=== PATIENT | male | born 1970 | race Caucasian/White ===

== ENCOUNTER 2017-12-03 16:56 | Emergency (ER) | payer BC, OTHER ==
[2017-12-03] MEDS ORDERED: SODIUM CHLORIDE 0.9% 2,000 ML IV ONE (17:07)
[2017-12-03] MEDS ORDERED: ONDANSETRON 4 MG/2 ML VIAL IVP STA (17:08)
--- NOTE | 2017-12-03 17:11 | ED ---
Nausea/Vomiting/Diarrhea HPI - General Chief complaint: Nausea/Vomiting/Diarrhea Stated complaint: Vomiting Time Seen by Provider: 12/03/17 17:03 Source: patient, RN notes reviewed Mode of arrival: ambulatory Limitations: no limitations - History of Present Illness Initial comments: 47-year-old male presents emergency Department with chief complaint of nausea vomiting, generalized weakness. Patient states his diabetic is concerned because of his symptoms. Patient's that he started with diarrhea few days ago which has subsided and now he just has vomiting has not been able to keep anything down for several days. His blood sugar earlier today was 110. He states as blood sugar has not been severely elevated. He does have an insulin pump on. Patient denies any fever, chills. He states he felt dizzy earlier but he has had no chest pain no shortness of breath. Denies any dysuria or hematuria. - Related Data Previous Rx's Medication Instructions Recorded Ondansetron Odt [Zofran Odt] 4 mg PO Q8HR PRN #10 tab 12/03/17 Allergies Allergy/AdvReac Type Severity Reaction Status Date / Time No Known Allergies Allergy Verified 12/03/17 17:02 Review of Systems ROS Statement: Those systems with pertinent positive or pertinent negative responses have been documented in the HPI. ROS Other: All systems not noted in ROS Statement are negative. Past Medical History Past Medical History: Diabetes Mellitus History of Any Multi-Drug Resistant Organisms: None Reported Past Surgical History: Cholecystectomy, Tonsillectomy Additional Past Surgical History / Comment(s): cataracts Past Psychological History: No Psychological Hx Reported Smoking Status: Never smoker Past Alcohol Use History: None Reported Past Drug Use History: None Reported General Exam Limitations: no limitations General appearance: alert, in no apparent distress Head exam: Present: atraumatic, normocephalic, normal inspection Eye exam: Present: normal appearance, PERRL, EOMI. Absent: scleral icterus, conjunctival injection, periorbital swelling Respiratory exam: Present: normal lung sounds bilaterally. Absent: respiratory distress, wheezes, rales, rhonchi, stridor Cardiovascular Exam: Present: normal rhythm, tachycardia, normal heart sounds. Absent: systolic murmur, diastolic murmur, rubs, gallop, clicks GI/Abdominal exam: Present: soft, normal bowel sounds. Absent: distended, tenderness, guarding, rebound, rigid Back exam: Absent: CVA tenderness (R), CVA tenderness (L) Neurological exam: Present: alert, oriented X3, CN II-XII intact Course Vital Signs 12/03/17 12/03/17 16:58 18:02 Temperature 98.8 F Pulse Rate 109 H 94 Respiratory 20 18 Rate Blood Pressure 183/102 143/76 O2 Sat by Pulse 98 96 Oximetry Medical Decision Making - Medical Decision Making 47-year-old male presented for nausea vomiting. Patient's was hydrated well 2 L of fluid given antiemetics. Patient is not found to be in DKA at this time. Patient was improved after antiemetics and fluids. Patient will be discharged with Zofran and follow-up tomorrow. - Lab Data Result diagrams: 12/03/17 17:10 12/03/17 17:10 Lab Results 12/03/17 12/03/17 12/03/17 Range/Units 17:10 17:10 17:10 WBC 11.7 H (3.8-10.6) k/uL RBC 5.07 (4.30-5.90) m/uL Hgb 14.9 (13.0-17.5) gm/dL Hct 42.6 (39.0-53.0) % MCV 83.9 (80.0-100.0) fL MCH 29.3 (25.0-35.0) pg MCHC 35.0 (31.0-37.0) g/dL RDW 12.6 (11.5-15.5) % Plt Count 213 (150-450) k/uL Neutrophils % 75 % Lymphocytes % 14 % Monocytes % 7 % Eosinophils % 1 % Basophils % 0 % Neutrophils # 8.8 H (1.3-7.7) k/uL Lymphocytes # 1.7 (1.0-4.8) k/uL Monocytes # 0.8 (0-1.0) k/uL Eosinophils # 0.1 (0-0.7) k/uL Basophils # 0.0 (0-0.2) k/uL VBG pH 7.43 H (7.31-7.41) VBG pCO2 37 (37-51) mmHg VBG HCO3 24 (24-28) mmol/L Sodium 139 (137-145) mmol/L Potassium 3.8 (3.5-5.1) mmol/L Chloride 99 (98-107) mmol/L Carbon Dioxide 25 (22-30) mmol/L Anion Gap 15 mmol/L BUN 25 H (9-20) mg/dL Creatinine 1.02 (0.66-1.25) mg/dL Est GFR (CKD-EPI)AfAm >90 (>60 ml/min/1.73 sqM) Est GFR (CKD-EPI)NonAf 86 (>60 ml/min/1.73 sqM) Glucose 216 H (74-99) mg/dL Calcium 8.5 (8.4-10.2) mg/dL Total Bilirubin 1.2 (0.2-1.3) mg/dL AST 38 (17-59) U/L ALT 37 (21-72) U/L Alkaline Phosphatase 73 (38-126) U/L Total Protein 6.0 L (6.3-8.2) g/dL Albumin 3.5 (3.5-5.0) g/dL Acetone, Qual Positive (Negative) Disposition Clinical Impression: Nausea & vomiting Disposition: HOME SELF-CARE Instructions: Acute Nausea and Vomiting (ED), Managing Diabetes During Sick Days (ED) Additional Instructions: Please return to the Emergency Department if symptoms worsen or any other concerns. Prescriptions: Ondansetron Odt [Zofran Odt] 4 mg PO Q8HR PRN #10 tab PRN Reason: Nausea Is patient prescribed a controlled substance at d/c from ED?: No Referrals: Calixto Hou DO [Primary Care Provider] - 1-2 days
[2017-12-03 17:34] LABS: VBG PH 7.43 (7.31-7.41)
[2017-12-03 17:39] LABS: ALT 37 U/L (21-72); AST 38 U/L (17-59); Albumin 3.5 g/dL (3.5-5.0); Alkaline Phosphatase 73 U/L (38-126); Anion Gap 15 mmol/L; Blood Urea Nitrogen 25 mg/dL (9-20); Calcium 8.5 mg/dL (8.4-10.2); Carbon Dioxide 25 mmol/L (22-30); Chloride 99 mmol/L (98-107); Glucose 216 mg/dL (74-99); Potassium 3.8 mmol/L (3.5-5.1); Sodium 139 mmol/L (137-145); Total Bilirubin 1.2 mg/dL (0.2-1.3)
[2017-12-03 17:44] LABS: Basophils % (A) 0 %; Eosinophils # (A) 0.1 k/uL (0-0.7); Eosinophils % (A) 1 %; HCT 42.6 % (39.0-53.0); HGB 14.9 gm/dL (13.0-17.5); Lymphocytes # (A) 1.7 k/uL (1.0-4.8); Lymphocytes % (A) 14 %; MCH 29.3 pg (25.0-35.0); MCV 83.9 fL (80.0-100.0); Mean Platelet Volume 8.3; Monocytes # (A) 0.8 k/uL (0-1.0); Monocytes % (A) 7 %; Neutrophils # (A) 8.8 k/uL (1.3-7.7); Neutrophils % (A) 75 %; Platelet Count 213 k/uL (150-450); RBC 5.07 m/uL (4.30-5.90); RDW 12.6 % (11.5-15.5); WBC 11.7 k/uL (3.8-10.6)
[2017-12-03] MEDS ORDERED: METOCLOPRAMIDE 5 MG/ML 2 ML VIAL IVP STA (17:56)
--- NOTE | 2017-12-03 17:59 | XR ---
EXAMINATION TYPE: XR KUB DATE OF EXAM: 12/03/2017 5:54 PM CLINICAL HISTORY: Abdominal pain, nausea and vomiting TECHNIQUE: Single supine KUB image of the abdomen is obtained. COMPARISON: None. FINDINGS: Scattered gas is seen in non-distended small bowel loops. Gas and fecal material is seen in non-distended colon. There is no visceromegaly, pneumoperitoneum, or abnormal calcification apprecia mague. The lung bases are clear and the osseous structures are intact. Cholecystectomy clips are noted within the right upper quadrant. IMPRESSION: Nonobstructive bowel gas pattern.
[2017-12-03 18:02] VITALS: RESP 18
[2017-12-03] MEDS ORDERED: ONDANSETRON 4 MG ODT STARTER PACK 2 TAB BTL PO STA (18:19)
[2017-12-03 19:41] VITALS: BP 147/70; PULSE 90; TEMP 98
== END 2017-12-03 19:41 | disposition home or self-care (01) ==
LOC: EC 16:56
DX: R11.2 Nausea with vomiting, unspecified (principal); R53.1 Weakness; E11.9 Type 2 diabetes mellitus without complications; Z96.41 Presence of insulin pump (external) (internal); Z79.4 Long term (current) use of insulin
CPT/HCPCS: 99284; 96374; 96375; 96361 ×2; 36415; 80053; 82803; 82009; 85025; 74018; J2765; J2405; S0119

== ENCOUNTER → 2018-07-31 | Outpatient (CLI) | payer BC ==
[2018-07-31 07:48] LABS: Blood Urea Nitrogen 23 mg/dL (9-20)
--- NOTE | 2018-07-31 10:15 | CT ---
EXAMINATION TYPE: CT soft tissue neck w con DATE OF EXAM: 07/31/2018 COMPARISON: None HISTORY: Enlarged lymph nodes found by physician. CT DLP: 551.4 mGycm CONTRAST: Patient injected with 100 mL of Isovue 300. TECHNIQUE: Axial images at 3 mm thick sections. Reconstructed images in the coronal plane and sagitt al plane are reviewed. FINDINGS: Limited CT sections are obtained the lung apices. The lung apices appear clear. CT neck: The torus tubarius and fossa of Rosenmuller are normal. Pediatric Physical Therapist spaces are normal. Mild mucosal thickening is within ethmoid air cells. Parotid glands appear normal and symmetrical. Submandibular glands, are normal. There is an enlarged lymph node anterior submandibular space measuring 0 cm. Additional shotty adenopathy bilaterally. Pa rapharyngeal spaces are normal. The hypopharynx appears within normal limits. Vocal cord is symmetrical. Subglottic airway is unremar kable. Vocal cord level appear symmetrical. Thyroid as visualized is normal. Osseous structures are normal. IMPRESSIONS: 1. Shotty lymph nodes present bilaterally within the anterior and posterior triangles. There is a lar ge lymph node in the left submandibular region measuring 1.0 cm.
== END ==
LOC: RADCTMAIN 07:16
PROVIDERS: ATTEND Family Medicine
DX: R59.1 Generalized enlarged lymph nodes (principal); Z13.9 Encounter for screening, unspecified
CPT/HCPCS: 82565; 84520; 70491; 36415; Q9967

== ENCOUNTER → 2018-11-23 | Outpatient (CLI) | payer BC ==
--- NOTE | 2018-11-23 08:12 | MR ---
EXAMINATION TYPE: MR neck wo/w con DATE OF EXAM: 11/23/2018 COMPARISON: CT neck July 31, 2018 HISTORY: Swollen lymph nodes per order. Left-sided neck mass per patient. CONTRAST: Standard multiplanar, multisequence MRI departmental protocol utilizing 10 mL intravenous Gadavist ga dolinium contrast. FINDINGS: A vitamin E marker is placed at area of clinical concern left submandibular level above the hyoid bone axial image 16. Correlating with CT deep to the sternocleidomastoid mastoid muscle there is redemonstration of enlarged suspicious posterior cervical triangle lymph node measuring 2.4 x 1.4 cm axial image 15. There are additional bilateral prominent but subcentimeter lymph nodes throughout the neck bilaterally. For reference at level of focal cords left of the carotid and jugular vessels t here is 1.4 x 0.8 cm lymph node noted axial image 6. Stable prominent bilateral submandibular and pos terior cervical lymph nodes are redemonstrated. There is slight asymmetry of soft tissue at the tongue base with increased right-sided fullness seen best axial images 14 and 15. Consider direct visualization if it has not been performed. No definitiv e mass is present. Airway remains patent. Parotid and submandibular glands are symmetric and felt within normal limits. There is mild mucosal thickening involving ethmoid and inferior maxillary sinuses bilaterally. Nasal septum remains slightly deviated to right of midline. Visualized portion of brain parenchyma is unrem arkable. Visualized thyroid gland is within normal limits. IMPRESSION: Stable suspicious enlarged left posterior cervical triangle lymph node with stable promin ent but subcentimeter bilateral neck lymph nodes. No new masses. Neoplasm is not excluded. Consider P ET CT follow-up. Consider imaging guided FNA. Clinical correlation advised.
== END ==
LOC: RADMRIMAIN 06:57
PROVIDERS: ATTEND Otolaryngology
DX: R22.1 Localized swelling, mass and lump, neck (principal)
CPT/HCPCS: 70543; A9585

== ENCOUNTER → 2019-01-08 | Outpatient (CLI) | payer BC ==
[2019-01-08 08:54] LABS: MCH 29.7 pg (25.0-35.0); MCHC 33.3 g/dL (31.0-37.0); MCV 89.2 fL (80.0-100.0); Platelet Count 196 k/uL (150-450); RBC 4.71 m/uL (4.30-5.90); RDW 13.8 % (11.5-15.5); WBC 5.4 k/uL (3.8-10.6)
== END | disposition home or self-care (01) ==
LOC: LABWHC1 07:54
PROVIDERS: ATTEND Otolaryngology
DX: Z01.812 Encounter for preprocedural laboratory examination (principal)
CPT/HCPCS: 36415; 85027

== ENCOUNTER → 2019-01-11 | Day surgery (SDC) | payer BC ==
[2019-01-08 15:02] VITALS: BMI 29.1
--- NOTE | 2019-01-10 23:50 | HP ---
HISTORY AND PHYSICAL CHIEF COMPLAINT: Left neck mass. HISTORY OF PRESENT ILLNESS: This patient is a very pleasant 48-year-old male who was originally seen in my office in August of 2018 as a referral for evaluation of neck mass. The patient states that the mass on the left side of the neck had been there for approximately 2 months. The patient is a nonsmoker and never has used any tobacco products. His family physician performed a CT scan which showed evidence of a 1 cm lymph node located in the area of the left submandibular gland and some shotty adenopathy bilaterally. The patient denied any referred otalgia or difficulty swallowing or night sweats. At the time that he was seen in the office, clinical examination revealed that the patient had a solitary, mobile, nontender, nonfluctuant mass/possible lymph node located in the region of the left submandibular/posterior triangle. The mass had the consistency of a lymph node. No other associated lymph nodes were noted. It was recommended that the patient be rechecked in approximately 3 months. The patient returned 3 months later and at that time an MRI was performed, and this showed evidence again of the left neck mass which appeared to be deep to the sternomastoid muscle and measured approximately 2.4 x 1.4 cm. In addition, there were noted bilateral prominent but sub-centimeter lymph nodes throughout the neck bilaterally. There did not appear to be any change in the size of any of the masses, and no new masses were associated when compared with the previous CT scan. The radiologist recommended that a PET CT scan be performed. However, after over a 20-minute discussion with the patient's insurance company, they denied authorization for this test based on what I felt were unreasonable reasons. It was explained to the insurance company physician that, as a head and neck surgeon, we generally prefer not to do needle biopsies of suspicious masses because of concern about missing a possible malignancy and also concern about contaminating the neck. Therefore I advised them that it would be necessary to do an open excisional biopsy of this mass or one of the lymph nodes in the neck because of their refusal to allow a PET scan, which would definitely delineate the possibility of this being any type of malignancy versus a simple benign lymphadenopathy. This was discussed with the patient and it was recommended and the patient agreed to undergo excision of left neck mass under general anesthesia. I advised the patient that most likely he will go home the same day unless it was required that I place a drain in the left neck. If a drain is put in place, then he would need to remain in the hospital overnight. PAST MEDICAL HISTORY: Past medical history reveals that the patient has NO KNOWN ALLERGIES TO MEDICATIONS. CURRENT MEDICATIONS: His current medications include: 1. Candesartan/HCTZ. 2. Valsartan/HCTZ. 3. Carrol. 4. Nasonex. 5. NovoLog insulin. 6. Humalog insulin. 7. Amlodipine. 8. Zocor. 9. Metoprolol. 10.Atorvastatin. 11.One baby aspirin daily. The patient has history of hypertension and type 1 diabetes mellitus but no history of asthma. PAST SURGICAL HISTORY: Previous surgeries include: 1. Cholecystectomy. 2. Tonsillectomy. 3. Adenoidectomy. 4. Colonoscopy. 5. Bilateral cataract surgery. REVIEW OF SYSTEMS: CARDIOVASCULAR SYSTEM: Positive for hypertension. RESPIRATORY SYSTEM: Negative. METABOLIC, ENDOCRINE SYSTEM: Positive for type diabetes mellitus and hypercholesterolemia. The remainder of the review of systems is essentially unremarkable. PHYSICAL EXAMINATION: This patient is a pleasant 48-year-old male who is alert and cooperative. HEENT EXAMINATION: Patient is normocephalic. Tympanic membranes are normal. Middle ear spaces are free of any fluid or infection. Pupils are equal, round and reactive to light and accommodation. Extraocular movements are within normal limits. Intranasal examination reveals moderate septal deviation with compensatory hypertrophy of the inferior turbinates and a moderate amount of mucus on the mucous membranes draining down to posterior pharynx. Examination of oropharynx is unremarkable. Palpation of the neck reveals the patient has an approximately 2 x 1 cm well- circumscribed mobile, nontender, nonfluctuant mass located inferior and deep to the left sternomastoid muscle near the left posterior triangle of the neck. No other suspicious neck masses are noted. Cranial nerves II through XII and the remainder of the head and neck exam are essentially unremarkable. CHEST/CARDIOVASCULAR: Both lung vaughan are clear to percussion and auscultation. The patient is in regular sinus rhythm. S1 and S2 are present without evidence of any murmurs, S3s or S4s. Peripheral pulses are bilaterally symmetrical and within normal limits. ABDOMEN: There is no evidence of any masses, megaly or tenderness. The abdomen is soft. SKIN: Unremarkable. MUSCULOSKELETAL AND NEUROLOGICAL: Within normal limits. Rectal examination is deferred at this time because the patient has this done on a regular basis at his family physician's office. The remainder of the physical exam is unremarkable. ASSESSMENT: Left neck mass, malignancy? PLAN: The patient is scheduled to undergo excision of left neck mass under general anesthesia in the morning. ATTENTION RNs IN THE PRE-SURGICAL AREA: The only pre-surgical prophylactic antibiotic that I have ordered for this patient is 3 grams of Ancef IV to be given once an intravenous line has been established. Also I have ordered for this patient to receive 1000 mg of Ofirmev IV, again to be given once an intravenous line has been established. If the pharmacy department sends any other pre-surgical prophylactic antibiotic other than Ancef to the pre-surgical area for this patient, that order should be cancelled and the medication should be returned to the pharmacy department. Please make sure that the patient's account is credited appropriately. Again, the two medications I have ordered for this patient are 3 grams of Ancef IV and 1000 mg of Ofirmev IV. I have discussed the risks, benefits and alternative therapies for the above-mentioned procedure and for both sedation/analgesia as well as necessary blood product administration, if indicated, as they pertain to this patient. The patient has indicated his or her understanding and acceptance of the risks and procedures discussed. MMODL / IJN: [id number] /
[~2019-01-11] MED LIST: ACETAMINOPHEN IV (For NPO) 1,000 MG in EMPTY BAG 1 BAG IVPB ONE; BACITRACIN OINT 1 EACH PACKET TOPICAL ONE; DEXAMETHASONE SOD PHOS (MDV) 100 MG/10 ML VIAL ONE; DEXAMETHASONE SOD PHOSPHATE 10 MG/ML 1 ML VIAL IV ONE; HYDROmorphone 0.5 MG/0.5 ML SYRINGE IVP PRN; LACTATED RINGERS 1,000 ML IV SCH; LIDOCAINE 1% 20 ML VIAL (10MG/ML) FOR IV START INTRADERMA ONE; LIDOCAINE 1% INJ 10MG/ML (20 ML MDV) ONE; LIDOCAINE 1%-EPI 1:100,000 20 ML VIAL SQ ONE; METOCLOPRAMIDE 5 MG/ML 2 ML VIAL IVP ONE; MIDAZOLAM 2 MG/2 ML VIAL IV PRN; MIDAZOLAM 2 MG/2 ML VIAL ONE; ONDANSETRON 4 MG/2 ML VIAL IVP ONE; PROPOFOL 10 MG/ML 20 ML VIAL IV ONE; Pre Op ABX Message 1 EACH MISC MISCELLANE ONE; SCOPOLAMINE 1.5MG/72HR PATCH TRANSDERM ONE; SODIUM CHLORIDE 0.9% 1,000 ML IV ONE; SUCCINYLCHOLINE CHLORIDE VIAL 200 MG/10 ML VIAL IV ONE; ceFAZolin 3 GM in SODIUM CHLORIDE 0.9% 100 ML IVPB ONE; diphenhydrAMINE 50 MG/ML 1 ML VIAL IVP ONE; ePHEDrine SULFATE/0.9% NACL/PF 50 MG/5 ML SYRINGE IV ONE; fentaNYL (PF) 50 MCG/ML 2 ML AMP ONE
[2019-01-11 10:39] LABS: Glucose,Whole Blood 269 mg/dL (75-99)
[2019-01-11 14:42] LABS: Glucose,Whole Blood 270 mg/dL (75-99)
[2019-01-11 15:20] VITALS: TEMP 97.8
[2019-01-11 16:17] VITALS: RESP 17
[2019-01-11 16:25] VITALS: BP 166/88; PULSE 79
[2019-01-11 17:22] LABS: Glucose,Whole Blood 250 mg/dL (75-99)
--- NOTE | 2019-01-12 16:15 | OP ---
OPERATIVE REPORT PREOPERATIVE DIAGNOSIS: Left neck mass. POSTOPERATIVE DIAGNOSIS: Left neck mass, 2.3 x 2 cm, final pathology pending. ANESTHESIA: General anesthesia. OPERATIVE PROCEDURE: Complete excision of left neck mass. SURGEON: Dr. Wooten. COMPLICATIONS: None. ESTIMATED BLOOD LOSS: Less than 25 mL. OPERATIVE PROCEDURE: The patient is placed on operating table in supine position and after uneventful induction and endotracheal intubation, satisfactory general anesthesia was obtained. Next, the patient's left neck and sarah face was prepped and draped in the usual and customary fashion. Following this, it was noted that the mass was located in the posterior triangle that is to day posterior to the left sternomastoid muscle. The proposed incision was located approximately 2-3 fingerbreadths below the lower edge of the mandible in an effort to avoid injuring the left marginal branch of the left facial nerve. Using a Goko marking pen, the proposed incision was made in one of the natural skin creases at this point in such a manner as to cross the left sternomastoid muscle anteriorly and posteriorly. The area was infiltrated with approximately 4 mL of 1% Xylocaine with epinephrine 1:100,000. Following this, using a #15 scalpel blade. An incision was made through skin and subcutaneous tissue down to the level of the platysma. The platysma muscle was then sharply incised in the usual and customary fashion down to the level of the overlying and the dissection was carried down to the level of the overlying superficial fascia of the neck. Next, the superior and inferior flaps were created in the usual fashion using a combination of blunt and sharp dissection. Attention was taken to identify and delineate the anterior and posterior borders of the left sternomastoid muscles. Care was taken to avoid injuring the left greater auricular nerve and it was dissected free from the underlying sternomastoid muscle and retracted anteriorly. Next, the external jugular vein was identified, dissected free of the muscle, clamped and double ligated using 4-0 silk sutures in the usual fashion. Next, attention was directed towards freeing up the anterior border of the left sternomastoid muscle using a combination of blunt and sharp dissection with a mosquito hemostat, working both inferiorly and superiorly. Next, the posterior border of the left sternomastoid muscle was identified and it too was freed up using a combination of sharp and blunt dissection with the scissors, the #15 scalpel, a mosquito hemostat, and peanut pushers. The dissection was carried deep into the floor of the left posterior triangle of the neck. That is to say, the scalene muscles as well as other contents of the posterior triangle were identified, namely the cervical branches of the nerve going to the muscles and also the spinal accessory nerve which was seen to be running diagonally from a superior to inferior fashion in the superior aspect of the field. The mass in question was noted to be deep to the sternal mastoid muscle and was located posterior lateral to the left carotid sheath. This sheath had been identified and protected. Next, after much deep palpation, the mass itself was correctly identified and was found to be approximately 2 x 2-1/2 cm in dimensions, well circumscribed, although it was somewhat irregular in its shape, it was found to be smooth. Continuing to use blunt dissection mainly with peanuts and with the curved mosquito hemostats, the mass which extended somewhat superiorly into the neck toward the left angle of the mandible was dissected from the floor of the left posterior triangle in a very careful fashion again taking care to protect the left spinal accessory nerve as well as the other cervical branches of the nerve. No neural structures were cut and hemostasis was obtained mainly using pressure, occasional Bovie and infrequent ligation using 4-0 silk ties. Bleeding was kept to a minimum. Process was quite tedious because of the location of the mass and because of its size and the fact that it actually extended deep into the scalene muscles towards the spinal muscles. The mass was eventually delivered into the wound and with further blunt dissection was free from the surrounding investing fascia muscles extractor. The mass was subsequently delivered out of the wound completely, although it was done so in several pieces. Further inspection did not reveal any remnants of the mass being left nor was any evidence of any active bleeding. Again, cautery was used on a limited basis because of the important neural structures in the area. Although, the hemostasis appeared to be the adequate, I placed a small piece of Surgicel in the deepest portion of the wound defect and elected not to place any type of drain since there was no active bleeding. The wound defect was closed in multiple layers beginning with the deep and the investing fascia layers which were reapproximated using 4-0 Vicryl in an interrupted fashion. Next, the fascia investing the sternomastoid muscle was reapproximated again using posteriorly using 4-0 Vicryl sutures in interrupted fashion. The anterior portion of the sternomastoid muscle investing fascia was also reapproximated thus once again securing coverage of the carotid sheath on the left. This was done using 4-0 Vicryl in an interrupted fashion. The greater auricular nerve was preserved. The superficial investing fascia of the neck was closed in a layer using full rapid absorbing Vicryl suture in an interrupted fashion. The platysmal muscle was next reapproximated at its edges using 4-0 rapid absorbing Vicryl in interrupted buried fashion. The subcutaneous tissue was reapproximated using full rapid absorbing Vicryl in an interrupted fashion. Next, the skin itself was carefully approximated using 4-0 rapid absorbing Vicryl in an interrupted fashion. Having closed this defect in multiple layers, created excellent cosmetic closure of the wound defect. Further buttressing of the wound was obtained by final skin closure using surgical elizabet in the usual fashion. No tissue glue was used. At this point, the procedure was terminated. There was no drain placed. There was no bleeding noted and no dressing was applied. A coating of bacitracin ointment was applied along with the role of surgical elizabet and at this point, the procedure was terminated. Estimated blood loss less than 25 mL. This procedure was started at approximately 11:35 and ended at approximately 2:35 for a total operating time of 3 hours. This is well beyond the normal operating time for a neck mass and the reason for the extended operating time was because the mass was extremely deep and because of its location in the posterior triangle and the surrounding important neurological structures, namely the greater auricular nerve, the cervical branches of the neck and also the left spinal accessory nerve, all of which were preserved and not injured during this slow dissection. Therefore, the 3 hour operating time was double the amount of time that would normally take to remove such a neck mass. The patient tolerated the procedure well and was returned to the recovery room in satisfactory condition. Final pathology is pending. MMODL / IJN: [id number] /
== END | disposition home or self-care (01) ==
LOC: OR 10:12
PROVIDERS: ATTEND Otolaryngology
DX: C91.10 Chronic lymphocytic leukemia of B-cell type not having achieved remission (principal); I10 Essential (primary) hypertension; E10.9 Type 1 diabetes mellitus without complications; E78.5 Hyperlipidemia, unspecified; E78.00 Pure hypercholesterolemia, unspecified; Z79.82 Long term (current) use of aspirin; Z79.4 Long term (current) use of insulin; Z79.891 Long term (current) use of opiate analgesic; Z79.899 Other long term (current) drug therapy; Z90.49 Acquired absence of other specified parts of digestive tract; Z98.42 Cataract extraction status, left eye; Z98.41 Cataract extraction status, right eye
CPT/HCPCS: 21556; J2250; J0330; J1200; J2765; J0690; J2405; J2001; J3010; J1100; J0131; J2704; 88307; 88341; 88342

== ENCOUNTER → 2019-02-06 | Outpatient (CLI) | payer BC ==
[2019-02-06 07:40] LABS: African American GFR (CKD) >90 (>60 ml/min/1.73 sqM); Blood Urea Nitrogen 24 mg/dL (9-20)
--- NOTE | 2019-02-06 10:17 | CT ---
EXAMINATION TYPE: CT ChestAbdPelvis w con DATE OF EXAM: 02/06/2019 COMPARISON: HISTORY: Leukemia CT DLP: 2029 mGycm CONTRAST: CT scan of the chest, abdomen and pelvis is performed with Oral Contrast and with IV Contrast, patien t injected with 100 mL of Isovue 300. CT Chest: LUNGS: The lungs are clear and free of infiltrate or atelectasis. No pulmonary nodule or mass is det ected. No pleural effusion or CT evidence of interstitial lung disease. MEDIASTINUM: Thoracic aorta is of normal caliber. The heart is not enlarged. No evidence for media stinal mass or adenopathy. Small hiatal hernia noted. HILAR STRUCTURES: No evidence for mass. No hilar adenopathy is appreciated. OTHER: Multiple Bilateral axillary lymph nodes are noted measuring up to 8 mm on the right and 8 mm o n the left. No lymph nodes greater than 1 cm present at this time. CONTRAST CT ABDOMEN AND PELVIS FINDINGS: LIVER/GB: Cholecystectomy clips are identified. No space occupying hepatic lesion. Biliary tree is of normal caliber. PANCREAS: No inflammation. No distinct mass. SPLEEN: No splenic enlargement. No lesion seen. ADRENALS: No nodule. No thickening. KIDNEYS/BLADDER: No hydronephrosis. No nephrolithiasis. Right renal cortical cyst measuring 1.3 cm. No solid renal lesion. BOWEL: Normal appendix. Normal bowel caliber. No inflammation. GENITAL ORGANS: No gross abnormality. LYMPH NODES: No greater than 1cm abdominal or pelvic lymph nodes are appreciated. Subcentimeter ingu inal lymph nodes identified. AORTA: No significant abnormality. OSSEOUS STRUCTURES: No significant abnormality is seen. OTHER: No significant additional abnormality is seen. IMPRESSION: 1. Subcentimeter axillary and inguinal lymph nodes identified. No pathologic adenopathy appreciated a t this time.
== END | disposition home or self-care (01) ==
LOC: RADCTMAIN 06:51
PROVIDERS: ATTEND Internal Medicine Hematology & Oncology
DX: C95.90 Leukemia, unspecified not having achieved remission (principal); Z03.89 Encounter for observation for other suspected diseases and conditions ruled out; R59.0 Localized enlarged lymph nodes
CPT/HCPCS: 82565; 84520; 71260; 74177; 36415; Q9967

== ENCOUNTER 2020-03-25 05:18 | Inpatient (IN) | payer BC, OTHER ==
[2020-03-25 05:49] LABS: Glucose,Whole Blood 349 mg/dL (75-99)
[2020-03-25] MEDS ORDERED: SODIUM CHLORIDE 0.9% 2,000 ML IV ONE (06:14)
[2020-03-25 06:15] LABS: HCT 48.6 % (39.0-53.0); HGB 16.2 gm/dL (13.0-17.5); MCH 30.1 pg (25.0-35.0); MCHC 33.4 g/dL (31.0-37.0); MCV 90.1 fL (80.0-100.0); Mean Platelet Volume 8.3; Platelet Count 297 k/uL (150-450); RBC 5.39 m/uL (4.30-5.90); RDW 12.5 % (11.5-15.5)
[2020-03-25 06:20] LABS: VBG PH 7.16 (7.31-7.41)
[2020-03-25 06:27] LABS: ALT 15 U/L (4-49); AST 18 U/L (17-59); African American GFR (CKD) 58 (>60 ml/min/1.73 sqM); Albumin 4.6 g/dL (3.5-5.0); Alkaline Phosphatase 85 U/L (38-126); Blood Urea Nitrogen 25 mg/dL (9-20); Calcium 9.3 mg/dL (8.4-10.2); Chloride 104 mmol/L (98-107); Glucose 314 mg/dL (74-99); Non-African American GFR(CKD) 50 (>60 ml/min/1.73 sqM); Sodium 138 mmol/L (137-145); Total Bilirubin 0.7 mg/dL (0.2-1.3); Total Protein 7.1 g/dL (6.3-8.2)
[2020-03-25 06:32] LABS: Anion Gap 26 mmol/L
[2020-03-25 06:35] LABS: Carbon Dioxide 8 mmol/L (22-30)
[2020-03-25 06:39] LABS: INR 0.9 (<1.2); Prothrombin Time 9.8 sec (9.0-12.0)
[2020-03-25 06:42] LABS: Partial Thromboplastin Time 21.2 sec (22.0-30.0)
[2020-03-25] MEDS ORDERED: Magnesium Replacement Protocol 1 EACH MISC MISCELLANE PRN (06:52)
[2020-03-25] MEDS ORDERED: Potassium Replacement Protocol 1 EACH MISC MISCELLANE PRN (06:52)
[2020-03-25] MEDS ORDERED: INSULIN REGULAR BOLUS (FROM DRIP BAG) IV ONE (06:52)
[2020-03-25] MEDS ORDERED: SODIUM CHLORIDE 0.9% 1,000 ML IV SCH (07:00)
[2020-03-25] MEDS ORDERED: INSULIN REGULAR 100 UNIT in SODIUM CHLORIDE 0.9% 100 ML IV SCH (07:00)
[2020-03-25 07:02] LABS: Appearance,Urine Clear (Clear); Bilirubin,Urine Negative (Negative); Blood,Urine Small (Negative); Color,Urine Light Yellow; Glucose,Urine (UA) 4+ (Negative); Hyaline Casts,Urine 1 /lpf (0-2); Leukocyte Esterase,Urine Negative (Negative); Mucus,Urine Rare /hpf; Nitrite,Urine Negative (Negative); PH, Urine 5.5 (5.0-8.0); Protein,Urine 2+ (Negative); Specific Gravity,Urine 1.023 (1.001-1.035); Squamous Epithelial Cell,Urine 1 /hpf (0-4); Urobilinogen,Urine <2.0 mg/dL (<2.0); WBC,Urine 2 /hpf (0-5)
--- NOTE | 2020-03-25 07:09 | ED ---
General Adult HPI - General Chief complaint: Nausea/Vomiting/Diarrhea Stated complaint: Vomiting Time Seen by Provider: 03/25/20 05:33 Source: patient Mode of arrival: ambulatory Limitations: no limitations - History of Present Illness Initial comments: Walter is a 50-year-old male with insulin-dependent type 1 diabetes diagnosed at the age of 28. Patient has very well controlled diabetes with a insulin pump. He has only had 4 hospital admissions for DKA in 22 years. Patient reports that throughout the day yesterday as feeling somewhat nauseated he was up all night with nausea vomiting began to feel very fatigued and was feeling very thirsty which indicated to him that his sugars were probably out of control. He realized he likely had a slight malfunction on his insulin pump and changed sites prior to coming to the ER. Patient denies any receiving illness, any fevers, chills, chest pain or shortness of breath. - Related Data Home Medications Medication Instructions Recorded Confirmed Aspirin [Adult Low Dose Aspirin EC] 81 mg PO DAILY 03/13/18 01/08/19 Atorvastatin [Lipitor] 10 mg PO HS 03/13/18 01/11/19 Candesartan/Hydrochlorothiazid 1 each PO DAILY 03/13/18 01/08/19 [Candesartan-Hctz 32-25 mg Tab] Insulin Aspart (For Pump) [NovoLOG 0.01 unit SQ-PUMP CONTINUOUS 03/13/18 01/08/19 (For Pump)] Metoprolol Succinate (ER) [Toprol 50 mg PO DAILY 03/13/18 01/08/19 Xl] amLODIPine BESYLATE [Norvasc] 10 mg PO DAILY 03/13/18 01/08/19 Cholecalciferol (Vitamin D3) 2,000 unit PO DAILY 01/08/19 01/11/19 [Vitamin D3] Carvedilol [Coreg] 12.5 mg PO BID 03/25/20 03/25/20 Allergies Allergy/AdvReac Type Severity Reaction Status Date / Time No Known Allergies Allergy Verified 03/25/20 07:11 Review of Systems ROS Statement: Those systems with pertinent positive or pertinent negative responses have been documented in the HPI. ROS Other: All systems not noted in ROS Statement are negative. Past Medical History Past Medical History: Diabetes Mellitus, Hyperlipidemia, Hypertension Additional Past Medical History / Comment(s): CLL History of Any Multi-Drug Resistant Organisms: None Reported Past Surgical History: Cholecystectomy, Tonsillectomy Additional Past Surgical History / Comment(s): THU Cataracts Past Anesthesia/Blood Transfusion Reactions: Motion Sickness, Postoperative Nausea & Vomiting (PONV) Past Psychological History: No Psychological Hx Reported Smoking Status: Never smoker Past Alcohol Use History: None Reported Past Drug Use History: None Reported - Past Family History Father Family Medical History: Cancer Additional Family Medical History / Comment(s): LEUKEMIA General Exam - General Exam Comments Initial Comments: Physical Exam GENERAL: Patient is well-developed and well-nourished. Patient is nontoxic and well- hydrated and is in no distress. HENT: Normocephalic, Atraumatic. EYES: PERRL, EOMI PULMONARY: Unlabored respirations. No audible rales rhonchi or wheezing was noted. CARDIOVASCULAR: There is a regular rate and rhythm without any murmurs gallops or rubs. ABDOMEN: Soft and nontender with normal bowel sounds. SKIN: Skin is clear with no lesions or rashes and otherwise unremarkable. : Deferred NEUROLOGIC: Patient is alert and oriented x3. Moving all extremities spontaneously MUSCULOSKELETAL: Normal extremities with adequate strength and full range of motion. No lower extremity swelling or edema. No calf tenderness. PSYCHIATRIC: Normal psychiatric evaluation. Limitations: no limitations Course Vital Signs 03/25/20 05:24 Temperature 98.2 F Pulse Rate 129 H Respiratory 22 Rate Blood Pressure 145/84 O2 Sat by Pulse 99 Oximetry EKG Findings - EKG Comments: EKG Findings:: EKG was obtained due to complaint of tachycardia, EKG was obtained at 5:37 AM, rate is 111, rhythm is sinus tachycardia with rightward axis, ND 134, QRS 94, QTC 459 there are no acute ST elevations or depressions there is no evidence of acute ischemia or infarction. Medical Decision Making - Medical Decision Making The patient was seen and evaluated history is obtained from the patient [id number] glucose greater than 350 History and physical exam are concerning for DKA Labs were obtained Labs are consistent with DKA, pH 7.1, bicarbonate, anion gap 26 Patient will be admitted to the ICU on an insulin drip for DKA management. Patient care was discussed Dr. Mandel who accepts admission to the ICU - Lab Data Result diagrams: 03/25/20 05:55 03/25/20 05:55 Lab Results 03/25/20 03/25/2003/25/20 Range/Units 05:48 05:55 05:55 WBC 19.0 H (3.8-10.6) k/uL RBC 5.39 (4.30-5.90) m/uL Hgb 16.2 (13.0-17.5) gm/dL Hct 48.6 (39.0-53.0) % MCV 90.1 (80.0-100.0) fL MCH 30.1 (25.0-35.0) pg MCHC 33.4 (31.0-37.0) g/dL RDW 12.5 (11.5-15.5) % Plt Count 297 (150-450) k/uL PT 9.8 (9.0-12.0) sec INR 0.9 (<1.2) APTT 21.2 L (22.0-30.0) sec VBG pH (7.31-7.41) VBG pCO2 (37-51) mmHg VBG HCO3 (24-28) mmol/L Sodium (137-145) mmol/L Potassium (3.5-5.1) mmol/L Chloride (98-107) mmol/L Carbon Dioxide (22-30) mmol/L Anion Gap mmol/L BUN (9-20) mg/dL Creatinine (0.66-1.25) mg/dL Est GFR (CKD-EPI)AfAm (>60 ml/min/1.73 sqM) Est GFR (CKD-EPI)NonAf (>60 ml/min/1.73 sqM) Glucose (74-99) mg/dL POC Glucose (mg/dL) 349 H (75-99) mg/dL POC Glu Tapper Balance Wheel Screw Hole ID Ana Rhodes Plasma Lactic Acid Scotty (0.7-2.0) mmol/L Calcium (8.4-10.2) mg/dL Total Bilirubin (0.2-1.3) mg/dL AST (17-59) U/L ALT (4-49) U/L Alkaline Phosphatase (38-126) U/L Total Protein (6.3-8.2) g/dL Albumin (3.5-5.0) g/dL Acetone, Qual (Negative) 03/25/20 03/25/20 03/25/20 Range/Units 05:55 05:55 05:55 WBC (3.8-10.6) k/uL RBC (4.30-5.90) m/uL Hgb (13.0-17.5) gm/dL Hct (39.0-53.0) % MCV (80.0-100.0) fL MCH (25.0-35.0) pg MCHC (31.0-37.0) g/dL RDW (11.5-15.5) % Plt Count (150-450) k/uL PT (9.0-12.0) sec INR (<1.2) APTT (22.0-30.0) sec VBG pH 7.16 L* (7.31-7.41) VBG pCO2 24 L (37-51) mmHg VBG HCO3 8 L* (24-28) mmol/L Sodium 138 (137-145) mmol/L Potassium 5.0 (3.5-5.1) mmol/L Chloride 104 (98-107) mmol/L Carbon Dioxide 8 L* (22-30) mmol/L Anion Gap 26 mmol/L BUN 25 H (9-20) mg/dL Creatinine 1.57 H (0.66-1.25) mg/dL Est GFR (CKD-EPI)AfAm 58 (>60 ml/min/1.73 sqM) Est GFR (CKD-EPI)NonAf 50 (>60 ml/min/1.73 sqM) Glucose 314 H (74-99) mg/dL POC Glucose (mg/dL) (75-99) mg/dL POC Glu Tapper Balance Wheel Screw Hole ID Plasma Lactic Acid Scotty 1.5 (0.7-2.0) mmol/L Calcium 9.3 (8.4-10.2) mg/dL Total Bilirubin 0.7 (0.2-1.3) mg/dL AST 18 (17-59) U/L ALT 15 (4-49) U/L Alkaline Phosphatase 85 (38-126) U/L Total Protein 7.1 (6.3-8.2) g/dL Albumin 4.6 (3.5-5.0) g/dL Acetone, Qual Positive (Negative) Critical Care Time Critical Care Time: Yes Total Critical Care Time: 30 Critical Care Time: Critical Care Time 30 min Critical care time was exclusive of separately billable procedures and treating other patients and teaching time. Critical care was necessary to treat or prevent imminent or life-threatening deterioration. Given the critical condition in which the patient arrived, the patient was immediately assessed by myself and the nurse, and cardiac monitoring initiated due to the potential for rapid decompensation of the patient's clinical condition. During the course of the patients stay, I spent a considerable amount of time at the bedside performing serial re-evaluations of the patient's hemodynamic and clinical status because of the recognized potential threat to life or limb in this condition. I then had a chance to review not only all of the available current laboratory and radiographic studies obtained today, but I also reviewed old records available to me at the time. Additionally, any ancillary information available including mercantile agent records were reviewed. Sequential vital signs were obtained. Disposition Clinical Impression: DKA (diabetic ketoacidoses) Disposition: ADMITTED IP TO THIS [facility] Condition: Serious Is patient prescribed a controlled substance at d/c from ED?: No Referrals: Calixto Hou DO [Primary Care Provider] - 1-2 days
[2020-03-25] MEDS ORDERED: METOPROLOL TARTRATE 5 MG/5 ML VIAL IVP STA (07:13)
[2020-03-25 07:15] LABS: Ketones,Urine 4+ (Negative)
[2020-03-25] MEDS ORDERED: NALOXONE 0.4 MG/ML 1 ML VIAL IV PRN (07:15)
[2020-03-25 07:37] LABS: Glucose,Whole Blood 284 mg/dL (75-99)
[2020-03-25 07:40] LABS: Lymphocytes # (M) 8.17 k/uL (1.0-4.8); Monocytes # (M) 0.57 k/uL (0-1.0); Neutrophils # (M) 10.45 k/uL (1.3-7.7); Neutrophils % (M) 55 %; Nucleated Red Blood Cells 0 /100 WBC (0-0); Total Cells Counted 200
[2020-03-25 08:09] LABS: Glucose,Whole Blood 219 mg/dL (75-99)
[2020-03-25] MEDS: D5-0.45% NACL WITH KCL 20MEQ/L 1,000 ML IV SCH ×2 (08:12→15:35)
[2020-03-25 09:05] LABS: Glucose,Whole Blood 204 mg/dL (75-99)
[2020-03-25 09:20] LABS: Potassium 4.3 mmol/L (3.5-5.1)
[2020-03-25 10:00] LABS: Glucose,Whole Blood 189 mg/dL (75-99)
[2020-03-25 10:14] VITALS: BMI 32.5
[2020-03-25 10:54] LABS: Glucose,Whole Blood 187 mg/dL (75-99)
[2020-03-25 11:57] LABS: Phosphorus 1.1 mg/dL (2.5-4.5); Potassium 4.1 mmol/L (3.5-5.1)
[2020-03-25 12:15] LABS: Glucose,Whole Blood 195 mg/dL (75-99)
[2020-03-25] MEDS ORDERED: Phosphorus Replacement Protoco 1 EACH MISC MISCELLANE PRN (13:53)
--- NOTE | 2020-03-25 14:23 | P.CNPUL ---
History of Present Illness Consult date: 03/25/20 Requesting physician: Oniel Eng Reason for consult: other (Acute diabetic ketoacidosis) Chief complaint: Nausea, fatigue, History of present illness: This is a 50-year-old white male with history of type 1 diabetes diagnosed at age 28, normally follows up with Dr. munroe/measurer machine for his diabetes. Patient has an insulin pump in place. In the last 22 years, patient had only 4 episodes of diabetic ketoacidosis. Patient came into the ER yesterday with a 1 day history of nausea, fatigue, and he notices that his sugars were out of control he feels something wrong with his pump or with the site of his pump. Patient had no symptoms to suggest any ongoing infection. No cough, no fever, no chills, no abdominal pain, no vomiting, no dysuria and no frequency no urgency and no hematuria. Upon arrival to the ER, patient was noted to have elevated blood sugar, as high as 314, and his ketones were for positive in the urine. Venous ABG showed a pH of 7.16, and bicarb of 8. Patient was admitted, placed on the DKA protocol, received fluid boluses in the form of 0.9 normal saline. Follow-up electrolytes this morning showed a bicarb of 14 and anion gap of 11 compared to anion gap of 26 upon his initial presentation. And his sugar now is 187. Patient is already feeling a bit better. Denies any shortness of breath Review of Systems Constitutional: Weakness fatigue, no fever, no weight loss. HEENT: Negative. Pulmonary: Negative. No cough no wheezing no shortness of breath. Hematologic: History of CLL, being followed by Dr. Mc. No treatment felt necessary. GI: As noted in HPI mostly nausea. No abdominal pain, no vomiting. Genitourinary: No dysuria frequency urgency or hematuria. Neurologic: Denies any headache blurred vision or dizziness. Cardiac: Denies any chest pain or orthopnea PND. Endocrine: As noted in HPI, mostly fatigue, excessive thirst, and elevated blood sugar at home. Denies heat or cold intolerance. Psychiatric: No symptoms of active depression. Skin: No rashes. Past Medical History Past Medical History: Cancer, Diabetes Mellitus, Hyperlipidemia, Hypertension Additional Past Medical History / Comment(s): IDDM type I, CLL, recent R upper arm pain, occasional sinus issues. History of Any Multi-Drug Resistant Organisms: None Reported Past Surgical History: Cholecystectomy, Tonsillectomy Additional Past Surgical History / Comment(s): 12/2018 L neck mass excision, colonoscopy, bilateral cataract removals/lens implants Past Anesthesia/Blood Transfusion Reactions: Motion Sickness, Postoperative Nausea & Vomiting (PONV) Smoking Status: Never smoker - Past Family History Father Family Medical History: Cancer Additional Family Medical History / Comment(s): Father from leukemia. Mother Additional Family Medical History / Comment(s): Mother is , she had night terrors. Brother(s) Additional Family Medical History / Comment(s): 2 of pts brothers have schizophrenia and one is also a diabetic. One at the age of 56yrs from "natural causes" Medications and Allergies Home Medications Medication Instructions Recorded Confirmed Type Aspirin [Adult Low Dose Aspirin EC] 81 mg PO DAILY 03/13/18 03/25/20 History Atorvastatin [Lipitor] 10 mg PO DAILY 03/13/18 03/25/20 History Candesartan/Hydrochlorothiazid 1 tab PO DAILY 03/13/18 03/25/20 History [Candesartan-Hctz 32-25 mg Tab] Insulin Aspart (For Pump) [NovoLOG 0.01 unit SQ-PUMP CONTINUOUS 03/13/18 03/25/20 History (For Pump)] Metoprolol Succinate (ER) [Toprol 50 mg PO DAILY 03/13/18 03/25/20 History Xl] amLODIPine BESYLATE [Norvasc] 10 mg PO DAILY 03/13/18 03/25/20 History Cholecalciferol (Vitamin D3) 2,000 unit PO DAILY 01/08/19 03/25/20 History [Vitamin D3] Carvedilol [Coreg] 12.5 mg PO BID 03/25/20 03/25/20 History Allergies Allergy/AdvReac Type Severity Reaction Status Date / Time No Known Allergies Allergy Verified 03/25/20 07:11 Physical Exam Vitals: Vital Signs Temp Pulse Resp BP Pulse Ox 03/25/20 13:00 98 12 158/86 98 03/25/20 12:00 98.1 F 97 16 168/81 97 03/25/20 11:00 96 22 171/94 97 03/25/20 10:00 99 11 L 177/94 99 03/25/20 09:00 101 H 14 183/97 98 03/25/20 08:30 98 20 183/97 98 03/25/20 08:00 98.2 F 93 15 193/97 99 03/25/20 07:30 98 18 199/101 100 03/25/20 07:29 100 18 199/100 100 03/25/20 05:24 98.2 F 129 H 22 145/84 99 Intake and Output 03/24/20 03/25/20 03/25/20 22:59 06:59 14:59 Intake Total 974.216 Output Total 400 Balance 574.216 Intake: IV 900 D5-0.45% NaCl with KCl 900 20Meq/l 1,000 ml @ 150 mls/hr IV .Q6H40M [facility] Rx# :[id number] Intake, IV Titration 74.216 Amount Insulin Regular 100 unit 74.216 In Sodium Chloride 0.9% 100 ml @ 0.1 UNITS/KG/HR 10.995 mls/hr IV .Q9H12M [facility] Rx#:[id number] Output: Urine 400 Other: Voiding Method Toilet Urinal # Voids 0 Weight 108.862 kg 108.862 kg Physical Exam: Revealed 50-year-old white male very pleasant, in no distress. Head: Atraumatic, normocephalic. HEENT:[Neck is supple.] [No neck masses.] [No thyromegaly.] [No JVD.] Chest: [Clear throughout, no crackles, no rhonchi, no wheezes.] Cardiac Exam: [Normal S1 and S2, no S3 gallop, no murmur.] Abdomen: [Soft, nontender, no megaly, no rebound, no guarding, normal bowel sounds.] Extremities: [No clubbing, no edema, no cyanosis.] Neurological Exam: [No focal neurologic deficit.] Alert oriented 3 focal deficits. Psychiatric: Normal mood, affect and normal mental status examination. Skin: No rashes. Musculoskeletal: No deformities and no limitation in range of motion Results - Laboratory Findings CBC and BMP: 03/25/20 05:55 03/25/20 11:34 PT/INR, D-dimer PT 9.8 sec (9.0-12.0) 03/25/20 05:55 INR 0.9 (<1.2) 03/25/20 05:55 Abnormal lab findings: Abnormal Labs 03/25/20 03/25/20 03/25/20 05:48 05:55 05:55 WBC 19.0 H Neutrophils # (Manual) 10.45 H Lymphocytes # (Manual) 8.17 H APTT 21.2 L VBG pH VBG pCO2 VBG HCO3 Chloride Carbon Dioxide BUN Creatinine Glucose POC Glucose (mg/dL) 349 H Phosphorus Urine Protein Urine Glucose (UA) Urine Ketones Urine Blood Urine Mucus 03/25/20 03/25/20 03/25/20 05:55 05:55 05:55 WBC Neutrophils # (Manual) Lymphocytes # (Manual) APTT VBG pH 7.16 L* VBG pCO2 24 L VBG HCO3 8 L* Chloride Carbon Dioxide 8 L* BUN 25 H Creatinine 1.57 H Glucose 314 H POC Glucose (mg/dL) Phosphorus Urine Protein 2+ H Urine Glucose (UA) 4+ H Urine Ketones 4+ H Urine Blood Small H Urine Mucus Rare H 03/25/20 03/25/20 03/25/20 07:16 08:07 08:36 WBC Neutrophils # (Manual) Lymphocytes # (Manual) APTT VBG pH VBG pCO2 VBG HCO3 Chloride Carbon Dioxide BUN Creatinine Glucose POC Glucose (mg/dL) 284 H 219 H Phosphorus 1.7 L Urine Protein Urine Glucose (UA) Urine Ketones Urine Blood Urine Mucus 03/25/20 03/25/20 03/25/20 08:36 09:03 09:58 WBC Neutrophils # (Manual) Lymphocytes # (Manual) APTT VBG pH VBG pCO2 VBG HCO3 Chloride 110 H Carbon Dioxide 13 L BUN 24 H Creatinine 1.31 H Glucose POC Glucose (mg/dL) 204 H 189 H Phosphorus Urine Protein Urine Glucose (UA) Urine Ketones Urine Blood Urine Mucus 03/25/20 03/25/20 03/25/20 10:52 11:34 12:14 WBC Neutrophils # (Manual) Lymphocytes # (Manual) APTT VBG pH VBG pCO2 VBG HCO3 Chloride 112 H Carbon Dioxide 14 L BUN 23 H Creatinine Glucose POC Glucose (mg/dL) 187 H 195 H Phosphorus 1.1 L Urine Protein Urine Glucose (UA) Urine Ketones Urine Blood Urine Mucus Assessment and Plan Assessment: Impression: Acute diabetic ketoacidosis secondary to malfunctioning pump. History of CLL. Not requiring any treatment. Benign essential hypertension. Dyslipidemia. Recommendation: Continue present treatment plan Continue DKA protocol. Continue to monitor in the ICU for the next 24 hours. Continue IV fluid in the form of 0.9 normal saline. Resume home meds. We'll continue to follow. Continue GI and DVT prophylaxis. Time with Patient: Greater than 30
[2020-03-25] MEDS ORDERED: PANTOPRAZOLE 40 MG TABLET PO STA (14:24)
[2020-03-25] MEDS ORDERED: ENOXAPARIN 40 MG/0.4 ML SYRINGE SQ SCH (14:30)
[2020-03-25] MEDS ORDERED: INSULIN PUMP BASAL RATES 1 EACH MISC MISCELLANE PRN (15:25)
[2020-03-25] MEDS ORDERED: INSULIN PUMP ACTIVE INSULIN 1 EACH MISC MISCELLANE PRN (15:25)
[2020-03-25] MEDS ORDERED: INSULIN ASPART (NovoLOG) 100 UNIT/ML VIAL SQ PRN (15:25)
[2020-03-25] MEDS ORDERED: INSPUCOR MISCELLANE PRN (15:25)
[2020-03-25] MEDS ORDERED: INSULIN PUMP TARGET GLUCOSE 1 EACH MISC MISCELLANE PRN (15:25)
[2020-03-25] MEDS: SODIUM PHOSPHATE 10 MMOL in SODIUM CHLORIDE 0.9% 250 ML IVPB SCH ×3 (15:36→20:03)
[2020-03-25 16:19] LABS: African American GFR (CKD) >90 (>60 ml/min/1.73 sqM); Anion Gap 6 mmol/L; Blood Urea Nitrogen 22 mg/dL (9-20); Calcium 8.2 mg/dL (8.4-10.2); Carbon Dioxide 18 mmol/L (22-30); Chloride 111 mmol/L (98-107); Glucose 195 mg/dL (74-99); Non-African American GFR(CKD) 89 (>60 ml/min/1.73 sqM); Potassium 4.2 mmol/L (3.5-5.1); Sodium 135 mmol/L (137-145)
--- NOTE | 2020-03-25 16:35 | P.HPIM ---
History of Present Illness H&P Date: 03/25/20 Chief Complaint: Nausea vomiting History of presenting complaint: This is a very pleasant 50-year-old patient of Dr. Pham Hou. Chronic stable medical conditions include hypertension, hyperlipidemia, CLL diagnosed a year ago being followed by Dr. Hollis. This was diagnosed with the left neck max incision. Patient.-Diabetic for 22 years. Has insulin pump. Patient yesterday started having nausea weakness progressed and started vomiting. No fever no chills. No chest pain. They may been a problem the rate was attached the skin. The battery was okay. Finally presented to the ER. Found to be in diabetic ketoacidosis. Admitted to the ICU with insulin protocol. This morning patient is feeling a bit better. Anion gap is started to close. No further flora sea vomiting. Review of systems: GEN.: Tired EYES: None HEENT: None NECK: None RESPIRATORY: None CARDIOVASCULAR: None GASTROINTESTINAL: As above GENITOURINARY: None MUSCULOSKELETAL: None LYMPHATICS: None HEMATOLOGICAL: None PSYCHIATRY: None NEUROLOGICAL: None Past medical history to include: Diabetes mellitus type 1 hypertension, hyperlipidemia, CLL, Social history: . No smoking. No alcohol. 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 Physical examination: VITAL SIGNS: 98.2, 129, 22, 145/84, 99% room air upon presentation GENERAL: BMI 32.5, laying in bed, bit tired. EYES: Pupils equal. Conjunctiva normal. HEENT: External appearance of nose and ears normal, oral cavity dry mucous membranes. NECK: JVD not raised; masses not palpable. HEART: First and second heart sounds are normal; no edema. LUNGS: Respiratory rate normal; clear to auscultation. ABDOMEN: Soft, nontender, liver spleen not palpable, no masses palpable. PSYCH: Alert and oriented x3; mood and affect normal. NEUROLOGICAL: Cranial nerves grossly intact; no facial asymmetry, power and sensation grossly intact. LYMPHATICS: No lymph nodes palpable in the axilla and neck INVESTIGATIONS, reviewed in the clinical context: White count 19 hemoglobin 15.2 platelets 297 PH 7.16 potassium 5 bicarbonate 8 bun 25 creatinine 1.57 blood glucose 314 Anion gap 26 EKG tracing personally reviewed by me-sinus tachycardia Assessment: -Diabetic ketoacidosis -Diabetes mellitus type 1 -Hyperlipidemia -Essential hypertension -CLL being followed by Dr. Hollis -Obesity BMI 32.5 Plan: Patient admitted to the hospital. Put on a diabetic ketoacidosis protocol. Started on insulin drip. IV fluids. Electrolytes been closely followed. Lovenox for DVT prophylaxis. Patient is feeling better since admission. No clinical evidence of infection. Care was discussed with the patient. Questions answered. Past Medical History Past Medical History: Cancer, Diabetes Mellitus, Hyperlipidemia, Hypertension Additional Past Medical History / Comment(s): IDDM type I, CLL, recent R upper arm pain, occasional sinus issues. History of Any Multi-Drug Resistant Organisms: None Reported Past Surgical History: Cholecystectomy, Tonsillectomy Additional Past Surgical History / Comment(s): 12/2018 L neck mass excision, colonoscopy, bilateral cataract removals/lens implants Past Anesthesia/Blood Transfusion Reactions: Motion Sickness, Postoperative Nausea & Vomiting (PONV) Smoking Status: Never smoker - Past Family History Father Family Medical History: Cancer Additional Family Medical History / Comment(s): Father from leukemia. Mother Additional Family Medical History / Comment(s): Mother is , she had night terrors. Brother(s) Additional Family Medical History / Comment(s): 2 of pts brothers have schizophrenia and one is also a diabetic. One at the age of 56yrs from "natural causes" Medications and Allergies Home Medications Medication Instructions Recorded Confirmed Type Aspirin [Adult Low Dose Aspirin EC] 81 mg PO DAILY 03/13/18 03/25/20 History Atorvastatin [Lipitor] 10 mg PO DAILY 03/13/18 03/25/20 History Candesartan/Hydrochlorothiazid 1 tab PO DAILY 03/13/18 03/25/20 History [Candesartan-Hctz 32-25 mg Tab] Insulin Aspart (For Pump) [NovoLOG 0.01 unit SQ-PUMP CONTINUOUS 03/13/18 03/25/20 History (For Pump)] Metoprolol Succinate (ER) [Toprol 50 mg PO DAILY 03/13/18 03/25/20 History Xl] amLODIPine BESYLATE [Norvasc] 10 mg PO DAILY 03/13/18 03/25/20 History Cholecalciferol (Vitamin D3) 2,000 unit PO DAILY 01/08/19 03/25/20 History [Vitamin D3] Carvedilol [Coreg] 12.5 mg PO BID 03/25/20 03/25/20 History Allergies Allergy/AdvReac Type Severity Reaction Status Date / Time No Known Allergies Allergy Verified 03/25/20 07:11 Physical Exam Vitals: Vital Signs Temp Pulse Resp BP Pulse Ox 03/25/20 10:00 99 11 L 177/94 99 03/25/20 09:00 101 H 14 183/97 98 03/25/20 08:30 98 20 183/97 98 03/25/20 08:00 98.2 F 93 15 193/97 99 03/25/20 07:30 98 18 199/101 100 03/25/20 07:29 100 18 199/100 100 03/25/20 05:24 98.2 F 129 H 22 145/84 99 Intake and Output 03/24/20 03/25/20 03/25/20 22:59 06:59 14:59 Intake Total 600 Output Total 400 Balance 200 Intake: IV 600 D5-0.45% NaCl with KCl 600 20Meq/l 1,000 ml @ 150 mls/hr IV .Q6H40M [facility] Rx# :[id number] Output: Urine 400 Other: Voiding Method Toilet Urinal # Voids 1 Weight 108.862 kg 108.862 kg Results CBC & Chem 7: 03/25/20 05:55 03/25/20 15:38 Labs: Abnormal Lab Results - Last 24 Hours (Table) 03/25/20 03/25/20 03/25/20 Range/Units 05:48 05:55 05:55 WBC 19.0 H (3.8-10.6) k/uL Neutrophils # (Manual) 10.45 H (1.3-7.7) k/uL Lymphocytes # (Manual) 8.17 H (1.0-4.8) k/uL APTT 21.2 L (22.0-30.0) sec VBG pH (7.31-7.41) VBG pCO2 (37-51) mmHg VBG HCO3 (24-28) mmol/L Chloride (98-107) mmol/L Carbon Dioxide (22-30) mmol/L BUN (9-20) mg/dL Creatinine (0.66-1.25) mg/dL Glucose (74-99) mg/dL POC Glucose (mg/dL) 349 H (75-99) mg/dL Phosphorus (2.5-4.5) mg/dL Urine Protein (Negative) Urine Glucose (UA) (Negative) Urine Ketones (Negative) Urine Blood (Negative) Urine Mucus (None) /hpf 03/25/20 03/25/20 03/25/20 Range/Units 05:55 05:55 05:55 WBC (3.8-10.6) k/uL Neutrophils # (Manual) (1.3-7.7) k/uL Lymphocytes # (Manual) (1.0-4.8) k/uL APTT (22.0-30.0) sec VBG pH 7.16 L* (7.31-7.41) VBG pCO2 24 L (37-51) mmHg VBG HCO3 8 L* (24-28) mmol/L Chloride (98-107) mmol/L Carbon Dioxide 8 L* (22-30) mmol/L BUN 25 H (9-20) mg/dL Creatinine 1.57 H (0.66-1.25) mg/dL Glucose 314 H (74-99) mg/dL POC Glucose (mg/dL) (75-99) mg/dL Phosphorus (2.5-4.5) mg/dL Urine Protein 2+ H (Negative) Urine Glucose (UA) 4+ H (Negative) Urine Ketones 4+ H (Negative) Urine Blood Small H (Negative) Urine Mucus Rare H (None) /hpf 03/25/20 03/25/20 03/25/20 Range/Units 07:16 08:07 08:36 WBC (3.8-10.6) k/uL Neutrophils # (Manual) (1.3-7.7) k/uL Lymphocytes # (Manual) (1.0-4.8) k/uL APTT (22.0-30.0) sec VBG pH (7.31-7.41) VBG pCO2 (37-51) mmHg VBG HCO3 (24-28) mmol/L Chloride (98-107) mmol/L Carbon Dioxide (22-30) mmol/L BUN (9-20) mg/dL Creatinine (0.66-1.25) mg/dL Glucose (74-99) mg/dL POC Glucose (mg/dL) 284 H 219 H (75-99) mg/dL Phosphorus 1.7 L (2.5-4.5) mg/dL Urine Protein (Negative) Urine Glucose (UA) (Negative) Urine Ketones (Negative) Urine Blood (Negative) Urine Mucus (None) /hpf 03/25/20 03/25/20 03/25/20 Range/Units 08:36 09:03 09:58 WBC (3.8-10.6) k/uL Neutrophils # (Manual) (1.3-7.7) k/uL Lymphocytes # (Manual) (1.0-4.8) k/uL APTT (22.0-30.0) sec VBG pH (7.31-7.41) VBG pCO2 (37-51) mmHg VBG HCO3 (24-28) mmol/L Chloride 110 H (98-107) mmol/L Carbon Dioxide 13 L (22-30) mmol/L BUN 24 H (9-20) mg/dL Creatinine 1.31 H (0.66-1.25) mg/dL Glucose (74-99) mg/dL POC Glucose (mg/dL) 204 H 189 H (75-99) mg/dL Phosphorus (2.5-4.5) mg/dL Urine Protein (Negative) Urine Glucose (UA) (Negative) Urine Ketones (Negative) Urine Blood (Negative) Urine Mucus (None) /hpf 03/25/20 Range/Units 10:52 WBC (3.8-10.6) k/uL Neutrophils # (Manual) (1.3-7.7) k/uL Lymphocytes # (Manual) (1.0-4.8) k/uL APTT (22.0-30.0) sec VBG pH (7.31-7.41) VBG pCO2 (37-51) mmHg VBG HCO3 (24-28) mmol/L Chloride (98-107) mmol/L Carbon Dioxide (22-30) mmol/L BUN (9-20) mg/dL Creatinine (0.66-1.25) mg/dL Glucose (74-99) mg/dL POC Glucose (mg/dL) 187 H (75-99) mg/dL Phosphorus (2.5-4.5) mg/dL Urine Protein (Negative) Urine Glucose (UA) (Negative) Urine Ketones (Negative) Urine Blood (Negative) Urine Mucus (None) /hpf Thrombosis Risk Factor Assmnt - Choose All That Apply Each Factor Represents 1 point: Abnormal pulmonary function (COPD), Age 41-60 years, Obesity (BMI >25) Other Risk Factors: Yes Each Risk Factor Represents 2 Points: Malignancy Other congenital or acquired thrombophilia - If yes, enter type in comment: No Thrombosis Risk Factor Assessment Total Risk Factor Score: 5 Thrombosis Risk Factor Assessment Level: High Risk
[2020-03-25] MEDS ORDERED: INSULIN PUMP MEAL BOLUS 1 UNIT MISC MISCELLANE SCH (17:30)
[2020-03-25 18:05] LABS: Glucose,Whole Blood 156 mg/dL (75-99)
[2020-03-25 21:32] VITALS: TEMP 98.5
[2020-03-25] MEDS ORDERED: carvediloL 12.5 MG TAB PO SCH (22:00)
[2020-03-25] MEDS ORDERED: METOPROLOL SUCCINATE (ER) 50 MG TAB.ER.24H PO SCH (22:00)
[2020-03-25] MEDS ORDERED: hydroCHLOROthiazide 25 MG TAB PO SCH (22:00)
[2020-03-25] MEDS ORDERED: ATORVASTATIN 10 MG TAB PO SCH (22:00)
[2020-03-25] MEDS ORDERED: amLODIPine 10 MG TAB PO SCH (22:00)
[2020-03-25] MEDS ORDERED: LOSARTAN 50 MG TAB PO SCH (22:00)
[2020-03-25 22:14] LABS: Glucose,Whole Blood 123 mg/dL (75-99)
[2020-03-25 22:44] VITALS: RESP 14
[2020-03-25 23:38] VITALS: BP 138/83; PULSE 89
[2020-03-26] MEDS ORDERED: ASPIRIN 81 MG PO SCH (09:00)
--- NOTE | 2020-03-26 11:58 | CDI ---
Documentation Clarification Form Date: 03/26/2020 11:42:06 AM From: Marybel Stewart Phone: If you have a question about this query, please contact Guerline Hyman, Freight Adjuster at [phone] between 8am and 5pm. Admit Date: 03/25/2020 07:16:00 AM Patient Name: Walter Rodney Visit Number: [id number] Discharge Date: 03/25/2020 11:15:00 PM ATTENTION: The Clinical Documentation Specialists (CDI) and [facility] Coding Staff appreciate your assistance in clarifying documentation. Please respond to the clarification below the line at the bottom and electronically sign. The CDI & [facility] Coding staff will review the response and follow-up if needed. Please note: Queries are made part of the Legal Health Record. If you have any questions, please contact the author of this message via ITS. Dr. Oniel Eng The patient presented with DKA Type I DM. Pulmonary consult documents "Acute DKA secondary to malfuntioning pump. Please clarify if DKA was due to malfunctioning pump. History/Risk Factors: Type I DM Clinical Indicators: Lab findings: Glucose 314 Vital Signs: 98.2 F, 129 bpm, 22, 145/84 99%RA Treatment: Insulin Consults: Pulmonary In your professional opinion, can you please clarify ? DKA secondary to malfunctioning pump DKA not due to malfunctioning pump Other, please specify Unable to determine _DKA not due to malfunctioning pump-unable to determine _ MTDD
--- NOTE | 2020-03-27 23:13 | P.DS ---
Providers Date of admission: 03/25/20 07:16 Expected date of discharge: 03/25/20 Attending physician: Oniel Eng Consults: 03/25/20 07:50 Consult Physician Stat Consulting Provider: Ernie Mandel Reason/Comments: ICU Do you want consulting provider notified?: Already Contacted Primary care physician: Calixto Hou [facility] Course: Chief Complaint: Nausea vomiting History of presenting complaint: This is a very pleasant 50-year-old patient of Dr. Pham Hou. Chronic stable medical conditions include hypertension, hyperlipidemia, CLL diagnosed a year ago being followed by Dr. Hollis. This was diagnosed with the left neck max incision. Patient.-Diabetic for 22 years. Has insulin pump. Patient yesterday started having nausea weakness progressed and started vomiting. No fever no chills. No chest pain. They may been a problem the rate was attached the skin. The battery was okay. Finally presented to the ER. Found to be in diabetic ketoacidosis. Admitted to the ICU with insulin protocol. This morning patient is feeling bit better. Anion gap is started to close. No further nausea vomiting. Patient did well. Insulin pump was put back. Tolerating diet. Numbers improved. Discussed with the patient. 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 Conjunctiva normal. HEENT: External appearance of nose and ears normal, oral cavity dry mucous membranes. NECK: JVD not raised; masses not palpable. HEART: First and second heart sounds are normal; no edema. LUNGS: Respiratory rate normal; clear to auscultation. ABDOMEN: Soft, nontender, liver spleen not palpable, no masses palpable. PSYCH: Alert and oriented x3; mood and affect normal. INVESTIGATIONS, reviewed in the clinical context: Anion gap 6, Accu-Cheks 156, 123 Previous testing White count 19 hemoglobin 15.2 platelets 297 PH 7.16 potassium 5 bicarbonate 8 bun 25 creatinine 1.57 blood glucose 314 Anion gap 26 EKG tracing personally reviewed by me-sinus tachycardia Assessment: -Diabetic ketoacidosis -Diabetes mellitus type 1 -Hyperlipidemia -Essential hypertension -CLL being followed by Dr. Hollis -Obesity BMI 32.5 Disposition: Home Patient Condition at Discharge: Stable Plan - Discharge Summary Discharge Rx Participant: No New Discharge Prescriptions: Continue amLODIPine BESYLATE [Norvasc] 10 mg PO DAILY Aspirin [Adult Low Dose Aspirin EC] 81 mg PO DAILY Atorvastatin [Lipitor] 10 mg PO DAILY Candesartan/Hydrochlorothiazid [Candesartan-Hctz 32-25 mg Tab] 1 tab PO DAILY Insulin Aspart (For Pump) [NovoLOG (For Pump)] 0.01 unit SQ-PUMP CONTINUOUS Metoprolol Succinate (ER) [Toprol XL] 50 mg PO DAILY Cholecalciferol (Vitamin D3) [Vitamin D3] 2,000 unit PO DAILY Carvedilol [Coreg] 12.5 mg PO BID Discharge Medication List Aspirin [Adult Low Dose Aspirin EC] 81 mg PO DAILY 03/13/18 [History] Atorvastatin [Lipitor] 10 mg PO DAILY 03/13/18 [History] Candesartan/Hydrochlorothiazid [Candesartan-Hctz 32-25 mg Tab] 1 tab PO DAILY 03/13/18 [History] Insulin Aspart (For Pump) [NovoLOG (For Pump)] 0.01 unit SQ-PUMP CONTINUOUS 03/13/18 [History] Metoprolol Succinate (ER) [Toprol XL] 50 mg PO DAILY 03/13/18 [History] amLODIPine BESYLATE [Norvasc] 10 mg PO DAILY 03/13/18 [History] Cholecalciferol (Vitamin D3) [Vitamin D3] 2,000 unit PO DAILY 01/08/19 [History] Carvedilol [Coreg] 12.5 mg PO BID 03/25/20 [History] Follow up Appointment(s)/Referral(s): Calixto Hou DO [Primary Care Provider] - 1-2 days (please call office to schedule follow up appointment. ) Patient Instructions/Handouts: Diabetic Ketoacidosis (DC) Discharge Disposition: HOME SELF-CARE
== END 2020-03-25 23:15 | disposition home or self-care (01) | DRG 638 ==
LOC: EC 05:18 → 2SICU 07:16
PROVIDERS: ADMIT Hospitalist; ATTEND Hospitalist
DX: E10.10 Type 1 diabetes mellitus with ketoacidosis without coma (principal); C91.10 Chronic lymphocytic leukemia of B-cell type not having achieved remission; E66.9 Obesity, unspecified; E78.5 Hyperlipidemia, unspecified; I10 Essential (primary) hypertension; Z68.32 Body mass index [BMI] 32.0-32.9, adult; Z79.4 Long term (current) use of insulin; Z79.82 Long term (current) use of aspirin; Z79.899 Other long term (current) drug therapy; Z80.6 Family history of leukemia; Z81.8 Family history of other mental and behavioral disorders; Z83.3 Family history of diabetes mellitus; Z96.41 Presence of insulin pump (external) (internal); Z98.42 Cataract extraction status, left eye; Z98.41 Cataract extraction status, right eye; Z96.1 Presence of intraocular lens; Z90.49 Acquired absence of other specified parts of digestive tract; Z90.89 Acquired absence of other organs
CPT/HCPCS: 36415; 80048; 80051; 80053; 81001; 82009; 82565; 82803; 83605; 84100; 84484; 84520; 85025; 85610; 85730; 93005; 96361; 96374; 99291

== ENCOUNTER 2020-05-26 10:14 | Inpatient (IN) | payer MEDICAID ==
[2020-05-26] MEDS ORDERED: SODIUM CHLORIDE 0.9% 1,000 ML IV STA ×2 (10:29)
--- NOTE | 2020-05-26 10:34 | ED ---
General Adult HPI <Kirit Isaacs - Last Filed: 05/26/20 12:52> - General Source: patient, RN notes reviewed Mode of arrival: ambulatory Limitations: no limitations <René Haque - Last Filed: 05/26/20 12:59> - General Chief complaint: Recheck/Abnormal Lab/Rx Stated complaint: High Sugar Time Seen by Provider: 05/26/20 10:19 - History of Present Illness Initial comments: 50-year-old male with past medical history of hyperlipidemia, hypertension, CLL, IDDM Type 1 presents to the emergency department for a chief complaint of high blood sugar. Patient reports that his insurance company no longer wants him to use NovoLog and wants him to use Humalog. When his perception was refilled on Monday it was denied by insurance. Patient was able to contact his doctor yesterday for a new prescription however the pharmacy is out of Humalog. Patient reports that he is working on getting his insulin however yesterday when he checked his sugar was 400. Patient reports he is now completely out of in sulin. He states he feels okay except had one episode of vomiting.Patient has no other complaints at this time including shortness of breath, chest pain, abdominal pain, headache, or visual changes. (René Haque) - Related Data Home Medications Medication Instructions Recorded Confirmed Aspirin [Adult Low Dose Aspirin EC] 81 mg PO DAILY 03/13/18 05/26/20 Atorvastatin [Lipitor] 10 mg PO DAILY 03/13/18 05/26/20 Candesartan/Hydrochlorothiazid 1 tab PO DAILY 03/13/18 05/26/20 [Candesartan-Hctz 32-25 mg Tab] amLODIPine BESYLATE [Norvasc] 10 mg PO DAILY 03/13/18 05/26/20 Cholecalciferol (Vitamin D3) 2,000 unit PO DAILY 01/08/19 05/26/20 [Vitamin D3] Carvedilol [Coreg] 12.5 mg PO BID 03/25/20 05/26/20 INSULIN LISPRO (For Pump) [humaLOG 0.01 units SQ-PUMP CONTINUOUS 05/26/20 05/26/20 (For Pump)] Allergies Allergy/AdvReac Type Severity Reaction Status Date / Time No Known Allergies Allergy Verified 05/26/20 11:22 Review of Systems ROS Other: All systems not noted in ROS Statement are negative. <Kirit Isaacs - Last Filed: 05/26/20 12:52> ROS Other: All systems not noted in ROS Statement are negative. <ShabnamRené Carmen - Last Filed: 05/26/20 12:59> ROS Statement: Those systems with pertinent positive or pertinent negative responses have been documented in the HPI. Past Medical History Past Medical History: Cancer, Diabetes Mellitus, Hyperlipidemia, Hypertension Additional Past Medical History / Comment(s): IDDM type I, CLL, recent R upper arm pain, occasional sinus issues. History of Any Multi-Drug Resistant Organisms: None Reported Past Surgical History: Cholecystectomy, Tonsillectomy Additional Past Surgical History / Comment(s): 12/2018 L neck mass excision, colonoscopy, bilateral cataract removals/lens implants Past Anesthesia/Blood Transfusion Reactions: Motion Sickness, Postoperative Nausea & Vomiting (PONV) Past Psychological History: No Psychological Hx Reported Smoking Status: Never smoker Past Alcohol Use History: None Reported Past Drug Use History: None Reported - Past Family History Father Family Medical History: Cancer Additional Family Medical History / Comment(s): Father from leukemia. Mother Additional Family Medical History / Comment(s): Mother is , she had night terrors. Brother(s) Additional Family Medical History / Comment(s): 2 of pts brothers have schizophrenia and one is also a diabetic. One at the age of 56yrs from "natural causes" <René Haque P - Last Filed: 05/26/20 12:59> General Exam Limitations: no limitations General appearance: alert, in no apparent distress Head exam: Present: atraumatic, normocephalic, normal inspection Eye exam: Present: normal appearance, PERRL, EOMI. Absent: scleral icterus, conjunctival injection, periorbital swelling ENT exam: Present: normal exam, mucous membranes moist Neck exam: Present: normal inspection, full ROM. Absent: tenderness, meningismus, lymphadenopathy Respiratory exam: Present: normal lung sounds bilaterally. Absent: respiratory distress, wheezes, rales, rhonchi, stridor Cardiovascular Exam: Present: regular rate, normal rhythm, normal heart sounds. Absent: systolic murmur, diastolic murmur, rubs, gallop, clicks GI/Abdominal exam: Present: soft, normal bowel sounds. Absent: distended, tenderness, guarding, rebound, rigid Neurological exam: Present: alert <René Haque - Last Filed: 05/26/20 12:59> Course <Kirit Isaacs - Last Filed: 05/26/20 12:52> Vital Signs 05/26/20 05/26/20 10:14 11:18 Temperature 97.8 F Pulse Rate 108 H Respiratory 18 18 Rate Blood Pressure 184/96 O2 Sat by Pulse 97 Oximetry - Reevaluation(s) Reevaluation #1: 05/26/20 12:[address] Eng the patient will be admitted for treatment of DKA (Kirit Isaacs) Medical Decision Making - Lab Data Result diagrams: 05/26/20 10:53 05/26/20 10:53 <Kirit Isaacs - Last Filed: 05/26/20 12:52> - Lab Data Result diagrams: 05/26/20 10:53 05/26/20 10:53 <René Haque - Last Filed: 05/26/20 12:59> - Medical Decision Making HPI physical exam as documented. CBC is unremarkable. CMP does show anion gap of 16. Patient is acetone positive with a glucose of 473 and 3+ ketones in the urine. Patient was given 2 L of fluid and continued to have a glucose of 393. He was started on an insulin drip. Dr. Eng was notified and he does except this admission. (René Haque) - Lab Data Lab Results 05/26/20 05/26/20 05/26/20 Range/Units 10:53 10:53 10:53 WBC 8.8 (3.8-10.6) k/uL RBC 4.61 (4.30-5.90) m/uL Hgb 14.4 (13.0-17.5) gm/dL Hct 43.4 (39.0-53.0) % MCV 94.3 (80.0-100.0) fL MCH 31.3 (25.0-35.0) pg MCHC 33.2 (31.0-37.0) g/dL RDW 12.6 (11.5-15.5) % Plt Count 217 (150-450) k/uL Neutrophils % 68 % Lymphocytes % 24 % Monocytes % 3 % Eosinophils % 2 % Basophils % 1 % Neutrophils # 6.0 (1.3-7.7) k/uL Lymphocytes # 2.1 (1.0-4.8) k/uL Monocytes # 0.3 (0-1.0) k/uL Eosinophils # 0.2 (0-0.7) k/uL Basophils # 0.1 (0-0.2) k/uL Sodium 135 L (137-145) mmol/L Potassium 5.4 H (3.5-5.1) mmol/L Chloride 103 (98-107) mmol/L Carbon Dioxide 16 L (22-30) mmol/L Anion Gap 16 mmol/L BUN 36 H (9-20) mg/dL Creatinine 1.26 H (0.66-1.25) mg/dL Est GFR (CKD-EPI)AfAm 75 (>60 ml/min/1.73 sqM) Est GFR (CKD-EPI)NonAf 65 (>60 ml/min/1.73 sqM) Glucose 473 H (74-99) mg/dL POC Glucose (mg/dL) (75-99) mg/dL POC Glu Trans Router ID Calcium 9.4 (8.4-10.2) mg/dL Magnesium 1.8 (1.6-2.3) mg/dL Total Bilirubin 1.0 (0.2-1.3) mg/dL AST 16 L (17-59) U/L ALT 15 (4-49) U/L Alkaline Phosphatase 79 (38-126) U/L Total Protein 6.5 (6.3-8.2) g/dL Albumin 4.1 (3.5-5.0) g/dL Urine Color Light Yellow Urine Appearance Clear (Clear) Urine pH 5.5 (5.0-8.0) Ur Specific [place] 1.030 (1.001-1.035) Urine Protein 2+ H (Negative) Urine Glucose (UA) 4+ H (Negative) Urine Ketones 3+ H (Negative) Urine Blood Trace H (Negative) Urine Nitrite Negative (Negative) Urine Bilirubin Negative (Negative) Urine Urobilinogen <2.0 (<2.0) mg/dL Ur Leukocyte Esterase Negative (Negative) Urine RBC <1 (0-5) /hpf Urine WBC 1 (0-5) /hpf Ur Squamous Epith Cells 1 (0-4) /hpf Acetone, Qual Positive (Negative) 05/26/20 Range/Units 12:36 WBC (3.8-10.6) k/uL RBC (4.30-5.90) m/uL Hgb (13.0-17.5) gm/dL Hct (39.0-53.0) % MCV (80.0-100.0) fL MCH (25.0-35.0) pg MCHC (31.0-37.0) g/dL RDW (11.5-15.5) % Plt Count (150-450) k/uL Neutrophils % % Lymphocytes % % Monocytes % % Eosinophils % % Basophils % % Neutrophils # (1.3-7.7) k/uL Lymphocytes # (1.0-4.8) k/uL Monocytes # (0-1.0) k/uL Eosinophils # (0-0.7) k/uL Basophils # (0-0.2) k/uL Sodium (137-145) mmol/L Potassium (3.5-5.1) mmol/L Chloride (98-107) mmol/L Carbon Dioxide (22-30) mmol/L Anion Gap mmol/L BUN (9-20) mg/dL Creatinine (0.66-1.25) mg/dL Est GFR (CKD-EPI)AfAm (>60 ml/min/1.73 sqM) Est GFR (CKD-EPI)NonAf (>60 ml/min/1.73 sqM) Glucose (74-99) mg/dL POC Glucose (mg/dL) 393 H (75-99) mg/dL POC Glu Trans Router ID Tammi Mosquera Calcium (8.4-10.2) mg/dL Magnesium (1.6-2.3) mg/dL Total Bilirubin (0.2-1.3) mg/dL AST (17-59) U/L ALT (4-49) U/L Alkaline Phosphatase (38-126) U/L Total Protein (6.3-8.2) g/dL Albumin (3.5-5.0) g/dL Urine Color Urine Appearance (Clear) Urine pH (5.0-8.0) Ur Specific [place] (1.001-1.035) Urine Protein (Negative) Urine Glucose (UA) (Negative) Urine Ketones (Negative) Urine Blood (Negative) Urine Nitrite (Negative) Urine Bilirubin (Negative) Urine Urobilinogen (<2.0) mg/dL Ur Leukocyte Esterase (Negative) Urine RBC (0-5) /hpf Urine WBC (0-5) /hpf Ur Squamous Epith Cells (0-4) /hpf Acetone, Qual (Negative) Disposition <Kirit Isaacs - Last Filed: 05/26/20 12:52> Is patient prescribed a controlled substance at d/c from ED?: No Time of Disposition: 12:59 <René aHque - Last Filed: 05/26/20 12:59> Clinical Impression: DKA (diabetic ketoacidoses) Disposition: ADMITTED IP TO THIS HOSP Condition: Fair Referrals: Calixto Hou DO [Primary Care Provider] - 1-2 days
[2020-05-26 11:28] LABS: Appearance,Urine Clear (Clear); Bilirubin,Urine Negative (Negative); Blood,Urine Trace (Negative); Color,Urine Light Yellow; Glucose,Urine (UA) 4+ (Negative); Leukocyte Esterase,Urine Negative (Negative); Nitrite,Urine Negative (Negative); PH, Urine 5.5 (5.0-8.0); Protein,Urine 2+ (Negative); RBC,Urine <1 /hpf (0-5); Squamous Epithelial Cell,Urine 1 /hpf (0-4); Urobilinogen,Urine <2.0 mg/dL (<2.0); WBC,Urine 1 /hpf (0-5)
[2020-05-26 11:31] LABS: ALT 15 U/L (4-49); AST 16 U/L (17-59); African American GFR (CKD) 75 (>60 ml/min/1.73 sqM); Albumin 4.1 g/dL (3.5-5.0); Alkaline Phosphatase 79 U/L (38-126); Anion Gap 16 mmol/L; Blood Urea Nitrogen 36 mg/dL (9-20); Calcium 9.4 mg/dL (8.4-10.2); Carbon Dioxide 16 mmol/L (22-30); Chloride 103 mmol/L (98-107); Glucose 473 mg/dL (74-99); Magnesium 1.8 mg/dL (1.6-2.3); Non-African American GFR(CKD) 65 (>60 ml/min/1.73 sqM); Potassium 5.4 mmol/L (3.5-5.1); Sodium 135 mmol/L (137-145); Total Protein 6.5 g/dL (6.3-8.2)
[2020-05-26 11:37] LABS: Ketones,Urine 3+ (Negative)
[2020-05-26 11:45] LABS: Basophils # (A) 0.1 k/uL (0-0.2); Basophils % (A) 1 %; Eosinophils # (A) 0.2 k/uL (0-0.7); Eosinophils % (A) 2 %; HCT 43.4 % (39.0-53.0); HGB 14.4 gm/dL (13.0-17.5); Lymphocytes # (A) 2.1 k/uL (1.0-4.8); Lymphocytes % (A) 24 %; MCH 31.3 pg (25.0-35.0); MCHC 33.2 g/dL (31.0-37.0); MCV 94.3 fL (80.0-100.0); Mean Platelet Volume 8.4; Monocytes # (A) 0.3 k/uL (0-1.0); Monocytes % (A) 3 %; Neutrophils % (A) 68 %; Platelet Count 217 k/uL (150-450); RBC 4.61 m/uL (4.30-5.90); RDW 12.6 % (11.5-15.5); WBC 8.8 k/uL (3.8-10.6)
[2020-05-26 12:38] LABS: Glucose,Whole Blood 393 mg/dL (75-99)
[2020-05-26] MEDS: INSULIN REGULAR 100 UNIT in SODIUM CHLORIDE 0.9% 100 ML IV SCH ×2 (13:31→20:33)
[2020-05-26 14:40] LABS: Glucose,Whole Blood 411 mg/dL (75-99)
[2020-05-26 16:22] LABS: Glucose,Whole Blood 319 mg/dL (75-99)
[2020-05-26 17:50] LABS: Glucose,Whole Blood 252 mg/dL (75-99)
[2020-05-26 17:59] LABS: Phosphorus 3.4 mg/dL (2.5-4.5); Potassium 4.5 mmol/L (3.5-5.1)
[2020-05-26] MEDS: D5-0.45% NACL WITH KCL 20MEQ/L 1,000 ML IV SCH (18:02)
[2020-05-26] MEDS: SODIUM CHLORIDE 0.9% 1,000 ML IV SCH ×2 (18:09→18:10)
[2020-05-26 18:54] LABS: Glucose,Whole Blood 213 mg/dL (75-99)
[2020-05-26 20:09] LABS: Glucose,Whole Blood 203 mg/dL (75-99)
[2020-05-26 20:28] LABS: Phosphorus 1.9 mg/dL (2.5-4.5); Potassium 4.1 mmol/L (3.5-5.1)
[2020-05-26] MEDS ORDERED: ENOXAPARIN 40 MG/0.4 ML SYRINGE SQ SCH (21:00)
[2020-05-26 21:14] LABS: Glucose,Whole Blood 160 mg/dL (75-99)
[2020-05-26] MEDS ORDERED: INSULIN DETEMIR (LEVEMIR) 100 UNIT/ML SYR SQ SCH (21:45)
--- NOTE | 2020-05-26 22:18 | P.HPIM ---
History of Present Illness H&P Date: 05/26/20 Chief Complaint: Vomiting History of presenting complaint: This is a very pleasant 50-year-old patient of Dr. Pham Hou. Chronic stable medical conditions include hypertension, hyperlipidemia, CLL diagnosed a year ago being followed by Dr. Hollis. This was diagnosed with the left neck max incision. Patient.-Diabetic for 22 years. Has insulin pump. Patient is du e to get a new supply of insulin. Apparently his insurance company was changing over the type of short acting insulin, dated authorization from a family doctor. In the process patient never received his insulin. Patient ran out of his insulin last night. This morning he started having nausea vomiting. Presented to ER. Found to be in DKA. No fever no chills. No other symptoms. Put on insulin drip. Tired rundown. Anion gap better by this evening. Review of systems: GEN.: Tired EYES: None HEENT: None NECK: None RESPIRATORY: None CARDIOVASCULAR: None GASTROINTESTINAL: As above GENITOURINARY: None MUSCULOSKELETAL: None LYMPHATICS: None HEMATOLOGICAL: None PSYCHIATRY: None NEUROLOGICAL: None Past medical history to include: Diabetes mellitus type 1 hypertension, hyperlipidemia, CLL, Social history: . No smoking. No alcohol. He is to be radial. 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 Conjunctiva normal. HEENT: External appearance of nose and ears normal, oral cavity dry mucous membranes. NECK: JVD not raised; masses not palpable. HEART: First and second heart sounds are normal; no edema. LUNGS: Respiratory rate normal; clear to auscultation. ABDOMEN: Soft, nontender, liver spleen not palpable, no masses palpable. PSYCH: Alert and oriented x3; mood and affect normal. NEUROLOGICAL: Cranial nerves grossly intact; no facial asymmetry, power and sensation grossly intact. LYMPHATICS: No lymph nodes palpable in the axilla and neck INVESTIGATIONS, reviewed in the clinical context: White count 8.8 hemoglobin 14.4 platelets 217 potassium 5.4 bun 36 creatinine 1.26 Blood glucose 473 UA positive for protein 2+ ketones 3+ serum acetone positive Previous testing: Creatinine 0.98 on February 22 Assessment: -Diabetic ketoacidosis, from patient running out of his insulin -Diabetes mellitus type 1 -Hyperlipidemia -Essential hypertension -CLL being followed by Dr. Hollis -Obesity BMI 32.5 -Acute kidney injury likely prerenal from vomiting. Plan: Patient started on DKA protocol including IV is tender. Later this evening patient in 9 Dose. We'll give him 30 units of Levemir. Abdomen diabetic quad rant's been consulted. We will try to get his insulin for as pump tomorrow. Lovenox for DVT prophylaxis. Home medications to be continued. Repeat labs. Past Medical History Past Medical History: Cancer, Diabetes Mellitus, Hyperlipidemia, Hypertension Additional Past Medical History / Comment(s): IDDM type I, CLL, recent R upper arm pain, occasional sinus issues. History of Any Multi-Drug Resistant Organisms: None Reported Past Surgical History: Cholecystectomy, Tonsillectomy Additional Past Surgical History / Comment(s): 12/2018 L neck mass excision, colonoscopy, bilateral cataract removals/lens implants Past Anesthesia/Blood Transfusion Reactions: Motion Sickness, Postoperative Nausea & Vomiting (PONV) Past Psychological History: No Psychological Hx Reported Additional Psychological History / Comment(s): Pt resides with his spouse. He is independent. Smoking Status: Never smoker Past Alcohol Use History: None Reported Past Drug Use History: None Reported - Past Family History Father Family Medical History: Cancer Additional Family Medical History / Comment(s): Father from leukemia. Mother Additional Family Medical History / Comment(s): Mother is , she had night terrors. Brother(s) Additional Family Medical History / Comment(s): 2 of pts brothers have schizophrenia and one is also a diabetic. One at the age of 56yrs from " natural causes" Medications and Allergies Home Medications Medication Instructions Recorded Confirmed Type Aspirin [Adult Low Dose Aspirin EC] 81 mg PO DAILY 03/13/18 05/26/20 History Atorvastatin [Lipitor] 10 mg PO DAILY 03/13/18 05/26/20 History Candesartan/Hydrochlorothiazid 1 tab PO DAILY 03/13/18 05/26/20 History [Candesartan-Hctz 32-25 mg Tab] amLODIPine BESYLATE [Norvasc] 10 mg PO DAILY 03/13/18 05/26/20 History Cholecalciferol (Vitamin D3) 2,000 unit PO DAILY 01/08/19 05/26/20 History [Vitamin D3] Carvedilol [Coreg] 12.5 mg PO BID 03/25/20 05/26/20 History INSULIN LISPRO (For Pump) [humaLOG 0.01 units SQ-PUMP CONTINUOUS 05/26/20 05/26/20 History (For Pump)] Allergies Allergy/AdvReac Type Severity Reaction Status Date / Time No Known Allergies Allergy Verified 05/26/20 11:22 Physical Exam Vitals: Vital Signs Temp Pulse Pulse Resp BP BP Pulse Ox 05/26/20 20:16 99 18 05/26/20 20:00 87 18 05/26/20 19:54 98.0 F 99 18 185/93 99 05/26/20 17:30 98.3 F 101 H 18 169/93 99 05/26/20 17:20 154/82 05/26/20 17:14 97.8 F 101 H 18 173/95 96 05/26/20 16:00 101 H 18 173/95 96 05/26/20 15:00 105 H 18 146/76 96 05/26/20 14:00 105 H 18 142/65 96 05/26/20 13:00 105 H 18 166/85 96 05/26/20 12:00 102 H 18 164/79 96 05/26/20 11:18 18 05/26/20 10:14 97.8 F 108 H 18 184/96 97 Intake and Output 05/26/20 05/26/20 05/26/20 06:59 14:59 22:59 Intake Total 281.478 Balance 281.478 Intake: Intake, IV Titration 281.478 Amount Insulin Regular 100 unit 81.478 In Sodium Chloride 0.9% 100 ml @ 0.1 UNITS/KG/HR 9.85 mls/hr IV .[id number] [facility] Rx#:[id number] Sodium Chloride 0.9% 1, 200 000 ml @ 200 mls/hr IV . Q5H [facility] Rx#:[id number] Other: Weight 97.522 kg 97.522 kg Results CBC & Chem 7: 05/26/20 10:53 05/26/20 19:54 Labs: Abnormal Lab Results - Last 24 Hours (Table) 05/26/20 05/26/20 05/26/20 Range/Units 10:53 10:53 12:36 Sodium 135 L (137-145) mmol/L Potassium 5.4 H (3.5-5.1) mmol/L Chloride (98-107) mmol/L Carbon Dioxide 16 L (22-30) mmol/L BUN 36 H (9-20) mg/dL Creatinine 1.26 H (0.66-1.25) mg/dL Glucose 473 H (74-99) mg/dL POC Glucose (mg/dL) 393 H (75-99) mg/dL Phosphorus (2.5-4.5) mg/dL AST 16 L (17-59) U/L Urine Protein 2+ H (Negative) Urine Glucose (UA) 4+ H (Negative) Urine Ketones 3+ H (Negative) Urine Blood Trace H (Negative) 05/26/20 05/26/20 05/26/20 Range/Units 14:28 16:17 16:20 Sodium (137-145) mmol/L Potassium (3.5-5.1) mmol/L Chloride (98-107) mmol/L Carbon Dioxide 14 L (22-30) mmol/L BUN 34 H (9-20) mg/dL Creatinine 1.32 H (0.66-1.25) mg/dL Glucose 333 H (74-99) mg/dL POC Glucose (mg/dL) 411 H 319 H (75-99) mg/dL Phosphorus (2.5-4.5) mg/dL AST (17-59) U/L Urine Protein (Negative) Urine Glucose (UA) (Negative) Urine Ketones (Negative) Urine Blood (Negative) 05/26/20 05/26/20 05/26/20 Range/Units 17:47 18:53 19:54 Sodium 136 L (137-145) mmol/L Potassium (3.5-5.1) mmol/L Chloride 108 H (98-107) mmol/L Carbon Dioxide 21 L (22-30) mmol/L BUN 34 H (9-20) mg/dL Creatinine (0.66-1.25) mg/dL Glucose 203 H (74-99) mg/dL POC Glucose (mg/dL) 252 H 213 H (75-99) mg/dL Phosphorus 1.9 L (2.5-4.5) mg/dL AST (17-59) U/L Urine Protein (Negative) Urine Glucose (UA) (Negative) Urine Ketones (Negative) Urine Blood (Negative) 05/26/20 05/26/20 Range/Units 20:08 21:12 Sodium (137-145) mmol/L Potassium (3.5-5.1) mmol/L Chloride (98-107) mmol/L Carbon Dioxide (22-30) mmol/L BUN (9-20) mg/dL Creatinine (0.66-1.25) mg/dL Glucose (74-99) mg/dL POC Glucose (mg/dL) 203 H 160 H (75-99) mg/dL Phosphorus (2.5-4.5) mg/dL AST (17-59) U/L Urine Protein (Negative) Urine Glucose (UA) (Negative) Urine Ketones (Negative) Urine Blood (Negative) Thrombosis Risk Factor Assmnt - Choose All That Apply Any of the Below Risk Factors Present?: Yes Each Factor Represents 1 point: Age 41-60 years Other Risk Factors: No Thrombosis Risk Factor Assessment Total Risk Factor Score: 1 Thrombosis Risk Factor Assessment Level: Low Risk
[2020-05-26] MEDS: carvediloL 12.5 MG TAB PO SCH (22:31)
[2020-05-27] MEDS: SODIUM CHLORIDE 0.9% 1,000 ML IV SCH (05:20)
[2020-05-27 06:07] LABS: Glucose,Whole Blood 140 mg/dL (75-99)
[2020-05-27] MEDS: carvediloL 12.5 MG TAB PO SCH (06:36)
[2020-05-27] MEDS: INSULIN ASPART (NovoLOG) 100 UNIT/ML VIAL SQ SCH ×2 (06:36→12:47)
[2020-05-27] MEDS: D5-0.45% NACL WITH KCL 20MEQ/L 1,000 ML IV SCH ×2 (06:37→06:38)
[2020-05-27 07:45] LABS: African American GFR (CKD) >90 (>60 ml/min/1.73 sqM); Anion Gap 3 mmol/L; Blood Urea Nitrogen 28 mg/dL (9-20); Calcium 8.4 mg/dL (8.4-10.2); Carbon Dioxide 25 mmol/L (22-30); Chloride 110 mmol/L (98-107); Glucose 133 mg/dL (74-99); Non-African American GFR(CKD) 82 (>60 ml/min/1.73 sqM); Sodium 138 mmol/L (137-145)
[2020-05-27] MEDS ORDERED: amLODIPine 10 MG TAB PO SCH (09:00)
[2020-05-27] MEDS ORDERED: LOSARTAN 50 MG TAB PO SCH (09:00)
[2020-05-27] MEDS ORDERED: hydroCHLOROthiazide 25 MG TAB PO SCH (09:00)
[2020-05-27] MEDS ORDERED: ATORVASTATIN 10 MG TAB PO SCH (09:00)
[2020-05-27] MEDS ORDERED: ASPIRIN 81 MG PO SCH (09:00)
[2020-05-27 10:59] VITALS: BMI 28.4
[2020-05-27 11:38] LABS: Glucose,Whole Blood 295 mg/dL (75-99)
[2020-05-27 11:45] VITALS: BP 133/68
[2020-05-27 11:50] VITALS: PULSE 78; RESP 15; TEMP 97.9
[2020-05-27] MEDS ORDERED: INSULIN ASPART (NovoLOG) 100 UNIT/ML VIAL SQ ONE (12:44)
[2020-05-27 13:57] LABS: Glucose,Whole Blood 244 mg/dL (75-99)
--- NOTE | 2020-05-29 00:33 | P.DS ---
Providers Date of admission: 05/26/20 12:50 Expected date of discharge: 05/27/20 Attending physician: Oniel Eng Primary care physician: Calixto Hou [facility] Course: Chief Complaint: Vomiting History of presenting complaint: This is a very pleasant 50-year-old patient of Dr. Pham Hou. Chronic stable medical conditions include hypertension, hyperlipidemia, CLL diagnosed a year ago being followed by Dr. Hollis. This was diagnosed with the left neck max incision. Patient.-Diabetic for 22 years. Has insulin pump. Patient is due to get a new supply of insulin. Apparently his insurance company was changing over the type of short acting insulin, dated authorization from a family doctor. In the process patient never received his insulin. Patient ran out of his insulin last night. This morning he started having nausea vomiting. Presented to ER. Found to be in DKA. No fever no chills. No other symptoms. Put on insulin drip. Tired rundown. Anion gap better by this evening. Today-patient feeling better. Starting a diet. Patient insulin was available at this pharmacy. We will take of the same. Physical examination: VITAL SIGNS: 97.7, 79, 18, 133 with 68, 95% room air GENERAL: Sitting at the edge bed, eating EYES: Pupils equal. Conjunctiva normal. NECK: JVD not raised; masses not palpable. HEART: First and second heart sounds are normal; no edema. LUNGS: Respiratory rate normal; clear to auscultation. ABDOMEN: Soft, nontender, liver spleen not palpable, no masses palpable. PSYCH: Alert and oriented x3; mood and affect normal. INVESTIGATIONS, reviewed in the clinical context: Creatinine 1.05 Admission testing White count 8.8 hemoglobin 14.4 platelets 217 potassium 5.4 bun 36 creatinine 1.26 Blood glucose 473 UA positive for protein 2+ ketones 3+ serum acetone positive Previous testing: Creatinine 0.98 on February 22 Assessment: -Diabetic ketoacidosis, from patient running out of his insulin -Diabetes mellitus type 1 -Hyperlipidemia -Essential hypertension -CLL being followed by Dr. Hollis -Obesity BMI 32.5 -Acute kidney injury likely prerenal from vomiting. Disposition: Home Patient Condition at Discharge: Stable Plan - Discharge Summary Discharge Rx Participant: Yes New Discharge Prescriptions: Continue amLODIPine BESYLATE [Norvasc] 10 mg PO DAILY Aspirin [Adult Low Dose Aspirin EC] 81 mg PO DAILY Atorvastatin [Lipitor] 10 mg PO DAILY Candesartan/Hydrochlorothiazid [Candesartan-Hctz 32-25 mg Tab] 1 tab PO DAILY Cholecalciferol (Vitamin D3) [Vitamin D3] 2,000 unit PO DAILY Carvedilol [Coreg] 12.5 mg PO BID INSULIN LISPRO (For Pump) [humaLOG (For Pump)] 0.01 units SQ-PUMP CONTINUOUS Discharge Medication List Aspirin [Adult Low Dose Aspirin EC] 81 mg PO DAILY 03/13/18 [History] Atorvastatin [Lipitor] 10 mg PO DAILY 03/13/18 [History] Candesartan/Hydrochlorothiazid [Candesartan-Hctz 32-25 mg Tab] 1 tab PO DAILY 03/13/18 [History] amLODIPine BESYLATE [Norvasc] 10 mg PO DAILY 03/13/18 [History] Cholecalciferol (Vitamin D3) [Vitamin D3] 2,000 unit PO DAILY 01/08/19 [History] Carvedilol [Coreg] 12.5 mg PO BID 03/25/20 [History] INSULIN LISPRO (For Pump) [humaLOG (For Pump)] 0.01 units SQ-PUMP CONTINUOUS 05/26/20 [History] Follow up Appointment(s)/Referral(s): Calixto Hou DO [Primary Care Provider] - 06/01/20 1:00 pm (MONDAY with [employer]) Patient Instructions/Handouts: Diabetic Ketoacidosis (DC) Discharge Disposition: HOME SELF-CARE
== END 2020-05-27 14:04 | disposition home or self-care (01) | DRG 638 ==
LOC: EC 10:14 → 3SCARD 12:50
PROVIDERS: ADMIT Hospitalist; ATTEND Hospitalist
DX: E10.10 Type 1 diabetes mellitus with ketoacidosis without coma (principal); C91.10 Chronic lymphocytic leukemia of B-cell type not having achieved remission; N17.9 Acute kidney failure, unspecified; Z79.4 Long term (current) use of insulin; E78.5 Hyperlipidemia, unspecified; I10 Essential (primary) hypertension; E66.9 Obesity, unspecified; T38.3X6A Underdosing of insulin and oral hypoglycemic [antidiabetic] drugs, initial encounter; Z68.32 Body mass index [BMI] 32.0-32.9, adult; Z79.82 Long term (current) use of aspirin; Z79.899 Other long term (current) drug therapy; Z96.41 Presence of insulin pump (external) (internal); Z90.49 Acquired absence of other specified parts of digestive tract; Z98.890 Other specified postprocedural states; Z98.42 Cataract extraction status, left eye; Z98.41 Cataract extraction status, right eye; Z96.1 Presence of intraocular lens; Z80.6 Family history of leukemia; Z81.8 Family history of other mental and behavioral disorders; Z83.3 Family history of diabetes mellitus
CPT/HCPCS: 36415; 80048; 80051; 80053; 81001; 82009; 82565; 82947; 83735; 84100; 84520; 85025; 93005; 96360; 99285

== ENCOUNTER 2021-07-06 11:32 | Inpatient (IN) | payer BC, MEDICAID ==
[2021-07-06 12:11] LABS: Glucose,Whole Blood 548 mg/dL (75-99)
[2021-07-06] MEDS ORDERED: SODIUM CHLORIDE 0.9% 1,000 ML IV ONE ×2 (12:34)
--- NOTE | 2021-07-06 12:48 | ED ---
General Adult HPI - General Chief complaint: Nausea/Vomiting/Diarrhea Stated complaint: kidney problems Source: patient Mode of arrival: ambulatory - History of Present Illness Initial comments: 51-year-old male past history of type 1 diabetes presents emergency Department with reported high sugars at home. He has an insulin pump. States that on Monday he began feeling dated with vomiting. States he's been able to hold down any food or drink. Denies sick contacts as other symptoms. Has not been tested for Covid. Denies any double pain. Checked his sugars at home and they read high. He has been in DKA before. Does not take any oral medications for his diabetes. CBG in triage 548. He denies any chest pain or shortness of breath. No other alleviating, precipitating often factors - Related Data Home Medications Medication Instructions Recorded Confirmed Aspirin [Adult Low Dose Aspirin EC] 81 mg PO DAILY 03/13/18 07/06/21 Atorvastatin [Lipitor] 10 mg PO DAILY 03/13/18 07/06/21 Candesartan/Hydrochlorothiazid 1 tab PO DAILY 03/13/18 07/06/21 [Candesartan-Hctz 32-25 mg Tab] amLODIPine BESYLATE [Norvasc] 10 mg PO DAILY 03/13/18 07/06/21 Cholecalciferol (Vitamin D3) 50 mcg PO DAILY 01/08/19 07/06/21 [Vitamin D3] INSULIN LISPRO (For Pump) [humaLOG 0.01 units SQ-PUMP CONTINUOUS 05/26/20 07/06/21 (For Pump)] Metoprolol Tartrate [Lopressor] 50 mg PO DAILY 07/06/21 07/06/21 Allergies Allergy/AdvReac Type Severity Reaction Status Date / Time No Known Allergies Allergy Verified 07/06/21 13:39 Review of Systems ROS Statement: Those systems with pertinent positive or pertinent negative responses have been documented in the HPI. ROS Other: All systems not noted in ROS Statement are negative. Past Medical History Past Medical History: Cancer, Diabetes Mellitus, Hyperlipidemia, Hypertension Additional Past Medical History / Comment(s): IDDM type I, CLL, recent R upper arm pain, occasional sinus issues. History of Any Multi-Drug Resistant Organisms: None Reported Past Surgical History: Cholecystectomy, Tonsillectomy Additional Past Surgical History / Comment(s): 12/2018 L neck mass excision, colonoscopy, bilateral cataract removals/lens implants Past Anesthesia/Blood Transfusion Reactions: Motion Sickness, Postoperative Nausea & Vomiting (PONV) Past Psychological History: No Psychological Hx Reported Smoking Status: Never smoker Past Alcohol Use History: None Reported Past Drug Use History: None Reported - Past Family History Father Family Medical History: Cancer Additional Family Medical History / Comment(s): Father from leukemia. Mother Additional Family Medical History / Comment(s): Mother is , she had night terrors. Brother(s) Additional Family Medical History / Comment(s): 2 of pts brothers have schizophrenia and one is also a diabetic. One at the age of 56yrs from "na tural causes" Course Vital Signs 07/06/21 12:06 Temperature 98.4 F Pulse Rate 111 H Respiratory 18 Rate Blood Pressure 126/63 O2 Sat by Pulse 97 Oximetry EKG Findings - EKG Comments: EKG Findings:: EKG demonstrates a sinus tachycardia with a ventricular rate of 105. HI interval 136. QRS 96. QTC of 49. No acute ST segment elevations or depressions concerning for ischemic changes Medical Decision Making - Medical Decision Making Upon arrival patient is placed into room 15. Thorough history and physical exam is performed. IV is established. Patient was given 2 L bolus of normal saline. Laboratory studies are conducted. Leukocytosis of 19.6. ABG performed which demonstrates a bicarb of 6. CMP demonstrates a creatinine of 2, glucose of 561, lactic acid 3.3, anion gap is unable to be calculated. Urinalysis demonstrates 4+ ketones. Acetone positive. Covid negative. Patient's glucose was checked before insulin drip initiated. Sugar is 548. Patient will be admitted. Spoke with Dr. Guillermo who agreed to admit the patient. He is currently on an insulin drip and will be admitted to the stepdown unit. - Lab Data Result diagrams: 07/06/21 12:44 07/06/21 12:44 Lab Results 07/06/21 07/06/21 07/06/21 Range/Units 12:09 12:44 12:44 WBC 19.6 H (3.8-10.6) k/uL RBC 4.60 (4.30-5.90) m/uL Hgb 14.9 (13.0-17.5) gm/dL Hct 44.5 (39.0-53.0) % MCV 96.7 (80.0-100.0) fL MCH 32.5 (25.0-35.0) pg MCHC 33.6 (31.0-37.0) g/dL RDW 13.2 (11.5-15.5) % Plt Count 299 (150-450) k/uL MPV 9.8 Neutrophils % 86 % Lymphocytes % 10 % Monocytes % 3 % Eosinophils % 0 % Basophils % 0 % Neutrophils # 16.8 H (1.3-7.7) k/uL Lymphocytes # 2.0 (1.0-4.8) k/uL Monocytes # 0.6 (0-1.0) k/uL Eosinophils # 0.0 (0-0.7) k/uL Basophils # 0.1 (0-0.2) k/uL VBG pH (7.31-7.41) VBG pCO2 (37-51) mmHg VBG HCO3 (24-28) mmol/L Sodium (137-145) mmol/L Potassium (3.5-5.1) mmol/L Chloride (98-107) mmol/L Carbon Dioxide (22-30) mmol/L Anion Gap mmol/L BUN (9-20) mg/dL Creatinine (0.66-1.25) mg/dL Est GFR (CKD-EPI)AfAm (>60 ml/min/1.73 sqM) Est GFR (CKD-EPI)NonAf (>60 ml/min/1.73 sqM) Glucose (74-99) mg/dL POC Glucose (mg/dL) 548 H (75-99) mg/dL POC Glu Software Engineer Kernel ID Sera Rinaldi Lactic Ac Sepsis Rflx Plasma Lactic Acid Scotty (0.7-2.0) mmol/L Calcium (8.4-10.2) mg/dL Total Bilirubin (0.2-1.3) mg/dL AST (17-59) U/L ALT (4-49) U/L Alkaline Phosphatase (38-126) U/L Total Protein (6.3-8.2) g/dL Albumin (3.5-5.0) g/dL Lipase (23-300) U/L TSH (0.465-4.680) mIU/L Urine Color Light Yellow Urine Appearance Clear (Clear) Urine pH 5.5 (5.0-8.0) Ur Specific [place] 1.022 (1.001-1.035) Urine Protein 2+ H (Negative) Urine Glucose (UA) 4+ H (Negative) Urine Ketones 4+ H (Negative) Urine Blood Trace H (Negative) Urine Nitrite Negative (Negative) Urine Bilirubin Negative (Negative) Urine Urobilinogen <2.0 (<2.0) mg/dL Ur Leukocyte Esterase Negative (Negative) Urine RBC <1 (0-5) /hpf Urine WBC 1 (0-5) /hpf Ur Squamous Epith Cells <1 (0-4) /hpf Hyaline Casts 1 (0-2) /lpf Urine Mucus Rare H (None) /hpf Acetone, Qual (Negative) Coronavirus (PCR) (Not Detectd) 07/06/21 07/06/21 07/06/21 Range/Units 12:44 12:44 12:44 WBC (3.8-10.6) k/uL RBC (4.30-5.90) m/uL Hgb (13.0-17.5) gm/dL Hct (39.0-53.0) % MCV (80.0-100.0) fL MCH (25.0-35.0) pg MCHC (31.0-37.0) g/dL RDW (11.5-15.5) % Plt Count (150-450) k/uL MPV Neutrophils % % Lymphocytes % % Monocytes % % Eosinophils % % Basophils % % Neutrophils # (1.3-7.7) k/uL Lymphocytes # (1.0-4.8) k/uL Monocytes # (0-1.0) k/uL Eosinophils # (0-0.7) k/uL Basophils # (0-0.2) k/uL VBG pH 7.14 L* (7.31-7.41) VBG pCO2 27 L (37-51) mmHg VBG HCO3 9 L* (24-28) mmol/L Sodium 133 L (137-145) mmol/L Potassium 5.5 H (3.5-5.1) mmol/L Chloride 97 L (98-107) mmol/L Carbon Dioxide <5 L* (22-30) mmol/L Anion Gap mmol/L BUN 30 H (9-20) mg/dL Creatinine 2.01 H (0.66-1.25) mg/dL Est GFR (CKD-EPI)AfAm 43 (>60 ml/min/1.73 sqM) Est GFR (CKD-EPI)NonAf 37 (>60 ml/min/1.73 sqM) Glucose 561 H* (74-99) mg/dL POC Glucose (mg/dL) (75-99) mg/dL POC Glu Software Engineer Kernel ID Lactic Ac Sepsis Rflx Plasma Lactic Acid Scotty 3.3 H* (0.7-2.0) mmol/L Calcium 9.0 (8.4-10.2) mg/dL Total Bilirubin 0.7 (0.2-1.3) mg/dL AST 20 (17-59) U/L ALT 16 (4-49) U/L Alkaline Phosphatase 106 (38-126) U/L Total Protein 6.0 L (6.3-8.2) g/dL Albumin 3.8 (3.5-5.0) g/dL Lipase 24 (23-300) U/L TSH 1.130 (0.465-4.680) mIU/L Urine Color Urine Appearance (Clear) Urine pH (5.0-8.0) Ur Specific [place] (1.001-1.035) Urine Protein (Negative) Urine Glucose (UA) (Negative) Urine Ketones (Negative) Urine Blood (Negative) Urine Nitrite (Negative) Urine Bilirubin (Negative) Urine Urobilinogen (<2.0) mg/dL Ur Leukocyte Esterase (Negative) Urine RBC (0-5) /hpf Urine WBC (0-5) /hpf Ur Squamous Epith Cells (0-4) /hpf Hyaline Casts (0-2) /lpf Urine Mucus (None) /hpf Acetone, Qual Positive (Negative) Coronavirus (PCR) (Not Detectd) 07/06/21 07/06/21 Range/Units 12:44 13:19 WBC (3.8-10.6) k/uL RBC (4.30-5.90) m/uL Hgb (13.0-17.5) gm/dL Hct (39.0-53.0) % MCV (80.0-100.0) fL MCH (25.0-35.0) pg MCHC (31.0-37.0) g/dL RDW (11.5-15.5) % Plt Count (150-450) k/uL MPV Neutrophils % % Lymphocytes % % Monocytes % % Eosinophils % % Basophils % % Neutrophils # (1.3-7.7) k/uL Lymphocytes # (1.0-4.8) k/uL Monocytes # (0-1.0) k/uL Eosinophils # (0-0.7) k/uL Basophils # (0-0.2) k/uL VBG pH (7.31-7.41) VBG pCO2 (37-51) mmHg VBG HCO3 (24-28) mmol/L Sodium (137-145) mmol/L Potassium (3.5-5.1) mmol/L Chloride (98-107) mmol/L Carbon Dioxide (22-30) mmol/L Anion Gap mmol/L BUN (9-20) mg/dL Creatinine (0.66-1.25) mg/dL Est GFR (CKD-EPI)AfAm (>60 ml/min/1.73 sqM) Est GFR (CKD-EPI)NonAf (>60 ml/min/1.73 sqM) Glucose (74-99) mg/dL POC Glucose (mg/dL) (75-99) mg/dL POC Glu Software Engineer Kernel ID Lactic Ac Sepsis Rflx Y Plasma Lactic Acid Scotty (0.7-2.0) mmol/L Calcium (8.4-10.2) mg/dL Total Bilirubin (0.2-1.3) mg/dL AST (17-59) U/L ALT (4-49) U/L Alkaline Phosphatase (38-126) U/L Total Protein (6.3-8.2) g/dL Albumin (3.5-5.0) g/dL Lipase (23-300) U/L TSH (0.465-4.680) mIU/L Urine Color Urine Appearance (Clear) Urine pH (5.0-8.0) Ur Specific [place] (1.001-1.035) Urine Protein (Negative) Urine Glucose (UA) (Negative) Urine Ketones (Negative) Urine Blood (Negative) Urine Nitrite (Negative) Urine Bilirubin (Negative) Urine Urobilinogen (<2.0) mg/dL Ur Leukocyte Esterase (Negative) Urine RBC (0-5) /hpf Urine WBC (0-5) /hpf Ur Squamous Epith Cells (0-4) /hpf Hyaline Casts (0-2) /lpf Urine Mucus (None) /hpf Acetone, Qual (Negative) Coronavirus (PCR) Not Detected (Not Detectd) Disposition Clinical Impression: DKA (diabetic ketoacidoses), Nausea and vomiting, SHAUN (acute kidney injury) Disposition: ADMITTED IP TO THIS [facility] Condition: Serious Is patient prescribed a controlled substance at d/c from ED?: No Decision to Admit Reason: Admit from EC Decision Date: 07/06/21 Decision Time: 13:35
[2021-07-06 13:15] LABS: ALT 16 U/L (4-49); AST 20 U/L (17-59); African American GFR (CKD) 43 (>60 ml/min/1.73 sqM); Albumin 3.8 g/dL (3.5-5.0); Alkaline Phosphatase 106 U/L (38-126); Basophils # (A) 0.1 k/uL (0-0.2); Basophils % (A) 0 %; Blood Urea Nitrogen 30 mg/dL (9-20); Chloride 97 mmol/L (98-107); Eosinophils % (A) 0 %; HCT 44.5 % (39.0-53.0); HGB 14.9 gm/dL (13.0-17.5); Lipase 24 U/L (23-300); Lymphocytes % (A) 10 %; MCH 32.5 pg (25.0-35.0); MCHC 33.6 g/dL (31.0-37.0); MCV 96.7 fL (80.0-100.0); Mean Platelet Volume 9.8; Monocytes # (A) 0.6 k/uL (0-1.0); Monocytes % (A) 3 %; Neutrophils # (A) 16.8 k/uL (1.3-7.7); Neutrophils % (A) 86 %; Non-African American GFR(CKD) 37 (>60 ml/min/1.73 sqM); Platelet Count 299 k/uL (150-450); Potassium 5.5 mmol/L (3.5-5.1); RDW 13.2 % (11.5-15.5); Sodium 133 mmol/L (137-145); Total Bilirubin 0.7 mg/dL (0.2-1.3); WBC 19.6 k/uL (3.8-10.6)
[2021-07-06 13:16] LABS: Appearance,Urine Clear (Clear); Bilirubin,Urine Negative (Negative); Blood,Urine Trace (Negative); Color,Urine Light Yellow; Glucose,Urine (UA) 4+ (Negative); Hyaline Casts,Urine 1 /lpf (0-2); Leukocyte Esterase,Urine Negative (Negative); Mucus,Urine Rare /hpf; Nitrite,Urine Negative (Negative); PH, Urine 5.5 (5.0-8.0); Protein,Urine 2+ (Negative); RBC,Urine <1 /hpf (0-5); Specific Gravity,Urine 1.022 (1.001-1.035); Squamous Epithelial Cell,Urine <1 /hpf (0-4); Urobilinogen,Urine <2.0 mg/dL (<2.0); WBC,Urine 1 /hpf (0-5)
[2021-07-06 13:17] LABS: Glucose 561 mg/dL (74-99)
[2021-07-06 13:18] LABS: Carbon Dioxide <5 mmol/L (22-30)
[2021-07-06 13:19] LABS: Ketones,Urine 4+ (Negative); VBG PH 7.14 (7.31-7.41)
[2021-07-06 14:05] LABS: Glucose,Whole Blood 548 mg/dL (75-99)
[2021-07-06] MEDS: INSULIN REGULAR 100 UNIT in SODIUM CHLORIDE 0.9% 100 ML IV SCH ×2 (14:10→21:59)
[2021-07-06] MEDS: SODIUM CHLORIDE 0.9% 1,000 ML IV SCH ×2 (14:11→22:13)
[2021-07-06 14:14] LABS: ABG Oxygen Saturation 98.3 % (94-97); ABG PO2 122 mmHg (83-108); ABG TCO2 6 mmol/L (19-24); Allen Test Performed? Yes
[2021-07-06 14:15] LABS: ABG PCO2 17 mmHg (35-45); ABG PH 7.15 (7.35-7.45)
[2021-07-06 14:16] LABS: ABG HCO3 6 mmol/L (21-25)
[2021-07-06 15:08] LABS: Glucose,Whole Blood 574 mg/dL (75-99)
[2021-07-06] MEDS ORDERED: ONDANSETRON 4 MG/2 ML VIAL IVP STA (15:20)
[2021-07-06] MEDS ORDERED: IBUPROFEN 400 MG TAB PO PRN (15:26)
[2021-07-06] MEDS ORDERED: NALOXONE 0.4 MG/ML 1 ML VIAL IV PRN (15:26)
[2021-07-06] MEDS ORDERED: ONDANSETRON 4 MG/2 ML VIAL IVP PRN (15:26)
[2021-07-06] MEDS ORDERED: ACETAMINOPHEN TAB 325 MG TAB PO PRN (15:26)
--- NOTE | 2021-07-06 16:04 | XR ---
EXAMINATION TYPE: XR chest 1V portable DATE OF EXAM: 07/06/2021 COMPARISON: NONE HISTORY: Weakness TECHNIQUE: Single frontal view of the chest is obtained. FINDINGS: There is no focal air space opacity, pleural effusion, or pneumothorax seen. The cardiac silhouette size is within normal limits. The osseous structures are intact. Biapical pleural thicke oliver IMPRESSION: No acute process.
[2021-07-06 16:14] LABS: Glucose,Whole Blood 559 mg/dL (75-99)
--- NOTE | 2021-07-06 16:16 | HP ---
HISTORY AND PHYSICAL DATE OF SERVICE: 07/06/2021. CHIEF COMPLAINT: Nausea, vomiting, weakness and high blood sugars. HISTORY OF PRESENT ILLNESS: This 51-year-old gentleman with a past medical history of multiple medical illnesses including diabetes, hypertension, hyperlipidemia, being followed by Dr. Calixto Hou in the outpatient setting, was noted to have high blood sugars at home. The patient recently took a flu shot and subsequently patient had some sore throat and nasal congestion. The patient is unable to keep anything down. Patient has nausea, vomiting. Patient is feeling sick. The patient came to [facility] and was admitted to the hospital for further evaluation and treatment. There is no history of fever, rigors, chills at this time. The patient was found to have acute diabetic ketoacidosis. Blood sugars more than 500 and the patient had severe acidosis, CO2 less than 5. The creatinine was 2.01, indicating acute renal failure. Patient being admitted for further evaluation and treatment. COVID-19 was negative at this time. PAST MEDICAL HISTORY: History of diabetes type 2, hypertension and hyperlipidemia. MEDICATIONS: Prior to admission include home medications are: Norvasc, metoprolol, lispro, vitamin D3, Lipitor, aspirin, doses reviewed. ALLERGIES: None. FAMILY HISTORY: History of leukemia in the family. SOCIAL HISTORY: No history of smoking. No history of alcohol intake. REVIEW OF SYSTEMS: ENT: No diminished vision. CARDIOVASCULAR: No angina or palpitations. RESPIRATIONS: No cough, hemoptysis. GI as mentioned earlier. : No dysuria. NERVOUS SYSTEM: No numbness or weakness. ALLERGY/IMMUNOLOGY: No asthma. No hayfever. MUSCULOSKELETAL as mentioned earlier. HEMATOLOGY/ONCOLOGY: No history of anemia. ENDOCRINE: As mentioned earlier. CONSTITUTIONAL: As mentioned earlier. DERMATOLOGY negative. RHEUMATOLOGY negative. PSYCHIATRIC: As mentioned earlier. PHYSICAL EXAMINATION: Alert and oriented times three. Pulse 111, blood pressure 120/63, respiration 18, temperature 98.4, pulse ox 97% on room air. HEENT: Conjunctivae normal. NECK: No JVD. CARDIOVASCULAR: S1, S2 muffled. RESPIRATION: Breath sounds diminished in the bases. No rhonchi. ABDOMEN: Soft, nontender. No mass palpable. No guarding. No rigidity. LEGS: No edema. No swelling. NERVOUS SYSTEM: Higher functions as mentioned earlier. Moves all four limbs. No focal motor or sensory deficits. LYMPHATICS: No lymph nodes palpable in the neck, axillae or groin. SKIN: No ulcers. No rashes and no bleeding. JOINTS: No active deforming arthropathy. LAB STUDIES: WBC 19.6. Other labs are noted. ABG's noted. PH of 7.1. ASSESSMENT: 1. Acute diabetic ketoacidosis with diabetes type 1, uncontrolled with hyperglycemia. 2. Acute metabolic acidosis secondary to diabetic ketoacidosis. 3. Hyponatremia. 4. Hyperkalemia. 5. Acute renal failure from dehydration. 6. Elevated lactic acid. 7. Increased WBC. 8. History of hypertension. 9. History of hyperlipidemia. 10.History of right upper arm pain. 11.History of cholecystectomy. 12.History of the left neck mass excision. 13.History of bilateral cataracts. 14.Obesity with body mass of 31.2. RECOMMENDATIONS AND DISCUSSION: This 51-year-old gentleman who presented with multiple complex medical issues, we will monitor the patient closely, continue the current medications, management and symptomatic treatment. DKA protocol. Admitted to ICU. Closely monitor and monitor electrolytes closely. Currently patient is hypokalemic with possibility of hypokalemia once ketosis is being corrected. We will continue with IV fluids for the renal failure. DVT prophylaxis. I would also recommend influenza and RSV checking. Covid 19 has been negative. Prognosis guarded. Further recommendations to follow. Copy of this dictation is being forwarded to Dr. Calixto Hou, who is the primary physician. MMODL / IJN: [id number] /
[2021-07-06] MEDS: PANTOPRAZOLE 40 MG/10 ML VIAL IVP SCH ×2 (16:44→19:32)
[2021-07-06 16:49] LABS: African American GFR (CKD) 44 (>60 ml/min/1.73 sqM); Blood Urea Nitrogen 33 mg/dL (9-20); Chloride 100 mmol/L (98-107); Non-African American GFR(CKD) 38 (>60 ml/min/1.73 sqM); Potassium 4.8 mmol/L (3.5-5.1); Sodium 133 mmol/L (137-145)
[2021-07-06 16:51] LABS: Carbon Dioxide <5 mmol/L (22-30); Glucose 530 mg/dL (74-99)
[2021-07-06 17:05] LABS: Glucose,Whole Blood 509 mg/dL (75-99)
[2021-07-06 18:06] LABS: Glucose,Whole Blood 452 mg/dL (75-99)
[2021-07-06 19:06] LABS: Glucose,Whole Blood 389 mg/dL (75-99)
[2021-07-06] MEDS: HEPARIN SODIUM,PORCINE/PF 5,000 UNIT/0.5 ML SYRINGE SQ SCH (19:32)
[2021-07-06 20:07] LABS: Glucose,Whole Blood 309 mg/dL (75-99)
[2021-07-06 21:19] LABS: Glucose,Whole Blood 283 mg/dL (75-99)
[2021-07-06 21:22] LABS: Potassium 4.2 mmol/L (3.5-5.1)
[2021-07-06] MEDS: D5-0.45% NACL WITH KCL 20MEQ/L 1,000 ML IV SCH (22:10)
[2021-07-06 22:20] LABS: Glucose,Whole Blood 226 mg/dL (75-99)
[2021-07-06 23:20] LABS: Glucose,Whole Blood 225 mg/dL (75-99)
[2021-07-07 00:22] LABS: Glucose,Whole Blood 182 mg/dL (75-99)
[2021-07-07 01:19] LABS: Glucose,Whole Blood 156 mg/dL (75-99)
[2021-07-07 01:21] LABS: Phosphorus 1.3 mg/dL (2.5-4.5); Potassium 3.9 mmol/L (3.5-5.1)
[2021-07-07 02:25] LABS: Glucose,Whole Blood 123 mg/dL (75-99)
[2021-07-07] MEDS: SODIUM CHLORIDE 0.9% 1,000 ML IV SCH ×2 (02:29→05:39)
[2021-07-07 03:20] LABS: Glucose,Whole Blood 98 mg/dL (75-99)
[2021-07-07 03:51] LABS: Glucose,Whole Blood 85 mg/dL (75-99)
[2021-07-07 04:24] LABS: Glucose,Whole Blood 84 mg/dL (75-99)
[2021-07-07] MEDS: D5-0.45% NACL WITH KCL 20MEQ/L 1,000 ML IV SCH (04:36)
[2021-07-07 05:29] LABS: Glucose,Whole Blood 130 mg/dL (75-99)
[2021-07-07 06:33] LABS: Basophils % (A) 0 %; Eosinophils % (A) 0 %; HCT 37.8 % (39.0-53.0); HGB 12.9 gm/dL (13.0-17.5); Lymphocytes # (A) 2.6 k/uL (1.0-4.8); Lymphocytes % (A) 19 %; MCH 30.8 pg (25.0-35.0); MCHC 34.2 g/dL (31.0-37.0); Mean Platelet Volume 9.2; Monocytes # (A) 0.8 k/uL (0-1.0); Monocytes % (A) 6 %; Neutrophils # (A) 10.4 k/uL (1.3-7.7); Neutrophils % (A) 73 %; Platelet Count 202 k/uL (150-450); RBC 4.19 m/uL (4.30-5.90); RDW 12.5 % (11.5-15.5); WBC 14.3 k/uL (3.8-10.6)
[2021-07-07 06:34] LABS: Glucose,Whole Blood 154 mg/dL (75-99)
[2021-07-07 06:44] LABS: Albumin 2.7 g/dL (3.5-5.0); Calcium 7.9 mg/dL (8.4-10.2); Potassium 4.1 mmol/L (3.5-5.1); Total Bilirubin 0.4 mg/dL (0.2-1.3); Total Protein 4.9 g/dL (6.3-8.2)
[2021-07-07 06:46] LABS: MCV 90.1 fL (80.0-100.0)
[2021-07-07 07:28] LABS: Glucose,Whole Blood 158 mg/dL (75-99)
[2021-07-07 08:33] LABS: Glucose,Whole Blood 154 mg/dL (75-99)
[2021-07-07] MEDS: PANTOPRAZOLE 40 MG/10 ML VIAL IVP SCH ×2 (09:12→21:19)
[2021-07-07] MEDS: amLODIPine 10 MG TAB PO SCH (09:12)
[2021-07-07] MEDS: HEPARIN SODIUM,PORCINE/PF 5,000 UNIT/0.5 ML SYRINGE SQ SCH ×2 (09:12→21:19)
[2021-07-07] MEDS: METOPROLOL TARTRATE 50 MG TAB PO SCH (09:12)
[2021-07-07] MEDS: ATORVASTATIN 10 MG TAB PO SCH (09:12)
[2021-07-07] MEDS ORDERED: INSULIN ASPART (NovoLOG) 100 UNIT/ML VIAL SQ PRN (09:26)
[2021-07-07] MEDS ORDERED: INSULIN PUMP BASAL RATES 1 EACH MISC MISCELLANE PRN (09:26)
[2021-07-07 11:14] VITALS: BMI 30.9
[2021-07-07 11:42] LABS: Glucose,Whole Blood 244 mg/dL (75-99)
[2021-07-07 16:25] LABS: Glucose,Whole Blood 338 mg/dL (75-99)
[2021-07-07] MEDS ORDERED: SODIUM CHLORIDE 0.9% 1,000 ML IV SCH (17:30)
--- NOTE | 2021-07-07 17:47 | PN ---
PROGRESS NOTE DATE OF SERVICE: 07/07/2021 This 51-year-old gentleman admitted with acute diabetic ketoacidosis also had nausea and vomiting. Oral intake is improving at this time. No chest pain. No palpitations. No fever. PHYSICAL EXAMINATION: Alert and oriented x3. Pulse 82, blood pressure 132/70, respiration 18, temperature 96.8, pulse ox % on room air. HEENT: Conjunctivae normal. NECK: No jugular venous distention. CARDIOVASCULAR: S1, S2 muffled. RESPIRATION: Breath sounds diminished at the bases. A few scattered rhonchi and crackles. ABDOMEN: Soft. LEGS: No edema. No swelling. NERVOUS SYSTEM: No focal deficit. LABS: Accu-Cheks are 330. WBC 14.3, hemoglobin 12.9 and CO2 is 9. Anion gap is 9. Creatinine is 1.31. Phosphorus is 1.3. COVID-19 and influenza are negative. Acetone is positive. ASSESSMENT: 1. Acute diabetic ketoacidosis with diabetes mellitus, type 1, uncontrolled with hyperglycemia. 2. Acute gastritis. 3. Acute metabolic acidosis secondary to diabetic ketoacidosis. 4. Hyponatremia. 5. Hyperkalemia. 6. Acute renal failure secondary from dehydration, acute tubular necrosis. 7. Elevated lactic acid. 8. Increased white count. 9. Hypertension. 10.Hyperlipidemia. 11.History of right upper arm pain. 12.History of cholecystectomy. 13.History of left neck mass excision. 14.History of bilateral cataracts. 15.Obesity with body mass index of 31.2. RECOMMENDATIONS AND DISCUSSION: I recommend to continue current medications, continue with the monitoring, symptomatic treatment. Otherwise at this time continue with the transfusion orders. Continue with insulin pump. Continue the IV fluids. Repeat labs tomorrow. White count is still elevated. The UA is unremarkable. Chest x-ray is unremarkable. We will continue to monitor. Prognosis guarded. Further recommendations to follow. MMODL / IJN: [id number] / [facility] CENTERJosh
[2021-07-07 18:01] LABS: Glucose,Whole Blood 340 mg/dL (75-99)
[2021-07-07] MEDS: POTAS-SOD-PHOS 278-164-250 MG 1 EACH PACKET PO SCH ×2 (18:42→21:22)
[2021-07-07 20:19] LABS: Glucose,Whole Blood 320 mg/dL (75-99)
[2021-07-07] MEDS: INSPUCOR MISCELLANE PRN (20:30)
[2021-07-07] MEDS ORDERED: INSULIN ASPART (NovoLOG) 100 UNIT/ML VIAL SQ ONE (20:39)
[2021-07-08 01:53] LABS: Glucose,Whole Blood 260 mg/dL (75-99)
[2021-07-08] MEDS ORDERED: hydrALAZINE HCL 20 MG/ML 1 ML VIAL IVP STA (03:22)
[2021-07-08] MEDS ORDERED: LORATADINE 10 MG TAB PO PRN (03:23)
[2021-07-08] MEDS ORDERED: MELATONIN 3 MG TABLET PO PRN (03:24)
[2021-07-08 06:04] LABS: Glucose,Whole Blood 309 mg/dL (75-99)
[2021-07-08] MEDS: INSPUCOR MISCELLANE PRN ×3 (06:30→11:22)
[2021-07-08] MEDS: METOPROLOL TARTRATE 50 MG TAB PO SCH (06:33)
[2021-07-08] MEDS: amLODIPine 10 MG TAB PO SCH (06:33)
[2021-07-08 08:30] LABS: Basophils % (A) 0 %; Eosinophils % (A) 0 %; HCT 38.1 % (39.0-53.0); HGB 12.7 gm/dL (13.0-17.5); Lymphocytes # (A) 2.3 k/uL (1.0-4.8); Lymphocytes % (A) 26 %; MCH 30.9 pg (25.0-35.0); MCHC 33.3 g/dL (31.0-37.0); MCV 92.6 fL (80.0-100.0); Mean Platelet Volume 8.9; Monocytes # (A) 0.4 k/uL (0-1.0); Monocytes % (A) 5 %; Neutrophils # (A) 5.8 k/uL (1.3-7.7); Neutrophils % (A) 66 %; Platelet Count 191 k/uL (150-450); RBC 4.11 m/uL (4.30-5.90); RDW 12.6 % (11.5-15.5); WBC 8.7 k/uL (3.8-10.6)
[2021-07-08 08:41] LABS: Albumin 2.8 g/dL (3.5-5.0); Calcium 8.1 mg/dL (8.4-10.2); Potassium 4.4 mmol/L (3.5-5.1); Total Bilirubin 0.7 mg/dL (0.2-1.3); Total Protein 5.2 g/dL (6.3-8.2)
[2021-07-08] MEDS: ATORVASTATIN 10 MG TAB PO SCH (09:14)
[2021-07-08] MEDS: HEPARIN SODIUM,PORCINE/PF 5,000 UNIT/0.5 ML SYRINGE SQ SCH (09:14)
[2021-07-08] MEDS: PANTOPRAZOLE 40 MG/10 ML VIAL IVP SCH (09:14)
[2021-07-08] MEDS: POTAS-SOD-PHOS 278-164-250 MG 1 EACH PACKET PO SCH (09:15)
[2021-07-08 09:44] LABS: Glucose,Whole Blood 291 mg/dL (75-99)
[2021-07-08 10:12] VITALS: PULSE 90
[2021-07-08 10:13] VITALS: BP 174/84; RESP 16; TEMP 97.7
[2021-07-08 11:26] LABS: Glucose,Whole Blood 265 mg/dL (75-99)
--- NOTE | 2021-07-09 09:20 | P.DS ---
Providers Date of admission: 07/06/21 13:35 Expected date of discharge: 07/08/21 Attending physician: Josie Guillermo Primary care physician: Calixto Hou [facility] Course: Final diagnosis Acute diabetic ketoacidosis with diabetes mellitus type 1 uncontrolled with hypoglycemia Acute gastritis Acute metabolic acidosis secondary to diabetic ketoacidosis Hyponatremia Hyperkalemia Acute renal failure secondary from dehydration and acute tubular necrosis Elevated lactic acid Increased white count Hypertension Hyperlipidemia history of right upper arm pain history of cholecystectomy History of left mass of the neck with excision History of bilateral cataracts Obesity with a body mass index of 31.2 Discharge disposition Patient is being discharged in a stable condition with guarded prognosis to home. Patient will follow-up with Dr. Hou in the outpatient setting upon discharge. Patient is to also follow up with endocrine in the outpatient setting. Total time taken is greater than 35 minutes. Hospital course This is a 51-year-old male who was recently admitted with acute diabetic ketoacidosis also with some nausea and vomiting and was being closely monitored. Patient does use insulin pump and blood sugars have improved along with labs and nausea and vomiting has resolved and patient is tolerating oral intake. Patient instructed and encouraged to follow-up with primary care provider and appointment was made for Monday and also instructed the patient to follow-up with endocrine. Patient encouraged to continue monitoring blood sugars before meals and at bedtime and keep a diary for primary care follow-up. Currently no reports of chest pain, shortness of breath, or palpitations. Patient is afebrile. No reports of nausea or vomiting and patient is tolerating diet. Patient will be discharged home today. Guarded prognosis On exam vital signs are stable. Cardio S1, S2 are muffled. Respiratory system shows diminished breath sounds at the bases with no wheezing or rhonchi noted. Abdomen is soft and nontender. Nervous system shows no focal deficits. Please refer to medication reconciliation sheet for a list of medications. Patient Condition at Discharge: Stable Plan - Discharge Summary Discharge Rx Participant: No New Discharge Prescriptions: New Huxib-Vsy-Iwji [id number] mg [Neutra-Phos Packet] 1 each PO TID #60 packet Continue amLODIPine BESYLATE [Norvasc] 10 mg PO DAILY Aspirin [Adult Low Dose Aspirin EC] 81 mg PO DAILY Atorvastatin [Lipitor] 10 mg PO DAILY Cholecalciferol (Vitamin D3) [Vitamin D3] 50 mcg PO DAILY INSULIN LISPRO (For Pump) [humaLOG (For Pump)] 0.01 units SQ-PUMP CONTINUOUS Metoprolol Tartrate [Lopressor] 50 mg PO DAILY Discontinued Candesartan/Hydrochlorothiazid [Candesartan-Hctz 32-25 mg Tab] 1 tab PO DAILY Discharge Medication List Aspirin [Adult Low Dose Aspirin EC] 81 mg PO DAILY 03/13/18 [History] Atorvastatin [Lipitor] 10 mg PO DAILY 03/13/18 [History] amLODIPine BESYLATE [Norvasc] 10 mg PO DAILY 03/13/18 [History] Cholecalciferol (Vitamin D3) [Vitamin D3] 50 mcg PO DAILY 01/08/19 [History] INSULIN LISPRO (For Pump) [humaLOG (For Pump)] 0.01 units SQ-PUMP CONTINUOUS 05/26/20 [History] Metoprolol Tartrate [Lopressor] 50 mg PO DAILY 07/06/21 [History] Earhb-Cgu-Ycfn [id number] mg [Neutra-Phos Packet] 1 each PO TID #60 packet 07/08/21 [Rx] Follow up Appointment(s)/Referral(s): Calixto Hou DO [Primary Care Provider] - 07/09/21 4:30 pm Julio Mason MD [REFERRING] - 1-2 Days Ambulatory/Diagnostic Orders: Basic Metabolic Panel [LAB.AMB] Time Frame: 3 Days, Location: None Selected Patient Instructions/Handouts: Diabetic Ketoacidosis (DC) Activity/Diet/Wound Care/Special Instructions: Activity Limited until follow-up Follow-up with primary care provider as scheduled Follow-up with Dr. Mason endocrine this week Continue keeping a diary of blood sugar readings for primary care follow-up along with endocrine follow-up Continue to monitor blood sugars closely Continue consistent carb diet Hold diuretic medication until repeat labs and follow-up with primary care provider for elevated kidney functions Recommend repeat labs in 1-2 days and prescription sent to [facility] [address] [facility] Discharge Disposition: HOME SELF-CARE
== END 2021-07-08 14:43 | disposition home or self-care (01) | DRG 637 ==
LOC: EC 11:32 → 3SCARD 13:35
PROVIDERS: ADMIT Hospitalist; ATTEND Hospitalist
DX: E10.10 Type 1 diabetes mellitus with ketoacidosis without coma (principal); N17.0 Acute kidney failure with tubular necrosis; E87.1 Hypo-osmolality and hyponatremia; Z79.4 Long term (current) use of insulin; Z20.822 Contact with and (suspected) exposure to COVID-19; E78.5 Hyperlipidemia, unspecified; E87.5 Hyperkalemia; E86.0 Dehydration; K29.00 Acute gastritis without bleeding; I10 Essential (primary) hypertension; D72.829 Elevated white blood cell count, unspecified; E66.9 Obesity, unspecified; Z68.31 Body mass index [BMI] 31.0-31.9, adult; Z79.82 Long term (current) use of aspirin; Z79.899 Other long term (current) drug therapy; Z90.89 Acquired absence of other organs; Z85.6 Personal history of leukemia; Z96.41 Presence of insulin pump (external) (internal); Z90.49 Acquired absence of other specified parts of digestive tract; Z87.19 Personal history of other diseases of the digestive system; Z87.2 Personal history of diseases of the skin and subcutaneous tissue; Z98.42 Cataract extraction status, left eye; Z98.41 Cataract extraction status, right eye; Z96.1 Presence of intraocular lens; Z98.890 Other specified postprocedural states; Z71.3 Dietary counseling and surveillance; Z80.6 Family history of leukemia; Z81.8 Family history of other mental and behavioral disorders; Z83.3 Family history of diabetes mellitus
CPT/HCPCS: 36415; 36600; 71045; 80048; 80051; 80053; 81001; 82009; 82565; 82803; 82805; 82947; 83036; 83605; 83690; 84100; 84443; 84520; 85025; 87502; 87635; 93005; 96361; 96365; 96366; 96372; 96375; 99285

== ENCOUNTER 2022-01-10 09:05 | Emergency (ER) | payer BC ==
[2022-01-10 09:10] VITALS: TEMP 97.6
[2022-01-10] MEDS ORDERED: diphenhydrAMINE 50 MG/ML 1 ML VIAL IVP STA (09:32)
[2022-01-10] MEDS ORDERED: SODIUM CHLORIDE 0.9% 1,000 ML IV STA (09:32)
[2022-01-10] MEDS ORDERED: METOCLOPRAMIDE 5 MG/ML 2 ML VIAL IVP STA (09:32)
[2022-01-10] MEDS ORDERED: HYDROmorphone 0.5 MG/0.5 ML SYRINGE IVP STA (09:32)
[2022-01-10 09:49] LABS: Basophils # (A) 0.1 k/uL (0-0.2); Basophils % (A) 1 %; Eosinophils # (A) 0.2 k/uL (0-0.7); Eosinophils % (A) 2 %; HGB 15.2 gm/dL (13.0-17.5); Lymphocytes # (A) 2.3 k/uL (1.0-4.8); Lymphocytes % (A) 26 %; MCHC 34.5 g/dL (31.0-37.0); Monocytes # (A) 0.2 k/uL (0-1.0); Monocytes % (A) 3 %; Neutrophils # (A) 6.2 k/uL (1.3-7.7); Neutrophils % (A) 68 %; Platelet Count 169 k/uL (150-450); RBC 4.89 m/uL (4.30-5.90); WBC 9.1 k/uL (3.8-10.6)
[2022-01-10 09:59] LABS: ALT 16 U/L (4-49); African American GFR (CKD) >90 (>60 ml/min/1.73 sqM); Albumin 3.8 g/dL (3.5-5.0); Anion Gap 6 mmol/L; Blood Urea Nitrogen 16 mg/dL (9-20); Calcium 8.6 mg/dL (8.4-10.2); Carbon Dioxide 25 mmol/L (22-30); Chloride 106 mmol/L (98-107); Glucose 169 mg/dL (74-99); Non-African American GFR(CKD) 81 (>60 ml/min/1.73 sqM); Sodium 137 mmol/L (137-145); Total Protein 6.5 g/dL (6.3-8.2)
--- NOTE | 2022-01-10 10:02 | ED ---
General Adult HPI - General Chief complaint: Headache Stated complaint: headache, vomiting Time Seen by Provider: 01/10/22 09:24 Source: patient, RN notes reviewed, old records reviewed Mode of arrival: ambulatory Limitations: no limitations - History of Present Illness Initial comments: 51-year-old male presents for evaluation of headache. Headache began suddenly approximately 24 hours prior. The patient has history of diabetes, hypertension. He's been unable to take his medications secondary to multiple episodes of vomiting. No fever. No focal numbness or weakness. No prior history of intracranial abnormality. - Related Data Home Medications Medication Instructions Recorded Confirmed Aspirin [Adult Low Dose Aspirin EC] 81 mg PO DAILY 03/13/18 01/10/22 Atorvastatin [Lipitor] 10 mg PO DAILY 03/13/18 01/10/22 amLODIPine BESYLATE [Norvasc] 10 mg PO DAILY 03/13/18 01/10/22 Cholecalciferol (Vitamin D3) 50 mcg PO DAILY 01/08/19 01/10/22 [Vitamin D3] INSULIN LISPRO (For Pump) [humaLOG 0.01 units SQ-PUMP CONTINUOUS 05/26/20 01/10/22 (For Pump)] Metoprolol Tartrate [Lopressor] 50 mg PO DAILY 07/06/21 01/10/22 Candesartan/Hydrochlorothiazid 1 tab PO DAILY 01/10/22 01/10/22 [Candesartan-Hctz 32-25 mg Tab] Allergies Allergy/AdvReac Type Severity Reaction Status Date / Time No Known Allergies Allergy Verified 01/10/22 11:19 Review of Systems ROS Statement: Those systems with pertinent positive or pertinent negative responses have been documented in the HPI. ROS Other: All systems not noted in ROS Statement are negative. Past Medical History Past Medical History: Cancer, Diabetes Mellitus, Hyperlipidemia, Hypertension Additional Past Medical History / Comment(s): IDDM type I, CLL, recent R upper arm pain, occasional sinus issues. History of Any Multi-Drug Resistant Organisms: None Reported Past Surgical History: Cholecystectomy, Tonsillectomy Additional Past Surgical History / Comment(s): 12/2018 L neck mass excision, colonoscopy, bilateral cataract removals/lens implants Past Anesthesia/Blood Transfusion Reactions: Motion Sickness, Postoperative Nausea & Vomiting (PONV) Past Psychological History: No Psychological Hx Reported Smoking Status: Never smoker Past Alcohol Use History: None Reported Past Drug Use History: None Reported - Past Family History Father Family Medical History: Cancer Additional Family Medical History / Comment(s): Father from leukemia. Mother Additional Family Medical History / Comment(s): Mother is , she had night terrors. Brother(s) Additional Family Medical History / Comment(s): 2 of pts brothers have zeeshan izophrenia and one is also a diabetic. One at the age of 56yrs from "natural causes" General Exam Limitations: no limitations General appearance: alert, in no apparent distress Head exam: Present: atraumatic, normocephalic Eye exam: Present: normal appearance, PERRL ENT exam: Present: mucous membranes dry Neck exam: Present: normal inspection. Absent: tenderness, meningismus Respiratory exam: Present: normal lung sounds bilaterally. Absent: respiratory distress, wheezes Cardiovascular Exam: Present: regular rate, normal rhythm GI/Abdominal exam: Present: soft. Absent: distended, tenderness, guarding, rebound Extremities exam: Present: normal inspection, normal capillary refill. Absent: pedal edema Neurological exam: Present: alert, oriented X3, CN II-XII intact. Absent: motor sensory deficit Psychiatric exam: Present: normal affect, normal mood Skin exam: Present: warm, dry, intact. Absent: cyanosis, diaphoretic Course Vital Signs 01/10/22 09:08 Temperature 97.6 F Pulse Rate 98 Respiratory 18 Rate Blood Pressure 191/100 O2 Sat by Pulse 97 Oximetry - Reevaluation(s) Reevaluation #1: 01/10/22 12:36 Patient feeling better, headache down to a 1/10. Medical Decision Making - Medical Decision Making 51-year-old male presenting for evaluation of headache, this is left retro- orbital this was relatively sudden in onset yesterday afternoon. She's he's had several episodes of vomiting. No fevers. He was unable to take his antihypertensive medication and upon arrival was quite hypertensive. Workup was initiated. Including laboratory testing, head CT, and CT [place] [facility] [place]. Incidental findings noted on CT without cranial hemorrhage, no aneurysmal change. Patient feeling better in the emergency department. He will follow-up with his primary care regarding the CT findings. He will monitor symptoms and return as needed. - Lab Data Result diagrams: 01/10/22 09:37 01/10/22 09:37 Lab Results 01/10/22 01/10/22 01/10/22 Range/Units 09:37 09:37 11:36 WBC 9.1 (3.8-10.6) k/uL RBC 4.89 (4.30-5.90) m/uL Hgb 15.2 (13.0-17.5) gm/dL Hct 44.0 (39.0-53.0) % MCV 90.0 (80.0-100.0) fL MCH 31.0 (25.0-35.0) pg MCHC 34.5 (31.0-37.0) g/dL RDW 13.0 (11.5-15.5) % Plt Count 169 (150-450) k/uL MPV 9.0 Neutrophils % 68 % Lymphocytes % 26 % Monocytes % 3 % Eosinophils % 2 % Basophils % 1 % Neutrophils # 6.2 (1.3-7.7) k/uL Lymphocytes # 2.3 (1.0-4.8) k/uL Monocytes # 0.2 (0-1.0) k/uL Eosinophils # 0.2 (0-0.7) k/uL Basophils # 0.1 (0-0.2) k/uL PT 11.1 (9.0-12.0) sec INR 1.0 (<1.2) APTT 22.8 (22.0-30.0) sec Sodium 137 (137-145) mmol/L Potassium 4.4 (3.5-5.1) mmol/L Chloride 106 (98-107) mmol/L Carbon Dioxide 25 (22-30) mmol/L Anion Gap 6 mmol/L BUN 16 (9-20) mg/dL Creatinine 1.05 (0.66-1.25) mg/dL Est GFR (CKD-EPI)AfAm >90 (>60 ml/min/1.73 sqM) Est GFR (CKD-EPI)NonAf 81 (>60 ml/min/1.73 sqM) Glucose 169 H (74-99) mg/dL Calcium 8.6 (8.4-10.2) mg/dL Total Bilirubin 1.0 (0.2-1.3) mg/dL AST 29 (17-59) U/L ALT 16 (4-49) U/L Alkaline Phosphatase 81 (38-126) U/L Total Protein 6.5 (6.3-8.2) g/dL Albumin 3.8 (3.5-5.0) g/dL Disposition Clinical Impression: Headache Disposition: HOME SELF-CARE Condition: Good Instructions (If sedation given, give patient instructions): Acute Headache (ED) Is patient prescribed a controlled substance at d/c from ED?: No Referrals: Calixto Hou DO [Primary Care Provider] - 1-2 days Time of Disposition: 12:37
[2022-01-10 10:09] LABS: AST 29 U/L (17-59); Alkaline Phosphatase 81 U/L (38-126); Potassium 4.4 mmol/L (3.5-5.1)
--- NOTE | 2022-01-10 11:58 | CT ---
EXAMINATION TYPE: CT brain wo con DATE OF EXAM: 01/10/2022 COMPARISON: None HISTORY: Headache, vomiting. CT DLP: 1163.6 mGycm Automated exposure control for dose reduction was used. Helical imaging through the brain. FINDINGS: There is no hemorrhage or hydrocephalus. Valle-white matter differentiation is maintained, along the r ight external capsule there is some mild asymmetric low-attenuation. There are cerebral vascular calc ifications. Calvarium is intact. Inflammatory changes present within the sphenoid sinus, maxillary si nus on the right, ethmoid air cells, frontal sinus on the left, mastoids are well aerated the orbits show symmetric appearance. IMPRESSION: NO EVIDENT HEMORRHAGE. QUESTION SOME ABNORMAL LOW ATTENUATION DESCRIBED IN THE EXTERNAL CAPSULE ON THE RIGHT, CONSIDER BRAIN MRI FOR PERSISTENT SYMPTOMS. SINUS DISEASE DESCRIBED.
[2022-01-10 12:00] LABS: Partial Thromboplastin Time 22.8 sec (22.0-30.0); Prothrombin Time 11.1 sec (9.0-12.0)
--- NOTE | 2022-01-10 12:17 | CT ---
EXAMINATION TYPE: CT angio C[facility] [place] DATE OF EXAM: 01/10/2022 INDICATION: Headache, vomiting CT DLP: 1050.2 mGy.cm Automated Exposure Control for Dose Reduction was Utilized. TECHNIQUE AND CONTRAST: CT scan of the head is performed with IV Contrast, as per CTA of the [place] [facility] [place] protocol. The p atient injected with 100 mL of Isovue 370. 3-D reconstruction images were generated on an independent workstation and reviewed. COMPARISON: No previous CTA is available for comparison. FINDINGS: Asymmetrical reduced caliber of the cavernous portion of the right internal carotid artery, possibly due to atherosclerotic calcification. Scattered arterial atherosclerotic calcification of the [place] portions of the internal carotid arteries. Absent A1 segment of the right BELA. Otherwise normal ca liber and enhancement of the intracranial arteries without other area of stenosis, occlusion, dissect ion or aneurysm. Patent major intracranial venous sinuses. No intracranial abnormal enhancement. IMPRESSION: Reduced caliber of the cavernous portion of the right internal carotid artery, possibly secondary to atherosclerotic changes. The artery is patent distally. No intracranial other arterial stenosis, occlusion, dissection or aneurysm Other incidental findings as described above.
[2022-01-10 13:28] VITALS: BP 188/91; RESP 16
[2022-01-10 13:53] VITALS: PULSE 90
== END 2022-01-10 13:53 | disposition home or self-care (01) ==
LOC: EC 09:05
DX: R51.9 Headache, unspecified (principal); E10.9 Type 1 diabetes mellitus without complications; I10 Essential (primary) hypertension; Z79.82 Long term (current) use of aspirin; Z79.899 Other long term (current) drug therapy
CPT/HCPCS: 36415; 80053; 85025; 85610; 85730; 70496; 70450; 99284; 96374; 96375 ×2; 96361; J1200; J2765; J1170; Q9967

== ENCOUNTER 2022-12-05 20:44 | Inpatient (IN) | payer BC ==
[2022-12-05 21:51] LABS: Basophils # (A) 0.1 k/uL (0-0.2); Basophils % (A) 1 %; Eosinophils # (A) 0.7 k/uL (0-0.7); Eosinophils % (A) 7 %; HGB 14.8 gm/dL (13.0-17.5); Lymphocytes # (A) 3.1 k/uL (1.0-4.8); Lymphocytes % (A) 32 %; MCH 30.6 pg (25.0-35.0); MCHC 33.7 g/dL (31.0-37.0); MCV 90.9 fL (80.0-100.0); Mean Platelet Volume 8.8; Monocytes # (A) 0.5 k/uL (0-1.0); Monocytes % (A) 5 %; Neutrophils # (A) 5.1 k/uL (1.3-7.7); Neutrophils % (A) 53 %; Platelet Count 237 k/uL (150-450); RBC 4.84 m/uL (4.30-5.90); RDW 13.6 % (11.5-15.5); WBC 9.7 k/uL (3.8-10.6)
[2022-12-05 21:57] LABS: Albumin 3.7 g/dL (3.5-5.0); Calcium 8.6 mg/dL (8.4-10.2); Potassium 3.4 mmol/L (3.5-5.1); Total Bilirubin 0.9 mg/dL (0.2-1.3); Total Protein 6.4 g/dL (6.3-8.2)
[2022-12-05] MEDS ORDERED: LABETALOL 5 MG/ML VIAL MDV IVP STA ×2 (22:00→22:32)
[2022-12-05 22:01] LABS: Partial Thromboplastin Time 23.2 sec (22.0-30.0); Prothrombin Time 10.5 sec (9.0-12.0)
[2022-12-05 22:21] LABS: Appearance,Urine Clear (Clear); Bilirubin,Urine Negative (Negative); Blood,Urine Moderate (Negative); Color,Urine Yellow; Glucose,Urine (UA) 3+ (Negative); Hyaline Casts,Urine 36 /lpf (0-2); Ketones,Urine Negative (Negative); Leukocyte Esterase,Urine Negative (Negative); Mucus,Urine Rare /hpf; Nitrite,Urine Negative (Negative); Protein,Urine 3+ (Negative); RBC,Urine 3 /hpf (0-5); Squamous Epithelial Cell,Urine <1 /hpf (0-4); Urobilinogen,Urine <2.0 mg/dL (<2.0); WBC,Urine 2 /hpf (0-5)
--- NOTE | 2022-12-05 22:27 | ED ---
General Adult HPI - General Chief complaint: Neuro Symptoms/Deficit Stated complaint: POSSIBLE STROKE Time Seen by Provider: 12/05/22 21:03 Source: patient Mode of arrival: ambulatory Limitations: no limitations - History of Present Illness Initial comments: This is a 52-year-old male with a past medical history including type 1 diabetes, CLL and hypertension presents emergency department today because of a 5 minute episode of "feeling as if he stroking out." The patient reported that he started to feel numbness on the top part of his right hand as well as feeling as if he could not speak clearly. The patient stated that he knew reports he wanted to speak but was having difficulty in finding these words. The patient stated this episode lasted approximate 5 minutes but did resolve spontaneously. The patient did not check his blood sugar but instead wanted to come to the emergency department for further evaluation due to the symptoms. On arrival, the patient's blood glucose was 62 and did state that the os was low for him but stated that he has had lower levels before but has never had symptoms like this. The patient on my evaluation was resting in bed comfortably. The patient denied any lightheadedness, dizziness as well as any headaches. - Related Data Home Medications Medication Instructions Recorded Confirmed Aspirin [Adult Low Dose Aspirin EC] 81 mg PO DAILY 03/13/18 01/10/22 Atorvastatin [Lipitor] 10 mg PO DAILY 03/13/18 01/10/22 amLODIPine BESYLATE [Norvasc] 10 mg PO DAILY 03/13/18 01/10/22 Cholecalciferol (Vitamin D3) 50 mcg PO DAILY 01/08/19 01/10/22 [Vitamin D3] INSULIN LISPRO (For Pump) [humaLOG 0.01 units SQ-PUMP CONTINUOUS 05/26/20 01/10/22 (For Pump)] Metoprolol Tartrate [Lopressor] 50 mg PO DAILY 07/06/21 01/10/22 Candesartan/Hydrochlorothiazid 1 tab PO DAILY 01/10/22 01/10/22 [Candesartan-Hctz 32-25 mg Tab] Allergies Allergy/AdvReac Type Severity Reaction Status Date / Time No Known Allergies Allergy Verified 12/05/22 20:50 Review of Systems ROS Statement: Those systems with pertinent positive or pertinent negative responses have been documented in the HPI. ROS Other: All systems not noted in ROS Statement are negative. Past Medical History Past Medical History: Cancer, Diabetes Mellitus, Hyperlipidemia, Hypertension Additional Past Medical History / Comment(s): IDDM type I, CLL, recent R upper arm pain, occasional sinus issues. History of Any Multi-Drug Resistant Organisms: None Reported Past Surgical History: Cholecystectomy, Tonsillectomy Additional Past Surgical History / Comment(s): 12/2018 L neck mass excision, colonoscopy, bilateral cataract removals/lens implants Past Anesthesia/Blood Transfusion Reactions: Motion Sickness, Postoperative Nausea & Vomiting (PONV) Past Psychological History: No Psychological Hx Reported Smoking Status: Never smoker Past Alcohol Use History: None Reported Past Drug Use History: None Reported - Past Family History Father Family Medical History: Cancer Additional Family Medical History / Comment(s): Father from leukemia. Mother Additional Family Medical History / Comment(s): Mother is , she had night terrors. Brother(s) Additional Family Medical History / Comment(s): 2 of pts brothers have schizophrenia and one is also a diabetic. One at the age of 56yrs from "natural causes" General Exam Limitations: no limitations General appearance: alert, in no apparent distress Head exam: Present: atraumatic, normocephalic, normal inspection Eye exam: Present: normal appearance, PERRL Pupils: Present: normal accommodation ENT exam: Present: normal exam, normal oropharynx, mucous membranes moist Neck exam: Present: normal inspection, full ROM Respiratory exam: Present: normal lung sounds bilaterally Cardiovascular Exam: Present: regular rate, normal rhythm, normal heart sounds GI/Abdominal exam: Present: soft, normal bowel sounds Extremities exam: Present: normal inspection, full ROM, normal capillary refill Back exam: Present: normal inspection, full ROM Neurological exam: Present: alert, oriented X3, CN II-XII intact Psychiatric exam: Present: normal affect, normal mood Skin exam: Present: warm, dry Course Vital Signs 12/05/22 12/05/22 12/05/22 20:46 21:56 22:00 Temperature 98.0 F 98.7 F Pulse Rate 101 H 94 78 Respiratory 20 16 16 Rate Blood Pressure 246/125 236/115 206/109 O2 Sat by Pulse 97 98 98 Oximetry 12/05/22 12/05/22 12/05/22 22:42 22:50 23:00 Temperature Pulse Rate 80 80 84 Respiratory 19 16 22 Rate Blood Pressure 176/113 176/113 179/102 O2 Sat by Pulse 93 L 92 L 92 L Oximetry 12/05/22 23:39 Temperature Pulse Rate 77 Respiratory 16 Rate Blood Pressure 180/95 O2 Sat by Pulse 91 L Oximetry EKG Findings - EKG Comments: EKG Findings:: An EKG was obtained and was interpreted by myself showing a rate of 95, ID interval 159, QRS duration 94 and QTC of 433. This EKG showed a normal sinus rhythm with occasional PVCs. There was however no ST segment elevation or depression noted. Medical Decision Making - Medical Decision Making Was pt. sent in by a medical professional or institution (, PA, TEAM FOREMAN, urgent care, hospital, or intermediate...) When possible be specific @ -No Did you speak to anyone other than the patient for history (EMS, parent, family, police, friend...)? What history was obtained from this source @ -No Did you review nursing and triage notes (agree or disagree)? Why? @ -I reviewed and agree with nursing and triage notes Were old charts reviewed (outside hosp., previous admission, EMS record, old EKG, old radiological studies, urgent care reports/EKG's, intermediate records)? Report findings @ -No old charts were reviewed Differential Diagnosis (chest pain, altered mental status, abdominal pain women, abdominal pain men, vaginal bleeding, weakness, fever, dyspnea, syncope, headache, dizziness, GI bleed, back pain, seizure, CVA, palpatations, mental health)? @ -Hypoglycemia, electrolyte abnormality, ACS, pneumothorax EKG interpreted by me (3pts min.). @ -As above X-rays interpreted by me (1pt min.). @ -None done CT interpreted by me (1pt min.). @ -CTA of the chest as well as CTA of the head and neck were obtained and were interpreted by myself. CT of the chest showed no PE, moderate sized bilateral pleural effusions were noted. There is prominent bilateral axillary lymph nodes and mediastinal lymph nodes. Differential included neoplasm such as lymphoma. CTA of the head and neck were obtained and were interpreted by myself showing no large vessel occlusion. There was also no dissection, pseudoaneurysm or hemodynamic significant stenosis. There was cervical and medial lymphadenopathy. This has progressed from the prior exam. There was concern for caitlin metastasis or lymphoproliferative disease. U/S interpreted by me (1pt. min.). @ -None done What testing was considered but not performed or refused? (CT, X-rays, U/S, labs)? Why? @ -None What meds were considered but not given or refused? Why? @ -None Did you discuss the management of the patient with other professionals (professionals i.e. , PA, TEAM FOREMAN, lab, RT, psych nurse, psychologist social, marriage and family therapist, teacher, dispatch officer, case management associate)? Give summary @ -Yes, admitting physician was contacted regarding patient's admission. Was smoking cessation discussed for >3mins.? @ -No Was critical care preformed (if so, how long)? @ -No Were there social determinants of health that impacted care today? How? (Homelessness, low income, unemployed, alcoholism, drug addiction, transportation, low edu. Level, literacy, decrease access to med. care, retirement, rehab)? @ -No Was there de-escalation of care discussed even if they declined (Discuss DNR or withdrawal of care, Hospice)? DNR status @ -No What co-morbidities impacted this encounter? (DM, HTN, Smoking, COPD, CAD, Cancer, CVA, ARF, Chemo, Hep., AIDS, mental health diagnosis, sleep apnea, morbid obesity)? @ -CLL, type 1 diabetes, hypertension Was patient admitted / discharged? Hospital course, mention meds given and route, prescriptions, significant lab abnormalities, going to OR and other pertinent info. @ -The patient was seen and evaluated emergency department. On physical exam, the patient was initially resting in bed comfortably without any acute complaints. Initial blood glucose was 62 and the patient was given food prior to my evaluation. Vital signs did show significant hypertension without tachycardia. Due to the findings, laboratory workup was initially started and was significant for an elevated d-dimer as well as an elevated troponin. Because the patient's elevated troponin and concern for NSTEMI, the patient was started on IV heparin. Findings of the CTA of the chest as well as CT of the head and neck were concerning for worsening malignancy and possible worsening metastases with lymph node involvement in the setting of the patient's previous history of CLL, the patient will need to be admitted for further evaluation and management with oncology on consult. The patient also received labetalol for blood pressure management and it did decrease to 179/90. No further medications were given as this was a 25% drop from his initial evaluation. The patient was told of this plan and was agreeable for admission. The patient was admitted in stable condition. Undiagnosed new problem with uncertain prognosis? @ -No Drug Therapy requiring intensive monitoring for toxicity (Heparin, Nitro, Insulin, Cardizem)? @ -No Were any procedures done? @ -No Diagnosis/symptom? @ -NSTEMI Acute, or Chronic, or Acute on Chronic? @ -Acute Uncomplicated (without systemic symptoms) or Complicated (systemic symptoms)? @ -Complicated Side effects of treatment? @ -No Exacerbation, Progression, or Severe Exacerbation? @ -No Poses a threat to life or bodily function? How? (Chest pain, [place], [place], pneumonia, PE, COPD, DKA, ARF, appy, cholecystitis, CVA, Diverticulitis, Homicidal, Suicidal, threat to staff... and all critical care pts) @ -Yes, worsening cardiac injury lead to permanent damage and possible . Diagnosis/symptom? @ -Possible conversion of CLL with mediastinal and generalized lymphadenopathy Acute, or Chronic, or Acute on Chronic? @ -Acute on chronic Uncomplicated (without systemic symptoms) or Complicated (systemic symptoms)? @ -Complicated Side effects of treatment? @ -none Exacerbation, Progression, or Severe Exacerbation] @ -no Poses a threat to life or bodily function? @ -Yes, conversion of CLL can lead to active disease and possible . - Lab Data Result diagrams: 12/05/22 21:11 12/05/22 21:11 Lab Results 12/05/22 12/05/22 12/05/22 Range/Units 21:11 21:11 21:11 WBC 9.7 (3.8-10.6) k/uL RBC 4.84 (4.30-5.90) m/uL Hgb 14.8 (13.0-17.5) gm/dL Hct 44.0 (39.0-53.0) % MCV 90.9 (80.0-100.0) fL MCH 30.6 (25.0-35.0) pg MCHC 33.7 (31.0-37.0) g/dL RDW 13.6 (11.5-15.5) % Plt Count 237 (150-450) k/uL MPV 8.8 Neutrophils % 53 % Lymphocytes % 32 % Monocytes % 5 % Eosinophils % 7 % Basophils % 1 % Neutrophils # 5.1 (1.3-7.7) k/uL Lymphocytes # 3.1 (1.0-4.8) k/uL Monocytes # 0.5 (0-1.0) k/uL Eosinophils # 0.7 (0-0.7) k/uL Basophils # 0.1 (0-0.2) k/uL PT 10.5 (9.0-12.0) sec INR 1.0 (<1.2) APTT 23.2 (22.0-30.0) sec D-Dimer 0.69 H (<0.60) mg/L FEU Sodium 140 (137-145) mmol/L Potassium 3.4 L (3.5-5.1) mmol/L Chloride 105 (98-107) mmol/L Carbon Dioxide 26 (22-30) mmol/L Anion Gap 9 mmol/L BUN 23 H (9-20) mg/dL Creatinine 1.20 (0.66-1.25) mg/dL Est GFR (CKD-EPI)AfAm 79 (>60 ml/min/1.73 sqM) Est GFR (CKD-EPI)NonAf 68 (>60 ml/min/1.73 sqM) Glucose 65 L (74-99) mg/dL Calcium 8.6 (8.4-10.2) mg/dL Total Bilirubin 0.9 (0.2-1.3) mg/dL AST 21 (17-59) U/L ALT 17 (4-49) U/L Alkaline Phosphatase 89 (38-126) U/L Creatine Kinase 91 (55-170) U/L Troponin I (0.000-0.034) ng/mL NT-Pro-B Natriuret Pep pg/mL Total Protein 6.4 (6.3-8.2) g/dL Albumin 3.7 (3.5-5.0) g/dL Urine Color Urine Appearance (Clear) Urine pH (5.0-8.0) Ur Specific Artie (1.001-1.035) Urine Protein (Negative) Urine Glucose (UA) (Negative) Urine Ketones (Negative) Urine Blood (Negative) Urine Nitrite (Negative) Urine Bilirubin (Negative) Urine Urobilinogen (<2.0) mg/dL Ur Leukocyte Esterase (Negative) Urine RBC (0-5) /hpf Urine WBC (0-5) /hpf Ur Squamous Epith Cells (0-4) /hpf Hyaline Casts (0-2) /lpf Urine Mucus (None) /hpf 12/05/22 12/05/22 12/05/22 Range/Units 21:11 21:11 21:58 WBC (3.8-10.6) k/uL RBC (4.30-5.90) m/uL Hgb (13.0-17.5) gm/dL Hct (39.0-53.0) % MCV (80.0-100.0) fL MCH (25.0-35.0) pg MCHC (31.0-37.0) g/dL RDW (11.5-15.5) % Plt Count (150-450) k/uL MPV Neutrophils % % Lymphocytes % % Monocytes % % Eosinophils % % Basophils % % Neutrophils # (1.3-7.7) k/uL Lymphocytes # (1.0-4.8) k/uL Monocytes # (0-1.0) k/uL Eosinophils # (0-0.7) k/uL Basophils # (0-0.2) k/uL PT (9.0-12.0) sec INR (<1.2) APTT (22.0-30.0) sec D-Dimer (<0.60) mg/L FEU Sodium (137-145) mmol/L Potassium (3.5-5.1) mmol/L Chloride (98-107) mmol/L Carbon Dioxide (22-30) mmol/L Anion Gap mmol/L BUN (9-20) mg/dL Creatinine (0.66-1.25) mg/dL Est GFR (CKD-EPI)AfAm (>60 ml/min/1.73 sqM) Est GFR (CKD-EPI)NonAf (>60 ml/min/1.73 sqM) Glucose (74-99) mg/dL Calcium (8.4-10.2) mg/dL Total Bilirubin (0.2-1.3) mg/dL AST (17-59) U/L ALT (4-49) U/L Alkaline Phosphatase (38-126) U/L Creatine Kinase (55-170) U/L Troponin I 0.062 H* (0.000-0.034) ng/mL NT-Pro-B Natriuret Pep 2800 pg/mL Total Protein (6.3-8.2) g/dL Albumin (3.5-5.0) g/dL Urine Color Yellow Urine Appearance Clear (Clear) Urine pH 6.0 (5.0-8.0) Ur Specific Artie 1.020 (1.001-1.035) Urine Protein 3+ H (Negative) Urine Glucose (UA) 3+ H (Negative) Urine Ketones Negative (Negative) Urine Blood Moderate H (Negative) Urine Nitrite Negative (Negative) Urine Bilirubin Negative (Negative) Urine Urobilinogen <2.0 (<2.0) mg/dL Ur Leukocyte Esterase Negative (Negative) Urine RBC 3 (0-5) /hpf Urine WBC 2 (0-5) /hpf Ur Squamous Epith Cells <1 (0-4) /hpf Hyaline Casts 36 H (0-2) /lpf Urine Mucus Rare H (None) /hpf Disposition Clinical Impression: NSTEMI (non-ST elevated myocardial infarction), Hypoglycemia, CLL (chronic lymphocytic leukemia), Lymphadenopathy Disposition: ADMITTED IP TO THIS HOSP Condition: Stable Is patient prescribed a controlled substance at d/c from ED?: No Referrals: Calixto Hou DO [Primary Care Provider] - 1-2 days Time of Disposition: 00:05 Decision to Admit Reason: Admit from EC Decision Date: 12/06/22 Decision Time: 00:05
[2022-12-05] MEDS ORDERED: ONDANSETRON 4 MG/2 ML VIAL IVP STA (22:32)
--- NOTE | 2022-12-05 23:21 | CT ---
EXAM: CT Head With Intravenous Contrast CLINICAL HISTORY: Elevated D-Dimer, Possible TIA. TECHNIQUE: Axial computed tomographic images of the head with intravenous contrast. CTDI is 12.4 mGy and DLP is 419.1 mGy-cm. This CT exam was performed using one or more of the following dose reduction techniques: automated exposure control, adjustment of the mA and/or kV according to patient size, and/or use of iterative reconstruction technique. COMPARISON: CT head angiogram 01/10/2022. FINDINGS: Right internal carotid artery: Atherosclerosis of the cavernous internal carotid arteries resulting in mild stenosis. No aneurysm. Right anterior cerebral artery: Hypoplastic or absent A1 segment of the right anterior cerebral artery. Right middle cerebral artery: Unremarkable. No occlusion or significant stenosis. No aneurysm. Right posterior cerebral artery: Unremarkable. No occlusion or significant stenosis. No aneurysm. Right vertebral artery: Unremarkable as visualized. Left internal carotid artery: See above. Left anterior cerebral artery: Unremarkable. No occlusion or significant stenosis. No aneurysm. Left middle cerebral artery: Unremarkable. No occlusion or significant stenosis. No aneurysm. Left posterior cerebral artery: Unremarkable. No occlusion or significant stenosis. No aneurysm. Left vertebral artery: Unremarkable as visualized. Basilar artery: Unremarkable. No occlusion or significant stenosis. No aneurysm. IMPRESSION: 1. No large vessel occlusion. 2. Atherosclerosis of the cavernous internal carotid arteries resulting in mild stenosis. EXAM: CT Neck With Intravenous Contrast CLINICAL HISTORY: Elevated D-Dimer, Possible TIA. TECHNIQUE: Routine carotid CT protocol was performed with intravenous contrast. NASCET criteria using the distal ICAs for comparison were used for evaluation of stenoses. CTDI is 12.4 mGy and DLP is 419.1 mGy-cm. This CT exam was performed using one or more of the following dose reduction techniques: automated exposure control, adjustment of the mA and/or kV according to patient size, and/or use of iterative reconstruction technique. COMPARISON: CT neck 07/31/2018. FINDINGS: VASCULATURE: Right common carotid artery: Unremarkable. No occlusion or significant stenosis. No dissection. Right internal carotid artery: Unremarkable. Extracranial segment is patent with no occlusion or significant stenosis. No dissection. Right external carotid artery: Unremarkable. No occlusion. Right vertebral artery: Unremarkable. No occlusion or significant stenosis. No dissection. Left common carotid artery: Unremarkable. No occlusion or significant stenosis. No dissection. Left internal carotid artery: Unremarkable. Extracranial segment is patent with no occlusion or significant stenosis. No dissection. Left external carotid artery: Unremarkable. No occlusion. Left vertebral artery: Left dominant vertebral artery. No occlusion or significant stenosis. No dissection. NECK: Bones/joints: Degenerative changes in the spine. Soft tissues: Unremarkable. Lung apices: Asymmetric soft tissue along the right base of tongue. Mediastinum: Bilateral cervical lymphadenopathy encompassing levels I through V as well as the mediastinum. CAROTID STENOSIS REFERENCE USING NASCET CRITERIA: % ICA stenosis = (1 - narrowest ICA diameter/diameter of distal cervical ICA) x 100. Mild - <50% stenosis. Moderate - 50-69% stenosis. Severe - 70-94% stenosis. Near occlusion - 95-99% stenosis. Occluded - 100% stenosis. IMPRESSION: 1. No dissection, pseudoaneurysm, or hemodynamically significant stenosis of the carotid or vertebral arteries. 2. Asymmetric soft tissue along the right base of tongue. Direct visualization is recommended. 3. Cervical and mediastinal lymphadenopathy.. This is progressed from prior examination. This is concerning for caitlin metastasis or lymphoproliferative disease. Clinical correlation is recommended.
--- NOTE | 2022-12-05 23:26 | CT ---
EXAMINATION TYPE: CT angio chest DATE OF EXAM: 12/05/2022 COMPARISON: CT chest February 06, 2019 HISTORY: Shortness of breath and elevated d-dimer CT DLP: 816 mGycm. Automated Exposure Control for Dose Reduction was Utilized. CONTRAST: CTA scan of the thorax is performed with IV Contrast, patient injected with 80 mL of Isovue 370, pulm onary embolism protocol. MIP Images are created on CT scanner and reviewed. FINDINGS: LUNGS: Fairly moderate-sized bilateral pleural effusions on current study. There is overall mosaic at tenuation consistent with mild alveolar edema. There is no pneumothorax seen. The tracheobronchial tree is patent. MEDIASTINUM: There is satisfactory enhancement of the pulmonary artery and its branches, there is no CT evidence for pulmonary embolism. Satisfactory enhancement of the thoracic aorta without aneurysm o r dissection. Heart size upper limits of normal. No pericardial effusion is seen. Prominent lymph nod es throughout the mediastinum are now seen. OTHER: Cholecystectomy clips are redemonstrated. Prominent lymph nodes in the bilateral axillary moni on are redemonstrated. IMPRESSION: 1. No CT evidence for acute pulmonary embolism. 2. Moderate-sized bilateral pleural effusions. Correlate for fluid overload state. 3. Prominent bilateral axillary lymph nodes and mediastinal lymph nodes. Differential includes neopla sm such as lymphoma. Correlate clinically.
[2022-12-06] MEDS ORDERED: FUROSEMIDE 10 MG/ML 4 ML VIAL IV STA (00:36)
[2022-12-06] MEDS ORDERED: NALOXONE 0.4 MG/ML 1 ML VIAL IV PRN (00:45)
[2022-12-06] MEDS ORDERED: HEPARIN SODIUM 1,000 UN/ML (10ML VL) IV ONE (00:48)
[2022-12-06] MEDS ORDERED: HEPARIN SODIUM 1,000 UN/ML (10ML VL) IV PRN (00:48)
[2022-12-06 01:32] LABS: Glucose,Whole Blood 214 mg/dL (70-110)
[2022-12-06] MEDS ORDERED: ONDANSETRON 4 MG/2 ML VIAL IVP STA (01:33)
[2022-12-06] MEDS: HEPARIN SOD,PORK IN 0.45% NACL 25,000 UNIT in 0.45% NACL 1 250ML.BAG IV SCH (01:58)
[2022-12-06] MEDS ORDERED: SODIUM CHLORIDE 0.9% 1,000 ML IV ONE (02:20)
[2022-12-06] MEDS ORDERED: PROCHLORPERAZINE INJ 10 MG/2 ML VIAL IVP STA (04:38)
[2022-12-06] MEDS ORDERED: diphenhydrAMINE 50 MG/ML 1 ML VIAL IVP STA (04:38)
[2022-12-06 06:41] LABS: Glucose,Whole Blood 344 mg/dL (70-110)
[2022-12-06 10:19] LABS: Glucose,Whole Blood 384 mg/dL (70-110)
--- NOTE | 2022-12-06 10:21 | CONS ---
CONSULTATION CHIEF COMPLAINT: Numbness in the right upper extremity and transient inability to speak. HISTORY OF PRESENT ILLNESS: Walter is a 52-year-old gentleman with history of insulin-requiring diabetes who presented to hospital with symptoms of not feeling well, right arm numbness, and the transient inability to speak. We have been consulted because of mild elevation in his troponin. EKG reveals sinus rhythm with PVCs, had a mild D-dimer elevation, went on to have a CT scan of the chest that was negative for pulmonary embolism, but he had significant lymphadenopathy, both axillary and mediastinal and has moderately large pleural effusions bilaterally. BNP is elevated at 2800 and he has bilateral leg edema. His troponin is also elevated at 0.06 and 0.05. The exact etiology for troponin elevation is unclear. His clinical presentation is not consistent with acute coronary syndrome. I will obtain a 2D echo and if this does reveal any wall motion abnormalities, I am going to stop the heparin that he is on. His pleural effusion, leg edema, and elevated BNP are consistent with acute-onset congestive heart failure and we will know whether it is systolic or diastolic once we have more testing. PAST MEDICAL HISTORY: Significant for insulin-requiring diabetes. MEDICATIONS AT HOME: 1. Aspirin. 2. Insulin. ALLERGIES: There are no known drug allergies. FAMILY HISTORY: Negative for premature coronary artery disease. SOCIAL HISTORY: Negative for current smoking, EtOH abuse, or drug abuse. REVIEW OF SYSTEMS: HEENT: Unremarkable. CARDIAC: As described above. RESPIRATORY: As described above. GI: Negative. GENITOURINARY: Negative. ALLERGY/IMMUNOLOGY: Negative. SKIN: Negative. MUSCULOSKELETAL: Negative. ENDOCRINE: Negative. DERM: Negative. CONSTITUTIONAL: Negative ONCOLOGICAL: Negative. WATER AND SEWER SYSTEMS SUPERINTENDENT: As described above. Rest of the system review is not relevant. PHYSICAL EXAMINATION: GENERAL: Comfortable at rest. VITAL SIGNS: Heart rate is 100 beats per minute, blood pressure 140/62, respiratory rate is 18, O2 saturation is 97% on room air. NECK: There is no jugular venous distention. Carotid upstroke is normal. There is no bruit. CHEST: Reveals diminished air entry at both bases. HEART: Reveals first and second heart sounds. No gallop, no murmur. ABDOMEN: Soft, nontender. EXTREMITIES: Bilateral 1+ pitting edema. Peripheral pulses are felt. ASSESSMENT: 1. Acute onset congestive heart failure. 2. Symptoms of transient ischemic attack. 3. Lymphadenopathy. 4. Bilateral pleural effusion, probably related to heart failure. 5. Elevated troponin of unclear clinical significance. PLAN: I will treat the patient with IV Lasix and add beta blockers, ANNALISA inhibitors, and await the echo results and decide on further course of action. MMODL / GREGN: [id number] /
[2022-12-06] MEDS: ASPIRIN 81 MG PO SCH (10:41)
[2022-12-06] MEDS: LOSARTAN 25 MG TAB PO SCH (10:41)
[2022-12-06] MEDS: METOPROLOL TARTRATE 50 MG TAB PO SCH (10:41)
[2022-12-06] MEDS ORDERED: POTASSIUM CHLORIDE ER 20 MEQ TAB.ER PO STA (12:21)
[2022-12-06] MEDS: INSULIN LISPRO (For Pump) 100 UNIT/ML VIAL SQ-PUMP SCH (13:32)
--- NOTE | 2022-12-06 13:33 | P.HPIM ---
History of Present Illness Patient is a pleasant 52-year-old the male with history of diabetes on insulin the pump came in with compensative numbness in the right hand as well as transient inability to speak which lasted for few minutes. Patient does take aspirin and a statin at home. Patient is also found to have elevated blood sugars because of poorly functioning insulin pump which was adjusted now. Patient had a computed tomography scan of the chest which is negative for pulmonary embolism but did show significant lymphadenopathy in the axillary me diastinal area along with the pleural effusions bilaterally. Patient was a valid by cardiology because of mildly elevated troponins of 0.06 and 0.05 and was started on IV Lasix because of elevated BNP and bilateral pleural effusions. Although patient denied any symptoms of significant shortness of breath orthopnea or paroxysmal nocturnal dyspnea echocardiac and is being obtained at this time patient denied any history of heart failure not on any diuretics at home patient potassium was low at 3.4 which will be replaced. Patient's creatinine is 1.2. REVIEW OF SYSTEMS: CONSTITUTIONAL: No fever, no malaise, no fatigue. HEENT: No recent visual problems or hearing problems. Denied any sore throat. CARDIOVASCULAR: No chest pain, orthopnea, PND, no palpitations, no syncope. PULMONARY: No shortness of breath, no cough, no hemoptysis. GASTROINTESTINAL: No diarrhea, no nausea, no vomiting, no abdominal pain. NEUROLOGICAL: As mentioned in HPI HEMATOLOGICAL: Denies any bleeding or petechiae. GENITOURINARY: Denies any burning micturition, frequency, or urgency. MUSCULOSKELETAL/RHEUMATOLOGICAL: Denies any joint pain, swelling, or any muscle pain. ENDOCRINE: Denies any polyuria or polydipsia. The rest of the 14-point review of systems is negative. PHYSICAL EXAMINATION: GENERAL: The patient is alert and oriented x3, not in any acute distress. Well developed, well nourished. HEENT: Pupils are round and equally reacting to light. EOMI. No scleral icterus. No conjunctival pallor. Normocephalic, atraumatic. No pharyngeal erythema. No thyromegaly. CARDIOVASCULAR: S1 and S2 present. No murmurs, rubs, or gallops. PULMONARY: Chest is clear to auscultation, no wheezing or crackles. ABDOMEN: Soft, nontender, nondistended, normoactive bowel sounds. No palpable organomegaly. MUSCULOSKELETAL: No joint swelling or deformity. EXTREMITIES: No cyanosis, clubbing, or pedal edema. NEUROLOGICAL: Gross neurological examination did not reveal any focal deficits. SKIN: No rashes. Assessment and plan -Possible TIA, patient the will undergo CT of the head without contrast along with a carotid Doppler and echocardiogram neurology will be consulted continue with aspirin patient will need of the antiplatelet medication continue with statin. -Mild elevation of troponins probably type II non-ST elevation ME cardiology is following the patient patient is on IV heparin at this time until we rule out type I non-ST elevation ME echogram is being obtained next and-possible co ngestive heart failure EF is unknown at this time patient is on IV Lasix -History of lymphoma worsening lymphadenopathy because of which a oncology was consulted -Type 2 diabetes mellitus uncontrolled blood sugars due to nonfunctioning insulin pump which was adjusted and hopefully this will help improve uncontrolled elevated blood sugars -Hypertension DVT prophylaxis: Early ambulation Past Medical History Past Medical History: Cancer, Diabetes Mellitus, Hyperlipidemia, Hypertension Additional Past Medical History / Comment(s): IDDM type I, CLL, recent R upper arm pain, occasional sinus issues. History of Any Multi-Drug Resistant Organisms: None Reported Past Surgical History: Cholecystectomy, Tonsillectomy Additional Past Surgical History / Comment(s): 12/2018 L neck mass excision, colonoscopy, bilateral cataract removals/lens implants Past Anesthesia/Blood Transfusion Reactions: Motion Sickness, Postoperative Nausea & Vomiting (PONV) Past Psychological History: No Psychological Hx Reported Smoking Status: Never smoker Past Alcohol Use History: None Reported Past Drug Use History: None Reported - Past Family History Father Family Medical History: Cancer Additional Family Medical History / Comment(s): Father from leukemia. Mother Additional Family Medical History / Comment(s): Mother is , she had night terrors. Brother(s) Additional Family Medical History / Comment(s): 2 of pts brothers have schizophrenia and one is also a diabetic. One at the age of 56yrs from "natural causes" Medications and Allergies Home Medications Medication Instructions Recorded Confirmed Type Aspirin [Adult Low Dose Aspirin EC] 81 mg PO DAILY 03/13/18 12/06/22 History Cholecalciferol (Vitamin D3) 50 mcg PO DAILY 01/08/19 12/06/22 History [Vitamin D3] INSULIN LISPRO (For Pump) [humaLOG 0.01 units SQ-PUMP CONTINUOUS 11/03/20 05/16/23 History (For Pump)] Blood Pressure Med (Unknown) 1 tab PO DIRECTED 12/06/22 12/06/22 History Allergies Allergy/AdvReac Type Severity Reaction Status Date / Time No Known Allergies Allergy Verified 12/06/22 09:06 Physical Exam Vitals: Vital Signs Temp Pulse Resp BP Pulse Ox 12/06/22 13:07 89 20 113/57 93 L 12/06/22 12:32 98.7 F 90 19 131/59 95 12/06/22 12:24 86 19 121/59 95 12/06/22 11:00 101 H 18 125/57 96 12/06/22 10:43 107 H 14 130/75 97 12/06/22 10:00 106 H 20 147/71 96 12/06/22 09:00 110 H 18 162/99 98 12/06/22 08:00 110 H 18 141/63 97 12/06/22 07:58 110 H 18 141/63 97 12/06/22 06:11 107 H 18 162/78 98 12/06/22 04:00 98 24 167/88 96 12/06/22 03:00 105 H 21 155/80 97 12/06/22 02:00 103 H 13 141/94 97 12/06/22 01:00 96 24 169/87 98 12/06/22 00:00 87 18 169/93 93 L 12/05/22 23:39 77 16 180/95 91 L 12/05/22 23:03 84 0 L 171/106 94 L 12/05/22 23:00 84 22 179/102 92 L 12/05/22 22:50 80 16 176/113 92 L 12/05/22 22:42 80 19 176/113 93 L 12/05/22 22:00 78 16 206/109 98 12/05/22 21:56 98.7 F 94 16 236/115 98 12/05/22 20:46 98.0 F 101 H 20 246/125 97 Intake and Output 12/05/22 12/06/22 12/06/22 22:59 06:59 14:59 Other: Weight 104.326 kg Results CBC & Chem 7: 12/05/22 21:11 12/05/22 21:11 Labs: Abnormal Lab Results - Last 24 Hours (Table) 12/05/22 12/05/22 12/05/22 Range/Units 21:11 21:11 21:11 APTT (22.0-30.0) sec D-Dimer 0.69 H (<0.60) mg/L FEU Potassium 3.4 L (3.5-5.1) mmol/L BUN 23 H (9-20) mg/dL Glucose 65 L (74-99) mg/dL POC Glucose (mg/dL) (70-110) mg/dL Troponin I 0.062 H* (0.000-0.034) ng/mL Urine Protein (Negative) Urine Glucose (UA) (Negative) Urine Blood (Negative) Hyaline Casts (0-2) /lpf Urine Mucus (None) /hpf 12/05/22 12/06/22 12/06/22 Range/Units 21:58 01:30 01:37 APTT (22.0-30.0) sec D-Dimer (<0.60) mg/L FEU Potassium (3.5-5.1) mmol/L BUN (9-20) mg/dL Glucose (74-99) mg/dL POC Glucose (mg/dL) 214 H (70-110) mg/dL Troponin I 0.057 H* (0.000-0.034) ng/mL Urine Protein 3+ H (Negative) Urine Glucose (UA) 3+ H (Negative) Urine Blood Moderate H (Negative) Hyaline Casts 36 H (0-2) /lpf Urine Mucus Rare H (None) /hpf 12/06/22 12/06/22 12/06/22 Range/Units 06:39 08:16 10:16 APTT 30.7 H (22.0-30.0) sec D-Dimer (<0.60) mg/L FEU Potassium (3.5-5.1) mmol/L BUN (9-20) mg/dL Glucose (74-99) mg/dL POC Glucose (mg/dL) 344 H 384 H (70-110) mg/dL Troponin I (0.000-0.034) ng/mL Urine Protein (Negative) Urine Glucose (UA) (Negative) Urine Blood (Negative) Hyaline Casts (0-2) /lpf Urine Mucus (None) /hpf
[2022-12-06 13:37] LABS: Glucose,Whole Blood 421 mg/dL (70-110)
[2022-12-06 14:08] LABS: Glucose,Whole Blood 441 mg/dL (70-110)
--- NOTE | 2022-12-06 14:11 | CT ---
EXAMINATION TYPE: CT brain wo con DATE OF EXAM: 12/06/2022 COMPARISON: 01/10/2022 INDICATION: TIA DLP: 1111.4 mGycm, Automated exposure control for dose reduction was used. CONTRAST: None CT of the brain is performed utilizing 3 mm thick sections through the posterior fossa and 3 mm thick sections through the remaining calvarium. Study is performed within 24 hours of arrival to the hosp [facility]. No abnormal hyperdensity is present to suggest an acute intracranial hemorrhage. No mass lesion is evident. No acute infarcts are evident. Some very subtle hypodensity within the external capsule right basal g anglion is present, unchanged from comparison. Ventricles and sulci are appropriate for the patient age. Retention cyst within the anterolateral left frontal sinus. Small retention cyst is within the right maxillary sinus. Some mucosal thickening within the left maxillary sinus. IMPRESSIONS: 1. No acute intracranial process. Follow-up MRI can be performed as clinically indicated.
--- NOTE | 2022-12-06 14:27 | P.CONS ---
History of Present Illness - Reason for Consult Consult date: 12/06/22 hx SLL Requesting physician: Cristo Amos - Chief Complaint aphasia - History of Present Illness Patient is a 52-year-old male with a synechia history of insulin-dependent diabetes and SLL. Patient he is a patient of Dr. Mc. He was diagnosed with SLL in 2018. FISH for CLL was negative, and CT scan of chest/abdomen/pelvis did not reveal any significant adenopathy at that time. Patient has been in observation since with no progression of symptoms. F/u planned with Dr. Mc on 01/02. Patient presented to the emergency room with strokelike symptoms. Patient rep orts last night he began to develop right hand numbness and expressive aphasia which lasted approx 5 minutes in duration, and spontaneously resolved. patient reports that symptoms have not returned since last night. He denies unilateral weakness. He denies visual changes and headache. Denies history of TIA or CVA. Upon presentation to the ER, CT angiogram of head and neck revealed no large vessel occlusion. Atherosclerosis of the cavernous internal carotid arteries resulting mild stenosis. No dissection pseudoaneurysm or hemodynamically significant stenosis of the carotid and vertebral arteries. Asymmetric soft tissue along the right base of the tongue. Cervical and mediastinal lymph adenopathy, which is progressed from previous exam. CT chest revealed no evidence for pulmonary embolism. Moderate sized bilateral pleural effusions. Correlate for fluid overload. Prominent bilateral axillary lymph nodes and mediastinal lymph nodes present. Troponins were mildly elevated. Patient was started on IV heparin drip. Glucose 65. CBC unremarkable Review of Systems 10 point ROS is negative except as stated in the HPI Past Medical History Past Medical History: Cancer, Diabetes Mellitus, Hyperlipidemia, Hypertension Additional Past Medical History / Comment(s): IDDM type I, CLL, recent R upper arm pain, occasional sinus issues. History of Any Multi-Drug Resistant Organisms: None Reported Past Surgical History: Cholecystectomy, Tonsillectomy Additional Past Surgical History / Comment(s): 12/2018 L neck mass excision, colonoscopy, bilateral cataract removals/lens implants Past Anesthesia/Blood Transfusion Reactions: Motion Sickness, Postoperative Nausea & Vomiting (PONV) Past Psychological History: No Psychological Hx Reported Smoking Status: Never smoker Past Alcohol Use History: None Reported Past Drug Use History: None Reported - Past Family History Father Family Medical History: Cancer Additional Family Medical History / Comment(s): Father from leukemia. Mother Additional Family Medical History / Comment(s): Mother is , she had night terrors. Brother(s) Additional Family Medical History / Comment(s): 2 of pts brothers have schizophrenia and one is also a diabetic. One at the age of 56yrs from "natural causes" Medications and Allergies Home Medications Medication Instructions Recorded Confirmed Type Aspirin [Adult Low Dose Aspirin EC] 81 mg PO DAILY 03/13/18 12/06/22 History Cholecalciferol (Vitamin D3) 50 mcg PO DAILY 01/08/19 12/06/22 History [Vitamin D3] INSULIN LISPRO (For Pump) [humaLOG 0.01 units SQ-PUMP CONTINUOUS 05/26/20 12/06/22 History (For Pump)] Blood Pressure Med (Unknown) 1 tab PO DIRECTED 12/06/22 12/06/22 History Allergies Allergy/AdvReac Type Severity Reaction Status Date / Time No Known Allergies Allergy Verified 12/06/22 09:06 Physical Exam Vitals: Vital Signs Temp Pulse Resp BP Pulse Ox 12/06/22 13:07 89 20 113/57 93 L 12/06/22 12:32 98.7 F 90 19 131/59 95 12/06/22 12:24 86 19 121/59 95 12/06/22 11:00 101 H 18 125/57 96 12/06/22 10:43 107 H 14 130/75 97 12/06/22 10:00 106 H 20 147/71 96 12/06/22 09:00 110 H 18 162/99 98 12/06/22 08:00 110 H 18 141/63 97 12/06/22 07:58 110 H 18 141/63 97 12/06/22 06:11 107 H 18 162/78 98 12/06/22 04:00 98 24 167/88 96 12/06/22 03:00 105 H 21 155/80 97 12/06/22 02:00 103 H 13 141/94 97 12/06/22 01:00 96 24 169/87 98 12/06/22 00:00 87 18 169/93 93 L 12/05/22 23:39 77 16 180/95 91 L 12/05/22 23:03 84 0 L 171/106 94 L 12/05/22 23:00 84 22 179/102 92 L 12/05/22 22:50 80 16 176/113 92 L 12/05/22 22:42 80 19 176/113 93 L 12/05/22 22:00 78 16 206/109 98 12/05/22 21:56 98.7 F 94 16 236/115 98 12/05/22 20:46 98.0 F 101 H 20 246/125 97 Intake and Output 12/05/22 12/06/22 12/06/22 22:59 06:59 14:59 Other: Weight 104.326 kg - Constitutional General appearance: average body habitus, no acute distress - EENT Eyes: anicteric sclerae, EOMI ENT: hearing grossly normal - Neck Neck: no lymphadenopathy - Respiratory Respiratory: bilateral: CTA - Cardiovascular Rhythm: regular Heart sounds: normal: S1, S2 Abnormal Heart Sounds: no systolic murmur, no diastolic murmur, no rub, no S3 Gallop, no S4 Gallop, no click, no other leg Peripheral Edema: bilateral: None - Gastrointestinal General gastrointestinal: soft, no tenderness - Integumentary Integumentary: normal - Neurologic grossly intact - Musculoskeletal Musculoskeletal: strength equal bilaterally - Psychiatric Psychiatric: A&O x's 3, appropriate affect, intact judgment & insight Results CBC & Chem 7: 12/05/22 21:11 12/05/22 21:11 Labs: Abnormal Lab Results - Last 24 Hours (Table) 12/05/22 12/05/22 12/05/22 Range/Units 21:11 21:11 21:11 APTT (22.0-30.0) sec D-Dimer 0.69 H (<0.60) mg/L FEU Potassium 3.4 L (3.5-5.1) mmol/L BUN 23 H (9-20) mg/dL Glucose 65 L (74-99) mg/dL POC Glucose (mg/dL) (70-110) mg/dL Troponin I 0.062 H* (0.000-0.034) ng/mL Urine Protein (Negative) Urine Glucose (UA) (Negative) Urine Blood (Negative) Hyaline Casts (0-2) /lpf Urine Mucus (None) /hpf 12/05/22 12/06/22 12/06/22 Range/Units 21:58 01:30 01:37 APTT (22.0-30.0) sec D-Dimer (<0.60) mg/L FEU Potassium (3.5-5.1) mmol/L BUN (9-20) mg/dL Glucose (74-99) mg/dL POC Glucose (mg/dL) 214 H (70-110) mg/dL Troponin I 0.057 H* (0.000-0.034) ng/mL Urine Protein 3+ H (Negative) Urine Glucose (UA) 3+ H (Negative) Urine Blood Moderate H (Negative) Hyaline Casts 36 H (0-2) /lpf Urine Mucus Rare H (None) /hpf 12/06/22 12/06/22 12/06/22 Range/Units 06:39 08:16 10:16 APTT 30.7 H (22.0-30.0) sec D-Dimer (<0.60) mg/L FEU Potassium (3.5-5.1) mmol/L BUN (9-20) mg/dL Glucose (74-99) mg/dL POC Glucose (mg/dL) 344 H 384 H (70-110) mg/dL Troponin I (0.000-0.034) ng/mL Urine Protein (Negative) Urine Glucose (UA) (Negative) Urine Blood (Negative) Hyaline Casts (0-2) /lpf Urine Mucus (None) /hpf 12/06/22 Range/Units 13:30 APTT (22.0-30.0) sec D-Dimer (<0.60) mg/L FEU Potassium (3.5-5.1) mmol/L BUN (9-20) mg/dL Glucose (74-99) mg/dL POC Glucose (mg/dL) 421 H (70-110) mg/dL Troponin I (0.000-0.034) ng/mL Urine Protein (Negative) Urine Glucose (UA) (Negative) Urine Blood (Negative) Hyaline Casts (0-2) /lpf Urine Mucus (None) /hpf CT scan - chest: report reviewed CT Scan - head: report reviewed Assessment and Plan (1) Small cell B-cell lymphoma Current Visit: Yes Status: Acute Code(s): C83.00 - SMALL CELL B-CELL LYMPHOMA, UNSPECIFIED SITE SNOMED Code(s): 564721856 Plan: Small cell b-cell lymphoma: -He was diagnosed with SLL in 2019. FISH for CLL was negative, and CT scan of chest/abdomen/pelvis did not reveal any significant adenopathy at that time. Patient has been in observation since with no progression of symptoms. -CT angiogram of head and neck revealed asymmetric soft tissue along the right base of the tongue and cervical and mediastinal lymphadenopathy which has progressed. CT chest revealed prominent bilateral axillary lymph nodes and mediastinal lymph nodes. -Follow-up is planned with Dr. Mc 01/02, at which time imaging will be reviewed and will discuss further testing and workup with patient Elevated troponins: -Patient started on IV heparin. Echo ordered -Will defer to cardiology and IM team
[2022-12-06 15:03] LABS: Glucose,Whole Blood 408 mg/dL (70-110)
[2022-12-06] MEDS: FUROSEMIDE 10 MG/ML 4 ML VIAL IV SCH (15:06)
--- NOTE | 2022-12-06 15:08 | US ---
EXAMINATION TYPE: US carotid duplex BILAT DATE OF EXAM: 12/06/2022 COMPARISON: CTA head neck 12/05/2022 CLINICAL INDICATION: Male, 52 years old with history of tia; TECHNIQUE: Carotid duplex ultrasound examination. Indirect Doppler criteria was utilized. FINDINGS: EXAM MEASUREMENTS: RIGHT: Peak Systolic Velocity (PSV) cm/sec ----- Right CCA: 137.7 ----- Right ICA: 125.9 ----- Right ECA: 164.7 ICA/CCA ratio: 0.9 RIGHT: End Diastole cm/sec ----- Right CCA: 11.6 ----- Right ICA: 9.7 ----- Right ECA: 11.4 LEFT: Peak Systolic Velocity (PSV) cm/sec ----- Left CCA: 111.3 ----- Left ICA: 138.7 ----- Left ECA: 204.2 ICA/CCA ratio: 1.2 LEFT: End Diastole cm/sec ----- Left CCA: 11.1 ----- Left ICA: 20.8 ----- Left ECA: 0.0 VERTEBRALS (direction of flow): Right Vertebral: Antegrade Left Vertebral: Antegrade Rhythm: Arrhythmia [employer] NOTES: Mildly elevated velocities throughout. No significant stenosis identified. IMPRESSION: 1. Mild atherosclerotic change with no significant hemodynamic stenosis. 2. Cardiac dysrhythmia Criteria for Assigning % of Stenosis / Diameter reduction (Estimation based on the indirect measurements of the internal carotid artery velocities (ICA PSV). 1. Normal (no stenosis)=ICA PSV < 125 cm/s: ratio < 2.0: ICA EDV<40 cm/s. 2. Less than 50% stenosis=ICA PSV < 125 cm/s: ratio < 2.0: ICA EDV<40 cm/s. 3. 50 to 69% stenosis=ICA PSV of 125 to 230 cm/s: ration 2.0 ? 4.0: ICA EDV 40-100 cm/s. 4. Greater than 70% stenosis to near occlusion= ICA PSV > 230 cm/s: ratio > 4.0: ICA EDV > 100 cm/s. 5. Near occlusion= ICA PSV velocities may be low or undetectable: variable ratio and ICA EDV. 6. Total occlusion=unable to detect flow.
[2022-12-06 15:56] LABS: Glucose,Whole Blood 62 mg/dL (70-110)
[2022-12-06 15:56] LABS: Glucose,Whole Blood 66 mg/dL (70-110)
[2022-12-06 15:56] LABS: Glucose,Whole Blood 68 mg/dL (70-110)
[2022-12-06 17:12] LABS: Glucose,Whole Blood 389 mg/dL (70-110)
[2022-12-06] MEDS: INSULIN ASPART (NovoLOG) 100 UNIT/ML VIAL SQ SCH ×2 (17:15→21:14)
[2022-12-06 18:10] LABS: Chol/HDL Ratio 3.35 Ratio; LDL Cholesterol,Calculated 128.1 mg/dL (0.0-131.0); VLDL Calculation 13.58 mg/dL (5.00-40.00)
[2022-12-06 19:05] LABS: Glucose,Whole Blood 346 mg/dL (70-110)
--- NOTE | 2022-12-06 20:56 | P.CNNES ---
History of Present Illness Consult date: 12/06/22 Requesting physician: Alberto Lucia Reason for Consult: TIA History of Present Illness: Patient is a 52-year-old left-handed male, with history of hypertension, diabetes, hyperlipidemia, currently on aspirin 81 mg daily for 20 years, came to the hospital yesterday at 8:44 PM for possible TIA. Patient states that he yesterday at 8 PM, he was finishing up his job, talking to someone when suddenly he couldn't say what he wanted to say. He was saying the wrong words. Along with that he also noticed some tingling in the right hand up to the wrist region, like going to sleep. All the symptoms lasted for 5 minutes and symptoms went away. There was no facial droop, or paresthesias involving the facial region or the leg. He came to the ER for evaluation. Denies any history of strokes or TIA in the past. Vital signs on arrival blood pressure 246/125, pulse rate 101, temperature 98.0. Repeat blood pressure 236/115. Blood test shows normal CBC, PT/PTT, normal sodium, potassium 3.4, BUN 23 creatinine 1.20 hepatic panel normal. Troponin mildly elevated 0.062, UA shows moderate amount of blood and 3+ protein and 3+ glucose. Patient has history of diabetes since age 28, hypertension and hyperlipidemia. He has been on aspirin 81 mg daily since age 28, compliant. Patient says that he was diagnosed with CLL 3 years ago. He follows up with Dr. Hollis and is currently being observed, not on any treatment. Patient has never smoked, does not drink alcohol. Review of Systems Constitutional: Denies chills, Denies fever Eyes: denies blurred vision, denies diplopia, denies pain Ears: deny: ear discharge, earache Ears, nose, mouth and throat: Denies headache, Denies sore throat Cardiovascular: Denies chest pain, Denies shortness of breath Respiratory: Denies cough, Denies excessive sputum Gastrointestinal: Denies abdominal pain, Denies diarrhea, Denies nausea, Denies vomiting Musculoskeletal: Denies gait dysfunction, Denies myalgias Integumentary: Denies pruritus, Denies rash Neurological: Reports as per HPI Psychiatric: Denies anxiety, Denies depression Endocrine: Denies fatigue, Denies weight change Hematologic/Lymphatic: Denies easy bleeding, Denies easy bruising Past Medical History Past Medical History: Cancer, Diabetes Mellitus, Hyperlipidemia, Hypertension Additional Past Medical History / Comment(s): IDDM type I, CLL, recent R upper arm pain, occasional sinus issues. History of Any Multi-Drug Resistant Organisms: None Reported Past Surgical History: Cholecystectomy, Tonsillectomy Additional Past Surgical History / Comment(s): 12/2018 L neck mass excision, colonoscopy, bilateral cataract removals/lens implants Past Anesthesia/Blood Transfusion Reactions: Motion Sickness, Postoperative Nausea & Vomiting (PONV) Past Psychological History: No Psychological Hx Reported Smoking Status: Never smoker Past Alcohol Use History: None Reported Past Drug Use History: None Reported - Past Family History Father Family Medical History: Cancer Additional Family Medical History / Comment(s): Father from leukemia. Mother Additional Family Medical History / Comment(s): Mother is , she had night terrors. Brother(s) Additional Family Medical History / Comment(s): 2 of pts brothers have schizophrenia and one is also a diabetic. One at the age of 56yrs from "natural causes" Medications and Allergies Home Medications Medication Instructions Recorded Confirmed Type Aspirin [Adult Low Dose Aspirin EC] 81 mg PO DAILY 03/13/18 12/06/22 History Cholecalciferol (Vitamin D3) 50 mcg PO DAILY 01/08/19 12/06/22 History [Vitamin D3] INSULIN LISPRO (For Pump) [humaLOG 0.01 units SQ-PUMP CONTINUOUS 05/26/20 12/06/22 History (For Pump)] Blood Pressure Med (Unknown) 1 tab PO DIRECTED 12/06/22 12/06/22 History Allergies Allergy/AdvReac Type Severity Reaction Status Date / Time No Known Allergies Allergy Verified 12/06/22 09:06 Physical Examination - Vital Signs Vital Signs: Vital Signs Temp Pulse Resp BP Pulse Ox 12/06/22 19:27 80 18 101/52 94 L 12/06/22 17:15 89 18 117/59 96 12/06/22 16:01 98.6 F 86 18 106/59 98 12/06/22 15:09 95 12/06/22 15:07 85 18 101/65 89 L 12/06/22 14:03 90 17 105/55 93 L 12/06/22 13:07 89 20 113/57 93 L 12/06/22 12:32 98.7 F 90 19 131/59 95 12/06/22 12:24 86 19 121/59 95 12/06/22 11:00 101 H 18 125/57 96 12/06/22 10:43 107 H 14 130/75 97 12/06/22 10:00 106 H 20 147/71 96 12/06/22 09:00 110 H 18 162/99 98 12/06/22 08:00 110 H 18 141/63 97 12/06/22 07:58 110 H 18 141/63 97 12/06/22 06:11 107 H 18 162/78 98 12/06/22 04:00 98 24 167/88 96 12/06/22 03:00 105 H 21 155/80 97 12/06/22 02:00 103 H 13 141/94 97 12/06/22 01:00 96 24 169/87 98 12/06/22 00:00 87 18 169/93 93 L 12/05/22 23:39 77 16 180/95 91 L 12/05/22 23:03 84 0 L 171/106 94 L 12/05/22 23:00 84 22 179/102 92 L 12/05/22 22:50 80 16 176/113 92 L 12/05/22 22:42 80 19 176/113 93 L 12/05/22 22:00 78 16 206/109 98 12/05/22 21:56 98.7 F 94 16 236/115 98 12/05/22 20:46 98.0 F 101 H 20 246/125 97 Intake and Output 12/06/22 12/06/22 12/06/22 06:59 14:59 22:59 Intake Total 138.5 Balance 138.5 Intake: Intake, IV Titration 138.5 Amount Heparin Sod,Pork in 0.45% 138.5 NaCl 25,000 unit In 0.45 % NaCl 1 250ml.bag @ 9. 5853 UNITS/KG/HR 10 mls/ hr IV .Q24H [facility] Rx#: [id number] Patient is a middle aged male, very pleasant in no acute distress. Patient is alert awake oriented to time place and person. Speech and language functions are normal. Patient can name and repeat very well. No aphasia or dysarthria. Attention, concentration and fund of knowledge is adequate. On cranial nerve examination, pupils are equal, round and reacting to light, visual vaughan are full on confrontation, with no neglect on double simultaneous stimulation. Extraocular muscles are intact with no nystagmus. Face is symmetric, tongue protrudes to the midline. Palatal elevation and sensation normal, hearing and shoulder shrug normal, facial sensation normal. On muscle strength testing, there is no pronator drift and the strength is normal in arms and legs distally and proximally. Deep tendon reflexes are overall hypoactive but symmetric and plantars downgoing. Sensory to touch is equal with no neglect on double simultaneous stimulation. Cerebellar function showed no ataxia for [id number]-[id number] testing. No dysdiadochokinesia. No ataxia for bugn-az-[id number] testing on either side. Tone and bulk of muscles normal. Gait deferred.. On general examination, there is no carotid bruit or murmur, S1-S2 audible. Chest is clear on consultation. Abdomen is soft nontender. No organomegaly, bowel sounds present. Peripheral pulses are present. No edema. Results - Laboratory Findings CBC and BMP: 12/07/22 07:05 12/07/22 07:05 Abnormal Lab Findings: Abnormal Labs 12/05/22 12/05/22 12/05/22 20:48 21:00 21:11 APTT D-Dimer 0.69 H Potassium BUN Glucose POC Glucose (mg/dL) 62 L 66 L Troponin I Cholesterol HDL Cholesterol Urine Protein Urine Glucose (UA) Urine Blood Hyaline Casts Urine Mucus 12/05/22 12/05/22 12/05/22 21:11 21:11 21:58 APTT D-Dimer Potassium 3.4 L BUN 23 H Glucose 65 L POC Glucose (mg/dL) Troponin I 0.062 H* Cholesterol HDL Cholesterol Urine Protein 3+ H Urine Glucose (UA) 3+ H Urine Blood Moderate H Hyaline Casts 36 H Urine Mucus Rare H 12/05/22 12/06/22 12/06/22 22:01 01:30 01:37 APTT D-Dimer Potassium BUN Glucose POC Glucose (mg/dL) 68 L 214 H Troponin I 0.057 H* Cholesterol HDL Cholesterol Urine Protein Urine Glucose (UA) Urine Blood Hyaline Casts Urine Mucus 12/06/22 12/06/22 12/06/22 01:37 06:39 08:16 APTT 30.7 H D-Dimer Potassium BUN Glucose POC Glucose (mg/dL) 344 H Troponin I Cholesterol 202.00 H HDL Cholesterol 60.30 H Urine Protein Urine Glucose (UA) Urine Blood Hyaline Casts Urine Mucus 12/06/22 12/06/22 12/06/22 10:16 13:30 14:02 APTT D-Dimer Potassium BUN Glucose POC Glucose (mg/dL) 384 H 421 H 441 H Troponin I Cholesterol HDL Cholesterol Urine Protein Urine Glucose (UA) Urine Blood Hyaline Casts Urine Mucus 12/06/22 12/06/22 12/06/22 14:37 15:01 17:10 APTT 30.9 H D-Dimer Potassium BUN Glucose POC Glucose (mg/dL) 408 H 389 H Troponin I Cholesterol HDL Cholesterol Urine Protein Urine Glucose (UA) Urine Blood Hyaline Casts Urine Mucus 12/06/22 19:03 APTT D-Dimer Potassium BUN Glucose POC Glucose (mg/dL) 346 H Troponin I Cholesterol HDL Cholesterol Urine Protein Urine Glucose (UA) Urine Blood Hyaline Casts Urine Mucus Assessment and Plan Assessment: * TIA, manifesting with transient aphasia and right hand numbness, that resolved in 5 minutes. * Diabetes, uncontrolled * Elevated cardiac enzymes, * Hypertension, with hypertensive urgency. * Hyperlipidemia * Probable CHF * CLL Plan: * Patient had a probable TIA. Symptoms have completely resolved. Current NIH stroke scale is 0. * Patient has been on aspirin 81 mg daily, probably failed. Suggest DAP with aspirin 81 mg and Plavix 75 mg for 21 days, then stop aspirin and continue P lavix indefinitely. * Patient has elevated cardiac enzymes, currently on heparin IV. Cardiology on board. * Await 2-D echo with bubble study to rule out PFO * Patient came with completely uncontrolled blood pressure. Recommend optimize control of blood pressure to target <130/80 * CTA head showed: No large vessel occlusion. Atherosclerosis of the cavernous internal carotid arteries resulting in mild stenosis. * CTA of the neck showed no dissection, pseudoaneurysm, or hemodynamically significant stenosis of the carotid or vertebral arteries. * Carotid Doppler revealed mild atherosclerotic change with no significant hemodynamic stenosis. Cardiac dysrhythmia. * Fasting a.m. lipid panel with cholesterol is 22, LDL 128, HDL 60 and triglycerides 67.9. Start Lipitor 40 mg daily. * Hemoglobin A1c * Close neuro checks * Telemetry monitoring rule out any arrhythmia * DVT prophylaxis: On heparin IV. * For CLL, hematology oncology on board. * Neurology will continue ot follow. Thank you for the consult.
[2022-12-06 20:57] LABS: Glucose,Whole Blood 264 mg/dL (70-110)
[2022-12-06] MEDS: CLOPIDOGREL 75 MG TAB PO SCH (21:14)
[2022-12-07] MEDS: FUROSEMIDE 10 MG/ML 4 ML VIAL IV SCH ×2 (00:05→14:30)
[2022-12-07] MEDS: HEPARIN SOD,PORK IN 0.45% NACL 25,000 UNIT in 0.45% NACL 1 250ML.BAG IV SCH (00:05)
[2022-12-07 06:07] LABS: Glucose,Whole Blood 52 mg/dL (70-110)
[2022-12-07 06:24] LABS: Glucose,Whole Blood 65 mg/dL (70-110)
[2022-12-07 07:45] LABS: Basophils # (A) 0.1 k/uL (0-0.2); Basophils % (A) 0 %; Eosinophils # (A) 0.1 k/uL (0-0.7); Eosinophils % (A) 0 %; HCT 37.6 % (39.0-53.0); HGB 12.6 gm/dL (13.0-17.5); Lymphocytes # (A) 2.5 k/uL (1.0-4.8); Lymphocytes % (A) 16 %; MCH 30.3 pg (25.0-35.0); MCHC 33.5 g/dL (31.0-37.0); MCV 90.4 fL (80.0-100.0); Mean Platelet Volume 8.9; Monocytes # (A) 0.7 k/uL (0-1.0); Monocytes % (A) 4 %; Neutrophils # (A) 11.8 k/uL (1.3-7.7); Neutrophils % (A) 77 %; Platelet Count 224 k/uL (150-450); RBC 4.16 m/uL (4.30-5.90); RDW 14.2 % (11.5-15.5); WBC 15.3 k/uL (3.8-10.6)
[2022-12-07 08:02] LABS: INR 1.2 (<1.2); Prothrombin Time 12.7 sec (9.0-12.0)
[2022-12-07 08:27] LABS: Calcium 7.8 mg/dL (8.4-10.2); Magnesium 1.9 mg/dL (1.6-2.3); Potassium 4.2 mmol/L (3.5-5.1)
[2022-12-07] MEDS: INSULIN ASPART (NovoLOG) 100 UNIT/ML VIAL SQ SCH ×4 (08:39→20:25)
[2022-12-07] MEDS: LOSARTAN 25 MG TAB PO SCH (09:11)
[2022-12-07] MEDS: CLOPIDOGREL 75 MG TAB PO SCH (09:11)
[2022-12-07] MEDS: METOPROLOL TARTRATE 50 MG TAB PO SCH (09:11)
[2022-12-07] MEDS: ASPIRIN 81 MG PO SCH (09:11)
--- NOTE | 2022-12-07 10:07 | CA ---
Transthoracic Echo Report Name: Walter Rodney Age: 52 Gender: M : 1970 Exam Date: 12/06/2022 11:25 Exam Location: [facility] Ht (in): 71 Wt (lb): 230 Ordering Physician: Sina Garcia MD ([id number]) Attending/Referring Phys: Jose PORTILLO [employer] Caty Noble RDCS Procedure CPT: Indications: nstemi Cardiac Hx: Technical Quality: Fair Contrast 1: Total Dose (mL): Contrast 2: Total Dose (mL): MEASUREMENTS (Male / Female) Normal Values 2D ECHO LV Diastolic Diameter PLAX 4.8 cm 4.2 - 5.9 / 3.9 - 5.3 cm LV Systolic Diameter PLAX 4.1 cm IVS Diastolic Thickness 1.4 cm 0.6 - 1.0 / 0.6 - 0.9 cm LVPW Diastolic Thickness 1.1 cm 0.6 - 1.0 / 0.6 - 0.9 cm LV Relative Wall Thickness 0.5 RV Internal Dim ED PLAX 4.3 cm LV Diastolic Volume MOD BP 159.5 cm??? 67 - 155 / 56 - 104 cm??? LV Systolic Volume MOD BP 89.4 cm??? 22 - 58 / 19 - 49 cm??? LV Ejection Fraction MOD BP 44.0 % >= 55 % LV Cardiac Index MOD BP 1847.1 cm???/min???m??? LV Diastolic Volume MOD 4C 154.2 cm??? LV Systolic Volume MOD 4C 74.0 cm??? LV Ejection Fraction MOD 4C 52.0 % LV Cardiac Index MOD 4C 2112.4 cm???/min???m??? LV Diastolic Length 4C 9.4 cm LV Systolic Length 4C 8.6 cm LV Diastolic Volume MOD 2C 164.4 cm??? LV Systolic Volume MOD 2C 102.9 cm??? LV Ejection Fraction MOD 2C 37.4 % LV Cardiac Index MOD 2C 1619.8 cm???/min???m??? LV Diastolic Length 2C 9.4 cm LV Systolic Length 2C 9.1 cm LA Volume 106.4 cm??? 18 - 58 / 22 - 52 cm??? M-MODE Aortic Root Diameter MM 2.9 cm LA Systolic Diameter MM 4.8 cm LA Ao Ratio MM 1.7 AV Cusp Separation MM 1.8 cm DOPPLER AV Peak Velocity 186.6 cm/s AV Peak Gradient 13.9 mmHg AV Mean Velocity 127.1 cm/s AV Mean Gradient 7.2 mmHg AV Velocity Time Integral 37.7 cm LVOT Peak Velocity 118.5 cm/s LVOT Peak Gradient 5.6 mmHg LVOT Velocity Time Integral 22.4 cm MV Area PHT 4.7 cm??? Mitral E Point Velocity 99.3 cm/s Mitral A Point Velocity 60.7 cm/s Mitral E to A Ratio 1.6 MV Deceleration Time 160.1 ms MV E' Velocity 3.8 cm/s Mitral E to MV E' Ratio 25.8 TR Peak Velocity 284.3 cm/s TR Peak Gradient 32.3 mmHg Right Ventricular Systolic Press 36.7 mmHg FINDINGS Left Ventricle Mildly increased wall thickness. Mildly increased left ventricular diastolic volume. Severely increased left ventricular systolic volume. Left ventricular ejection fraction is estimated at 50%. No clearcut wall motion abnormality Right Ventricle Moderate right ventricular dilatation. Mild pulmonary hypertension. Right Atrium Normal right atrial size. Left Atrium Severely increased left atrial volume. Mildly increased left atrial area. Mitral Valve Ucep-lz-etylunyp mitral regurgitation. Aortic Valve Trileaflet aortic valve. No aortic valve stenosis or regurgitation. Tricuspid Valve Structurally normal tricuspid valve. Mild tricuspid regurgitation. Pulmonic Valve Trace pulmonic regurgitation. Pericardium No pericardial effusion. Aorta Normal size aortic root and proximal ascending aorta. CONCLUSIONS Left ventricle size is normal with mild concentric LVH ejection fraction is 50% no clearcut wall motion abnormality. Left atrium is enlarged. There is mild to moderate mitral regurgitation, mild tricuspid regurgitation. No pericardial effusion no significant pulmonary hypertension Previewed by: Dr. Salome Buitrago MD (Electronically Signed) Final Date: 07 Dec 2022 10:06
[2022-12-07 11:26] LABS: Glucose,Whole Blood 145 mg/dL (70-110)
[2022-12-07] MEDS: SODIUM CHLORIDE 0.9% 1,000 ML IV SCH (11:27)
--- NOTE | 2022-12-07 12:30 | P.PN ---
Subjective Progress Note Date: 12/07/22 HISTORY OF PRESENT ILLNESS: This is a 52-year-old male who was admitted to the hospital secondary to CHF. Patient also had right hand numbness and neurology has been consulted for ev aluation. The patient was started on IV Lasix. This morning the patient's creatinine is noted to be elevated at 2.5, up from 1.2 yesterday. He currently denies any chest pain or pressure. He denies any shortness of breath. Vital signs are stable. Echocardiogram completed revealing ejection fraction 50% with no clear-cut wall motion abnormality. Mild to moderate mitral regurgitation and mild tricuspid regurgitation. PHYSICAL EXAM: VITAL SIGNS: Reviewed. GENERAL: Well-developed in no acute distress. NECK: Supple. No JVD or thyromegaly LUNGS: Respirations even and unlabored. Lungs essentially clear to auscultation bilaterally. HEART: Regular rate and rhythm. S1 and S2 heard. EXTREMITIES: Normal range of motion. No clubbing or cyanosis. Peripheral pulses intact. No lower extremity edema ASSESSMENT: Shortness of breath Acute congestive heart failure with preserved ejection fraction, EF 50% Abnormal troponins, flat, likely secondary to above, no evidence of acute coronary syndrome Acute kidney injury, secondary to diuresis Right hand numbness, suspected TIA Bilateral pleural effusions Axillary and mediastinal adenopathy PLAN: Discontinue IV Lasix Begin IV fluids at 50 mL an hour Repeat kidney function a.m., if not improved, will seek nephrology consultation Discontinue IV heparin. Begin subcu heparin Continue current cardiac medications Patient has been started on Lipitor and Plavix per neurology Further recommendations pending patient's course Nurse practitioner note has been reviewed by physician. Signing provider agrees with the documented findings, assessment, and plan of care. Objective - Vital Signs Vital signs: Vital Signs Temp 98.0 F 12/07/22 08:00 Pulse 84 12/07/22 08:00 Resp 16 12/07/22 08:00 BP 122/69 12/07/22 08:00 Pulse Ox 95 12/07/22 09:39 FiO2 Intake & Output 12/06/22 12/07/22 12/07/22 18:59 06:59 18:59 Intake Total 138.5 158.491 460 Output Total 0 200 Balance 138.5 158.491 260 Weight 104.5 kg Intake: IV 50 Invasive Line 1 50 Intake, IV Titration 138.5 108.491 Amount Heparin Sod,Pork in 0.45% 138.5 108.491 NaCl 25,000 unit In 0.45 % NaCl 1 250ml.bag @ 9. 5853 UNITS/KG/HR 10 mls/ hr IV .Q24H [facility] Rx#: [id number] Oral 460 Output: Urine 0 200 Other: Voiding Method Toilet Toilet Urinal - Labs CBC & Chem 7: 12/07/22 07:05 12/07/22 07:05 Labs: Abnormal Lab Results - Last 24 Hours (Table) 12/05/22 12/05/22 12/05/22 Range/Units 20:48 21:00 22:01 WBC (3.8-10.6) k/uL RBC (4.30-5.90) m/uL Hgb (13.0-17.5) gm/dL Hct (39.0-53.0) % Neutrophils # (1.3-7.7) k/uL PT (9.0-12.0) sec INR (<1.2) APTT (22.0-30.0) sec Sodium (137-145) mmol/L BUN (9-20) mg/dL Creatinine (0.66-1.25) mg/dL POC Glucose (mg/dL) 62 L 66 L 68 L (70-110) mg/dL Hemoglobin A1c (0.0-6.0) % Calcium (8.4-10.2) mg/dL Cholesterol (0.00-200.00) mg/dL HDL Cholesterol (40.00-60.00) mg/dL 12/06/22 12/06/22 12/06/22 Range/Units 01:37 13:30 14:02 WBC (3.8-10.6) k/uL RBC (4.30-5.90) m/uL Hgb (13.0-17.5) gm/dL Hct (39.0-53.0) % Neutrophils # (1.3-7.7) k/uL PT (9.0-12.0) sec INR (<1.2) APTT (22.0-30.0) sec Sodium (137-145) mmol/L BUN (9-20) mg/dL Creatinine (0.66-1.25) mg/dL POC Glucose (mg/dL) 421 H 441 H (70-110) mg/dL Hemoglobin A1c (0.0-6.0) % Calcium (8.4-10.2) mg/dL Cholesterol 202.00 H (0.00-200.00) mg/dL HDL Cholesterol 60.30 H (40.00-60.00) mg/dL 12/06/22 12/06/22 12/06/22 Range/Units 14:37 15:01 17:10 WBC (3.8-10.6) k/uL RBC (4.30-5.90) m/uL Hgb (13.0-17.5) gm/dL Hct (39.0-53.0) % Neutrophils # (1.3-7.7) k/uL PT (9.0-12.0) sec INR (<1.2) APTT 30.9 H (22.0-30.0) sec Sodium (137-145) mmol/L BUN (9-20) mg/dL Creatinine (0.66-1.25) mg/dL POC Glucose (mg/dL) 408 H 389 H (70-110) mg/dL Hemoglobin A1c (0.0-6.0) % Calcium (8.4-10.2) mg/dL Cholesterol (0.00-200.00) mg/dL HDL Cholesterol (40.00-60.00) mg/dL 12/06/22 12/06/22 12/06/22 Range/Units 19:03 20:55 22:10 WBC (3.8-10.6) k/uL RBC (4.30-5.90) m/uL Hgb (13.0-17.5) gm/dL Hct (39.0-53.0) % Neutrophils # (1.3-7.7) k/uL PT (9.0-12.0) sec INR (<1.2) APTT 58.0 H (22.0-30.0) sec Sodium (137-145) mmol/L BUN (9-20) mg/dL Creatinine (0.66-1.25) mg/dL POC Glucose (mg/dL) 346 H 264 H (70-110) mg/dL Hemoglobin A1c (0.0-6.0) % Calcium (8.4-10.2) mg/dL Cholesterol (0.00-200.00) mg/dL HDL Cholesterol (40.00-60.00) mg/dL 12/06/22 12/07/22 12/07/22 Range/Units 22:10 06:06 06:22 WBC (3.8-10.6) k/uL RBC (4.30-5.90) m/uL Hgb (13.0-17.5) gm/dL Hct (39.0-53.0) % Neutrophils # (1.3-7.7) k/uL PT (9.0-12.0) sec INR (<1.2) APTT (22.0-30.0) sec Sodium (137-145) mmol/L BUN (9-20) mg/dL Creatinine (0.66-1.25) mg/dL POC Glucose (mg/dL) 52 L 65 L (70-110) mg/dL Hemoglobin A1c 8.7 H (0.0-6.0) % Calcium (8.4-10.2) mg/dL Cholesterol (0.00-200.00) mg/dL HDL Cholesterol (40.00-60.00) mg/dL 12/07/22 12/07/22 12/07/22 Range/Units 07:05 07:05 07:05 WBC 15.3 H (3.8-10.6) k/uL RBC 4.16 L (4.30-5.90) m/uL Hgb 12.6 L (13.0-17.5) gm/dL Hct 37.6 L (39.0-53.0) % Neutrophils # 11.8 H (1.3-7.7) k/uL PT 12.7 H (9.0-12.0) sec INR 1.2 H (<1.2) APTT (22.0-30.0) sec Sodium 132 L (137-145) mmol/L BUN 59 H (9-20) mg/dL Creatinine 2.50 H (0.66-1.25) mg/dL POC Glucose (mg/dL) (70-110) mg/dL Hemoglobin A1c (0.0-6.0) % Calcium 7.8 L (8.4-10.2) mg/dL Cholesterol (0.00-200.00) mg/dL HDL Cholesterol (40.00-60.00) mg/dL 12/07/22 12/07/22 Range/Units 07:05 11:25 WBC (3.8-10.6) k/uL RBC (4.30-5.90) m/uL Hgb (13.0-17.5) gm/dL Hct (39.0-53.0) % Neutrophils # (1.3-7.7) k/uL PT (9.0-12.0) sec INR (<1.2) APTT 49.2 H (22.0-30.0) sec Sodium (137-145) mmol/L BUN (9-20) mg/dL Creatinine (0.66-1.25) mg/dL POC Glucose (mg/dL) 145 H (70-110) mg/dL Hemoglobin A1c (0.0-6.0) % Calcium (8.4-10.2) mg/dL Cholesterol (0.00-200.00) mg/dL HDL Cholesterol (40.00-60.00) mg/dL
[2022-12-07] MEDS: INSULIN LISPRO (For Pump) 100 UNIT/ML VIAL SQ-PUMP SCH (14:31)
--- NOTE | 2022-12-07 15:45 | P.PN ---
Subjective Progress Note Date: 12/07/22 Patient is a pleasant 52-year-old the male with history of diabetes on insulin the pump came in with compensative numbness in the right hand as well as transient inability to speak which lasted for few minutes. Patient does take aspirin and a statin at home. Patient is also found to have elevated blood s ugars because of poorly functioning insulin pump which was adjusted now. Patient had a computed tomography scan of the chest which is negative for pulmonary embolism but did show significant lymphadenopathy in the axillary mediastinal area along with the pleural effusions bilaterally. Patient was a valid by cardiology because of mildly elevated troponins of 0.06 and 0.05 and was started on IV Lasix because of elevated BNP and bilateral pleural effusions. Although patient denied any symptoms of significant shortness of breath orthopnea or paroxysmal nocturnal dyspnea echocardiac and is being obtained at this time patient denied any history of heart failure not on any diuretics at home patient potassium was low at 3.4 which will be replaced. Patient's creatinine is 1.2. 12/07/2022 Patient is evaluated on the medical floor. No acute complaints overnight. Lower extremity edema has improved. Patient denies shortness of breath. Denies hand numbness and no speech issues currently. Neurology is recommending aspirin and plavix for 21 days together than stopping the aspirin and continuing on plavix indefinitely feels patient likely had a TIA. Echocardiogram done showing EF 50% with mild to moderate mitral regurgitation and mild tricuspid regurgitation. Carotid doppler showing no significant hemodynamic stenosis. Noted cardiac dysrhythmia. White count today is 15.13, sodium 132, BUN 59, creatinine 2.50. A1C is 8.7. Blood glucose 140s. IV lasix has been stopped and patient will be g ently hydrated overnight and follow up BMP tomorrow. Review of Systems Constitutional: Denied any fatigue denied any fever. Cardio vascular: denied any chest pain, palpitations Gastrointestinal: denied any nausea, vomiting, diarrhea Pulmonary: Denied any shortness of breath cough Neurologic denied any new focal deficits All inpatient medications were reviewed and appropriate changes in these m edications as dictated in the interval history and assessment and plan. PHYSICAL EXAMINATION: GENERAL: The patient is alert and oriented x3, not in any acute distress. Well developed, well nourished. HEENT: Pupils are round and equally reacting to light. EOMI. No scleral icterus. No conjunctival pallor. Normocephalic, atraumatic. No pharyngeal erythema. No thyromegaly. CARDIOVASCULAR: S1 and S2 present. No murmurs, rubs, or gallops. PULMONARY: Chest is clear to auscultation, no wheezing or crackles. ABDOMEN: Soft, nontender, nondistended, normoactive bowel sounds. No palpable organomegaly. MUSCULOSKELETAL: No joint swelling or deformity. EXTREMITIES: No cyanosis, clubbing, or pedal edema. NEUROLOGICAL: Gross neurological examination did not reveal any focal deficits. SKIN: No rashes. Assessment and plan -Possible TIA with resolution of symptoms. Neurology recommending aspirin plavix for 21 days stopping aspirin and continuing on plavix. -Mild elevation of troponins likely related to CHF, no evidence of acute coronary syndrome per cardiology -Acute congestive heart failure diastolic -History of lymphoma worsening lymphadenopathy because of which a oncology was consulted, patient follows with oncology outpatient -Type 2 diabetes mellitus uncontrolled blood sugars due to nonfunctioning insulin pump which was adjusted blood glucose is improved -Acute kidney injury secondary to diuresis and patient will be gently hydrated overnight and follow up labs in the AM -Hypertension DVT prophylaxis: Early ambulation GI prophylaxis Full Code Plan Follow up AM labs and patient will possibly be discharged home in the next 24 to 48 hours Patient will get an event monitor on discharge to rule out cardiac arrhythmia. The impression and plan of care has been dictated by Cora Lay, Nurse Practitioner as directed. Dr. Rea MD I have performed a history and physical examination and medical decision making of this patient, discussed the same with the dictator, and agree with the dictators assessment and plan as written, documented as a scribe. Based on total visit time, I have performed more than 50% of this visit. Objective - Vital Signs Vital signs: Vital Signs Temp 98.0 F 12/07/22 08:00 Pulse 76 12/07/22 14:00 Resp 18 12/07/22 14:00 BP 127/74 12/07/22 12:00 Pulse Ox 97 12/07/22 12:00 FiO2 Intake & Output 12/06/22 12/07/22 12/07/22 18:59 06:59 18:59 Intake Total 138.5 158.491 460 Output Total 0 600 Balance 138.5 158.491 -140 Weight 104.5 kg Intake: IV 50 Invasive Line 1 50 Intake, IV Titration 138.5 108.491 Amount Heparin Sod,Pork in 0.45% 138.5 108.491 NaCl 25,000 unit In 0.45 % NaCl 1 250ml.bag @ 9. 5853 UNITS/KG/HR 10 mls/ hr IV .Q24H [facility] Rx#: [id number] Oral 460 Output: Urine 0 600 Other: Voiding Method Toilet Toilet Urinal - Labs CBC & Chem 7: 12/07/22 07:05 12/07/22 07:05 Labs: Abnormal Lab Results - Last 24 Hours (Table) 12/05/22 12/05/22 12/05/22 Range/Units 20:48 21:00 22:01 WBC (3.8-10.6) k/uL RBC (4.30-5.90) m/uL Hgb (13.0-17.5) gm/dL Hct (39.0-53.0) % Neutrophils # (1.3-7.7) k/uL PT (9.0-12.0) sec INR (<1.2) APTT (22.0-30.0) sec Sodium (137-145) mmol/L BUN (9-20) mg/dL Creatinine (0.66-1.25) mg/dL POC Glucose (mg/dL) 62 L 66 L 68 L (70-110) mg/dL Hemoglobin A1c (0.0-6.0) % Calcium (8.4-10.2) mg/dL Cholesterol (0.00-200.00) mg/dL HDL Cholesterol (40.00-60.00) mg/dL 12/06/22 12/06/22 12/06/22 Range/Units 01:37 17:10 19:03 WBC (3.8-10.6) k/uL RBC (4.30-5.90) m/uL Hgb (13.0-17.5) gm/dL Hct (39.0-53.0) % Neutrophils # (1.3-7.7) k/uL PT (9.0-12.0) sec INR (<1.2) APTT (22.0-30.0) sec Sodium (137-145) mmol/L BUN (9-20) mg/dL Creatinine (0.66-1.25) mg/dL POC Glucose (mg/dL) 389 H 346 H (70-110) mg/dL Hemoglobin A1c (0.0-6.0) % Calcium (8.4-10.2) mg/dL Cholesterol 202.00 H (0.00-200.00) mg/dL HDL Cholesterol 60.30 H (40.00-60.00) mg/dL 12/06/22 12/06/22 12/06/22 Range/Units 20:55 22:10 22:10 WBC (3.8-10.6) k/uL RBC (4.30-5.90) m/uL Hgb (13.0-17.5) gm/dL Hct (39.0-53.0) % Neutrophils # (1.3-7.7) k/uL PT (9.0-12.0) sec INR (<1.2) APTT 58.0 H (22.0-30.0) sec Sodium (137-145) mmol/L BUN (9-20) mg/dL Creatinine (0.66-1.25) mg/dL POC Glucose (mg/dL) 264 H (70-110) mg/dL Hemoglobin A1c 8.7 H (0.0-6.0) % Calcium (8.4-10.2) mg/dL Cholesterol (0.00-200.00) mg/dL HDL Cholesterol (40.00-60.00) mg/dL 12/07/22 12/07/22 12/07/22 Range/Units 06:06 06:22 07:05 WBC (3.8-10.6) k/uL RBC (4.30-5.90) m/uL Hgb (13.0-17.5) gm/dL Hct (39.0-53.0) % Neutrophils # (1.3-7.7) k/uL PT (9.0-12.0) sec INR (<1.2) APTT (22.0-30.0) sec Sodium 132 L (137-145) mmol/L BUN 59 H (9-20) mg/dL Creatinine 2.50 H (0.66-1.25) mg/dL POC Glucose (mg/dL) 52 L 65 L (70-110) mg/dL Hemoglobin A1c (0.0-6.0) % Calcium 7.8 L (8.4-10.2) mg/dL Cholesterol (0.00-200.00) mg/dL HDL Cholesterol (40.00-60.00) mg/dL 12/07/22 12/07/22 12/07/22 Range/Units 07:05 07:05 07:05 WBC 15.3 H (3.8-10.6) k/uL RBC 4.16 L (4.30-5.90) m/uL Hgb 12.6 L (13.0-17.5) gm/dL Hct 37.6 L (39.0-53.0) % Neutrophils # 11.8 H (1.3-7.7) k/uL PT 12.7 H (9.0-12.0) sec INR 1.2 H (<1.2) APTT 49.2 H (22.0-30.0) sec Sodium (137-145) mmol/L BUN (9-20) mg/dL Creatinine (0.66-1.25) mg/dL POC Glucose (mg/dL) (70-110) mg/dL Hemoglobin A1c (0.0-6.0) % Calcium (8.4-10.2) mg/dL Cholesterol (0.00-200.00) mg/dL HDL Cholesterol (40.00-60.00) mg/dL 12/07/22 Range/Units 11:25 WBC (3.8-10.6) k/uL RBC (4.30-5.90) m/uL Hgb (13.0-17.5) gm/dL Hct (39.0-53.0) % Neutrophils # (1.3-7.7) k/uL PT (9.0-12.0) sec INR (<1.2) APTT (22.0-30.0) sec Sodium (137-145) mmol/L BUN (9-20) mg/dL Creatinine (0.66-1.25) mg/dL POC Glucose (mg/dL) 145 H (70-110) mg/dL Hemoglobin A1c (0.0-6.0) % Calcium (8.4-10.2) mg/dL Cholesterol (0.00-200.00) mg/dL HDL Cholesterol (40.00-60.00) mg/dL
--- NOTE | 2022-12-07 16:09 | P.PN ---
Subjective Progress Note Date: 12/07/22 Patient is laying comfortably in the bed. Offers no complaints. Denies any focal symptoms. All symptoms resolved. Objective - Vital Signs Vital signs: Vital Signs Temp 98.0 F 12/07/22 08:00 Pulse 76 12/07/22 12:00 Resp 18 12/07/22 12:00 BP 127/74 12/07/22 12:00 Pulse Ox 97 12/07/22 12:00 FiO2 Intake & Output 12/06/22 12/07/22 12/07/22 18:59 06:59 18:59 Intake Total 138.5 158.491 460 Output Total 0 600 Balance 138.5 158.491 -140 Weight 104.5 kg Intake: IV 50 Invasive Line 1 50 Intake, IV Titration 138.5 108.491 Amount Heparin Sod,Pork in 0.45% 138.5 108.491 NaCl 25,000 unit In 0.45 % NaCl 1 250ml.bag @ 9. 5853 UNITS/KG/HR 10 mls/ hr IV .Q24H [facility] Rx#: [id number] Oral 460 Output: Urine 0 600 Other: Voiding Method Toilet Toilet Urinal - Exam Normal. Nonfocal. Mentation normal. - Labs CBC & Chem 7: 12/07/22 07:05 12/07/22 07:05 Labs: Abnormal Lab Results - Last 24 Hours (Table) 12/05/22 12/05/22 12/05/22 Range/Units 20:48 21:00 22:01 WBC (3.8-10.6) k/uL RBC (4.30-5.90) m/uL Hgb (13.0-17.5) gm/dL Hct (39.0-53.0) % Neutrophils # (1.3-7.7) k/uL PT (9.0-12.0) sec INR (<1.2) APTT (22.0-30.0) sec Sodium (137-145) mmol/L BUN (9-20) mg/dL Creatinine (0.66-1.25) mg/dL POC Glucose (mg/dL) 62 L 66 L 68 L (70-110) mg/dL Hemoglobin A1c (0.0-6.0) % Calcium (8.4-10.2) mg/dL Cholesterol (0.00-200.00) mg/dL HDL Cholesterol (40.00-60.00) mg/dL 12/06/22 12/06/22 12/06/22 Range/Units 01:37 14:02 14:37 WBC (3.8-10.6) k/uL RBC (4.30-5.90) m/uL Hgb (13.0-17.5) gm/dL Hct (39.0-53.0) % Neutrophils # (1.3-7.7) k/uL PT (9.0-12.0) sec INR (<1.2) APTT 30.9 H (22.0-30.0) sec Sodium (137-145) mmol/L BUN (9-20) mg/dL Creatinine (0.66-1.25) mg/dL POC Glucose (mg/dL) 441 H (70-110) mg/dL Hemoglobin A1c (0.0-6.0) % Calcium (8.4-10.2) mg/dL Cholesterol 202.00 H (0.00-200.00) mg/dL HDL Cholesterol 60.30 H (40.00-60.00) mg/dL 12/06/22 12/06/22 12/06/22 Range/Units 15:01 17:10 19:03 WBC (3.8-10.6) k/uL RBC (4.30-5.90) m/uL Hgb (13.0-17.5) gm/dL Hct (39.0-53.0) % Neutrophils # (1.3-7.7) k/uL PT (9.0-12.0) sec INR (<1.2) APTT (22.0-30.0) sec Sodium (137-145) mmol/L BUN (9-20) mg/dL Creatinine (0.66-1.25) mg/dL POC Glucose (mg/dL) 408 H 389 H 346 H (70-110) mg/dL Hemoglobin A1c (0.0-6.0) % Calcium (8.4-10.2) mg/dL Cholesterol (0.00-200.00) mg/dL HDL Cholesterol (40.00-60.00) mg/dL 12/06/22 12/06/22 12/06/22 Range/Units 20:55 22:10 22:10 WBC (3.8-10.6) k/uL RBC (4.30-5.90) m/uL Hgb (13.0-17.5) gm/dL Hct (39.0-53.0) % Neutrophils # (1.3-7.7) k/uL PT (9.0-12.0) sec INR (<1.2) APTT 58.0 H (22.0-30.0) sec Sodium (137-145) mmol/L BUN (9-20) mg/dL Creatinine (0.66-1.25) mg/dL POC Glucose (mg/dL) 264 H (70-110) mg/dL Hemoglobin A1c 8.7 H (0.0-6.0) % Calcium (8.4-10.2) mg/dL Cholesterol (0.00-200.00) mg/dL HDL Cholesterol (40.00-60.00) mg/dL 12/07/22 12/07/22 12/07/22 Range/Units 06:06 06:22 07:05 WBC (3.8-10.6) k/uL RBC (4.30-5.90) m/uL Hgb (13.0-17.5) gm/dL Hct (39.0-53.0) % Neutrophils # (1.3-7.7) k/uL PT (9.0-12.0) sec INR (<1.2) APTT (22.0-30.0) sec Sodium 132 L (137-145) mmol/L BUN 59 H (9-20) mg/dL Creatinine 2.50 H (0.66-1.25) mg/dL POC Glucose (mg/dL) 52 L 65 L (70-110) mg/dL Hemoglobin A1c (0.0-6.0) % Calcium 7.8 L (8.4-10.2) mg/dL Cholesterol (0.00-200.00) mg/dL HDL Cholesterol (40.00-60.00) mg/dL 12/07/22 12/07/22 12/07/22 Range/Units 07:05 07:05 07:05 WBC 15.3 H (3.8-10.6) k/uL RBC 4.16 L (4.30-5.90) m/uL Hgb 12.6 L (13.0-17.5) gm/dL Hct 37.6 L (39.0-53.0) % Neutrophils # 11.8 H (1.3-7.7) k/uL PT 12.7 H (9.0-12.0) sec INR 1.2 H (<1.2) APTT 49.2 H (22.0-30.0) sec Sodium (137-145) mmol/L BUN (9-20) mg/dL Creatinine (0.66-1.25) mg/dL POC Glucose (mg/dL) (70-110) mg/dL Hemoglobin A1c (0.0-6.0) % Calcium (8.4-10.2) mg/dL Cholesterol (0.00-200.00) mg/dL HDL Cholesterol (40.00-60.00) mg/dL 12/07/22 Range/Units 11:25 WBC (3.8-10.6) k/uL RBC (4.30-5.90) m/uL Hgb (13.0-17.5) gm/dL Hct (39.0-53.0) % Neutrophils # (1.3-7.7) k/uL PT (9.0-12.0) sec INR (<1.2) APTT (22.0-30.0) sec Sodium (137-145) mmol/L BUN (9-20) mg/dL Creatinine (0.66-1.25) mg/dL POC Glucose (mg/dL) 145 H (70-110) mg/dL Hemoglobin A1c (0.0-6.0) % Calcium (8.4-10.2) mg/dL Cholesterol (0.00-200.00) mg/dL HDL Cholesterol (40.00-60.00) mg/dL Assessment and Plan Assessment: * TIA, manifesting with transient aphasia and right hand numbness, that resolved in 5 minutes. * Diabetes, uncontrolled * Elevated cardiac enzymes, * Hypertension, with hypertensive urgency. * Hyperlipidemia * Probable CHF * CLL Plan: * Patient had a probable TIA. Symptoms have completely resolved. Current NIH stroke scale is 0. * Patient has been on aspirin 81 mg daily, probably failed. Suggest DAP with aspirin 81 mg and Plavix 75 mg for 21 days, then stop aspirin and continue Plavix indefinitely. * Patient has elevated cardiac enzymes, currently on heparin IV. Cardiology on board. * Await 2-D echo with bubble study to rule out PFO * Patient came with completely uncontrolled blood pressure. Recommend optimize control of blood pressure to target <130/80 * CTA head showed: No large vessel occlusion. Atherosclerosis of the cavernous internal carotid arteries resulting in mild stenosis. * CTA of the neck showed no dissection, pseudoaneurysm, or hemodynamically significant stenosis of the carotid or vertebral arteries. * Carotid Doppler revealed mild atherosclerotic change with no significant hemodynamic stenosis. Cardiac dysrhythmia. * Fasting a.m. lipid panel with cholesterol is 22, LDL 128, HDL 60 and triglycerides 67.9. Start Lipitor 40 mg daily. * Hemoglobin A1c * Close neuro checks * Telemetry monitoring so far showing sinus rhythm, with some ectopy, PVCs, couplets and triplets. Patient will undergo 30 day event monitoring to rule out paroxysmal atrial fibrillation. * DVT prophylaxis: On heparin 5000 units subcu every 8 hours * For CLL, hematology oncology on board. * Neurologically clear for discharge after placement of event monitor.
[2022-12-07] MEDS: HEPARIN SODIUM,PORCINE/PF 5,000 UNIT/0.5 ML SYRINGE SQ SCH ×2 (16:25→23:26)
[2022-12-07 16:37] LABS: Glucose,Whole Blood 194 mg/dL (70-110)
[2022-12-07] MEDS: ATORVASTATIN 40 MG TAB PO SCH (20:20)
[2022-12-07 20:23] LABS: Glucose,Whole Blood 155 mg/dL (70-110)
[2022-12-08 02:50] LABS: Glucose,Whole Blood 101 mg/dL (70-110)
[2022-12-08] MEDS: SODIUM CHLORIDE 0.9% 1,000 ML IV SCH (03:00)
[2022-12-08 06:04] LABS: Glucose,Whole Blood 202 mg/dL (70-110)
[2022-12-08] MEDS: INSULIN ASPART (NovoLOG) 100 UNIT/ML VIAL SQ SCH ×4 (06:21→20:32)
[2022-12-08] MEDS: LOSARTAN 25 MG TAB PO SCH (09:00)
[2022-12-08] MEDS: CLOPIDOGREL 75 MG TAB PO SCH (09:19)
[2022-12-08] MEDS: HEPARIN SODIUM,PORCINE/PF 5,000 UNIT/0.5 ML SYRINGE SQ SCH ×2 (09:19→16:08)
[2022-12-08] MEDS: ASPIRIN 81 MG PO SCH (09:19)
[2022-12-08] MEDS: METOPROLOL TARTRATE 50 MG TAB PO SCH ×2 (09:20)
[2022-12-08 09:23] LABS: Basophils % (A) 0 %; Eosinophils # (A) 0.2 k/uL (0-0.7); Eosinophils % (A) 3 %; HGB 13.4 gm/dL (13.0-17.5); Lymphocytes # (A) 1.6 k/uL (1.0-4.8); Lymphocytes % (A) 20 %; MCH 30.9 pg (25.0-35.0); MCHC 33.5 g/dL (31.0-37.0); MCV 92.1 fL (80.0-100.0); Mean Platelet Volume 8.8; Monocytes # (A) 0.4 k/uL (0-1.0); Monocytes % (A) 5 %; Neutrophils # (A) 5.8 k/uL (1.3-7.7); Neutrophils % (A) 71 %; Platelet Count 209 k/uL (150-450); RBC 4.35 m/uL (4.30-5.90); RDW 13.7 % (11.5-15.5); WBC 8.2 k/uL (3.8-10.6)
[2022-12-08 09:40] LABS: Calcium 7.9 mg/dL (8.4-10.2); Potassium 4.5 mmol/L (3.5-5.1)
[2022-12-08] MEDS ORDERED: MAG HYDROX/AL HYDROX/SIMETH 30 ML CUP PO PRN (09:53)
[2022-12-08] MEDS: LOSARTAN 50 MG TAB PO SCH (10:58)
[2022-12-08 11:40] LABS: Glucose,Whole Blood 239 mg/dL (70-110)
--- NOTE | 2022-12-08 11:50 | P.PN ---
Subjective Progress Note Date: 12/08/22 Principal diagnosis: Hx SLL At todays visit patient is resting comfortably in bed. Patient reports feeling well. He denies any new neurological symptoms. Denies pain. Denies weakness, slurred speech, dizziness, visual disturbances, and headache. Patient is being followed by neurology and cardiology. Objective - Vital Signs Vital signs: Vital Signs Temp 98.1 F 12/08/22 09:10 Pulse 93 12/08/22 09:10 Resp 16 12/08/22 09:10 BP 190/98 12/08/22 09:10 Pulse Ox 98 12/08/22 09:10 FiO2 Intake & Output 12/07/22 12/08/22 12/08/22 18:59 06:59 18:59 Intake Total 708.146 400 Output Total 1050 1400 400 Balance -341.854 -1400 0 Weight 103.1 kg Intake: Intake, IV Titration 130.146 Amount Heparin Sod,Pork in 0.45% 130.146 NaCl 25,000 unit In 0.45 % NaCl 1 250ml.bag @ 9. 5853 UNITS/KG/HR 10 mls/ hr IV .Q24H [facility] Rx#: [id number] Oral 578 400 Output: Urine 1050 1400 400 Other: Voiding Method Toilet Toilet Toilet Urinal Urinal Urinal - Constitutional General appearance: Present: average body habitus, no acute distress - EENT Eyes: Present: anicteric sclerae, EOMI ENT: Present: hearing grossly normal - Respiratory Details: breathing is even and unlabored - Cardiovascular Details: skin warm and dry - Integumentary Integumentary: Present: normal - Neurologic Neurologic Comment(s): grossly intact - Musculoskeletal Musculoskeletal: Present: strength equal bilaterally - Psychiatric Psychiatric: Present: A&O x's 3, appropriate affect, intact judgment & insight - Labs CBC & Chem 7: 12/08/22 08:13 12/08/22 08:13 Labs: Abnormal Lab Results - Last 24 Hours (Table) 12/07/22 12/07/22 12/08/22 Range/Units 16:35 20:21 06:03 Sodium (137-145) mmol/L BUN (9-20) mg/dL Creatinine (0.66-1.25) mg/dL Glucose (74-99) mg/dL POC Glucose (mg/dL) 194 H 155 H 202 H (70-110) mg/dL Calcium (8.4-10.2) mg/dL 12/08/22 Range/Units 08:13 Sodium 136 L (137-145) mmol/L BUN 41 H (9-20) mg/dL Creatinine 1.55 H (0.66-1.25) mg/dL Glucose 201 H (74-99) mg/dL POC Glucose (mg/dL) (70-110) mg/dL Calcium 7.9 L (8.4-10.2) mg/dL Assessment and Plan (1) Small cell B-cell lymphoma Current Visit: Yes Status: Acute Code(s): C83.00 - SMALL CELL B-CELL LYMPHOMA, UNSPECIFIED SITE SNOMED Code(s): 568092481 Plan: Small cell b-cell lymphoma: -He was diagnosed with SLL in 2019. FISH for CLL was negative, and CT scan of chest/abdomen/pelvis did not reveal any significant adenopathy at that time. Patient has been in observation since with no progression of symptoms. -CT angiogram of head and neck revealed asymmetric soft tissue along the right base of the tongue and cervical and mediastinal lymphadenopathy which has progr essed. CT chest revealed prominent bilateral axillary lymph nodes and mediastinal lymph nodes. CT brain showed no acute intracranial process. -Follow-up is planned with Dr. Mc 01/02, at which time imaging will be reviewed and will discuss further testing and workup with patient Elevated troponins: -Patient was started on IV heparin, been transitioned to subq heparin, plavix and aspirin -Echo Showed ejection fraction 50%. Left ventricle size is normal. No pericardial effusion or significant pulmonary hypertension. Carotid Doppler revealed mild atherosclerotic changes with no significant hemodynamic stenosis. -Will defer to cardiology and IM team
[2022-12-08] MEDS: PANTOPRAZOLE 40 MG TABLET PO SCH (12:15)
[2022-12-08] MEDS: INSULIN LISPRO (For Pump) 100 UNIT/ML VIAL SQ-PUMP SCH (12:19)
--- NOTE | 2022-12-08 12:29 | P.PN ---
Subjective Progress Note Date: 12/08/22 HISTORY OF PRESENT ILLNESS: This is a 52-year-old male who was admitted to the hospital secondary to CHF. Patient also had right hand numbness and neurology has been consulted for ev aluation. The patient was started on IV Lasix. This morning the patient's creatinine is noted to be elevated at 2.5, up from 1.2 yesterday. He currently denies any chest pain or pressure. He denies any shortness of breath. Vital signs are stable. Echocardiogram completed revealing ejection fraction 50% with no clear-cut wall motion abnormality. Mild to moderate mitral regurgitation and mild tricuspid regurgitation. 12/08/2022 Patient examined this morning at the bedside. Patient denies chest pain or pressure. He denies shortness of breath. He reports some dizziness this morning upon ambulate to the bathroom. Patient's blood pressure is elevated this morning with a systolic in the 180s. Telemetry reveals sinus mechanism. Patient has been receiving IV fluids. Creatinine is better today at 1.5. Patient also had a 16 beat run of V. tach this morning. PHYSICAL EXAM: VITAL SIGNS: Reviewed. GENERAL: Well-developed in no acute distress. NECK: Supple. No JVD or thyromegaly LUNGS: Respirations even and unlabored. Lungs essentially clear to auscultation bilaterally. HEART: Regular rate and rhythm. S1 and S2 heard. EXTREMITIES: Normal range of motion. No clubbing or cyanosis. Peripheral pulses intact. No lower extremity edema ASSESSMENT: Shortness of breath Acute congestive heart failure with preserved ejection fraction, EF 50% Abnormal troponins, flat, likely secondary to above, no evidence of acute coronary syndrome Acute kidney injury, secondary to diuresis Right hand numbness, suspected TIA Bilateral pleural effusions Axillary and mediastinal adenopathy Nonsustained ventricular tachycardia PLAN: Patient has been started on Lipitor and Plavix per neurology Event monitor has been ordered at the time of discharge per neurology Discontinue IV fluids Repeat chest x-ray in a.m. Hold off on initiating oral Lasix at this time. Repeat kidney function in the morning Increase metoprolol to 50 mg twice a day Increase losartan to 50 mg daily for optimal blood pressure control Further recommendations pending patient's course Nurse practitioner note has been reviewed by physician. Signing provider agrees with the documented findings, assessment, and plan of care. Objective - Vital Signs Vital signs: Vital Signs Temp 97.6 F 12/08/22 12:20 Pulse 75 12/08/22 12:20 Resp 16 12/08/22 12:20 BP 163/89 12/08/22 12:20 Pulse Ox 97 12/08/22 12:20 FiO2 Intake & Output 12/07/22 12/08/22 12/08/22 18:59 06:59 18:59 Intake Total 708.146 400 Output Total 1050 1400 400 Balance -341.854 -1400 0 Weight 103.1 kg Intake: Intake, IV Titration 130.146 Amount Heparin Sod,Pork in 0.45% 130.146 NaCl 25,000 unit In 0.45 % NaCl 1 250ml.bag @ 9. 5853 UNITS/KG/HR 10 mls/ hr IV .Q24H [facility] Rx#: [id number] Oral 578 400 Output: Urine 1050 1400 400 Other: Voiding Method Toilet Toilet Toilet Urinal Urinal Urinal - Labs CBC & Chem 7: 12/08/22 08:13 12/08/22 08:13 Labs: Abnormal Lab Results - Last 24 Hours (Table) 12/07/22 12/07/22 12/08/22 Range/Units 16:35 20:21 06:03 Sodium (137-145) mmol/L BUN (9-20) mg/dL Creatinine (0.66-1.25) mg/dL Glucose (74-99) mg/dL POC Glucose (mg/dL) 194 H 155 H 202 H (70-110) mg/dL Calcium (8.4-10.2) mg/dL 12/08/22 12/08/22 Range/Units 08:13 11:38 Sodium 136 L (137-145) mmol/L BUN 41 H (9-20) mg/dL Creatinine 1.55 H (0.66-1.25) mg/dL Glucose 201 H (74-99) mg/dL POC Glucose (mg/dL) 239 H (70-110) mg/dL Calcium 7.9 L (8.4-10.2) mg/dL
--- NOTE | 2022-12-08 14:33 | P.PN ---
Subjective Progress Note Date: 12/08/22 Patient is a pleasant 52-year-old the male with history of diabetes on insulin the pump came in with compensative numbness in the right hand as well as transient inability to speak which lasted for few minutes. Patient does take aspirin and a statin at home. Patient is also found to have elevated blood s ugars because of poorly functioning insulin pump which was adjusted now. Patient had a computed tomography scan of the chest which is negative for pulmonary embolism but did show significant lymphadenopathy in the axillary mediastinal area along with the pleural effusions bilaterally. Patient was a valid by cardiology because of mildly elevated troponins of 0.06 and 0.05 and was started on IV Lasix because of elevated BNP and bilateral pleural effusions. Although patient denied any symptoms of significant shortness of breath orthopnea or paroxysmal nocturnal dyspnea echocardiac and is being obtained at this time patient denied any history of heart failure not on any diuretics at home patient potassium was low at 3.4 which will be replaced. Patient's creatinine is 1.2. 12/07/2022 Patient is evaluated on the medical floor. No acute complaints overnight. Lower extremity edema has improved. Patient denies shortness of breath. Denies hand numbness and no speech issues currently. Neurology is recommending aspirin and plavix for 21 days together than stopping the aspirin and continuing on plavix indefinitely feels patient likely had a TIA. Echocardiogram done showing EF 50% with mild to moderate mitral regurgitation and mild tricuspid regurgitation. Carotid doppler showing no significant hemodynamic stenosis. Noted cardiac dysrhythmia. White count today is 15.13, sodium 132, BUN 59, creatinine 2.50. A1C is 8.7. Blood glucose 140s. IV lasix has been stopped and patient will be g ently hydrated overnight and follow up [facility] tomorrow. 12/08/2022 Patient is evaluated on stepdown unit. Creatinine has improved to 1.55 today. Blood pressure up to 180/86. Patient has been started on losartan. Patient is off IV fluids and off IV lasix. Neurological his symptoms are resolved. Urine output of 2.8 L overnight. Blood count is unremarkable. Patient has turned off insulin pump sugars up in the 200s. Review of Systems Constitutional: Denied any fatigue denied any fever. Cardio vascular: denied any chest pain, palpitations Gastrointestinal: denied any nausea, vomiting, diarrhea Pulmonary: Denied any shortness of breath cough Neurologic denied any new focal deficits All inpatient medications were reviewed and appropriate changes in these medications as dictated in the interval history and assessment and plan. PHYSICAL EXAMINATION: GENERAL: The patient is alert and oriented x3, not in any acute distress. Well developed, well nourished. HEENT: Pupils are round and equally reacting to light. EOMI. No scleral icterus. No conjunctival pallor. Normocephalic, atraumatic. No pharyngeal erythema. No thyromegaly. CARDIOVASCULAR: S1 and S2 present. No murmurs, rubs, or gallops. PULMONARY: Chest is clear to auscultation, no wheezing or crackles. ABDOMEN: Soft, nontender, nondistended, normoactive bowel sounds. No palpable organomegaly. MUSCULOSKELETAL: No joint swelling or deformity. EXTREMITIES: No cyanosis, clubbing, or pedal edema. NEUROLOGICAL: Gross neurological examination did not reveal any focal deficits. SKIN: No rashes. Assessment and plan -Possible TIA with resolution of symptoms. Neurology recommending aspirin plavix for 21 days stopping aspirin and continuing on plavix. -Mild elevation of troponins likely related to CHF, no evidence of acute coronary syndrome per cardiology -Acute congestive heart failure diastolic -History of lymphoma worsening lymphadenopathy because of which a oncology was consulted, patient follows with oncology outpatient -Type 2 diabetes mellitus uncontrolled blood sugars due to nonfunctioning insulin pump patient has currently turned off the insulin pump. -Acute kidney injury secondary to diuresis improving off lasix and off fluids now -Hypertension DVT prophylaxis: Early ambulation GI prophylaxis Full Code Plan Follow up AM labs and patient will possibly be discharged home in the next 24 to 48 hours Patient will get an event monitor on discharge to rule out cardiac arrhythmia. Blood pressure medications adjusted today Continue accuchecks ACHS close monitoring of blood glucose and levemir has been added, patient currently not using insulin pump The impression and plan of care has been dictated by Cora Lay Nurse Practitioner as directed. Dr. Rea MD I have performed a history and physical examination and medical decision making of this patient, discussed the same with the dictator, and agree with the dictators assessment and plan as written, documented as a scribe. Based on total visit time, I have performed more than 50% of this visit. Objective - Vital Signs Vital signs: Vital Signs Temp 97.6 F 12/08/22 12:20 Pulse 75 12/08/22 12:20 Resp 16 12/08/22 12:20 BP 163/89 12/08/22 12:20 Pulse Ox 97 12/08/22 12:20 FiO2 Intake & Output 12/07/22 12/08/22 12/08/22 18:59 06:59 18:59 Intake Total 708.146 940 Output Total 1050 1400 400 Balance -341.854 -1400 540 Weight 103.1 kg Intake: Intake, IV Titration 130.146 Amount Heparin Sod,Pork in 0.45% 130.146 NaCl 25,000 unit In 0.45 % NaCl 1 250ml.bag @ 9. 5853 UNITS/KG/HR 10 mls/ hr IV .Q24H [facility] Rx#: [id number] Oral 578 940 Output: Urine 1050 1400 400 Other: Voiding Method Toilet Toilet Toilet Urinal Urinal Urinal - Labs CBC & Chem 7: 12/08/22 08:13 12/08/22 08:13 Labs: Abnormal Lab Results - Last 24 Hours (Table) 12/07/22 12/07/22 12/08/22 Range/Units 16:35 20:21 06:03 Sodium (137-145) mmol/L BUN (9-20) mg/dL Creatinine (0.66-1.25) mg/dL Glucose (74-99) mg/dL POC Glucose (mg/dL) 194 H 155 H 202 H (70-110) mg/dL Calcium (8.4-10.2) mg/dL 12/08/22 12/08/22 Range/Units 08:13 11:38 Sodium 136 L (137-145) mmol/L BUN 41 H (9-20) mg/dL Creatinine 1.55 H (0.66-1.25) mg/dL Glucose 201 H (74-99) mg/dL POC Glucose (mg/dL) 239 H (70-110) mg/dL Calcium 7.9 L (8.4-10.2) mg/dL Assessment and Plan Time with Patient: Less than 30
[2022-12-08 16:29] LABS: Glucose,Whole Blood 243 mg/dL (70-110)
[2022-12-08 19:56] LABS: Glucose,Whole Blood 110 mg/dL (70-110)
[2022-12-08] MEDS ORDERED: LOSARTAN 25 MG TAB PO STA (20:44)
[2022-12-08] MEDS: ATORVASTATIN 40 MG TAB PO SCH (20:48)
[2022-12-08] MEDS ORDERED: INSULIN DETEMIR (LEVEMIR) 100 UNIT/ML SYR SQ SCH (21:00)
[2022-12-09 03:37] LABS: Glucose,Whole Blood 145 mg/dL (70-110)
[2022-12-09] MEDS: PANTOPRAZOLE 40 MG TABLET PO SCH (04:24)
[2022-12-09 06:15] LABS: Glucose,Whole Blood 169 mg/dL (70-110)
[2022-12-09] MEDS: INSULIN ASPART (NovoLOG) 100 UNIT/ML VIAL SQ SCH ×2 (06:43→12:24)
--- NOTE | 2022-12-09 08:19 | P.PN ---
Subjective Progress Note Date: 12/08/22 Patient is laying comfortably in the bed. Offers no complaints. Denies any focal symptoms. All symptoms resolved. Patient states his blood pressure has been still high, therefore cardiology wants to keep him for 1 more night. Objective - Vital Signs Vital signs: Vital Signs Temp 97.6 F 12/08/22 12:20 Pulse 75 12/08/22 12:20 Resp 16 12/08/22 12:20 BP 163/89 12/08/22 12:20 Pulse Ox 97 12/08/22 12:20 FiO2 Intake & Output 12/07/22 12/08/22 12/08/22 18:59 06:59 18:59 Intake Total 708.146 400 Output Total 1050 1400 400 Balance -341.854 -1400 0 Weight 103.1 kg Intake: Intake, IV Titration 130.146 Amount Heparin Sod,Pork in 0.45% 130.146 NaCl 25,000 unit In 0.45 % NaCl 1 250ml.bag @ 9. 5853 UNITS/KG/HR 10 mls/ hr IV .Q24H [facility] Rx#: [id number] Oral 578 400 Output: Urine 1050 1400 400 Other: Voiding Method Toilet Toilet Toilet Urinal Urinal Urinal - Exam Normal. Nonfocal. Mentation normal. - Labs CBC & Chem 7: 12/08/22 08:13 12/08/22 08:13 Labs: Abnormal Lab Results - Last 24 Hours (Table) 12/07/22 12/07/22 12/08/22 Range/Units 16:35 20:21 06:03 Sodium (137-145) mmol/L BUN (9-20) mg/dL Creatinine (0.66-1.25) mg/dL Glucose (74-99) mg/dL POC Glucose (mg/dL) 194 H 155 H 202 H (70-110) mg/dL Calcium (8.4-10.2) mg/dL 12/08/22 12/08/22 Range/Units 08:13 11:38 Sodium 136 L (137-145) mmol/L BUN 41 H (9-20) mg/dL Creatinine 1.55 H (0.66-1.25) mg/dL Glucose 201 H (74-99) mg/dL POC Glucose (mg/dL) 239 H (70-110) mg/dL Calcium 7.9 L (8.4-10.2) mg/dL Assessment and Plan Assessment: * TIA, manifesting with transient aphasia and right hand numbness, that resolved in 5 minutes. * Diabetes, uncontrolled * Elevated cardiac enzymes, * Hypertension, with hypertensive urgency. * Hyperlipidemia * Probable CHF * CLL Plan: * Patient had a probable TIA. Symptoms have completely resolved. Current NIH stroke scale is 0. * Patient has been on aspirin 81 mg daily, probably failed. Suggest DAP with aspirin 81 mg and Plavix 75 mg for 21 days, then stop aspirin and continue Plavix indefinitely. * 2-D echo revealed normal left ventricular size with mild concentric LVH, with EF 50%. No clearcut wall motion abnormality. Left atrium is severely increased in volume, mildly increase in left atrial area. There is mild to moderate MR. Cardiology on board. * Patient came with completely uncontrolled blood pressure. Recommend optimize control of blood pressure to target <130/80. Patient's blood pressure still staying elevated. Cardiology managing blood pressure. * CTA head showed: No large vessel occlusion. Atherosclerosis of the cavernous internal carotid arteries resulting in mild stenosis. * CTA of the neck showed no dissection, pseudoaneurysm, or hemodynamically significant stenosis of the carotid or vertebral arteries. * Carotid Doppler revealed mild atherosclerotic change with no significant hemodynamic stenosis. Cardiac dysrhythmia. * Fasting a.m. lipid panel with cholesterol is 22, LDL 128, HDL 60 and triglycerides 67.9. Start Lipitor 40 mg daily. * Hemoglobin A1c 8.7, (better than previously, as it was 9.4 on 07/07/2021) * Telemetry monitoring so far showing sinus rhythm, with some ectopy, PVCs, couplets and triplets. Patient will undergo 30 day event monitor hookup prior to discharge, to rule out paroxysmal atrial fibrillation. * DVT prophylaxis: On heparin 5000 units subcu every 8 hours * For CLL, hematology oncology on board. * Neurologically clear for discharge after placement of event monitor.
[2022-12-09 08:46] VITALS: RESP 18
[2022-12-09] MEDS: HEPARIN SODIUM,PORCINE/PF 5,000 UNIT/0.5 ML SYRINGE SQ SCH ×3 (08:47→16:04)
[2022-12-09] MEDS: METOPROLOL TARTRATE 50 MG TAB PO SCH (08:47)
[2022-12-09] MEDS: ASPIRIN 81 MG PO SCH (08:47)
[2022-12-09] MEDS: LOSARTAN 50 MG TAB PO SCH (08:47)
[2022-12-09] MEDS: CLOPIDOGREL 75 MG TAB PO SCH (08:47)
--- NOTE | 2022-12-09 08:53 | XR ---
EXAMINATION TYPE: XR chest 2V DATE OF EXAM: 12/09/2022 COMPARISON: Pleural effusions TECHNIQUE: PA and lateral views submitted. HISTORY: 07/06/2021 FINDINGS: Diffuse coarsened interstitium. There are subsegmental changes at lung bases. Tiny bilateral pleural effusion. Hyperinflation suggests COPD. Apical pleural thickening arthropathy of the shoulders no pne umothorax. IMPRESSION: 1. COPD correlate venous congestion or interstitial pneumonitis. Tiny bilateral effusions.
[2022-12-09] MEDS ORDERED: LOSARTAN 50 MG TAB PO SCH (09:00)
[2022-12-09 10:13] LABS: Calcium 8.1 mg/dL (8.4-10.2); Potassium 4.1 mmol/L (3.5-5.1)
[2022-12-09] MEDS ORDERED: LOSARTAN 50 MG TAB PO STA (10:45)
[2022-12-09 12:22] LABS: Glucose,Whole Blood 142 mg/dL (70-110)
[2022-12-09] MEDS: INSULIN LISPRO (For Pump) 100 UNIT/ML VIAL SQ-PUMP SCH (12:26)
[2022-12-09 15:33] VITALS: BP 165/94; PULSE 81; TEMP 98
[2022-12-09] MEDS ORDERED: METOPROLOL TARTRATE 50 MG TAB PO SCH (21:00)
--- NOTE | 2022-12-09 22:47 | PN ---
PROGRESS NOTE SUBJECTIVE: Walter is a 52-year-old gentleman who is admitted to hospital with acute onset congestive heart failure, acute renal insufficiency, and a suspected TIA and has pleural effusions and lymphadenopathy. His repeat chest x-ray yesterday showed that his pleural effusions have improved. Renal functions have improved to 1.1. CURRENT MEDICATIONS: 1. Aspirin. 2. Lipitor. 3. Plavix. 4. Cozaar. 5. Lopressor. PHYSICAL EXAMINATION: GENERAL: Comfortable at rest. VITAL SIGNS: Blood pressures are poorly controlled. NECK: There is no jugular venous distention. CHEST: Reveals good air entry bilaterally. HEART: Reveals first and second heart sounds. No gallop, no murmur. ABDOMEN: Soft. EXTREMITIES: Did not reveal any edema. Peripheral pulses are felt. ASSESSMENT: 1. Severe uncontrolled hypertension. 2. Acute-onset diastolic heart failure. 3. Acute renal insufficiency secondary to diuresis. PLAN: I am going to increase the losartan to 100 mg daily and increase the Lopressor to 100 b.i.d. for better blood pressure control. MMODL / IJN: [id number] /
--- NOTE | 2022-12-09 23:01 | P.DS ---
Providers Date of admission: 12/06/22 00:46 Attending physician: Kwaku Melton MD Consults: 12/06/22 00:45 Consult Physician Routine Consulting Provider: [facility] Consult Reason/Comments: NSTEMI Do you want consulting provider notified?: Yes, Notify in am Consult Physician Routine Consulting Provider: Gadiel Hancock Consult Reason/Comments: Possible conversion of CLL Do you want consulting provider notified?: Yes, Notify in am 12/06/22 13:22 Consult Physician Routine Consulting Provider: Stanford Meek Consult Reason/Comments: TIA Do you want consulting provider notified?: Yes Primary care physician: Calixto Hou [facility] Course: Final Diagnosis -Possible TIA with resolution of symptoms. Neurology recommending aspirin plavix for 21 days stopping aspirin and continuing on plavix. -Mild elevation of troponins likely related to CHF, no evidence of acute coronary syndrome per cardiology -Acute congestive heart failure diastolic -History of lymphoma worsening lymphadenopathy because of which a oncology was consulted, patient follows with oncology outpatient -Type 2 diabetes mellitus insulin dependent on insulin pump -Acute kidney injury secondary to diuresis -Hypertension Full Code Discharge Disposition Patient is stable for discharge has been cleared by cardiology and neurology. Recommending aspirin plavix dual antiplatelet therapy for 21 days after than discontinue the aspirin and maintain oral plavix. Patient to begin oral lasix on discharge 20 mg daily. Recommend to repeat labs in 2 to 3 days. Patient to follow up with neurology and cardiology on discharge as well as PCP and oncology for the CLL. Patient reports having glucometer and pump supplies at home and instructed to resume the insulin pump and follow up with his manager pharmaceutical on discharge. Patient is discharged home on cardiac event monitor to monitor for cardiac arrhythmia and will need to follow up with cardiology closely on discharge. Hospital Course Patient is a pleasant 52-year-old the male with history of diabetes on insulin the pump came in with compensative numbness in the right hand as well as transient inability to speak which lasted for few minutes. Patient does take as pirin and a statin at home. Patient is also found to have elevated blood sugars because of poorly functioning insulin pump which was adjusted patient did end up discontinuing the pump during hospital stay and received levemir and sliding scale insulin. Patient had a computed tomography scan of the chest which is negative for pulmonary embolism but did show significant lymphadenopathy in the axillary mediastinal area along with the pleural effusions bilaterally. Patient was evaluated by cardiology because of mildly elevated troponins of 0.06 and 0.05 and was started on IV Lasix because of elevated BNP and bilateral pleural effusions. Although patient denied any symptoms of significant shortness of breath orthopnea or paroxysmal nocturnal dyspnea. Echocardiogram was obtained showing EF 50% with mild to moderate mitral regurgitation and mild tricuspid regurgitation. Carotid doppler showing no significant hemodynamic stenosis. Noted cardiac dysrhythmia. Patients creatinine had spiked to 2.5 and lasix was stopped patient received IV fluids and creatinine improved. Patient was started on metoprolol and losartan on discharge. Blood pressure has improved to 165 systolic. Symptoms of right hand numbness and speaking difficulty has resolved and neurology has felt patient likely had a TIA. Patient recommended for an event monitor on discharge to rule out cardiac dysrhythmia. Patient is currently denying chest pain, no shortness of breath. No focal neurological deficits and patient is alert and oriented x 3. patients lungs are clear, S1 S2 auscultated, abdomen is soft and nontender. Patient will be discharged home with above mentioned recommendations. Please see medication reconciliation for a list of current medication. Thank you for allowing us to participate in the care of this patient. The impression and plan of care has been dictated by Cora Lay, Nurse Practitioner as directed. Dr. Rea MD I have performed a history and physical examination and medical decision making of this patient, discussed the same with the dictator, and agree with the dictators assessment and plan as written, documented as a scribe. Based on total visit time, I have performed more than 50% of this visit. Patient Condition at Discharge: Stable Plan - Discharge Summary Discharge Rx Participant: Yes New Discharge Prescriptions: New Metoprolol Tartrate [Lopressor] 100 mg PO BID #60 tab Clopidogrel [Plavix] 75 mg PO DAILY #30 tab Aspirin 81 mg PO DAILY #21 tab Losartan [Cozaar] 100 mg PO DAILY #30 tab Furosemide [Lasix] 20 mg PO DAILY #30 tab Atorvastatin [Lipitor] 40 mg PO HS #30 tab Famotidine [Pepcid] 20 mg PO DAILY #30 tablet Continue Aspirin [Adult Low Dose Aspirin EC] 81 mg PO DAILY Cholecalciferol (Vitamin D3) [Vitamin D3] 50 mcg PO DAILY INSULIN LISPRO (For Pump) [humaLOG (For Pump)] 0.01 units SQ-PUMP CONTINUOUS Discontinued Blood Pressure Med (Unknown) 1 tab PO DIRECTED Discharge Medication List Aspirin [Adult Low Dose Aspirin EC] 81 mg PO DAILY 03/13/18 [History] Cholecalciferol (Vitamin D3) [Vitamin D3] 50 mcg PO DAILY 01/08/19 [History] INSULIN LISPRO (For Pump) [humaLOG (For Pump)] 0.01 units SQ-PUMP CONTINUOUS 05/26/20 [History] Aspirin 81 mg PO DAILY #21 tab 12/09/22 [Rx] Atorvastatin [Lipitor] 40 mg PO HS #30 tab 12/09/22 [Rx] Clopidogrel [Plavix] 75 mg PO DAILY #30 tab 12/09/22 [Rx] Famotidine [Pepcid] 20 mg PO DAILY #30 tablet 12/09/22 [Rx] Furosemide [Lasix] 20 mg PO DAILY #30 tab 12/09/22 [Rx] Losartan [Cozaar] 100 mg PO DAILY #30 tab 12/09/22 [Rx] Metoprolol Tartrate [Lopressor] 100 mg PO BID #60 tab 12/09/22 [Rx] Follow up Appointment(s)/Referral(s): Calixto Hou DO [Primary Care Provider] - 1-2 days (Your appointment has been made for December 20 at 1:15pm) Tirso Haddad DO [STAFF PHYSICIAN] - 2 Weeks (neurologist*. Please call and make follow up appointment.) Sina Garcia MD [STAFF PHYSICIAN] - 1 Week (Your appointment has been made for December 20 at 8:00am.) Naheed Mc MD [STAFF PHYSICIAN] - 01/02/23 8:00 am (Your appointment has been made for January 02 at 8:00am.) Ambulatory/Diagnostic Orders: Basic Metabolic Panel [LAB.AMB] Time Frame: 3 Days, Location: None Selected Patient Instructions/Handouts: Heart Attack (DC) Activity/Diet/Wound Care/Special Instructions: Monitor blood pressure and keep log for follow up appointment with PCP and cardiology. Monitor blood glucose carefully ACHS and follow up with your manager pharmaceutical on discharge for further recommendations and glycemic control. Resume insulin pump. Continue dual antiplatelet therapy for 21 days with aspirin 81 mg daily and plavix 75 mg daily. After 21 days discontinue aspirin and continue on plavix daily. Follow up with neurologist on discharge in 1 to 2 weeks. Repeat labs in 2 to 3 days. Discharge Disposition: HOME SELF-CARE
[2022-12-10] MEDS ORDERED: LOSARTAN 50 MG TAB PO SCH (09:00)
--- NOTE | 2022-12-10 10:56 | P.PN ---
Subjective Progress Note Date: 12/09/22 Patient is laying comfortably in the bed. Offers no complaints. Denies any focal symptoms. All symptoms resolved. Patient had undergone placement of event monitor. Possible discharge later today. Telemetry monitoring showing sinus rhythm in the 80s. Objective - Vital Signs Vital signs: Vital Signs Temp 98.0 F 12/09/22 15:32 Pulse 81 12/09/22 15:32 Resp 18 12/09/22 15:32 BP 165/94 12/09/22 15:32 Pulse Ox 96 12/09/22 15:32 FiO2 21 12/09/22 08:08 Intake & Output 12/08/22 12/09/22 12/09/22 18:59 06:59 18:59 Intake Total 1959 220 Output Total 1175 1475 Balance 785 -1475 220 Weight 101 kg Intake: Oral 1959 Output: Urine 1175 1475 Other: Voiding Method Toilet Toilet Toilet Urinal Urinal Urinal - Exam Normal. Nonfocal. Mentation normal. Speech and language functions normal. Cranial nerves normal. Visual vaughan are full. Face is symmetric and tongue protrudes to the midline. Extraocular muscles intact. On muscle strength testing, there is no pronator drift and the strength is normal in arms and legs. No ataxia for [id number] testing. Sensory to touch is equal with no neglect. - Labs CBC & Chem 7: 12/08/22 08:13 12/09/22 09:36 Labs: Abnormal Lab Results - Last 24 Hours (Table) 12/08/22 12/09/22 12/09/22 Range/Units 16:24 03:35 06:13 BUN (9-20) mg/dL Glucose (74-99) mg/dL POC Glucose (mg/dL) 243 H 145 H 169 H (70-110) mg/dL Calcium (8.4-10.2) mg/dL 12/09/22 12/09/22 Range/Units 09:36 12:20 BUN 25 H (9-20) mg/dL Glucose 164 H (74-99) mg/dL POC Glucose (mg/dL) 142 H (70-110) mg/dL Calcium 8.1 L (8.4-10.2) mg/dL Assessment and Plan Assessment: * TIA, manifesting with transient aphasia and right hand numbness, that resolved in 5 minutes. * Diabetes, uncontrolled * Elevated cardiac enzymes, * Hypertension, with hypertensive urgency. * Hyperlipidemia * Probable CHF * CLL Plan: * Patient had a probable TIA. Symptoms have completely resolved. Current NIH stroke scale is 0. * Patient has been on aspirin 81 mg daily, probably failed. Suggest DAP with aspirin 81 mg and Plavix 75 mg for 21 days, then stop aspirin and continue P lavix indefinitely. * 2-D echo revealed normal left ventricular size with mild concentric LVH, with EF 50%. No clearcut wall motion abnormality. Left atrium is severely incr eased in volume, mildly increase in left atrial area. There is mild to moderate MR. Cardiology on board. * Patient came with completely uncontrolled blood pressure. Recommend optimize control of blood pressure to target <130/80. Patient's blood pressure still staying elevated. Cardiology managing blood pressure. * CTA head showed: No large vessel occlusion. Atherosclerosis of the cavernous internal carotid arteries resulting in mild stenosis. * CTA of the neck showed no dissection, pseudoaneurysm, or hemodynamically significant stenosis of the carotid or vertebral arteries. * Carotid Doppler revealed mild atherosclerotic change with no significant hemodynamic stenosis. Cardiac dysrhythmia. * Fasting a.m. lipid panel with cholesterol is 22, LDL 128, HDL 60 and triglycerides 67.9. Start Lipitor 40 mg daily. * Hemoglobin A1c 8.7, (better than previously, as it was 9.4 on 07/07/2021) * Telemetry monitoring so far showing sinus rhythm, with some ectopy, PVCs, couplets and triplets. Patient will undergo 30 day event monitor hookup prior to discharge, to rule out paroxysmal atrial fibrillation. * DVT prophylaxis: On heparin 5000 units subcu every 8 hours * For CLL, hematology oncology on board. * Neurologically clear for discharge.
== END 2022-12-09 17:04 | disposition home or self-care (01) | DRG 280 ==
LOC: EC 20:44 → 3SCARD 12-06 00:46
PROVIDERS: ADMIT Internal Medicine; ATTEND Internal Medicine
DX: I11.0 Hypertensive heart disease with heart failure (principal); I21.A1 Myocardial infarction type 2; I50.31 Acute diastolic (congestive) heart failure; N17.9 Acute kidney failure, unspecified; C83.00 Small cell B-cell lymphoma, unspecified site; I47.20 Ventricular tachycardia, unspecified; G45.9 Transient cerebral ischemic attack, unspecified; R47.01 Aphasia; T85.614A Breakdown (mechanical) of insulin pump, initial encounter; E10.649 Type 1 diabetes mellitus with hypoglycemia without coma; I16.0 Hypertensive urgency; E10.65 Type 1 diabetes mellitus with hyperglycemia; Z79.4 Long term (current) use of insulin; I08.1 Rheumatic disorders of both mitral and tricuspid valves; T50.2X5A Adverse effect of carbonic-anhydrase inhibitors, benzothiadiazides and other diuretics, initial encounter; R59.0 Localized enlarged lymph nodes; R79.89 Other specified abnormal findings of blood chemistry; I49.3 Ventricular premature depolarization; E78.5 Hyperlipidemia, unspecified; R20.0 Anesthesia of skin; Y74.2 Prosthetic and other implants, materials and accessory general hospital and personal-use devices associated with adverse incidents; Z96.41 Presence of insulin pump (external) (internal); Z83.3 Family history of diabetes mellitus; Z79.899 Other long term (current) drug therapy; Z79.82 Long term (current) use of aspirin; Z80.6 Family history of leukemia
CPT/HCPCS: 36415; 70450; 70496; 70498; 71046; 71275; 80048; 80053; 80061; 81001; 82550; 83036; 83735; 83880; 84484; 85025; 85379; 85610; 85730; 93005; 93270; 93306; 93880; 94760; 96361; 96374; 96375; 99285

== ENCOUNTER → 2022-12-19 | Outpatient (CLI) | payer BC | END | disposition home or self-care (01) | LOC: LAB 14:36 | PROVIDERS: ATTEND Family Medicine | DX: Z53.9 Procedure and treatment not carried out, unspecified reason (principal) ==

== ENCOUNTER 2023-10-05 11:19 | Inpatient (IN) | payer BC ==
--- NOTE | 2023-10-05 11:53 | ED ---
SOB HPI - General Chief Complaint: Shortness of Breath Stated Complaint: Swelling Time Seen by Provider: 10/05/23 11:25 Source: patient Mode of arrival: ambulatory Limitations: no limitations - History of Present Illness Initial Comments: 53-year-old male presents emergency department reporting lower extremity swelling. Patient states he has noted weight gain with significant lower extremity swelling since Monday. He saw his primary care office today. Dr. Hou did send the patient over as she was concerned for CHF exacerbation. Patient admits to shortness of breath, especially with exertion. States he has gained 30 pounds in the past week. Patient does not take a water pill at home. He denies to me a history of congestive heart failure. Denies history of DVT or PE. No chest pain. Denies fevers. No other alleviating, precipitating or modifying factors - Related Data Home Medications Medication Instructions Recorded Confirmed INSULIN LISPRO (For Pump) [humaLOG 0.01 units SQ-PUMP CONTINUOUS 05/26/20 10/05/23 (For Pump)] Atorvastatin [Lipitor] 40 mg PO W/LUNCH 10/05/23 10/05/23 Clopidogrel [Plavix] 75 mg PO W/LUNCH 10/05/23 10/05/23 Famotidine [Pepcid] 20 mg PO BID@1200,2100 10/05/23 10/05/23 Losartan Potassium [Cozaar] 100 mg PO W/LUNCH 10/05/23 10/05/23 Previous Rx's Medication Instructions Recorded Dapagliflozin Propanediol [Farxiga] 10 mg PO DAILY 30 Days #30 tab 10/08/23 Furosemide [Lasix] 40 mg PO BID@0900,1600 30 Days #60 10/08/23 tab carvediloL [Coreg*] 25 mg PO BID-W/MEALS 30 Days #60 10/08/23 tab Allergies Allergy/AdvReac Type Severity Reaction Status Date / Time No Known Allergies Allergy Verified 10/05/23 12:32 Review of Systems ROS Statement: Those systems with pertinent positive or pertinent negative responses have been documented in the HPI. ROS Other: All systems not noted in ROS Statement are negative. Past Medical History Past Medical History: Cancer, Diabetes Mellitus, Hyperlipidemia, Hypertension Additional Past Medical History / Comment(s): IDDM type I, CLL, recent R upper arm pain, occasional sinus issues. History of Any Multi-Drug Resistant Organisms: None Reported Past Surgical History: Cholecystectomy, Tonsillectomy Additional Past Surgical History / Comment(s): 12/2018 L neck mass excision, colonoscopy, bilateral cataract removals/lens implants Past Anesthesia/Blood Transfusion Reactions: Motion Sickness, Postoperative Nausea & Vomiting (PONV) Past Psychological History: No Psychological Hx Reported Smoking Status: Never smoker Past Alcohol Use History: None Reported Past Drug Use History: None Reported - Past Family History Father Family Medical History: Cancer Additional Family Medical History / Comment(s): Father from leukemia. Mother Additional Family Medical History / Comment(s): Mother is , she had night terrors. Brother(s) Additional Family Medical History / Comment(s): 2 of pts brothers have schizophrenia and one is also a diabetic. One at the age of 56yrs from "natural causes" General Exam Limitations: no limitations General appearance: alert, in no apparent distress Head exam: Present: atraumatic, normocephalic, normal inspection Eye exam: Present: normal appearance, PERRL, EOMI. Absent: scleral icterus, conjunctival injection, periorbital swelling ENT exam: Present: normal exam, mucous membranes moist Neck exam: Present: normal inspection. Absent: tenderness, meningismus, lymphadenopathy Respiratory exam: Present: normal lung sounds bilaterally. Absent: respiratory distress, wheezes, rales, rhonchi, stridor Cardiovascular Exam: Present: regular rate, normal rhythm, normal heart sounds. Absent: systolic murmur, diastolic murmur, rubs, gallop, clicks GI/Abdominal exam: Present: soft, normal bowel sounds. Absent: distended, tenderness, guarding, rebound, rigid Extremities exam: Present: full ROM, normal capillary refill, pedal edema (Pedal edema is bilateral and extends from the ankles up to the mid abdomen). Absent: tenderness, joint swelling, calf tenderness Back exam: Present: normal inspection Neurological exam: Present: alert, oriented X3, CN II-XII intact Psychiatric exam: Present: normal affect, normal mood Skin exam: Present: warm, dry, intact, normal color. Absent: rash Course Vital Signs 10/05/23 10/05/23 10/05/23 11:25 11:57 12:00 Temperature 98.3 F Pulse Rate 99 92 90 Pulse Rate [ Shore Hand Dredge Or Barge ] Respiratory 20 16 19 Rate Blood Pressure 182/109 191/110 191/110 Blood Pressure [Right Arm] O2 Sat by Pulse 99 94 L 93 L Oximetry 10/05/23 10/05/23 10/05/23 12:30 13:00 13:30 Temperature Pulse Rate 89 91 89 Pulse Rate [ [employer] Hand Dredge Or Barge ] Respiratory 24 24 22 Rate Blood Pressure 165/98 170/100 170/105 Blood Pressure [Right Arm] O2 Sat by Pulse 90 L 93 L 91 L Oximetry 10/05/23 10/05/23 10/05/23 14:00 14:11 14:30 Temperature 97.9 F Pulse Rate 93 89 Pulse Rate [ 94 Shore Hand Dredge Or Barge ] Respiratory 21 16 20 Rate Blood Pressure 171/102 189/110 Blood Pressure 180/79 [Right Arm] O2 Sat by Pulse 93 L 97 93 L Oximetry 10/05/23 10/05/23 10/05/23 15:00 15:30 16:00 Temperature Pulse Rate 90 76 76 Pulse Rate [ Shore Hand Dredge Or Barge ] Respiratory 23 24 22 Rate Blood Pressure 178/106 187/112 155/93 Blood Pressure [Right Arm] O2 Sat by Pulse 93 L 89 L 91 L Oximetry 10/05/23 17:26 Temperature 98.3 F Pulse Rate 86 Pulse Rate [ Shore Hand Dredge Or Barge ] Respiratory 20 Rate Blood Pressure 172/95 Blood Pressure [Right Arm] O2 Sat by Pulse 94 L Oximetry Medical Decision Making - Medical Decision Making Was pt. sent in by a medical professional or institution ([facility], DENTAL NURSE, urgent care, hospital, or intermediate...) When possible be specific @ -Dr. Ramirez office Did you speak to anyone other than the patient for history (EMS, parent, family, police, friend...)? What history was obtained from this source @ -EMS Did you review nursing and triage notes (agree or disagree)? Why? @ -I reviewed and agree with nursing and triage notes Were old charts reviewed (outside hosp., previous admission, EMS record, old EKG, old radiological studies, urgent care reports/EKG's, intermediate records)? Report findings @ -No old charts were reviewed Differential Diagnosis (chest pain, altered mental status, abdominal pain women, abdominal pain men, vaginal bleeding, weakness, fever, dyspnea, syncope, headache, dizziness, GI bleed, back pain, seizure, CVA, palpatations, mental health, musculoskeletal)? @ -Not applicable EKG interpreted by me (3pts min.). @ -Yes and demonstrates sinus rhythm with a rate of 98. AK interval 137. QRS 89. QTc of 419. No acute ST segment elevations or depressions X-rays interpreted by me (1pt min.). @ -Yes and demonstrates signs of congestive heart failure CT interpreted by me (1pt min.). @ -None done U/S interpreted by me (1pt. min.). @ -None done What testing was considered but not performed or refused? (CT, X-rays, U/S, labs)? Why? @ -None What meds were considered but not given or refused? Why? @ -None Did you discuss the management of the patient with other professionals (professionals i.e. , PA, DENTAL NURSE, lab, RT, psych nurse, psychotherapist social worker, engineering production liaison, teacher, forest fire officer, rn field case manager)? Give summary @ -Spoke with Dr. Abbott for admission Was smoking cessation discussed for >3mins.? @ -No Was critical care preformed (if so, how long)? @ -No Were there social determinants of health that impacted care today? How? (Homel essness, low income, unemployed, alcoholism, drug addiction, transportation, low edu. Level, literacy, decrease access to med. care, group home, rehab)? @ -No Was there de-escalation of care discussed even if they declined (Discuss DNR or withdrawal of care, Hospice)? DNR status @ -No What co-morbidities impacted this encounter? (DM, HTN, Smoking, COPD, CAD, Cancer, CVA, ARF, Chemo, Hep., AIDS, mental health diagnosis, sleep apnea, morbid obesity)? @ -Hypertension Was patient admitted / discharged? Hospital course, mention meds given and route, prescriptions, significant lab abnormalities, going to OR and other pertinent info. @ -Upon arrival patient was placed into room 2. Thorough history and physical exam was performed. Patient placed on continuous pulse ox and cardiac monitoring. Twelve-lead EKG is obtained. Laboratory studies are conducted. Patient does go for chest x-ray. He does demonstrate significant peripheral edema with chest x-ray demonstrating pulmonary vascular congestion. Patient was given 60 mg of Lasix through his IV. Did recommend admission for echo and cardiology consultation. He was agreeable to this plan. Spoke with Dr. Nerusu for admission Undiagnosed new problem with uncertain prognosis? @ -Yes Drug Therapy requiring intensive monitoring for toxicity (Heparin, Nitro, Insulin, Cardizem)? @ -No Were any procedures done? @ -No Diagnosis/symptom? @ -Acute peripheral edema, suspected exacerbation of congestive heart failure (patient denied history), Acute, or Chronic, or Acute on Chronic? @ -Acute Uncomplicated (without systemic symptoms) or Complicated (systemic symptoms)? @ -Complicated Side effects of treatment? @ -SHAUN Exacerbation, Progression, or Severe Exacerbation? @ -Yes Poses a threat to life or bodily function? How? (Chest pain, USA, PR, pneumonia, PE, COPD, DKA, ARF, appy, cholecystitis, CVA, Diverticulitis, Homicidal, Shara cidal, threat to staff... and all critical care pts) @ -No - Lab Data Result diagrams: 10/06/23 03:35 10/08/23 06:57 Lab Results 10/05/23 10/05/23 10/05/23 Range/Units 11:53 11:53 11:53 WBC 7.6 (3.8-10.6) k/uL RBC 3.95 L (4.30-5.90) m/uL Hgb 12.6 L (13.0-17.5) gm/dL Hct 37.7 L (39.0-53.0) % MCV 95.4 (80.0-100.0) fL MCH 31.8 (25.0-35.0) pg MCHC 33.3 (31.0-37.0) g/dL RDW 14.1 (11.5-15.5) % Plt Count 287 (150-450) k/uL MPV 7.9 Neutrophils % 59 % Lymphocytes % 24 % Monocytes % 6 % Eosinophils % 7 % Basophils % 1 % Neutrophils # 4.5 (1.3-7.7) k/uL Lymphocytes # 1.9 (1.0-4.8) k/uL Monocytes # 0.5 (0-1.0) k/uL Eosinophils # 0.6 (0-0.7) k/uL Basophils # 0.1 (0-0.2) k/uL PT 10.6 (10.0-12.5) sec INR 1.0 (<1.2) APTT 23.7 (22.0-30.0) sec Sodium 139 (137-145) mmol/L Potassium 4.0 (3.5-5.1) mmol/L Chloride 108 H (98-107) mmol/L Carbon Dioxide 24 (22-30) mmol/L Anion Gap 7 mmol/L BUN 23 H (9-20) mg/dL Creatinine 1.10 (0.66-1.25) mg/dL Est GFR (CKD-EPI)AfAm 87 (>60 ml/min/1.73 sqM) Est GFR (CKD-EPI)NonAf 75 (>60 ml/min/1.73 sqM) Glucose 157 H (74-99) mg/dL POC Glucose (mg/dL) (70-110) mg/dL POC Glu Procurement Services Manager ID Plasma Lactic Acid Scotty (0.7-2.0) mmol/L Calcium 8.4 (8.4-10.2) mg/dL Total Bilirubin 0.8 (0.2-1.3) mg/dL AST 60 H (17-59) U/L ALT 69 H (4-49) U/L Alkaline Phosphatase 179 H (38-126) U/L Troponin I (0.000-0.034) ng/mL NT-Pro-B Natriuret Pep 5250 pg/mL Total Protein 5.7 L (6.3-8.2) g/dL Albumin 3.0 L (3.5-5.0) g/dL 10/05/23 10/05/23 10/05/23 Range/Units 11:53 11:53 11:56 WBC (3.8-10.6) k/uL RBC (4.30-5.90) m/uL Hgb (13.0-17.5) gm/dL Hct (39.0-53.0) % MCV (80.0-100.0) fL MCH (25.0-35.0) pg MCHC (31.0-37.0) g/dL RDW (11.5-15.5) % Plt Count (150-450) k/uL MPV Neutrophils % % Lymphocytes % % Monocytes % % Eosinophils % % Basophils % % Neutrophils # (1.3-7.7) k/uL Lymphocytes # (1.0-4.8) k/uL Monocytes # (0-1.0) k/uL Eosinophils # (0-0.7) k/uL Basophils # (0-0.2) k/uL PT (10.0-12.5) sec INR (<1.2) APTT (22.0-30.0) sec Sodium (137-145) mmol/L Potassium (3.5-5.1) mmol/L Chloride (98-107) mmol/L Carbon Dioxide (22-30) mmol/L Anion Gap mmol/L BUN (9-20) mg/dL Creatinine (0.66-1.25) mg/dL Est GFR (CKD-EPI)AfAm (>60 ml/min/1.73 sqM) Est GFR (CKD-EPI)NonAf (>60 ml/min/1.73 sqM) Glucose (74-99) mg/dL POC Glucose (mg/dL) 151 H (70-110) mg/dL POC Glu Procurement Services Manager ID Les Whitt Plasma Lactic Acid Scotty 1.9 (0.7-2.0) mmol/L Calcium (8.4-10.2) mg/dL Total Bilirubin (0.2-1.3) mg/dL AST (17-59) U/L ALT (4-49) U/L Alkaline Phosphatase (38-126) U/L Troponin I 0.016 (0.000-0.034) ng/mL NT-Pro-B Natriuret Pep pg/mL Total Protein (6.3-8.2) g/dL Albumin (3.5-5.0) g/dL Disposition Clinical Impression: CHF (congestive heart failure), Respiratory insufficiency Disposition: ADMITTED IP TO THIS [facility] Condition: Stable Is patient prescribed a controlled substance at d/c from ED?: No Time of Disposition: 13:54 Decision to Admit Reason: Admit from EC Decision Date: 10/05/23 Decision Time: 13:54
[2023-10-05 12:03] LABS: Glucose,Whole Blood 151 mg/dL (70-110)
[2023-10-05 12:15] LABS: Basophils # (A) 0.1 k/uL (0-0.2); Basophils % (A) 1 %; Eosinophils # (A) 0.6 k/uL (0-0.7); Eosinophils % (A) 7 %; HCT 37.7 % (39.0-53.0); HGB 12.6 gm/dL (13.0-17.5); Lymphocytes # (A) 1.9 k/uL (1.0-4.8); Lymphocytes % (A) 24 %; MCH 31.8 pg (25.0-35.0); MCHC 33.3 g/dL (31.0-37.0); MCV 95.4 fL (80.0-100.0); Mean Platelet Volume 7.9; Monocytes # (A) 0.5 k/uL (0-1.0); Monocytes % (A) 6 %; Neutrophils # (A) 4.5 k/uL (1.3-7.7); Neutrophils % (A) 59 %; Platelet Count 287 k/uL (150-450); RBC 3.95 m/uL (4.30-5.90); RDW 14.1 % (11.5-15.5); WBC 7.6 k/uL (3.8-10.6)
[2023-10-05 12:27] LABS: ALT 69 U/L (4-49); AST 60 U/L (17-59); African American GFR (CKD) 87 (>60 ml/min/1.73 sqM); Alkaline Phosphatase 179 U/L (38-126); Anion Gap 7 mmol/L; Blood Urea Nitrogen 23 mg/dL (9-20); Calcium 8.4 mg/dL (8.4-10.2); Carbon Dioxide 24 mmol/L (22-30); Chloride 108 mmol/L (98-107); Glucose 157 mg/dL (74-99); Non-African American GFR(CKD) 75 (>60 ml/min/1.73 sqM); Sodium 139 mmol/L (137-145); Total Bilirubin 0.8 mg/dL (0.2-1.3); Total Protein 5.7 g/dL (6.3-8.2)
[2023-10-05 12:35] LABS: NT-Pro-B-Type Natriuretic Pept 5250 pg/mL
--- NOTE | 2023-10-05 12:41 | XR ---
EXAMINATION TYPE: XR chest 2V DATE OF EXAM: 10/05/2023 12:09 PM CLINICAL INDICATION:Male, 53 years old with history of difficulty breathing; [facility] COMPARISON: Chest radiographs from 12/09/2022. TECHNIQUE: XR chest 2V Frontal and lateral views of the chest. FINDINGS: Lungs/Pleura: No evidence of focal consolidation or pneumothorax. Blunting of the costophrenic angles is present. Pulmonary vascularity: Pulmonary vascular congestion. Heart/mediastinum: Cardiomediastinal silhouette is enlarged and stable. Musculoskeletal: No acute osseous pathology. IMPRESSION: Cardiomegaly, pulmonary vascular congestion and bilateral pleural effusions. Correlate with BNP for c ongestive heart failure.
[2023-10-05 12:44] LABS: Partial Thromboplastin Time 23.7 sec (22.0-30.0); Prothrombin Time 10.6 sec (10.0-12.5)
[2023-10-05] MEDS: FUROSEMIDE 10 MG/ML 10 ML VIAL IV STA (13:52)
[2023-10-05] MEDS ORDERED: NALOXONE 0.4 MG/ML 1 ML VIAL IV PRN (13:55)
[2023-10-05] MEDS: ATORVASTATIN 40 MG TAB PO SCH (14:42)
[2023-10-05] MEDS: LOSARTAN 50 MG TAB PO SCH (14:43)
[2023-10-05] MEDS: CLOPIDOGREL 75 MG TAB PO SCH (14:43)
[2023-10-05] MEDS: METOPROLOL TARTRATE 25 MG TAB PO STA (14:43)
[2023-10-05] MEDS: INSULIN LISPRO (For Pump) 100 UNIT/ML VIAL SQ-PUMP SCH (14:44)
[2023-10-05] MEDS ORDERED: DEXTROSE 50% SYRINGE 50 ML IVP PRN ×2 (14:52)
[2023-10-05] MEDS: HEPARIN SODIUM,PORCINE 5,000 UNIT/ML 1 ML VIAL SQ SCH (16:24)
[2023-10-05 17:19] LABS: Glucose,Whole Blood 309 mg/dL (70-110)
[2023-10-05] MEDS: INSULIN ASPART (NovoLOG) 100 UNIT/ML VIAL SQ SCH (17:23)
[2023-10-05 19:53] LABS: Glucose,Whole Blood 236 mg/dL (70-110)
[2023-10-05] MEDS: FUROSEMIDE 10 MG/ML 4 ML VIAL IV SCH (20:49)
[2023-10-05] MEDS: METOPROLOL TARTRATE 25 MG TAB PO SCH (20:49)
[2023-10-05] MEDS: FAMOTIDINE 20 MG TAB PO SCH (20:49)
--- NOTE | 2023-10-06 00:15 | P.HPIM ---
History of Present Illness H&P Date: 10/05/23 Chief Complaint: Shortness of breath and leg swelling Patient is a 52-year-old male with a past medical history of hypertension, hyperlipidemia, diabetes type 2 on insulin pump at home, history of CLL 3 years ago status post chemo currently in remission, history of cholecystectomy presents to ER with complaints of shortness of breath and leg swelling. Patient states that she has been having worsening leg swelling for the past 3 days since her shortness of breath. Denies any chest pain. No cough or sputum production. No nausea vomiting abdominal pain or diarrhea. Denies any recent illnesses. On admission patient's blood pressure was 182/119 pulse 99 respiration 20 and pulse ox 93% on room air. Chest x-ray showed cardiomegaly, pulmonary vascular congestion and bilateral pleural effusions. Correlate with BNP for congestive heart failure. EKG showed sinus rhythm Laboratory pressure WBC 7.6 hemoglobin 12.6 and platelets 287 Sodium 139 potassium 4.0 chloride 108 bicarb is 24 BUN 23 and creatinine 1.10 and blood sugar 157 AST 60 ALT 16 alk phos 179 and proBNP 5250 and albumin 3.0 Review of Systems Constitutional: Patient denies any fever or chills . No generalized weakness or weight loss. Abdomen: Patient denied nausea vomiting and diarrhea and abdominal pain. Cardiovascular: Patient denies any chest pain. Patient does have short of breath no palpitations. Leg swelling. Respiratory: patient denied any cough is from production. Positive for shortness of breath Neurologic: Patient denied any numbness or tingling headache. Musculoskeletal: Patient denies any complaints of joint swelling or deformity. Skin: Negative Psychiatric: Negative Endocrine: No heat or cold intolerance. No recent weight gain. Genitourinary: No dysuria or hematuria. All other 14 point ROS negative except the above Past Medical History Past Medical History: Cancer, Diabetes Mellitus, Hyperlipidemia, Hypertension Additional Past Medical History / Comment(s): IDDM type I, CLL, recent R upper arm pain, occasional sinus issues. History of Any Multi-Drug Resistant Organisms: None Reported Past Surgical History: Cholecystectomy, Tonsillectomy Additional Past Surgical History / Comment(s): 12/2018 L neck mass excision, colonoscopy, bilateral cataract removals/lens implants Past Anesthesia/Blood Transfusion Reactions: Motion Sickness, Postoperative Nausea & Vomiting (PONV) Past Psychological History: No Psychological Hx Reported Smoking Status: Never smoker Past Alcohol Use History: None Reported Past Drug Use History: None Reported - Past Family History Father Family Medical History: Cancer Additional Family Medical History / Comment(s): Father from leukemia. Mother Additional Family Medical History / Comment(s): Mother is , she had night terrors. Brother(s) Additional Family Medical History / Comment(s): 2 of pts brothers have schizophrenia and one is also a diabetic. One at the age of 56yrs from "natural causes" Medications and Allergies Home Medications Medication Instructions Recorded Confirmed Type INSULIN LISPRO (For Pump) [humaLOG 0.01 units SQ-PUMP CONTINUOUS 05/26/20 10/05/23 History (For Pump)] Atorvastatin [Lipitor] 40 mg PO W/LUNCH 10/05/23 10/05/23 History Clopidogrel [Plavix] 75 mg PO W/LUNCH 10/05/23 10/05/23 History Famotidine [Pepcid] 20 mg PO BID@1200,2100 10/05/23 10/05/23 History Furosemide [Lasix] 20 mg PO W/LUNCH 10/05/23 10/05/23 History Losartan Potassium [Cozaar] 100 mg PO W/LUNCH 10/05/23 10/05/23 History Metoprolol Tartrate [Lopressor] 25 mg PO BID@1200,2100 10/05/23 10/05/23 History Allergies Allergy/AdvReac Type Severity Reaction Status Date / Time No Known Allergies Allergy Verified 10/05/23 12:32 Physical Exam Vitals: Vital Signs Temp Pulse Resp BP Pulse Ox 10/05/23 13:30 89 22 170/105 91 L 10/05/23 13:00 91 24 170/100 93 L 10/05/23 12:30 89 24 165/98 90 L 10/05/23 12:00 90 19 191/110 93 L 10/05/23 11:57 92 16 191/110 94 L 10/05/23 11:25 98.3 F 99 20 182/109 99 Intake and Output 10/04/23 10/05/23 10/05/23 22:59 06:59 14:59 Other: Weight 115.258 kg PHYSICAL EXAMINATION: Patient is lying in the bed comfortably, no acute distress, awake alert and oriented.. HEENT: Normocephalic. Neck is supple. Pupils reactive. Nostrils clear. Oral cavity is moist. Neck reveals no JVD, carotid bruits, or thyromegaly. CHEST EXAMINATION: Trachea is central. Symmetrical expansion. Bibasilar coarse sounds. Nonlabored breathing. Using.. CARDIAC: Normal S1, S2 with no gallops. No murmurs ABDOMEN: Soft. Bowel sounds normal. No organomegaly. No abdominal bruits. Extremities: r bilateral lower extremity 3+ edema. No clubbing or cyanosis Neurologically awake, alert, oriented x3 with well-coordinated movements. No focal deficits noted Skin: No rash or skin lesions. Psychiatric: Coperative. Nonsuicidal Musculoskeletal: No joint swelling or deformity. Normal range of motion. Results CBC & Chem 7: 10/05/23 11:53 10/05/23 11:53 Labs: Abnormal Lab Results - Last 24 Hours (Table) 10/05/23 10/05/23 10/05/23 Range/Units 11:53 11:53 11:56 RBC 3.95 L (4.30-5.90) m/uL Hgb 12.6 L (13.0-17.5) gm/dL Hct 37.7 L (39.0-53.0) % Chloride 108 H (98-107) mmol/L BUN 23 H (9-20) mg/dL Glucose 157 H (74-99) mg/dL POC Glucose (mg/dL) 151 H (70-110) mg/dL AST 60 H (17-59) U/L ALT 69 H (4-49) U/L Alkaline Phosphatase 179 H (38-126) U/L Total Protein 5.7 L (6.3-8.2) g/dL Albumin 3.0 L (3.5-5.0) g/dL Thrombosis Risk Factor Assmnt - DVT/VTE Prophylaxis DVT/VTE Prophylaxis: Pharmacologic Prophylaxis ordered Assessment and Plan Assessment: Acute CHF with ejection fraction not known Shortness of breath and worsening leg swelling History of CLL status post chemo 3 days ago currently in remission Hypertension uncontrolled on admission Hyperlipidemia Hyperglycemia Diabetes type 2 on insulin pump at home Prior history of cholecystectomy Obesity BMI 34.0 DVT prophylaxis with heparin subcu Plan: Patient will be continued on telemetry. Was given Lasix 60 mg IV x 1 in the ER. Continue with IV Lasix 40 mg every 12 and follow-up renal function Current with Plavix and statins. Cardiology consult and 2D echocardiogram. Oxygen supplementation as needed. Follow-up closely. Time with Patient: Greater than 30
[2023-10-06] MEDS: INSULIN DETEMIR (LEVEMIR) 100 UNIT/ML SYR SQ SCH (02:21)
[2023-10-06 04:19] LABS: Basophils # (A) 0.1 k/uL (0-0.2); Basophils % (A) 1 %; Eosinophils # (A) 0.4 k/uL (0-0.7); Eosinophils % (A) 8 %; HCT 33.5 % (39.0-53.0); HGB 11.4 gm/dL (13.0-17.5); Lymphocytes # (A) 1.4 k/uL (1.0-4.8); Lymphocytes % (A) 27 %; MCH 32.8 pg (25.0-35.0); MCV 96.4 fL (80.0-100.0); Monocytes # (A) 0.3 k/uL (0-1.0); Monocytes % (A) 6 %; Neutrophils # (A) 2.9 k/uL (1.3-7.7); Neutrophils % (A) 56 %; Platelet Count 219 k/uL (150-450); RBC 3.47 m/uL (4.30-5.90); WBC 5.1 k/uL (3.8-10.6)
[2023-10-06 04:27] LABS: African American GFR (CKD) 79 (>60 ml/min/1.73 sqM); Anion Gap 2 mmol/L; Blood Urea Nitrogen 23 mg/dL (9-20); Calcium 7.8 mg/dL (8.4-10.2); Carbon Dioxide 28 mmol/L (22-30); Chloride 104 mmol/L (98-107); Glucose 227 mg/dL (74-99); Non-African American GFR(CKD) 68 (>60 ml/min/1.73 sqM); Potassium 4.1 mmol/L (3.5-5.1); Sodium 134 mmol/L (137-145)
[2023-10-06 06:26] LABS: Glucose,Whole Blood 156 mg/dL (70-110)
--- NOTE | 2023-10-06 09:07 | US ---
EXAMINATION TYPE: US abdomen limited DATE OF EXAM: 10/06/2023 Exam done portable COMPARISON: CT 2019 CLINICAL INDICATION: Male, 53 years old with history of Elevated liver enzymes; TECHNIQUE: Multiple sonographic images of the right upper quadrant are obtained. FINDINGS: EXAM MEASUREMENTS: Liver Length: 17.1 cm CBD: 1.2 cm Right Kidney: 11.2 x 5.5 x 5.6 cm Pancreas: visualized portions wnl, limited by overlying midline bowel gas Liver: attenuating, measures in upper limits of normal Gallbladder: surgically absent Evidence for sonographic Nugent's sign: no CBD: mildly dilated Right Kidney: wnl Right pleural effusion IMPRESSION: 1. Mild hepatic steatosis, otherwise No evidence for acute process. 2. Right pleural effusion.
[2023-10-06 11:32] LABS: Glucose,Whole Blood 110 mg/dL (70-110)
[2023-10-06] MEDS: carvediloL 12.5 MG TAB PO SCH (12:12)
[2023-10-06] MEDS: DAPAGLIFLOZIN PROPANEDIOL 10 MG TABLET PO SCH (12:12)
--- NOTE | 2023-10-06 13:55 | P.CRDCN ---
History of Present Illness Consult date: 10/06/23 Consult reason: congestive heart failure (acute exacerbation) History of present illness: History of present illness: This is a 53-year-old male patient of Dr. Jose Garcia with past medical history of congestive heart failure, TIA, diabetes, hypertension, hyperlipidemia. We have been asked to evaluate the patient for acute CHF exacerbation. Patient was last seen in the office on 06/05/2023 and at that time it was recommended for Lexiscan stress test which patient states that he attempted but became very sick care home through the test and it was aborted. He has not followed up since. He states he has been taking all his medications as directed. Patient states that he is normally quite active walks a lot and carries equipment. He states he had some chest discomfort that felt like his chest was swollen along with difficulty in breathing. No fever no chills. No palpitations, no lightheadedness or dizziness no syncopal episodes. He states he is feeling a lot better by the time of this evaluation. EKG sinus rhythm with nonspecific ST-T wave changes Chest x-ray: Cardiomegaly, pulmonary vascular congestion bilateral pleural effusions. Correlate for heart failure. WBC 5.1, hemoglobin 9.4, platelet count 219. Sodium 134, potassium 4.1, BUN 23 creatinine 1.19. Blood sugar 227. A1c 9.8.Troponin negative x 1. proBNP 5250. Home cardiac medications: Atorvastatin 40 mg with lunch, Plavix 75 mg with lunch, Lasix 20 mg daily, losartan 100 mg with lunch, Lopressor 25 mg twice daily. Echocardiogram performed 12/06/2022 reveals EF of 50%. Mild to moderate mitral digitation, mild tricuspid regurgitation. No significant pulmonary hypertension. Review Of Systems: At the time of my exam: CONSTITUTIONAL: Denies fever or chills. HEENT: Denies blurred vision, vision changes, or eye pain. Denies hemoptysis CARDIOVASCULAR: Denies chest pain. Denies orthopnea. Denies PND. Denies palpitations RESPIRATORY: Denies shortness of breath. GASTROINTESTINAL: Denies abdominal pain. Denies nausea or vomiting. HEMATOLOGIC: Denies bleeding disorders. GENITOURINARY: Denies any blood in urine. SKIN: Denies pruitis. Denies rash. Physical examination: Gen: This is a 53-year-old male in no acute distress VS: reviewed HEENT: Head is atraumatic, normocephalic. Pupils equal, round. Sclerae is anicteric. NECK: Supple. No JVD. LUNGS: Diminished in the right base. No intercostal retractions. HEART: Regular rate and rhythm. Soft systolic murmur. ABDOMEN: Soft No tenderness. EXTREMITIES: 12+ pedal edema. No calf tenderness. NEUROLOGICAL: Patient is awake, alert and oriented x3. Assessment: Acute on chronic diastolic heart failure Diabetes Hypertension Hyperlipidemia History of TIA. Plan: Resume patient's home cardiac medications with the following changes Discontinue metoprolol and start patient on Coreg 25 mg twice daily Start patient on Farxiga 10 mg daily Obtain 2-D echocardiogram and Doppler study to assess cardiac structure and function Continue Lasix 40 mg IV every 12 hours Monitor LOULOU, daily weights, electrolytes and renal function Obtain proBNP tomorrow morning May plan for cardiac catheterization either during this hospitalization or following as an outpatient Further recommendations to follow based upon clinical course Thank you kindly for this consultation. Nurse practitioner note has been reviewed, I agree with documented findings and plan of care. Patient was seen and examined. Past Medical History Past Medical History: Cancer, Diabetes Mellitus, Hyperlipidemia, Hypertension Additional Past Medical History / Comment(s): IDDM type I, CLL, recent R upper arm pain, occasional sinus issues. History of Any Multi-Drug Resistant Organisms: None Reported Past Surgical History: Cholecystectomy, Tonsillectomy Additional Past Surgical History / Comment(s): 12/2018 L neck mass excision, colonoscopy, bilateral cataract removals/lens implants Past Anesthesia/Blood Transfusion Reactions: Motion Sickness, Postoperative Nausea & Vomiting (PONV) Past Psychological History: No Psychological Hx Reported Smoking Status: Never smoker Past Alcohol Use History: None Reported Past Drug Use History: None Reported - Past Family History Father Family Medical History: Cancer Additional Family Medical History / Comment(s): Father from leukemia. Mother Additional Family Medical History / Comment(s): Mother is , she had night terrors. Brother(s) Additional Family Medical History / Comment(s): 2 of pts brothers have schizophrenia and one is also a diabetic. One at the age of 56yrs from "natural causes" Medications and Allergies Home Medications Medication Instructions Recorded Confirmed Type INSULIN LISPRO (For Pump) [humaLOG 0.01 units SQ-PUMP CONTINUOUS 05/26/20 10/05/23 History (For Pump)] Atorvastatin [Lipitor] 40 mg PO W/LUNCH 10/05/23 10/05/23 History Clopidogrel [Plavix] 75 mg PO W/LUNCH 10/05/23 10/05/23 History Famotidine [Pepcid] 20 mg PO BID@1200,2100 10/05/23 10/05/23 History Furosemide [Lasix] 20 mg PO W/LUNCH 10/05/23 10/05/23 History Losartan Potassium [Cozaar] 100 mg PO W/LUNCH 10/05/23 10/05/23 History Metoprolol Tartrate [Lopressor] 25 mg PO BID@1200,2100 10/05/23 10/05/23 History Allergies Allergy/AdvReac Type Severity Reaction Status Date / Time No Known Allergies Allergy Verified 10/05/23 12:32 Physical Exam Vitals: Vital Signs Temp Pulse Pulse Resp BP BP Pulse Ox 10/06/23 07:59 97.8 F 84 16 173/94 95 10/06/23 03:41 98.2 F 81 16 166/86 93 L 10/05/23 23:26 97.6 F 85 16 158/80 10/05/23 20:47 88 16 157/83 92 L 10/05/23 17:26 98.3 F 86 20 172/95 94 L 10/05/23 16:00 76 22 155/93 91 L 10/05/23 15:30 76 24 187/112 89 L 10/05/23 15:00 90 23 178/106 93 L 10/05/23 14:30 89 20 189/110 93 L 10/05/23 14:11 97.9 F 94 16 180/79 97 10/05/23 14:00 93 21 171/102 93 L 10/05/23 13:30 89 22 170/105 91 L 10/05/23 13:00 91 24 170/100 93 L 10/05/23 12:30 89 24 165/98 90 L 10/05/23 12:00 90 19 191/110 93 L 10/05/23 11:57 92 16 191/110 94 L 10/05/23 11:25 98.3 F 99 20 182/109 99 Intake and Output 10/05/23 10/06/23 10/06/23 22:59 06:59 14:59 Intake Total 360 250 236 Output Total 950 3300 Balance -590 -3050 236 Intake: IV 10 10 Invasive Line 1 10 10 Oral 350 240 236 Output: Urine 950 3300 Other: Voiding Method Toilet Toilet Urinal Urinal # Voids 1 1 Weight 110.5 kg 107.3 kg Results 10/06/23 03:35 10/06/23 03:35 Cardiac Enzymes 10/05/23 10/05/23 Range/Units 11:53 11:53 AST 60 H (17-59) U/L Troponin I 0.016 (0.000-0.034) ng/mL Coagulation 10/05/23 Range/Units 11:53 PT 10.6 (10.0-12.5) sec APTT 23.7 (22.0-30.0) sec CBC 10/05/23 10/06/23 Range/Units 11:53 03:35 WBC 7.6 5.1 (3.8-10.6) k/uL RBC 3.95 L 3.47 L (4.30-5.90) m/uL Hgb 12.6 L 11.4 L (13.0-17.5) gm/dL Hct 37.7 L 33.5 L (39.0-53.0) % Plt Count 287 219 (150-450) k/uL Comprehensive Metabolic Panel 10/05/23 10/06/23 Range/Units 11:53 03:35 Sodium 139 134 L (137-145) mmol/L Potassium 4.0 4.1 (3.5-5.1) mmol/L Chloride 108 H 104 (98-107) mmol/L Carbon Dioxide 24 28 (22-30) mmol/L BUN 23 H 23 H (9-20) mg/dL Creatinine 1.10 1.19 (0.66-1.25) mg/dL Glucose 157 H 227 H (74-99) mg/dL Calcium 8.4 7.8 L (8.4-10.2) mg/dL AST 60 H (17-59) U/L ALT 69 H (4-49) U/L Alkaline Phosphatase 179 H (38-126) U/L Total Protein 5.7 L (6.3-8.2) g/dL Albumin 3.0 L (3.5-5.0) g/dL Current Medications Generic Name Dose Route Start Last Admin Trade Name Freq PRN Reason Stop Dose Admin Atorvastatin Calcium 40 mg 10/05/23 14:15 10/05/23 14:42 Atorvastatin 40 Mg Tab PO 40 mg W/LUNCH CUCO Administration Clopidogrel Bisulfate 75 mg 10/05/23 14:15 10/05/23 14:43 Clopidogrel 75 Mg Tab PO 75 mg W/LUNCH CUCO Administration Dextrose/Water 25 ml 10/05/23 14:52 Dextrose 50% Syringe 50 Ml IVP PER PROTOCOL PRN Hypoglycemia Protocol Dextrose/Water 50 ml 10/05/23 14:52 Dextrose 50% Syringe 50 Ml IVP PER PROTOCOL PRN Hypoglycemia Protocol Famotidine 20 mg 10/05/23 21:00 10/05/23 20:49 Famotidine 20 Mg Tab PO 20 mg BID@1200,2100 CUCO Administration Furosemide 40 mg 10/05/23 21:00 10/06/23 08:00 Furosemide 10 Mg/Ml 4 Ml Vial IV 40 mg BID CUCO Administration Heparin Sodium (Porcine) 5,000 unit 10/05/23 16:00 10/06/23 08:02 Heparin Sodium,Porcine 5,000 Unit/Ml 1 Ml Vial SQ Not Given Q8HR [facility] Insulin Aspart 0 unit 10/05/23 17:30 10/06/23 06:39 Insulin Aspart (Novolog) 100 Unit/Ml Vial SQ 2 unit ACHS CUCO Administration Protocol Insulin Detemir 21 unit 10/06/23 00:30 10/06/23 02:21 Insulin Detemir (Levemir) 100 Unit/Ml Syr SQ 21 unit HS [facility]CO Administration Losartan Potassium 100 mg 10/05/23 14:15 10/05/23 14:43 Losartan 50 Mg Tab PO 100 mg W/LUNCH [facility]CO Administration Metoprolol Tartrate 25 mg 10/05/23 21:00 10/05/23 20:49 Metoprolol Tartrate 25 Mg Tab PO 25 mg BID@1200,2100 [facility]CO Administration Naloxone HCl 0.2 mg 10/05/23 13:55 Naloxone 0.4 Mg/Ml 1 Ml Vial IV Q2M PRN Opioid Reversal Intake and Output 10/05/23 10/06/23 10/06/23 22:59 06:59 14:59 Intake Total 360 250 236 Output Total 950 3300 Balance -590 -3050 236 Intake: IV 10 10 Invasive Line 1 10 10 Oral 350 240 236 Output: Urine 950 3300 Other: Voiding Method Toilet Toilet Urinal Urinal # Voids 1 1 Weight 110.5 kg 107.3 kg 10/06/23 03:35 10/06/23 03:35
[2023-10-06 17:01] LABS: Glucose,Whole Blood 166 mg/dL (70-110)
--- NOTE | 2023-10-06 17:37 | P.PN ---
Subjective Progress Note Date: 10/06/23 52-year-old male with a past medical history of hypertension, hyperlipidemia, diabetes type 2 on insulin pump at home, history of CLL 3 years ago status post chemo currently in remission, history of cholecystectomy presents to ER with complaints of shortness of breath and leg swelling. Patient states that she has been having worsening leg swelling for the past 3 days since her shortness of breath. Denies any chest pain. No cough or sputum production. No nausea vomiting abdominal pain or diarrhea. Denies any recent illnesses. On admission patient's blood pressure was 182/119 pulse 99 respiration 20 and pulse ox 93% on room air. Chest x-ray showed cardiomegaly, pulmonary vascular congestion and bilateral pleural effusions. Correlate with BNP for congestive heart failure. EKG showed sinus rhythm Laboratory pressure WBC 7.6 hemoglobin 12.6 and platelets 287 Sodium 139 potassium 4.0 chloride 108 bicarb is 24 BUN 23 and creatinine 1.10 and blood sugar 157 AST 60 ALT 16 alk phos 179 and proBNP 5250 and albumin 3.0 Objective - Vital Signs Vital signs: Vital Signs Temp 97.8 F 10/06/23 07:59 Pulse 84 10/06/23 07:59 Resp 16 10/06/23 07:59 BP 173/94 10/06/23 07:59 Pulse Ox 95 10/06/23 07:59 FiO2 Intake & Output 10/05/23 10/06/23 10/06/23 18:59 06:59 18:59 Intake Total 350 260 246 Output Total 500 3750 Balance -150 -3490 246 Weight 110.5 kg 107.3 kg Intake: IV 20 10 Invasive Line 1 20 10 Oral 350 240 236 Output: Urine 500 3750 Other: Voiding Method Toilet Urinal # Voids 0 1 # Bowel Movements 0 - Exam Gen: This is a 53-year-old male in no acute distress VS: reviewed HEENT: Head is atraumatic, normocephalic. Pupils equal, round. Sclerae is anicteric. NECK: Supple. No JVD. LUNGS: Diminished in the right base. No intercostal retractions. HEART: Regular rate and rhythm. Soft systolic murmur. ABDOMEN: Soft No tenderness. EXTREMITIES: 12+ pedal edema. No calf tenderness. NEUROLOGICAL: Patient is awake, alert and oriented x3. - Labs CBC & Chem 7: 10/06/23 03:35 10/06/23 03:35 Labs: Abnormal Lab Results - Last 24 Hours (Table) 10/05/23 10/05/23 10/05/23 Range/Units 11:53 11:53 11:56 RBC 3.95 L (4.30-5.90) m/uL Hgb 12.6 L (13.0-17.5) gm/dL Hct 37.7 L (39.0-53.0) % Sodium (137-145) mmol/L Chloride 108 H (98-107) mmol/L BUN 23 H (9-20) mg/dL Glucose 157 H (74-99) mg/dL POC Glucose (mg/dL) 151 H (70-110) mg/dL Hemoglobin A1c (<=6.0) % Calcium (8.4-10.2) mg/dL AST 60 H (17-59) U/L ALT 69 H (4-49) U/L Alkaline Phosphatase 179 H (38-126) U/L Total Protein 5.7 L (6.3-8.2) g/dL Albumin 3.0 L (3.5-5.0) g/dL 10/05/23 10/05/23 10/06/23 Range/Units 17:18 19:51 03:35 RBC (4.30-5.90) m/uL Hgb (13.0-17.5) gm/dL Hct (39.0-53.0) % Sodium (137-145) mmol/L Chloride (98-107) mmol/L BUN (9-20) mg/dL Glucose (74-99) mg/dL POC Glucose (mg/dL) 309 H 236 H (70-110) mg/dL Hemoglobin A1c 9.8 H (<=6.0) % Calcium (8.4-10.2) mg/dL AST (17-59) U/L ALT (4-49) U/L Alkaline Phosphatase (38-126) U/L Total Protein (6.3-8.2) g/dL Albumin (3.5-5.0) g/dL 10/06/23 10/06/23 10/06/23 Range/Units 03:35 03:35 06:23 RBC 3.47 L (4.30-5.90) m/uL Hgb 11.4 L (13.0-17.5) gm/dL Hct 33.5 L (39.0-53.0) % Sodium 134 L (137-145) mmol/L Chloride (98-107) mmol/L BUN 23 H (9-20) mg/dL Glucose 227 H (74-99) mg/dL POC Glucose (mg/dL) 156 H (70-110) mg/dL Hemoglobin A1c (<=6.0) % Calcium 7.8 L (8.4-10.2) mg/dL AST (17-59) U/L ALT (4-49) U/L Alkaline Phosphatase (38-126) U/L Total Protein (6.3-8.2) g/dL Albumin (3.5-5.0) g/dL Assessment and Plan Assessment: Acute CHF with ejection fraction not known Shortness of breath and worsening leg swelling History of CLL status post chemo 3 days ago currently in remission Hypertension uncontrolled on admission Hyperlipidemia Hyperglycemia Diabetes type 2 on insulin pump at home Prior history of cholecystectomy Obesity BMI 34.0 DVT prophylaxis with heparin subcu Plan: Patient will be continued on telemetry. Was given Lasix 60 mg IV x 1 in the ER. Continue with IV Lasix 40 mg every 12 and follow-up renal function Current with Plavix and statins. Cardiology consult and 2D echocardiogram. Oxygen supplementation as needed. Follow-up closely.
--- NOTE | 2023-10-06 17:51 | CA ---
Transthoracic Echo Report Name: Walter Rodney Age: 53 Gender: M : 1970 Exam Date: 10/06/2023 08:56 Exam Location: [facility] Ht (in): 71 Wt (lb): 236 Ordering Physician: Maria Esther Trimble Attending/Referring Phys: [id number], Atilio Wireline Field Operator Holly Faye RCS Procedure CPT: Indications: LVF Cardiac Hx: Technical Quality: Fair Contrast 1: Total Dose (mL): Contrast 2: Total Dose (mL): MEASUREMENTS (Male / Female) Normal Values 2D ECHO LV Diastolic Diameter PLAX 5.0 cm 4.2 - 5.9 / 3.9 - 5.3 cm LV Systolic Diameter PLAX 4.0 cm IVS Diastolic Thickness 1.1 cm 0.6 - 1.0 / 0.6 - 0.9 cm LVPW Diastolic Thickness 1.2 cm 0.6 - 1.0 / 0.6 - 0.9 cm LV Relative Wall Thickness 0.5 RV Internal Dim ED PLAX 3.5 cm LVOT Diameter 2.3 cm LV Diastolic Volume MOD BP 204.6 cm??? 67 - 155 / 56 - 104 cm??? LV Systolic Volume MOD BP 125.7 cm??? 22 - 58 / 19 - 49 cm??? LV Ejection Fraction MOD BP 38.5 % >= 55 % LV Cardiac Index MOD BP 2652.6 cm???/min???m??? LV Diastolic Volume MOD 4C 184.1 cm??? LV Systolic Volume MOD 4C 112.4 cm??? LV Ejection Fraction MOD 4C 38.9 % LV Cardiac Index MOD 4C 2411.2 cm???/min???m??? LV Diastolic Length 4C 8.6 cm LV Systolic Length 4C 7.9 cm LV Diastolic Volume MOD 2C 209.5 cm??? LV Systolic Volume MOD 2C 132.7 cm??? LV Ejection Fraction MOD 2C 36.7 % LV Cardiac Index MOD 2C 2584.9 cm???/min???m??? LV Diastolic Length 2C 9.4 cm LV Systolic Length 2C 8.5 cm LA Volume 88.4 cm??? 18 - 58 / 22 - 52 cm??? LA Volume Index 37.7 cm???/m??? 16 - 28 cm???/m??? Ascending Aorta Diameter 3.2 cm DOPPLER AV Peak Velocity 110.5 cm/s AV Peak Gradient 4.9 mmHg AV Mean Velocity 85.2 cm/s AV Mean Gradient 3.1 mmHg AV Velocity Time Integral 21.4 cm LVOT Peak Velocity 86.0 cm/s LVOT Peak Gradient 3.0 mmHg LVOT Velocity Time Integral 15.9 cm LVOT Stroke Volume 66.7 cm??? LVOT Stroke Volume Index 29.5 ml/m??? LVOT Cardiac Index 2242.1 cm???/min???m??? AV Area Cont Eq vti 3.1 cm??? AV Area Cont Eq pk 3.3 cm??? MV Area PHT 6.7 cm??? Mitral E Point Velocity 100.4 cm/s Mitral A Point Velocity 43.8 cm/s Mitral E to A Ratio 2.3 MV Deceleration Time 112.7 ms TR Peak Velocity 316.7 cm/s TR Peak Gradient 40.1 mmHg PV Peak Velocity 57.0 cm/s PV Peak Gradient 1.3 mmHg FINDINGS Left Ventricle Left ventricular ejection fraction is estimated at 40 %. Mildly increased septal wall thickness. Severely increased left ventricular diastolic volume. Severely increased left ventricular systolic volume. Moderately decreased left ventricular ejection fraction. Regional wall motion abnormalities. Right Ventricle Moderate right ventricular dilatation with normal function. Right Atrium Normal right atrial size. Left Atrium Moderately increased left atrial volume. Mildly increased left atrial area. Mitral Valve Mitral valve thickened. No evidence for mitral valve prolapse. No mitral stenosis. Mild to moderate mitral regurgitation. Aortic Valve Trileaflet aortic valve. Focal thickening of the aortic valve cusps. No aortic stenosis. No aortic regurgitation. Tricuspid Valve Structurally normal tricuspid valve. No tricuspid stenosis. Mild tricuspid regurgitation. Pulmonic Valve Pulmonic valve not well visualized. No pulmonic stenosis. No pulmonic regurgitation. Pericardium No pericardial effusion. Aorta Normal size aortic root and proximal ascending aorta. CONCLUSIONS Mildly dilated LV. Impaired LV function with EF at 40% [id number] mitral regurgitation Previewed by: Dr. Hipolito Herrera MD (Electronically Signed) Final Date: 06 October 2023 17:51
[2023-10-06 19:44] LABS: Glucose,Whole Blood 289 mg/dL (70-110)
[2023-10-06 21:35] LABS: Glucose,Whole Blood 265 mg/dL (70-110)
[2023-10-07 04:23] LABS: Glucose,Whole Blood 52 mg/dL (70-110)
[2023-10-07 04:38] LABS: Glucose,Whole Blood 58 mg/dL (70-110)
[2023-10-07 05:05] LABS: Glucose,Whole Blood 115 mg/dL (70-110)
[2023-10-07 06:10] LABS: Glucose,Whole Blood 147 mg/dL (70-110)
[2023-10-07 09:42] LABS: ALT 39 U/L (4-49); AST 23 U/L (17-59); African American GFR (CKD) 57 (>60 ml/min/1.73 sqM); Albumin 2.5 g/dL (3.5-5.0); Alkaline Phosphatase 151 U/L (38-126); Anion Gap 3 mmol/L; Blood Urea Nitrogen 24 mg/dL (9-20); Carbon Dioxide 32 mmol/L (22-30); Chloride 101 mmol/L (98-107); Glucose 240 mg/dL (74-99); Non-African American GFR(CKD) 50 (>60 ml/min/1.73 sqM); Potassium 4.3 mmol/L (3.5-5.1); Sodium 136 mmol/L (137-145); Total Bilirubin 0.4 mg/dL (0.2-1.3); Total Protein 4.7 g/dL (6.3-8.2)
[2023-10-07 09:48] LABS: NT-Pro-B-Type Natriuretic Pept 3490 pg/mL
[2023-10-07 09:52] VITALS: BMI 31.2
[2023-10-07 11:27] LABS: Glucose,Whole Blood 458 mg/dL (70-110)
--- NOTE | 2023-10-07 13:20 | P.PN ---
Subjective Progress Note Date: 10/07/23 52-year-old male with a past medical history of hypertension, hyperlipidemia, diabetes type 2 on insulin pump at home, history of CLL 3 years ago status post chemo currently in remission, history of cholecystectomy presents to ER with complaints of shortness of breath and leg swelling. Patient states that she has been having worsening leg swelling for the past 3 days since her shortness of breath. Denies any chest pain. No cough or sputum production. No nausea vomiting abdominal pain or diarrhea. Denies any recent illnesses. On admission patient's blood pressure was 182/119 pulse 99 respiration 20 and pulse ox 93% on room air. Chest x-ray showed cardiomegaly, pulmonary vascular congestion and bilateral pleural effusions. Correlate with BNP for congestive heart failure. EKG showed sinus rhythm Laboratory pressure WBC 7.6 hemoglobin 12.6 and platelets 287 Sodium 139 potassium 4.0 chloride 108 bicarb is 24 BUN 23 and creatinine 1.10 and blood sugar 157 AST 60 ALT 16 alk phos 179 and proBNP 5250 and albumin 3.0 24-hour interval change 10/07/2023 Patient is seen and evaluated in room at bedside; reports marked improvement in breathing Vital signs reviewed and stable with temperature 97.9, pulse 76, respiration 15 blood pressure 115/59 with O2 saturation 94% on room air Lab review shows sodium 136, potassium 1.3, BUNs/creatinine of 24/25 5 which revealed his creatinine has trended up from 1.19 yesterday; patient remains on IV Lasix ; cardiology is following --Echocardiogram is ordered and pending -Patient has been evaluated by cardiology with plans for possible cath while inpatient versus outpatient treatment -- Await further recommendations from cardiology Objective - Vital Signs Vital signs: Vital Signs Temp 97.9 F 10/07/23 08:49 Pulse 79 10/07/23 08:49 Resp 15 10/07/23 08:49 BP 115/59 10/07/23 08:49 Pulse Ox 94 L 10/07/23 08:49 FiO2 Intake & Output 10/06/23 10/07/23 10/07/23 18:59 06:59 18:59 Intake Total 666 Output Total 2049 3899 Balance -1384 -3900 Weight 101.6 kg 101.6 kg Intake: IV 20 Invasive Line 1 20 Oral 646 Output: Urine 2049 3899 Other: Voiding Method Toilet Toilet Toilet Urinal Urinal Urinal # Voids 1 - Exam Gen: This is a 53-year-old male in no acute distress VS: reviewed HEENT: Head is atraumatic, normocephalic. Pupils equal, round. Sclerae is anicteric. NECK: Supple. No JVD. LUNGS: Diminished in the right base. No intercostal retractions. HEART: Regular rate and rhythm. Soft systolic murmur. ABDOMEN: Soft No tenderness. EXTREMITIES: 12+ pedal edema. No calf tenderness. NEUROLOGICAL: Patient is awake, alert and oriented x3. - Labs CBC & Chem 7: 10/06/23 03:35 10/07/23 08:23 Labs: Abnormal Lab Results - Last 24 Hours (Table) 10/06/23 10/06/23 10/06/23 Range/Units 16:59 19:43 21:33 Sodium (137-145) mmol/L Carbon Dioxide (22-30) mmol/L BUN (9-20) mg/dL Creatinine (0.66-1.25) mg/dL Glucose (74-99) mg/dL POC Glucose (mg/dL) 166 H 289 H 265 H (70-110) mg/dL Calcium (8.4-10.2) mg/dL Alkaline Phosphatase (38-126) U/L Total Protein (6.3-8.2) g/dL Albumin (3.5-5.0) g/dL 10/07/23 10/07/23 10/07/23 Range/Units 04:21 04:36 05:04 Sodium (137-145) mmol/L Carbon Dioxide (22-30) mmol/L BUN (9-20) mg/dL Creatinine (0.66-1.25) mg/dL Glucose (74-99) mg/dL POC Glucose (mg/dL) 52 L 58 L 115 H (70-110) mg/dL Calcium (8.4-10.2) mg/dL Alkaline Phosphatase (38-126) U/L Total Protein (6.3-8.2) g/dL Albumin (3.5-5.0) g/dL 10/07/23 10/07/23 Range/Units 06:09 08:23 Sodium 136 L (137-145) mmol/L Carbon Dioxide 32 H (22-30) mmol/L BUN 24 H (9-20) mg/dL Creatinine 1.55 H (0.66-1.25) mg/dL Glucose 240 H (74-99) mg/dL POC Glucose (mg/dL) 147 H (70-110) mg/dL Calcium 8.0 L (8.4-10.2) mg/dL Alkaline Phosphatase 151 H (38-126) U/L Total Protein 4.7 L (6.3-8.2) g/dL Albumin 2.5 L (3.5-5.0) g/dL Assessment and Plan Assessment: Acute CHF with ejection fraction not known Shortness of breath and worsening leg swelling History of CLL status post chemo 3 days ago currently in remission Hypertension uncontrolled on admission Hyperlipidemia Hyperglycemia Diabetes type 2 on insulin pump at home Prior history of cholecystectomy Obesity BMI 34.0 DVT prophylaxis with heparin subcu Plan: Patient will be continued on telemetry. Was given Lasix 60 mg IV x 1 in the ER. Continue with IV Lasix 40 mg every 12 and follow-up renal function Current with Plavix and statins. Cardiology consult and 2D echocardiogram. Oxygen supplementation as needed. Follow-up closely.
--- NOTE | 2023-10-07 14:06 | P.PN ---
Subjective Progress Note Date: 10/07/23 This is a 53-year-old male patient of Dr. Jose Garcia with past medical history of congestive heart failure, TIA, diabetes, hypertension, hyperlipidemia. We have been asked to evaluate the patient for acute CHF exacerbation. Patient was last seen in the office on 06/05/2023 and at that time it was recommended for Lexiscan stress test which patient states that he attempted but became very sick usp through the test and it was aborted. He has not followed up since. He states he has been taking all his medications as directed. Patient states that he is normally quite active walks a lot and carries equipment. He states he had some chest discomfort that felt like his chest was swollen along with difficulty in breathing. No fever no chills. No palpitations, no lightheadedness or dizziness no syncopal episodes. He states he is feeling a lot better by the time of this evaluation. EKG sinus rhythm with nonspecific ST-T wave changes Chest x-ray: Cardiomegaly, pulmonary vascular congestion bilateral pleural effusions. Correlate for heart failure. WBC 5.1, hemoglobin 9.4, platelet count 219. Sodium 134, potassium 4.1, BUN 23 creatinine 1.19. Blood sugar 227. A1c 9.8.Troponin negative x 1. proBNP 5250. Home cardiac medications: Atorvastatin 40 mg with lunch, Plavix 75 mg with lunch, Lasix 20 mg daily, losartan 100 mg with lunch, Lopressor 25 mg twice daily. Echocardiogram performed 12/06/2022 reveals EF of 50%. Mild to moderate mitral digitation, mild tricuspid regurgitation. No significant pulmonary hypertension. 10/07/2023 Patient was seen and evaluated resting comfortably at the side of the bed. He is overall feeling a bit better. Echocardiogram with Doppler study showed estimated ejection fraction of 40% with regional wall motion abnormalities. And mild to moderate mitral regurgitation. He remains on IV Lasix and labs this morning showed increased creatinine of 1.55. Objective - Vital Signs Vital signs: Vital Signs Temp 97.9 F 10/07/23 08:49 Pulse 77 10/07/23 11:26 Resp 17 10/07/23 11:26 BP 162/83 10/07/23 11:26 Pulse Ox 95 10/07/23 11:26 FiO2 Intake & Output 03/15/24 03/16/24 03/16/24 18:59 06:59 18:59 Intake Total 666 778 Output Total 20490 2825 Balance -7727 -5842 -2288 Weight 101.6 kg 101.6 kg Intake: IV 20 Invasive Line 1 20 Oral 646 778 Output: Urine 2049 3899 2825 Other: Voiding Method Toilet Toilet Toilet Urinal Urinal Urinal # Voids 1 1 - Exam VS: reviewed HEENT: Head is atraumatic, normocephalic. Pupils equal, round. Sclerae is anicteric. NECK: Supple. No JVD. LUNGS: Diminished in the right base. No intercostal retractions. HEART: Regular rate and rhythm. Soft systolic murmur. ABDOMEN: Soft No tenderness. EXTREMITIES: 1+ pedal edema. No calf tenderness. NEUROLOGICAL: Patient is awake, alert and oriented x3. - Labs CBC & Chem 7: 10/06/23 03:35 10/07/23 08:23 Labs: Abnormal Lab Results - Last 24 Hours (Table) 10/06/23 10/06/23 10/06/23 Range/Units 16:59 19:43 21:33 Sodium (137-145) mmol/L Carbon Dioxide (22-30) mmol/L BUN (9-20) mg/dL Creatinine (0.66-1.25) mg/dL Glucose (74-99) mg/dL POC Glucose (mg/dL) 166 H 289 H 265 H (70-110) mg/dL Calcium (8.4-10.2) mg/dL Alkaline Phosphatase (38-126) U/L Total Protein (6.3-8.2) g/dL Albumin (3.5-5.0) g/dL 10/07/23 10/07/23 10/07/23 Range/Units 04:21 04:36 05:04 Sodium (137-145) mmol/L Carbon Dioxide (22-30) mmol/L BUN (9-20) mg/dL Creatinine (0.66-1.25) mg/dL Glucose (74-99) mg/dL POC Glucose (mg/dL) 52 L 58 L 115 H (70-110) mg/dL Calcium (8.4-10.2) mg/dL Alkaline Phosphatase (38-126) U/L Total Protein (6.3-8.2) g/dL Albumin (3.5-5.0) g/dL 10/07/23 10/07/23 10/07/23 Range/Units 06:09 08:23 11:25 Sodium 136 L (137-145) mmol/L Carbon Dioxide 32 H (22-30) mmol/L BUN 24 H (9-20) mg/dL Creatinine 1.55 H (0.66-1.25) mg/dL Glucose 240 H (74-99) mg/dL POC Glucose (mg/dL) 147 H 458 H (70-110) mg/dL Calcium 8.0 L (8.4-10.2) mg/dL Alkaline Phosphatase 151 H (38-126) U/L Total Protein 4.7 L (6.3-8.2) g/dL Albumin 2.5 L (3.5-5.0) g/dL Assessment and Plan Assessment: Acute on chronic diastolic heart failure Diabetes Hypertension Hyperlipidemia History of TIA. Plan: From cardiology's perspective we will switch to oral Lasix. Continue to monitor renal function, accurate intake and output, electrolytes and daily weights. Patient will require further ischemic cardiac workup with possibility of cardiac catheterization in the future depending on renal function. RADIOTELEGRAPHER note has been reviewed, I agree with a documented findings and plan of care. Patient was seen and examined.
[2023-10-07] MEDS: FUROSEMIDE 40 MG TAB PO SCH (15:09)
[2023-10-07 16:44] LABS: Glucose,Whole Blood 159 mg/dL (70-110)
[2023-10-07 20:19] LABS: Glucose,Whole Blood 174 mg/dL (70-110)
[2023-10-08 04:55] LABS: Glucose,Whole Blood 62 mg/dL (70-110)
[2023-10-08 05:14] LABS: Glucose,Whole Blood 71 mg/dL (70-110)
[2023-10-08 06:11] LABS: Glucose,Whole Blood 123 mg/dL (70-110)
[2023-10-08 08:05] LABS: African American GFR (CKD) 64 (>60 ml/min/1.73 sqM); Anion Gap 4 mmol/L; Blood Urea Nitrogen 25 mg/dL (9-20); Carbon Dioxide 32 mmol/L (22-30); Chloride 101 mmol/L (98-107); Glucose 156 mg/dL (74-99); Non-African American GFR(CKD) 55 (>60 ml/min/1.73 sqM); Potassium 4.1 mmol/L (3.5-5.1); Sodium 137 mmol/L (137-145)
[2023-10-08 08:24] VITALS: BP 130/72; PULSE 78; RESP 15; TEMP 97.5
== END 2023-10-08 10:24 | disposition home or self-care (01) | DRG 291 ==
LOC: EC 11:19 → 3SCARD 13:57
PROVIDERS: ADMIT Internal Medicine; ATTEND Internal Medicine
DX: I11.0 Hypertensive heart disease with heart failure (principal); I50.33 Acute on chronic diastolic (congestive) heart failure; C91.11 Chronic lymphocytic leukemia of B-cell type in remission; E11.65 Type 2 diabetes mellitus with hyperglycemia; I34.0 Nonrheumatic mitral (valve) insufficiency; Z68.34 Body mass index [BMI] 34.0-34.9, adult; E66.9 Obesity, unspecified; E78.5 Hyperlipidemia, unspecified; M79.89 Other specified soft tissue disorders; Z90.49 Acquired absence of other specified parts of digestive tract; Z79.4 Long term (current) use of insulin; Z96.41 Presence of insulin pump (external) (internal); Z79.02 Long term (current) use of antithrombotics/antiplatelets; Z79.84 Long term (current) use of oral hypoglycemic drugs; Z86.73 Personal history of transient ischemic attack (TIA), and cerebral infarction without residual deficits; Z92.21 Personal history of antineoplastic chemotherapy; Z96.1 Presence of intraocular lens; Z98.42 Cataract extraction status, left eye; Z98.41 Cataract extraction status, right eye
CPT/HCPCS: 36415; 71046; 76705; 80048; 80053; 83036; 83605; 83880; 84484; 85025; 85610; 85730; 93005; 93306; 96374; 99285

== ENCOUNTER 2023-12-28 03:44 | Inpatient (IN) | payer BC ==
[2023-12-28 03:54] LABS: Glucose,Whole Blood 186 mg/dL (70-110)
--- NOTE | 2023-12-28 04:05 | ED ---
SOB HPI - General Chief Complaint: Shortness of Breath Stated Complaint: CHF, Swellling Time Seen by Provider: 12/28/23 04:03 Source: patient Mode of arrival: ambulatory Limitations: no limitations - History of Present Illness Initial Comments: Walter is a pleasant 53-year-old gentleman who presents to the emergency department today for evaluation of 24 hours of worsening lower extremity edema and development of shortness of breath. Patient states he noticed the lower extremity edema developing over the past 24 hours in the past couple of hours he has become more short of breath which prompted him to come to the ER. Patient does have a history of hypertension and CHF. He states he has been compliant with all of his medications including his losartan, metoprolol and Lasix. Patient denies any chest pain or palpitations. - Related Data Home Medications Medication Instructions Recorded Confirmed INSULIN LISPRO (For Pump) [humaLOG 0.01 units SQ-PUMP CONTINUOUS 05/26/20 10/05/23 (For Pump)] Atorvastatin [Lipitor] 40 mg PO W/LUNCH 10/05/23 10/05/23 Clopidogrel [Plavix] 75 mg PO W/LUNCH 10/05/23 10/05/23 Famotidine [Pepcid] 20 mg PO BID@1200,2100 10/05/23 10/05/23 Losartan Potassium [Cozaar] 100 mg PO W/LUNCH 10/05/23 10/05/23 Previous Rx's Medication Instructions Recorded Dapagliflozin Propanediol [Farxiga] 10 mg PO DAILY 30 Days #30 tab 10/08/23 Furosemide [Lasix] 40 mg PO BID@0900,1600 30 Days #60 10/08/23 tab carvediloL [Coreg*] 25 mg PO BID-W/MEALS 30 Days #60 10/08/23 tab Allergies Allergy/AdvReac Type Severity Reaction Status Date / Time No Known Allergies Allergy Verified 10/05/23 12:32 Review of Systems ROS Statement: Those systems with pertinent positive or pertinent negative responses have been documented in the HPI. ROS Other: All systems not noted in ROS Statement are negative. Past Medical History Past Medical History: Cancer, Diabetes Mellitus, Hyperlipidemia, Hypertension Additional Past Medical History / Comment(s): IDDM type I, CLL, recent R upper arm pain, occasional sinus issues. History of Any Multi-Drug Resistant Organisms: None Reported Past Surgical History: Cholecystectomy, Tonsillectomy Additional Past Surgical History / Comment(s): 12/2018 L neck mass excision, colonoscopy, bilateral cataract removals/lens implants Past Anesthesia/Blood Transfusion Reactions: Motion Sickness, Postoperative Nausea & Vomiting (PONV) Past Psychological History: No Psychological Hx Reported Smoking Status: Never smoker Past Alcohol Use History: None Reported Past Drug Use History: None Reported - Past Family History Father Family Medical History: Cancer Additional Family Medical History / Comment(s): Father from leukemia. Mother Additional Family Medical History / Comment(s): Mother is , she had night terrors. Brother(s) Additional Family Medical History / Comment(s): 2 of pts brothers have schizophrenia and one is also a diabetic. One at the age of 56yrs from "natural causes" General Exam - General Exam Comments Initial Comments: Physical Exam GENERAL: Patient is well-developed and well-nourished. Patient is nontoxic and well- hydrated and is in no distress. HENT: Normocephalic, Atraumatic. EYES: PERRL, EOMI PULMONARY: Diminished sounds at the bases CARDIOVASCULAR: There is a regular rate and rhythm without any murmurs gallops or rubs. 2+ pitting edema bilateral lower extremities Positive JVD ABDOMEN: Soft and nontender with normal bowel sounds. SKIN: Skin is clear with no lesions or rashes and otherwise unremarkable. : Scrotal edema NEUROLOGIC: Patient is alert and oriented x3. Moving all extremities spontaneously MUSCULOSKELETAL: Normal extremities with adequate strength and full range of motion. No lower extremity swelling or edema. No calf tenderness. PSYCHIATRIC: Normal psychiatric evaluation. Limitations: no limitations Course Vital Signs 12/28/23 12/28/23 12/28/23 03:47 04:16 04:42 Temperature 98.3 F Pulse Rate 98 88 85 Respiratory 22 16 16 Rate Blood Pressure 225/128 186/118 166/96 O2 Sat by Pulse 99 99 97 Oximetry 12/28/23 05:09 Temperature Pulse Rate 78 Respiratory 16 Rate Blood Pressure 168/104 O2 Sat by Pulse 95 Oximetry Medical Decision Making - Medical Decision Making Was pt. sent in by a medical professional or institution (, PA, INFECTION CONTROL RN, urgent care, hospital, or senior living...) When possible be specific @ -No Did you speak to anyone other than the patient for history (EMS, parent, family, police, friend...)? What history was obtained from this source @ -No Did you review nursing and triage notes (agree or disagree)? Why? @ -I reviewed and agree with nursing and triage notes Were old charts reviewed (outside hosp., previous admission, EMS record, old EKG, old radiological studies, urgent care reports/EKG's, senior living records)? Report findings @ -Previous labs and chest x-ray were reviewed Differential Diagnosis (chest pain, altered mental status, abdominal pain women, abdominal pain men, vaginal bleeding, weakness, fever, dyspnea, syncope, head ache, dizziness, GI bleed, back pain, seizure, CVA, palpatations, mental health)? @ -Differential Dyspnea: Coronary syndrome, arrhythmia, tamponade, asthma, COPD, pulmonary embolism, pneumonia, pneumothorax, pulmonary effusion, anaphylaxis, diabetic ketoacidosis, flailed chest, pulmonary contusion, diaphragmatic rupture, anemia, neuromuscular, this is not meant to be an all-inclusive list. EKG interpreted by me (3pts min.). @ -As above X-rays interpreted by me (1pt min.). @ -Right-sided pleural effusion no focal consolidations CT interpreted by me (1pt min.). @ -None done U/S interpreted by me (1pt. min.). @ -None done What testing was considered but not performed or refused? (CT, X-rays, U/S, labs)? Why? @ -None What meds were considered but not given or refused? Why? @ -None Did you discuss the management of the patient with other professionals (professionals i.e. , PA, INFECTION CONTROL RN, lab, RT, psych nurse, social worker school, analytic manager, teacher, admitting officer, community case manager)? Give summary @ -No Was smoking cessation discussed for >3mins.? @ -No Was critical care preformed (if so, how long)? @ -No Were there social determinants of health that impacted care today? How? (Homelessness, low income, unemployed, alcoholism, drug addiction, transportation, low edu. Level, literacy, decrease access to med. care, prison, rehab)? @ -No Was there de-escalation of care discussed even if they declined (Discuss DNR or withdrawal of care, Hospice)? DNR status @ -No What co-morbidities impacted this encounter? (DM, HTN, Smoking, COPD, CAD, Cancer, CVA, ARF, Chemo, Hep., AIDS, mental health diagnosis, sleep apnea, morbid obesity)? @ -CHF Was patient admitted / discharged? Hospital course, mention meds given and route, prescriptions, significant lab abnormalities, going to OR and other pe rtinent info. @ -Admit The patient was seen and evaluated, patient had critical high blood pressure and signs of CHF exacerbation. Upon reevaluation his blood pressure is improving upon resting in the room but he still hypertensive. Labs are consistent with CHF exacerbation his BNP is elevated his chest x-ray shows worsening right pleural effusion and he has physical signs of fluid overload. Patient will be admitted for CHF exacerbation. Nitropaste and Lasix were ordered. Undiagnosed new problem with uncertain prognosis? @ -No Drug Therapy requiring intensive monitoring for toxicity (Heparin, Nitro, Insulin, Cardizem)? @ -No Were any procedures done? @ -No Diagnosis/symptom? @ -CHF exacerbation Acute, or Chronic, or Acute on Chronic? @ -Acute Uncomplicated (without systemic symptoms) or Complicated (systemic symptoms)? @ -Complicated Side effects of treatment? @ -No Exacerbation, Progression, or Severe Exacerbation? @ -Exacerbation Poses a threat to life or bodily function? How? (Chest pain, [place], [place], pneumonia, PE, COPD, DKA, ARF, appy, cholecystitis, CVA, Diverticulitis, Homicidal, Suicidal, threat to staff... and all critical care pts) @ -No - Lab Data Result diagrams: 12/28/23 04:07 12/28/23 04:07 Lab Results 12/28/23 12/28/23 12/28/23 Range/Units 03:52 04:07 04:07 WBC 8.3 (3.8-10.6) k/uL RBC 4.14 L (4.30-5.90) m/uL Hgb 12.9 L (13.0-17.5) gm/dL Hct 40.6 (39.0-53.0) % MCV 98.1 (80.0-100.0) fL MCH 31.2 (25.0-35.0) pg MCHC 31.8 (31.0-37.0) g/dL RDW 13.9 (11.5-15.5) % Plt Count 288 (150-450) k/uL MPV 8.7 Neutrophils % 54 % Lymphocytes % 30 % Monocytes % 6 % Eosinophils % 8 % Basophils % 1 % Neutrophils # 4.5 (1.3-7.7) k/uL Lymphocytes # 2.5 (1.0-4.8) k/uL Monocytes # 0.5 (0-1.0) k/uL Eosinophils # 0.6 (0-0.7) k/uL Basophils # 0.1 (0-0.2) k/uL PT 10.6 (10.0-12.5) sec INR 1.0 (<1.2) APTT 21.7 L (22.0-30.0) sec Sodium (137-145) mmol/L Potassium (3.5-5.1) mmol/L Chloride (98-107) mmol/L Carbon Dioxide (22-30) mmol/L Anion Gap mmol/L BUN (9-20) mg/dL Creatinine (0.66-1.25) mg/dL Est GFR (CKD-EPI)AfAm (>60 ml/min/1.73 sqM) Est GFR (CKD-EPI)NonAf (>60 ml/min/1.73 sqM) Glucose (74-99) mg/dL POC Glucose (mg/dL) 186 H (70-110) mg/dL POC Glu Bobbin Loose End Finder IRVING LineMarieey Plasma Lactic Acid Scotty (0.7-2.0) mmol/L Calcium (8.4-10.2) mg/dL Magnesium (1.6-2.3) mg/dL Total Bilirubin (0.2-1.3) mg/dL AST (17-59) U/L ALT (4-49) U/L Alkaline Phosphatase (38-126) U/L Troponin I (0.000-0.034) ng/mL NT-Pro-B Natriuret Pep pg/mL Total Protein (6.3-8.2) g/dL Albumin (3.5-5.0) g/dL 12/28/23 12/28/23 12/28/23 Range/Units 04:07 04:07 04:07 WBC (3.8-10.6) k/uL RBC (4.30-5.90) m/uL Hgb (13.0-17.5) gm/dL Hct (39.0-53.0) % MCV (80.0-100.0) fL MCH (25.0-35.0) pg MCHC (31.0-37.0) g/dL RDW (11.5-15.5) % Plt Count (150-450) k/uL MPV Neutrophils % % Lymphocytes % % Monocytes % % Eosinophils % % Basophils % % Neutrophils # (1.3-7.7) k/uL Lymphocytes # (1.0-4.8) k/uL Monocytes # (0-1.0) k/uL Eosinophils # (0-0.7) k/uL Basophils # (0-0.2) k/uL PT (10.0-12.5) sec INR (<1.2) APTT (22.0-30.0) sec Sodium 134 L (137-145) mmol/L Potassium 4.9 (3.5-5.1) mmol/L Chloride 103 (98-107) mmol/L Carbon Dioxide 25 (22-30) mmol/L Anion Gap 6 mmol/L BUN 38 H (9-20) mg/dL Creatinine 1.55 H (0.66-1.25) mg/dL Est GFR (CKD-EPI)AfAm 57 (>60 ml/min/1.73 sqM) Est GFR (CKD-EPI)NonAf 50 (>60 ml/min/1.73 sqM) Glucose 207 H (74-99) mg/dL POC Glucose (mg/dL) (70-110) mg/dL POC Glu Bobbin Loose End Finder ID Plasma Lactic Acid Scotty 1.7 (0.7-2.0) mmol/L Calcium 8.2 L (8.4-10.2) mg/dL Magnesium 2.2 (1.6-2.3) mg/dL Total Bilirubin 1.0 (0.2-1.3) mg/dL AST 73 H (17-59) U/L ALT 128 H (4-49) U/L Alkaline Phosphatase 332 H (38-126) U/L Troponin I 0.015 (0.000-0.034) ng/mL NT-Pro-B Natriuret Pep 4810 pg/mL Total Protein 6.4 (6.3-8.2) g/dL Albumin 3.9 (3.5-5.0) g/dL Disposition Clinical Impression: Acute pulmonary edema, CHF (congestive heart failure), SHAUN (acute kidney injury) Disposition: ADMITTED IP TO THIS HOSP Condition: Serious Is patient prescribed a controlled substance at d/c from ED?: No Referrals: Calixto Hou DO [Primary Care Provider] - 1-2 days
[2023-12-28 04:26] LABS: Basophils # (A) 0.1 k/uL (0-0.2); Basophils % (A) 1 %; Eosinophils # (A) 0.6 k/uL (0-0.7); Eosinophils % (A) 8 %; HCT 40.6 % (39.0-53.0); HGB 12.9 gm/dL (13.0-17.5); Lymphocytes # (A) 2.5 k/uL (1.0-4.8); Lymphocytes % (A) 30 %; MCH 31.2 pg (25.0-35.0); MCHC 31.8 g/dL (31.0-37.0); MCV 98.1 fL (80.0-100.0); Mean Platelet Volume 8.7; Monocytes # (A) 0.5 k/uL (0-1.0); Monocytes % (A) 6 %; Neutrophils # (A) 4.5 k/uL (1.3-7.7); Neutrophils % (A) 54 %; Platelet Count 288 k/uL (150-450); RBC 4.14 m/uL (4.30-5.90); RDW 13.9 % (11.5-15.5); WBC 8.3 k/uL (3.8-10.6)
[2023-12-28 04:41] LABS: ALT 128 U/L (4-49); African American GFR (CKD) 57 (>60 ml/min/1.73 sqM); Anion Gap 6 mmol/L; Blood Urea Nitrogen 38 mg/dL (9-20); Calcium 8.2 mg/dL (8.4-10.2); Carbon Dioxide 25 mmol/L (22-30); Chloride 103 mmol/L (98-107); Glucose 207 mg/dL (74-99); Non-African American GFR(CKD) 50 (>60 ml/min/1.73 sqM); Sodium 134 mmol/L (137-145)
[2023-12-28 04:47] LABS: Prothrombin Time 10.6 sec (10.0-12.5)
[2023-12-28 04:48] LABS: NT-Pro-B-Type Natriuretic Pept 4810 pg/mL
--- NOTE | 2023-12-28 04:51 | XR ---
EXAMINATION TYPE: XR chest 2V DATE OF EXAM: 12/28/2023 COMPARISON: Chest x-ray October 05, 2023 HISTORY: Difficulty in breathing. TECHNIQUE: Frontal and lateral views of the chest are obtained. FINDINGS: There is stable small right pleural effusion. Left lung is clear. The cardiac silhouette size is within normal limits. The osseous structures are intact. IMPRESSION: Small right pleural effusion remains present. Left lung is clear.
[2023-12-28 04:59] LABS: Partial Thromboplastin Time 21.7 sec (22.0-30.0)
[2023-12-28 05:09] LABS: AST 73 U/L (17-59); Albumin 3.9 g/dL (3.5-5.0); Alkaline Phosphatase 332 U/L (38-126); Magnesium 2.2 mg/dL (1.6-2.3); Potassium 4.9 mmol/L (3.5-5.1); Total Protein 6.4 g/dL (6.3-8.2)
[2023-12-28] MEDS: NITROGLYCERIN OINT 1 INCH/GM PACKET TOPICAL STA (05:26)
[2023-12-28] MEDS: FUROSEMIDE 10 MG/ML 4 ML VIAL IV SCH ×2 (05:35→20:14)
[2023-12-28] MEDS: METOPROLOL TARTRATE 25 MG TAB PO SCH ×2 (07:03→21:25)
[2023-12-28] MEDS: hydrALAZINE HCL 20 MG/ML 1 ML VIAL IVP STA (07:31)
[2023-12-28] MEDS ORDERED: DEXTROSE 50% SYRINGE 50 ML IVP PRN ×4 (09:42→09:49)
[2023-12-28 11:48] LABS: Glucose,Whole Blood 350 mg/dL (70-110)
[2023-12-28] MEDS: FAMOTIDINE 20 MG TAB PO SCH (12:17)
[2023-12-28] MEDS: LOSARTAN 50 MG TAB PO SCH (12:17)
[2023-12-28] MEDS: CLOPIDOGREL 75 MG TAB PO SCH (12:17)
[2023-12-28] MEDS: ATORVASTATIN 40 MG TAB PO SCH (12:18)
[2023-12-28] MEDS: INSULIN ASPART (NovoLOG) 100 UNIT/ML VIAL SQ SCH (12:18)
--- NOTE | 2023-12-28 12:32 | P.CRDCN ---
History of Present Illness History of present illness: HISTORY OF PRESENT ILLNESS: This is a 53-year-old male with a past medical history significant for congestive heart failure, TIA, diabetes, hypertension, and hyperlipidemia. Patient follows in the office with Dr. Garcia. We have been asked to see the patient in consultation for congestive heart failure. Patient examined at the bedside. Patient presented to the hospital with a chief complaint of shortness of breath and increased lower extremity edema. Patient has been taking his Las ix as prescribed. He is currently taking 20 mg daily. Patient was found to be in acute CHF and was started on IV Lasix 40 mg every 8 hours. He denies any chest pain or pressure. Vital signs are stable. DIAGNOSTICS: - EKG reveals sinus mechanism with no signs of acute ischemia. Baseline artifac t.. - Chest xray small right pleural effusion remains present. Left lung is clear.. - Laboratory data: WBC 8.3. Hemoglobin 12.9. Platelet count 288. Sodium 134. Potassium 4.9. BUN 30. Creatinine 1.55. AST 73. ALT 128. Troponin negative x 1. proBNP 4810. - Current home cardiac medications include Plavix 75 mg daily, losartan 100 mg with lunch, Lipitor 40 mg with lunch, Lasix 20 mg daily, metoprolol tartrate 25 mg twice a day. - Most recent echocardiogram obtained in September 2023 revealed ejection fraction 40% with mild to moderate mitral regurgitation REVIEW OF SYSTEMS: At the time of my exam: CONSTITUTIONAL: Denies fever or chills. HEENT: Denies blurred vision, vision changes, or eye pain. Denies hemoptysis CARDIOVASCULAR: Denies chest pain. Denies orthopnea. Denies PND. Denies palpitations RESPIRATORY: Reports shortness of breath. GASTROINTESTINAL: Denies abdominal pain. Denies nausea or vomiting. HEMATOLOGIC: Denies bleeding disorders. GENITOURINARY: Denies any blood in urine. SKIN: Denies pruitis. Denies rash. PHYSICAL EXAM: VITAL SIGNS: Reviewed. GENERAL: Well-developed in no acute distress. HEENT: Head is normocephalic. Pupils are equal, round. Sclerae anicteric. Mucous membranes of the mouth are moist. Neck supple. Positive JVD LUNGS: Respirations even and unlabored. Lungs diminished. HEART: Regular rate and rhythm. S1 and S2 heard. ABDOMEN: Soft. Nondistended. Nontender. EXTREMITIES: Normal range of motion. No clubbing or cyanosis. Peripheral puls es intact. 2+ bilateral lower extremity edema noted NEUROLOGIC: Awake and alert. Oriented x 3. ASSESSMENT: Shortness of breath Acute on chronic heart failure with reduced EF, 40% Hypertension Hyperlipidemia History of TIA History of diabetes PLAN: No need to repeat echocardiogram as this was performed in September 2023 Continue home cardiac medications Continue IV Lasix. Decrease dosing to every 12 hours. Upon discharge, patient's oral Lasix will be increased to 40 mg daily Daily weights, accurate intake and output, and monitoring of kidney function Further recommendations pending patient course Nurse practitioner note has been reviewed by physician. Signing provider agrees with the documented findings, assessment, and plan of care documented by PRIVATE BRANCH EXCHANGE OPERATOR as a scribe. Past Medical History Past Medical History: Cancer, Diabetes Mellitus, Hyperlipidemia, Hypertension Additional Past Medical History / Comment(s): IDDM type I, CLL, recent R upper arm pain, occasional sinus issues. History of Any Multi-Drug Resistant Organisms: None Reported Past Surgical History: Cholecystectomy, Tonsillectomy Additional Past Surgical History / Comment(s): 12/2018 L neck mass excision, colonoscopy, bilateral cataract removals/lens implants Past Anesthesia/Blood Transfusion Reactions: Motion Sickness, Postoperative Nausea & Vomiting (PONV) Past Psychological History: No Psychological Hx Reported Smoking Status: Never smoker Past Alcohol Use History: None Reported Past Drug Use History: None Reported - Past Family History Father Family Medical History: Cancer Additional Family Medical History / Comment(s): Father from leukemia. Mother Additional Family Medical History / Comment(s): Mother is , she had nig ht terrors. Brother(s) Additional Family Medical History / Comment(s): 2 of pts brothers have schizophrenia and one is also a diabetic. One at the age of 56yrs from "natural causes" Medications and Allergies Home Medications Medication Instructions Recorded Confirmed Type INSULIN LISPRO (For Pump) [humaLOG 0.01 units SQ-PUMP CONTINUOUS 05/26/20 12/28/23 History (For Pump)] Atorvastatin [Lipitor] 40 mg PO W/LUNCH 10/05/23 12/28/23 History Clopidogrel [Plavix] 75 mg PO W/LUNCH 10/05/23 12/28/23 History Famotidine [Pepcid] 20 mg PO BID@1200,2100 10/05/23 12/28/23 History Losartan Potassium [Cozaar] 100 mg PO W/LUNCH 10/05/23 12/28/23 History Furosemide [Lasix] 20 mg PO W/LUNCH 12/28/23 12/28/23 History Metoprolol Tartrate [Lopressor] 25 mg PO BID 12/28/23 12/28/23 History Allergies Allergy/AdvReac Type Severity Reaction Status Date / Time No Known Allergies Allergy Verified 12/28/23 06:50 Physical Exam Vitals: Vital Signs Temp Pulse Resp BP Pulse Ox 12/28/23 09:12 74 20 163/88 95 12/28/23 08:11 73 18 173/87 95 12/28/23 07:22 98.4 F 79 18 172/96 96 12/28/23 06:42 166/101 12/28/23 06:25 82 16 172/101 97 12/28/23 05:34 80 16 170/96 95 12/28/23 05:09 78 16 168/104 95 12/28/23 04:42 85 16 166/96 97 12/28/23 04:16 88 16 186/118 99 12/28/23 03:47 98.3 F 98 22 225/128 99 Intake and Output 12/27/23 12/28/23 12/28/23 22:59 06:59 14:59 Output Total 1000 Balance -1000 Output: Urine 1000 Other: Weight 102.058 kg Results 12/28/23 04:07 12/28/23 04:07 Cardiac Enzymes 12/28/23 12/28/23 Range/Units 04:07 04:07 AST 73 H (17-59) U/L Troponin I 0.015 (0.000-0.034) ng/mL Coagulation 12/28/23 Range/Units 04:07 PT 10.6 (10.0-12.5) sec APTT 21.7 L (22.0-30.0) sec CBC 12/28/23 Range/Units 04:07 WBC 8.3 (3.8-10.6) k/uL RBC 4.14 L (4.30-5.90) m/uL Hgb 12.9 L (13.0-17.5) gm/dL Hct 40.6 (39.0-53.0) % Plt Count 288 (150-450) k/uL Comprehensive Metabolic Panel 12/28/23 Range/Units 04:07 Sodium 134 L (137-145) mmol/L Potassium 4.9 (3.5-5.1) mmol/L Chloride 103 (98-107) mmol/L Carbon Dioxide 25 (22-30) mmol/L BUN 38 H (9-20) mg/dL Creatinine 1.55 H (0.66-1.25) mg/dL Glucose 207 H (74-99) mg/dL Calcium 8.2 L (8.4-10.2) mg/dL AST 73 H (17-59) U/L ALT 128 H (4-49) U/L Alkaline Phosphatase 332 H (38-126) U/L Total Protein 6.4 (6.3-8.2) g/dL Albumin 3.9 (3.5-5.0) g/dL Current Medications Generic Name Dose Route Start Last Admin Trade Name Freq PRN Reason Stop Dose Admin Furosemide 40 mg 12/28/23 06:00 12/28/23 05:35 Furosemide 10 Mg/Ml 4 Ml Vial IV 40 mg Q8H CUCO Administration Metoprolol Tartrate 25 mg 12/28/23 09:00 12/28/23 07:03 Metoprolol Tartrate 25 Mg Tab PO 25 mg BID CUCO Administration Intake and Output 12/27/23 12/28/23 12/28/23 22:59 06:59 14:59 Output Total 1000 Balance -1000 Output: Urine 1000 Other: Weight 102.058 kg 12/28/23 04:07 12/28/23 04:07
[2023-12-28 13:24] VITALS: BMI 31.4
[2023-12-28 17:02] LABS: Glucose,Whole Blood 397 mg/dL (70-110)
[2023-12-28 20:56] LABS: Glucose,Whole Blood 304 mg/dL (70-110)
[2023-12-28] MEDS: INSULIN DETEMIR (LEVEMIR) 100 UNIT/ML SYR SQ SCH (21:25)
--- NOTE | 2023-12-29 05:54 | P.HPIM ---
History of Present Illness H&P Date: 12/28/23 This is a very pleasant 53-year-old male who presented to the emergency department with increased lower extremity edema and increased shortness of breath and had been ongoing over the last few days and compliant with medications including Lasix although continue to worsen and patient noticed an increase in shortness of breath with minimal exertion. Patient has a past medical history of following with Dr. Hou in the outpatient setting with history of diabetes mellitus, type 1 insulin-dependent maintained on insulin pump, hyperlipidemia, hypertension, congestive heart failure. Chest x-ray was done in the ER showing a small right pleural effusion that remains present with the left lung that is clear, EKG was normal sinus rhythm, labs reveal a sodium of 134, potassium 4.9, BUN 38, creatinine mildly elevated at 1.55, blood sugars uncontrolled, liver functions mildly elevated with a troponin of 0.015 and BNP was noted to be 4810. Patient was initiated on IV Lasix and admitted for acute CHF exacerbation with cardiology on consult. Cardiology has evaluated the patient with no need for repeat echo as he had one done in September of this year, continue IV Lasix and monitor kidney functions. REVIEW OF SYSTEMS: CONSTITUTIONAL: No fever, no malaise, no fatigue. HEENT: No recent visual problems or hearing problems. Denied any sore throat. CARDIOVASCULAR: No chest pain, orthopnea, PND, no palpitations, no syncope. PULMONARY: Reports of increased shortness of breath with exertion, no cough, no hemoptysis. GASTROINTESTINAL: No diarrhea, no nausea, no vomiting, no abdominal pain. NEUROLOGICAL: No headaches, no weakness, no numbness. HEMATOLOGICAL: Denies any bleeding or petechiae. GENITOURINARY: Denies any burning micturition, frequency, or urgency. MUSCULOSKELETAL/RHEUMATOLOGICAL: Denies any joint pain, swelling, or any muscle pain. Reports lower extremity edema and swelling ENDOCRINE: Denies any polyuria or polydipsia. The rest of the 14-point review of systems is negative. PHYSICAL EXAMINATION: GENERAL: The patient is alert and oriented x3, not in any acute distress. Well developed, well nourished. Obese HEENT: Pupils are round and equally reacting to light. EOMI. No scleral icterus. No conjunctival pallor. Normocephalic, atraumatic. No pharyngeal erythema. No thyromegaly. CARDIOVASCULAR: S1 and S2 present. No murmurs, rubs, or gallops. PULMONARY: Mildly diminished breath sounds bilaterally otherwise chest is clear to auscultation, no wheezing or crackles. ABDOMEN: Soft, nontender, nondistended, normoactive bowel sounds. No palpable organomegaly. MUSCULOSKELETAL: No joint swelling or deformity. EXTREMITIES: No cyanosis, clubbing, or pedal edema. Bilateral lower extremity edema, minimal, nonpitting NEUROLOGICAL: Gross neurological examination did not reveal any focal deficits. SKIN: No rashes. Assessment: Shortness of breath with bilateral lower extremity edema, concern for acute CHF exacerbation Acute on chronic heart failure with reduced EF of 40% Diabetes mellitus, type I, insulin-dependent, normally wears an insulin pump un controlled with hyperglycemia Hyperlipidemia history History of hypertension History of previous TIA Obesity with a BMI of 32.5 GI prophylaxis DVT prophylaxis Full code Plan: Patient was admitted with cardiology on consult for CHF exacerbation. Patient started on IV Lasix and will transition to 40 mg IV twice daily. Patient normally takes 20 mg daily in the outpatient setting and will transition to 40 mg daily with outpatient follow-up with cardiology Encouraged elevating lower extremities while at rest and Selvin wrap from the toes up to the knees Follow-up on repeat labs in the a.m. and continue to monitor intake and output. Continue fluid restrictions of 1500 cc Encouraged to increase activity as tolerated Continue monitoring blood sugars ACHS and will add long-acting along with slid ing scale. Patient normally wears an insulin pump and reports he did not place the pump back on as he was having some swelling. Blood sugars have been elevated and recommend consistent carb heart healthy diet and will adjust insulins accordingly Hospitalized Will monitor overnight with possible discharge planning in next 24 hours The impression and plan of care has been dictated by Ciera Erickson, Nurse Practitioner as directed. Dr. Rea MD I have performed a history and examination and MDM of this patient, discussed the same with the dictator, and agree with the dictator's assessment and plan as written ,documented as a scribe. Based on total visit time, I have performed more than 50% of the visit. Past Medical History Past Medical History: Cancer, Diabetes Mellitus, Hyperlipidemia, Hypertension Additional Past Medical History / Comment(s): IDDM type I, CLL, recent R upper arm pain, occasional sinus issues. History of Any Multi-Drug Resistant Organisms: None Reported Past Surgical History: Cholecystectomy, Tonsillectomy Additional Past Surgical History / Comment(s): 12/2018 L neck mass excision, colonoscopy, bilateral cataract removals/lens implants Past Anesthesia/Blood Transfusion Reactions: Motion Sickness, Postoperative Nausea & Vomiting (PONV) Past Psychological History: No Psychological Hx Reported Smoking Status: Never smoker Past Alcohol Use History: None Reported Past Drug Use History: None Reported - Past Family History Father Family Medical History: Cancer Additional Family Medical History / Comment(s): Father from leukemia. Mother Additional Family Medical History / Comment(s): Mother is , she had night terrors. Brother(s) Additional Family Medical History / Comment(s): 2 of pts brothers have schizop hrenia and one is also a diabetic. One at the age of 56yrs from "natural causes" Medications and Allergies Home Medications Medication Instructions Recorded Confirmed Type INSULIN LISPRO (For Pump) [humaLOG 0.01 units SQ-PUMP CONTINUOUS 05/26/20 12/28/23 History (For Pump)] Atorvastatin [Lipitor] 40 mg PO W/LUNCH 10/05/23 12/28/23 History Clopidogrel [Plavix] 75 mg PO W/LUNCH 10/05/23 12/28/23 History Famotidine [Pepcid] 20 mg PO BID@1200,2100 10/05/23 12/28/23 History Losartan Potassium [Cozaar] 100 mg PO W/LUNCH 10/05/23 12/28/23 History Furosemide [Lasix] 20 mg PO W/LUNCH 12/28/23 12/28/23 History Metoprolol Tartrate [Lopressor] 25 mg PO BID 12/28/23 12/28/23 History Allergies Allergy/AdvReac Type Severity Reaction Status Date / Time No Known Allergies Allergy Verified 12/28/23 06:50 Physical Exam Vitals: Vital Signs Temp Pulse Resp BP Pulse Ox 12/28/23 09:12 74 20 163/88 95 12/28/23 08:11 73 18 173/87 95 12/28/23 07:22 98.4 F 79 18 172/96 96 12/28/23 06:42 166/101 12/28/23 06:25 82 16 172/101 97 12/28/23 05:34 80 16 170/96 95 12/28/23 05:09 78 16 168/104 95 12/28/23 04:42 85 16 166/96 97 12/28/23 04:16 88 16 186/118 99 12/28/23 03:47 98.3 F 98 22 225/128 99 Intake and Output 12/27/23 12/28/23 12/28/23 22:59 06:59 14:59 Output Total 1000 Balance -1000 Output: Urine 1000 Other: Weight 102.058 kg Results CBC & Chem 7: 12/28/23 04:07 12/28/23 04:07 Labs: Abnormal Lab Results - Last 24 Hours (Table) 12/28/23 12/28/23 12/28/23 Range/Units 03:52 04:07 04:07 RBC 4.14 L (4.30-5.90) m/uL Hgb 12.9 L (13.0-17.5) gm/dL APTT 21.7 L (22.0-30.0) sec Sodium (137-145) mmol/L BUN (9-20) mg/dL Creatinine (0.66-1.25) mg/dL Glucose (74-99) mg/dL POC Glucose (mg/dL) 186 H (70-110) mg/dL Calcium (8.4-10.2) mg/dL AST (17-59) U/L ALT (4-49) U/L Alkaline Phosphatase (38-126) U/L 12/28/23 Range/Units 04:07 RBC (4.30-5.90) m/uL Hgb (13.0-17.5) gm/dL APTT (22.0-30.0) sec Sodium 134 L (137-145) mmol/L BUN 38 H (9-20) mg/dL Creatinine 1.55 H (0.66-1.25) mg/dL Glucose 207 H (74-99) mg/dL POC Glucose (mg/dL) (70-110) mg/dL Calcium 8.2 L (8.4-10.2) mg/dL AST 73 H (17-59) U/L ALT 128 H (4-49) U/L Alkaline Phosphatase 332 H (38-126) U/L
[2023-12-29 06:23] LABS: Glucose,Whole Blood 56 mg/dL (70-110)
[2023-12-29 06:41] LABS: Glucose,Whole Blood 69 mg/dL (70-110)
[2023-12-29 07:01] LABS: Glucose,Whole Blood 74 mg/dL (70-110)
--- NOTE | 2023-12-29 10:13 | P.PN ---
Subjective HISTORY OF PRESENT ILLNESS: This is a 53-year-old male with a past medical history significant for congestive heart failure, TIA, diabetes, hypertension, and hyperlipidemia. Patient follows in the office with Dr. Garcia. We have been asked to see the patient in consultation for congestive heart failure. Patient examined at the bedside. Patient presented to the hospital with a chief complaint of shortness of breath and increased lower extremity edema. Patient has been taking his Lasix as prescribed. He is currently taking 20 mg daily. Patient was found to be in acute CHF and was started on IV Lasix 40 mg every 8 hours. He denies any chest pain or pressure. Vital signs are stable. DIAGNOSTICS: - EKG reveals sinus mechanism with no signs of acute ischemia. Baseline artifact.. - Chest xray small right pleural effusion remains present. Left lung is clear.. - Laboratory data: WBC 8.3. Hemoglobin 12.9. Platelet count 288. Sodium 134. Potassium 4.9. BUN 30. Creatinine 1.55. AST 73. ALT 128. Troponin negative x 1. proBNP 4810. - Current home cardiac medications include Plavix 75 mg daily, losartan 100 mg with lunch, Lipitor 40 mg with lunch, Lasix 20 mg daily, metoprolol tartrate 25 mg twice a day. - Most recent echocardiogram obtained in September 2023 revealed ejection fraction 40% with mild to moderate mitral regurgitation 12/29/2023 Patient examined this morning at the bedside. Patient currently denies any chest pain or pressure. He denies any shortness of breath. He remains on IV Lasix. Vital signs are stable. Patient states he feels back to his baseline and is hoping to be discharged home today. PHYSICAL EXAM: VITAL SIGNS: Reviewed. GENERAL: Well-developed in no acute distress. HEENT: Head is normocephalic. Pupils are equal, round. Sclerae anicteric. Mucous membranes of the mouth are moist. Neck supple. Positive JVD LUNGS: Respirations even and unlabored. Lungs diminished. HEART: Regular rate and rhythm. S1 and S2 heard. ABDOMEN: Soft. Nondistended. Nontender. EXTREMITIES: Normal range of motion. No clubbing or cyanosis. Peripheral pulses intact. 2+ bilateral lower extremity edema noted NEUROLOGIC: Awake and alert. Oriented x 3. ASSESSMENT: Shortness of breath Acute on chronic heart failure with reduced EF, 40% Hypertension Hyperlipidemia History of TIA History of diabetes PLAN: Discontinue IV Lasix Begin oral Lasix 40 mg daily Continue additional cardiac medications Patient may be discharged home today from a cardiac standpoint and follow-up outpatient with Dr. Garcia Nurse practitioner note has been reviewed by physician. Signing provider agrees with the documented findings, assessment, and plan of care documented by QUANTOMETER OPERATOR as a scribe. Objective - Vital Signs Vital signs: Vital Signs Temp 97.8 F 12/29/23 07:08 Pulse 72 12/29/23 07:08 Resp 17 12/29/23 07:08 BP 155/85 12/29/23 07:08 Pulse Ox 94 L 12/29/23 07:08 FiO2 Intake & Output 12/28/23 12/29/23 12/29/23 18:59 06:59 18:59 Intake Total 480 Output Total 1000 Balance -520 Weight 105.6 kg 101.9 kg Intake: Oral 480 Output: Urine 1000 Other: Voiding Method Toilet # Voids 5 - Labs CBC & Chem 7: 12/28/23 04:07 12/28/23 04:07 Labs: Abnormal Lab Results - Last 24 Hours (Table) 12/28/23 12/28/23 12/28/23 Range/Units 11:46 17:01 20:54 POC Glucose (mg/dL) 350 H 397 H 304 H (70-110) mg/dL 12/29/23 12/29/23 Range/Units 06:21 06:39 POC Glucose (mg/dL) 56 L 69 L (70-110) mg/dL
[2023-12-29 11:06] LABS: Glucose,Whole Blood 188 mg/dL (70-110)
[2023-12-29 11:26] LABS: ALT 89 U/L (10-49); AST 25 U/L (14-35); Albumin 3.5 g/dL (3.8-4.9); Albumin/Globulin Ratio 1.84 Ratio (1.60-3.17); Alkaline Phosphatase 305 U/L (41-126); BUN/Creat Ratio 17.82 Ratio (12.00-20.00); Blood Urea Nitrogen 30.3 mg/dL (9.0-27.0); Calcium 8.7 mg/dL (8.7-10.3); Carbon Dioxide 29.8 mmol/L (21.6-31.8); Chloride 102 mmol/L (96-109); Globulin 1.9 g/dL (1.6-3.3); Glucose 57 mg/dL (70-110); Potassium 3.9 mmol/L (3.5-5.5); Sodium 142 mmol/L (135-145); Total Bilirubin 0.4 mg/dL (0.3-1.2); Total Protein 5.4 g/dL (6.2-8.2)
[2023-12-29 15:03] VITALS: BP 151/78; PULSE 76; RESP 18; TEMP 97.6
[2023-12-30] MEDS ORDERED: FUROSEMIDE 40 MG TAB PO SCH (09:00)
--- NOTE | 2024-01-01 05:39 | P.DS ---
Providers Date of admission: 12/28/23 05:16 Expected date of discharge: 12/29/23 Attending physician: Josie Guillermo Primary care physician: Calixto Hou [facility] Course: Final diagnosis Shortness of breath with bilateral lower extremity edema, acute CHF exacerbation Acute on chronic heart failure with reduced EF of 40% Diabetes mellitus, type I, insulin-dependent, normally wears an insulin pump uncontrolled with hyperglycemia Hyperlipidemia history History of hypertension History of previous TIA Obesity with a BMI of 32.5 GI prophylaxis DVT prophylaxis Full code Discharge disposition Patient is being discharged in a stable condition with guarded prognosis to home. Patient will follow-up with Dr. Hou in the outpatient setting upon discharge. Patient is to continue with current Lasix dosing and outpatient follow-up with cardiology as scheduled. Total time taken is greater than 35 minutes. Hospital course This is a 53-year-old male who was recently admitted with increasing shortness of breath and lower extremity edema with concerns of acute on chronic congestive heart failure. Patient was taking 20 mg daily although noticed increasing shortness of breath and lower extremity edema came to the hospital for further evaluation. Cardiology following patient maintained on IV Lasix diuresing well and will be discharged home on 40 mg of Lasix with close outpatient follow-up with repeat labs and cardiology. Patient has been cleared by cardiology for discharge home. Please refer to cardiology notes for further HPI. Currently no reports of chest pain, shortness of breath, or palpitations. Patient is afebri le. No reports of nausea or vomiting and patient is tolerating diet. Patient will be discharged home today. Physical exam: Gen: This is a 53-year-old male who is awake, alert and oriented x 3, well- developed, well-nourished, obese HEENT: Head is atraumatic, normocephalic. Pupils equal, round. Sclerae is anicteric. NECK: Supple. No JVD. No lymphadenopathy. No thyromegaly. LUNGS: Clear to auscultation. No wheezes or rhonchi. No intercostal retractions. HEART: Regular rate and rhythm. No murmur. ABDOMEN: Soft. Bowel sounds are present. No masses. No tenderness. EXTREMITIES: No pedal edema. No calf tenderness. Minimal lower extremity edema noted bilaterally, nonpitting NEUROLOGICAL: Patient is awake, alert and oriented x3. Cranial nerves 2 through 12 are grossly intact. Please refer to medication reconciliation sheet for a list of medications. The impression and plan of care has been dictated by Ciera Erickson, Nurse Practitioner as directed. Dr. Rea MD I have performed a history and examination and MDM of this patient, discussed the same with the dictator, and agree with the dictator's assessment and plan as written ,documented as a scribe. Based on total visit time, I have performed more than 50% of the visit. Patient Condition at Discharge: Fair Plan - Discharge Summary Discharge Rx Participant: No New Discharge Prescriptions: New Furosemide [Lasix] 40 mg PO DAILY #90 tablet Continue INSULIN LISPRO (For Pump) [humaLOG (For Pump)] 0.01 units SQ-PUMP CONTINUOUS Losartan Potassium [Cozaar] 100 mg PO W/LUNCH Clopidogrel [Plavix] 75 mg PO W/LUNCH Atorvastatin [Lipitor] 40 mg PO W/LUNCH Famotidine [Pepcid] 20 mg PO BID@1200,2100 Metoprolol Tartrate [Lopressor] 25 mg PO BID Discontinued Furosemide [Lasix] 20 mg PO W/LUNCH Discharge Medication List INSULIN LISPRO (For Pump) [humaLOG (For Pump)] 0.01 units SQ-PUMP CONTINUOUS 05/26/20 [History] Atorvastatin [Lipitor] 40 mg PO W/LUNCH 10/05/23 [History] Clopidogrel [Plavix] 75 mg PO W/LUNCH 10/05/23 [History] Famotidine [Pepcid] 20 mg PO BID@1200,2100 10/05/23 [History] Losartan Potassium [Cozaar] 100 mg PO W/LUNCH 10/05/23 [History] Metoprolol Tartrate [Lopressor] 25 mg PO BID 12/28/23 [History] Furosemide [Lasix] 40 mg PO DAILY #90 tablet 12/29/23 [Rx] Follow up Appointment(s)/Referral(s): Calixto Hou DO [Primary Care Provider] - 1-2 days (please call ) Sina Garcia MD [STAFF PHYSICIAN] - 01/09/24 9:15 am Ambulatory/Diagnostic Orders: Basic Metabolic Panel [LAB.AMB] Time Frame: 3 Days, Location: None Selected Patient Instructions/Handouts: Heart Failure (DC) Activity/Diet/Wound Care/Special Instructions: Activity limited until follow-up Follow-up with primary care provider on discharge Follow-up with cardiology in 1 week Continue taking Lasix 40 daily Elevate lower extremities while at rest and continue using compression stockings or Selvin wraps from the toes up to the knees Repeat labs in the next 2 to 3 days to monitor kidney functions Resume insulin pump Discharge Disposition: HOME SELF-CARE
== END 2023-12-29 14:50 | disposition home or self-care (01) | DRG 291 ==
LOC: EC 03:44 → 4SSUR 05:16
PROVIDERS: ADMIT Hospitalist; ATTEND Hospitalist
DX: I11.0 Hypertensive heart disease with heart failure (principal); I50.23 Acute on chronic systolic (congestive) heart failure; E66.9 Obesity, unspecified; E78.5 Hyperlipidemia, unspecified; Z68.32 Body mass index [BMI] 32.0-32.9, adult; Z79.4 Long term (current) use of insulin; Z79.84 Long term (current) use of oral hypoglycemic drugs; Z79.899 Other long term (current) drug therapy; Z85.6 Personal history of leukemia; Z86.73 Personal history of transient ischemic attack (TIA), and cerebral infarction without residual deficits; Z96.41 Presence of insulin pump (external) (internal)
CPT/HCPCS: 36415; 71046; 80053; 83036; 83605; 83735; 83880; 84484; 85025; 85610; 85730; 93005; 96374; 96375; 99283; 99285

== ENCOUNTER → 2024-01-09 | Outpatient (CLI) | payer BC ==
[2024-01-09 14:24] LABS: HCT 41.6 % (39.6-50.0); HGB 13.5 g/dL (13.0-17.0); MCH 30.4 pg (27.0-32.0); MCHC 32.5 g/dL (32.0-37.0); MCV 93.7 FL (80.0-97.0); Mean Platelet Volume 11.7 FL (9.5-12.2); NRBC Per 100 WBC 0 X 10*3/uL (0.00-0.01); Platelet Count 266 X 10*3/uL (140-440); RBC 4.44 X 10*6/uL (4.40-5.60); RDW 12.6 % (11.5-14.5); WBC 7.28 X 10*3/uL (4.50-10.00)
[2024-01-09 14:38] LABS: BUN/Creat Ratio 18.32 Ratio (12.00-20.00); Blood Urea Nitrogen 34.8 mg/dL (9.0-27.0); Calcium 9.3 mg/dL (8.7-10.3); Carbon Dioxide 23.7 mmol/L (21.6-31.8); Chloride 96 mmol/L (96-109); Glucose 406 mg/dL (70-110); Potassium 4.3 mmol/L (3.5-5.5); Sodium 139 mmol/L (135-145)
== END | disposition home or self-care (01) ==
LOC: LABPAT 10:08
PROVIDERS: ATTEND Internal Medicine Cardiovascular Disease
DX: Z01.812 Encounter for preprocedural laboratory examination (principal); I50.9 Heart failure, unspecified; I42.9 Cardiomyopathy, unspecified
CPT/HCPCS: 80048; 85027

== ENCOUNTER 2024-01-10 23:15 | Inpatient (IN) | payer BC ==
[2024-01-11 01:36] LABS: Basophils # (A) 0.1 k/uL (0-0.2); Basophils % (A) 0 %; Eosinophils % (A) 0 %; HCT 48.1 % (39.0-53.0); Lymphocytes # (A) 4.9 k/uL (1.0-4.8); Lymphocytes % (A) 23 %; MCH 30.2 pg (25.0-35.0); MCHC 31.1 g/dL (31.0-37.0); Mean Platelet Volume 8.5; Monocytes # (A) 0.7 k/uL (0-1.0); Monocytes % (A) 3 %; Neutrophils # (A) 14.9 k/uL (1.3-7.7); Neutrophils % (A) 72 %; Platelet Count 307 k/uL (150-450); RBC 4.96 m/uL (4.30-5.90); RDW 13.2 % (11.5-15.5); WBC 20.8 k/uL (3.8-10.6)
[2024-01-11 02:01] LABS: ALT 36 U/L (4-49); AST 62 U/L (17-59); African American GFR (CKD) 40 (>60 ml/min/1.73 sqM); Albumin 4.6 g/dL (3.5-5.0); Alkaline Phosphatase 220 U/L (38-126); Amylase 42 U/L (30-110); Anion Gap 21 mmol/L; Blood Urea Nitrogen 36 mg/dL (9-20); Calcium 9.6 mg/dL (8.4-10.2); Carbon Dioxide 17 mmol/L (22-30); Chloride 100 mmol/L (98-107); Glucose 317 mg/dL (74-99); Lipase 40 U/L (23-300); Non-African American GFR(CKD) 35 (>60 ml/min/1.73 sqM); Potassium 4.3 mmol/L (3.5-5.1); Sodium 138 mmol/L (137-145); Total Bilirubin 0.8 mg/dL (0.2-1.3)
[2024-01-11] MEDS: SODIUM CHLORIDE 0.9% 500 ML 500 ML IV STA (02:11)
[2024-01-11] MEDS: ONDANSETRON 4 MG/2 ML VIAL IVP STA (02:11)
[2024-01-11] MEDS: SODIUM CHLORIDE 0.9% 2,000 ML IV STA (02:11)
--- NOTE | 2024-01-11 02:42 | ED ---
General Adult HPI - General Chief complaint: Nausea/Vomiting/Diarrhea Stated complaint: ABD Pain Time Seen by Provider: 01/11/24 00:10 Source: patient Mode of arrival: wheelchair Limitations: no limitations - History of Present Illness Initial comments: 53-year-old male with a past medical history significant for type 1 diabetes presenting to the ED with complaints of nausea and vomiting onset today. Patient reports previously maintained on insulin with a pump. However states that he has been having issues with his insurance over the past few weeks and has had to manually give himself insulin. Typically gives himself 90 subcu. Patient notes today onset of nausea and vomiting and is concerned he may be in DKA. Denies abdominal pain. No changes in bowel or bladder habits. No chest pain shortness of breath. No other complaints at this time. - Related Data Home Medications Medication Instructions Recorded Confirmed INSULIN LISPRO (For Pump) [humaLOG 0.01 units SQ-PUMP CONTINUOUS 05/26/20 12/28/23 (For Pump)] Atorvastatin [Lipitor] 40 mg PO W/LUNCH 10/05/23 12/28/23 Clopidogrel [Plavix] 75 mg PO W/LUNCH 10/05/23 12/28/23 Famotidine [Pepcid] 20 mg PO BID@1200,2100 10/05/23 12/28/23 Losartan Potassium [Cozaar] 100 mg PO W/LUNCH 10/05/23 12/28/23 Metoprolol Tartrate [Lopressor] 25 mg PO BID 12/28/23 12/28/23 Previous Rx's Medication Instructions Recorded Furosemide [Lasix] 40 mg PO DAILY #90 tablet 12/29/23 Allergies Allergy/AdvReac Type Severity Reaction Status Date / Time No Known Allergies Allergy Verified 01/10/24 23:33 Review of Systems ROS Statement: Those systems with pertinent positive or pertinent negative responses have been documented in the HPI. ROS Other: All systems not noted in ROS Statement are negative. Past Medical History Past Medical History: Cancer, Heart Failure, Diabetes Mellitus, Hyperlipidemia, Hypertension Additional Past Medical History / Comment(s): IDDM type I, CLL, recent R upper arm pain, occasional sinus issues. History of Any Multi-Drug Resistant Organisms: None Reported Past Surgical History: Cholecystectomy, Tonsillectomy Additional Past Surgical History / Comment(s): 12/2018 L neck mass excision, colonoscopy, bilateral cataract removals/lens implants Past Anesthesia/Blood Transfusion Reactions: Motion Sickness, Postoperative Nausea & Vomiting (PONV) Past Psychological History: No Psychological Hx Reported Smoking Status: Never smoker Past Alcohol Use History: None Reported Past Drug Use History: None Reported - Past Family History Father Family Medical History: Cancer Additional Family Medical History / Comment(s): Father from leukemia. Mother Additional Family Medical History / Comment(s): Mother is , she had night terrors. Brother(s) Additional Family Medical History / Comment(s): 2 of pts brothers have schizophrenia and one is also a diabetic. One at the age of 56yrs from "natural causes" General Exam Limitations: no limitations General appearance: alert, in no apparent distress Eye exam: Present: normal appearance Neck exam: Present: normal inspection Respiratory exam: Present: normal lung sounds bilaterally Cardiovascular Exam: Present: regular rate GI/Abdominal exam: Present: soft, normal bowel sounds. Absent: distended, tenderness, guarding, rebound, rigid Neurological exam: Present: alert, oriented X3 Skin exam: Present: warm, dry Course Vital Signs 01/10/24 23:33 Temperature 98.1 F Pulse Rate 100 Respiratory 16 Rate Blood Pressure 131/79 O2 Sat by Pulse 99 Oximetry Medical Decision Making - Medical Decision Making Was pt. sent in by a medical professional or institution ([facility], [employer] BI ARCHITECT, urgent care, hospital, or [facility]...) When possible be specific @ -No Did you speak to anyone other than the patient for history (EMS, parent, family, police, friend...)? What history was obtained from this source @ -No Did you review nursing and triage notes (agree or disagree)? Why? @ -I reviewed and agree with nursing and triage notes Were old charts reviewed (outside hosp., previous admission, EMS record, old EKG, old radiological studies, urgent care reports/EKG's, [facility] records)? Report findings @ -No old charts were reviewed Differential Diagnosis (chest pain, altered mental status, abdominal pain women, abdominal pain men, vaginal bleeding, weakness, fever, dyspnea, syncope, headache, dizziness, GI bleed, back pain, seizure, CVA, palpatations, mental health, musculoskeletal)? @ -Differential Abdominal Pain Men: Appendicitis, cholecystitis, diverticulosis, ischemic bowel, pancreatitis, hepatitis, UTI, gastroenteritis, AAA, incarcerated hernia, bowel obstruction, constipation, inflammatory bowel, hepatitis, peptic ulcer disease, splenic infarction, perforated viscus, testicular torsion, this is not meant to be an all-inclusive list EKG interpreted by me (3pts min.). @ -None X-rays interpreted by me (1pt min.). @ -None done CT interpreted by me (1pt min.). @ -None done U/S interpreted by me (1pt. min.). @ -None done What testing was considered but not performed or refused? (CT, X-rays, U/S, labs)? Why? @ -None What meds were considered but not given or refused? Why? @ -None Did you discuss the management of the patient with other professionals (professionals i.e. , PA, SAP BI ARCHITECT, lab, RT, psych nurse, web content & social media manager, certified technician, teacher, aviation ordnance officer, returned case inspector)? Give summary @ -No Was smoking cessation discussed for >3mins.? @ -No Was critical care preformed (if so, how long)? @ -Yes, 35 minutes Were there social determinants of health that impacted care today? How? (H omelessness, low income, unemployed, alcoholism, drug addiction, transportation, low edu. Level, literacy, decrease access to med. care, intermediate, rehab)? @ -No Was there de-escalation of care discussed even if they declined (Discuss DNR or withdrawal of care, Hospice)? DNR status @ -No What co-morbidities impacted this encounter? (DM, HTN, Smoking, COPD, CAD, Cancer, CVA, ARF, Chemo, Hep., AIDS, mental health diagnosis, sleep apnea, morbid obesity)? @ -Diabetes Was patient admitted / discharged? Hospital course, mention meds given and route, prescriptions, significant lab abnormalities, going to OR and other pertinent info. @ -Admission 53-year-old male with past medical history significant for type 1 diabetes presenting to the ED with nausea and vomiting. Laboratory studies performed. Labs significant for carbon dioxide of 17, anion gap of 21 BUN of 36, creatinine of 2.07, glucose of 317, positive acetone. Patient was initially to be given large fluid bolus however he does have a history of CHF therefore only given a 500 mL bolus. Patient will be admitted on an insulin drip secondary to DKA. Undiagnosed new problem with uncertain prognosis? @ -No Drug Therapy requiring intensive monitoring for toxicity (Heparin, Nitro, Ins ulin, Cardizem)? @ -No Were any procedures done? @ -No Diagnosis/symptom? @ -DKA Acute, or Chronic, or Acute on Chronic? @ -Acute Uncomplicated (without systemic symptoms) or Complicated (systemic symptoms)? @ -Complicated Side effects of treatment? @ -No Exacerbation, Progression, or Severe Exacerbation? @ -No Poses a threat to life or bodily function? How? (Chest pain, [place], [place], pneumonia, PE, COPD, DKA, ARF, appy, cholecystitis, CVA, Diverticulitis, Homicidal, Suicidal, threat to staff... and all critical care pts) @ -Yes, DKA - Lab Data Result diagrams: 01/11/24 01:04 01/11/24 01:04 Lab Results 01/11/24 01/11/24 Range/Units 01:04 01:04 WBC 20.8 H (3.8-10.6) k/uL RBC 4.96 (4.30-5.90) m/uL Hgb 15.0 (13.0-17.5) gm/dL Hct 48.1 (39.0-53.0) % MCV 97.0 (80.0-100.0) fL MCH 30.2 (25.0-35.0) pg MCHC 31.1 (31.0-37.0) g/dL RDW 13.2 (11.5-15.5) % Plt Count 307 (150-450) k/uL MPV 8.5 Neutrophils % 72 % Lymphocytes % 23 % Monocytes % 3 % Eosinophils % 0 % Basophils % 0 % Neutrophils # 14.9 H (1.3-7.7) k/uL Lymphocytes # 4.9 H (1.0-4.8) k/uL Monocytes # 0.7 (0-1.0) k/uL Eosinophils # 0.0 (0-0.7) k/uL Basophils # 0.1 (0-0.2) k/uL Sodium 138 (137-145) mmol/L Potassium 4.3 (3.5-5.1) mmol/L Chloride 100 (98-107) mmol/L Carbon Dioxide 17 L (22-30) mmol/L Anion Gap 21 mmol/L BUN 36 H (9-20) mg/dL Creatinine 2.07 H (0.66-1.25) mg/dL Est GFR (CKD-EPI)AfAm 40 (>60 ml/min/1.73 sqM) Est GFR (CKD-EPI)NonAf 35 (>60 ml/min/1.73 sqM) Glucose 317 H (74-99) mg/dL Calcium 9.6 (8.4-10.2) mg/dL Total Bilirubin 0.8 (0.2-1.3) mg/dL AST 62 H (17-59) U/L ALT 36 (4-49) U/L Alkaline Phosphatase 220 H (38-126) U/L Total Protein 7.0 (6.3-8.2) g/dL Albumin 4.6 (3.5-5.0) g/dL Amylase 42 (30-110) U/L Lipase 40 (23-300) U/L Acetone, Qual Positive (Negative) Disposition Clinical Impression: DKA (diabetic ketoacidosis) Disposition: ADMITTED IP TO THIS [facility] Condition: Good Referrals: Calixto Hou DO [Primary Care Provider] - 1-2 days
[2024-01-11 03:10] LABS: Appearance,Urine Clear (Clear); Bilirubin,Urine 1+ (Negative); Blood,Urine Small (Negative); Color,Urine Colorless; Glucose,Urine (UA) 4+ (Negative); Leukocyte Esterase,Urine Negative (Negative); Mucus,Urine Rare /hpf; Nitrite,Urine Negative (Negative); PH, Urine 5.5 (5.0-8.0); Protein,Urine 2+ (Negative); RBC,Urine <1 /hpf (0-5); Specific Gravity,Urine 1.028 (1.001-1.035); Squamous Epithelial Cell,Urine <1 /hpf (0-4); WBC,Urine 2 /hpf (0-5)
[2024-01-11 03:17] LABS: Ketones,Urine 3+ (Negative)
[2024-01-11] MEDS: INSULIN REGULAR BOLUS (FROM DRIP BAG) IV ONE (03:39)
[2024-01-11] MEDS: INSULIN REGULAR 100 UNIT in SODIUM CHLORIDE 0.9% 100 ML IV SCH (03:40)
[2024-01-11 03:43] LABS: Glucose,Whole Blood 236 mg/dL (70-110)
[2024-01-11 04:40] LABS: Glucose,Whole Blood 156 mg/dL (70-110)
[2024-01-11 05:40] LABS: Glucose,Whole Blood 226 mg/dL (70-110)
[2024-01-11 06:02] LABS: African American GFR (CKD) 46 (>60 ml/min/1.73 sqM); Anion Gap 11 mmol/L; Blood Urea Nitrogen 36 mg/dL (9-20); Carbon Dioxide 27 mmol/L (22-30); Chloride 101 mmol/L (98-107); Glucose 140 mg/dL (74-99); Non-African American GFR(CKD) 40 (>60 ml/min/1.73 sqM); Phosphorus 2.9 mg/dL (2.5-4.5); Potassium 3.5 mmol/L (3.5-5.1); Sodium 139 mmol/L (137-145)
[2024-01-11 06:45] LABS: Glucose,Whole Blood 104 mg/dL (70-110)
[2024-01-11] MEDS ORDERED: DEXTROSE 50% SYRINGE 50 ML IVP PRN ×2 (07:12)
[2024-01-11 07:20] LABS: Glucose,Whole Blood 76 mg/dL (70-110)
[2024-01-11] MEDS: D5-0.45% NACL WITH KCL 20MEQ/L 1,000 ML IV SCH (07:42)
[2024-01-11 08:11] LABS: African American GFR (CKD) 55 (>60 ml/min/1.73 sqM); Anion Gap 4 mmol/L; Blood Urea Nitrogen 37 mg/dL (9-20); Carbon Dioxide 31 mmol/L (22-30); Chloride 103 mmol/L (98-107); Glucose 72 mg/dL (74-99); Non-African American GFR(CKD) 48 (>60 ml/min/1.73 sqM); Potassium 3.7 mmol/L (3.5-5.1); Sodium 138 mmol/L (137-145)
[2024-01-11 08:12] LABS: Glucose,Whole Blood 86 mg/dL (70-110)
[2024-01-11 09:07] LABS: Glucose,Whole Blood 156 mg/dL (70-110)
[2024-01-11 10:07] LABS: Glucose,Whole Blood 186 mg/dL (70-110)
[2024-01-11] MEDS: INSULIN DETEMIR (LEVEMIR) 100 UNIT/ML SYR SQ SCH ×2 (11:21→20:54)
[2024-01-11 11:26] LABS: Glucose,Whole Blood 161 mg/dL (70-110)
[2024-01-11] MEDS: FAMOTIDINE 20 MG TAB PO SCH (11:31)
[2024-01-11] MEDS: ATORVASTATIN 40 MG TAB PO SCH (11:35)
[2024-01-11] MEDS: CLOPIDOGREL 75 MG TAB PO SCH (11:35)
[2024-01-11] MEDS: LOSARTAN 50 MG TAB PO SCH (11:35)
[2024-01-11] MEDS: INSULIN ASPART (NovoLOG) 100 UNIT/ML VIAL SQ SCH (11:39)
[2024-01-11 12:16] LABS: Glucose,Whole Blood 177 mg/dL (70-110)
--- NOTE | 2024-01-11 13:13 | P.HPIM ---
History of Present Illness H&P Date: 01/11/24 History of present illness; patient is a 53-year-old gentleman past medical history significant for insulin dependent diabetes mellitus on insulin pump who presented the ER because of complaint of nausea and vomiting. Patient stated that he was all right 1 day back and started having nausea and vomiting. Patient was not able to keep his food down. Patient denies any fever or chills. There was no complaint of chest pain or shortness of breath. Patient normally uses insulin pump but for the last 1 month has been having issues with his insurance and has not been very compliant. Because of this nausea and vomiting, patient decided to come to the ER Initial lab work done in the ER showed BBC 20.8, hemoglobin 15, platelet count 307, sodium 130, potassium 4.3, BUN 36, creatinine 2.07, glucose 317 AST 62, alk phos 220 Acetone positive UA negative for nitrites, negative urine leukocyte Estrace Patient was started on insulin drip and was admitted to medicine service REVIEW OF SYSTEMS: CONSTITUTIONAL: No fever, no malaise, no fatigue. HEENT: No recent visual problems or hearing problems. Denied any sore throat. CARDIOVASCULAR: No chest pain, orthopnea, PND, no palpitations, no syncope. PULMONARY: No shortness of breath, no cough, no hemoptysis. GASTROINTESTINAL: As mentioned above NEUROLOGICAL: No headaches, no weakness, no numbness. HEMATOLOGICAL: Denies any bleeding or petechiae. GENITOURINARY: Denies any burning micturition, frequency, or urgency. MUSCULOSKELETAL/RHEUMATOLOGICAL: Denies any joint pain, swelling, or any muscle pain. ENDOCRINE: Denies any polyuria or polydipsia. The rest of the 14-point review of systems is negative. PHYSICAL EXAMINATION: GENERAL: The patient is alert and oriented x3, not in any acute distress. Well developed, well nourished. HEENT: Pupils are round and equally reacting to light. EOMI. No scleral icterus. No conjunctival pallor. Normocephalic, atraumatic. No pharyngeal erythema. No thyromegaly. CARDIOVASCULAR: S1 and S2 present. No murmurs, rubs, or gallops. PULMONARY: Chest is clear to auscultation, no wheezing or crackles. ABDOMEN: Soft, nontender, nondistended, normoactive bowel sounds. No palpable organomegaly. MUSCULOSKELETAL: No joint swelling or deformity. EXTREMITIES: No cyanosis, clubbing, or pedal edema. NEUROLOGICAL: Gross neurological examination did not reveal any focal deficits. SKIN: No rashes. Assessment and plan DKA Acute kidney injury Insulin-dependent diabetes mellitus, poorly controlled, last HbA1c level of 10.9 Hypertension hyperlipidemia Monitor vital signs Monitor CBC Monitor CMP Continue telemetry monitoring Monitor blood glucose level, HbA1c level this admission is 10.9 Serial electrolytes every 4 hourly Patient started on insulin drip per DKA protocol Continue IV fluids Once blood sugars are less than 250, will switch patient to D5 half-normal saline Once anion gap closes, will switch to subcu insulin Resume home meds Labs and medication were reviewed.. Continue same treatment. Continue with symptomatic treatment. Resume home medication. Monitor labs and vitals. DVT and GI prophylaxis. Further recommendations as per clinical course of the patient Dictation was produced using [employer] dictation software. please excuse any grammatical, word or spelling errors. Past Medical History Past Medical History: Cancer, Heart Failure, Diabetes Mellitus, Hyperlipidemia, Hypertension Additional Past Medical History / Comment(s): IDDM type I, CLL, recent R upper arm pain, occasional sinus issues. History of Any Multi-Drug Resistant Organisms: None Reported Past Surgical History: Cholecystectomy, Tonsillectomy Additional Past Surgical History / Comment(s): 12/2018 L neck mass excision, colonoscopy, bilateral cataract removals/lens implants Past Anesthesia/Blood Transfusion Reactions: Motion Sickness, Postoperative Nausea & Vomiting (PONV) Past Psychological History: No Psychological Hx Reported Smoking Status: Never smoker Past Alcohol Use History: None Reported Past Drug Use History: None Reported - Past Family History Father Family Medical History: Cancer Additional Family Medical History / Comment(s): Father from leukemia. Mother Additional Family Medical History / Comment(s): Mother is , she had night terrors. Brother(s) Additional Family Medical History / Comment(s): 2 of pts brothers have schizophrenia and one is also a diabetic. One at the age of 56yrs from "natural causes" Medications and Allergies Home Medications Medication Instructions Recorded Confirmed Type INSULIN LISPRO (For Pump) [humaLOG 0.01 units SQ-PUMP CONTINUOUS 05/26/20 01/11/24 History (For Pump)] Atorvastatin [Lipitor] 40 mg PO W/LUNCH 10/05/23 01/11/24 History Clopidogrel [Plavix] 75 mg PO W/LUNCH 10/05/23 01/11/24 History Famotidine [Pepcid] 20 mg PO BID@1200,2100 10/05/23 01/11/24 History Losartan Potassium [Cozaar] 100 mg PO W/LUNCH 10/05/23 01/11/24 History Metoprolol Tartrate [Lopressor] 25 mg PO BID 12/28/23 01/11/24 History Furosemide [Lasix] 40 mg PO DAILY #90 tablet 12/29/23 01/11/24 Rx Allergies Allergy/AdvReac Type Severity Reaction Status Date / Time No Known Allergies Allergy Verified 01/11/24 08:10 Physical Exam Vitals: Vital Signs Temp Pulse Resp BP Pulse Ox 01/11/24 10:05 88 17 164/77 96 01/11/24 09:00 97.8 F 83 16 156/73 97 01/11/24 04:00 90 18 171/82 99 01/11/24 02:00 91 18 124/77 98 01/11/24 01:00 97 18 176/90 100 01/10/24 23:33 98.1 F 100 16 131/79 99 Intake and Output 01/10/24 01/11/24 01/11/24 22:59 06:59 14:59 Intake Total 26.396 3.904 Balance 26.396 3.904 Intake: Intake, IV Titration 26.396 3.904 Amount Insulin Regular 100 unit 26.396 3.904 In Sodium Chloride 0.9% 100 ml @ 0.1 UNITS/KG/HR 8.292 mls/hr IV .[id number] [facility] Rx#:[id number] Other: Weight 82.1 kg Results CBC & Chem 7: 01/11/24 01:04 01/11/24 07:27 Labs: Abnormal Lab Results - Last 24 Hours (Table) 01/11/24 01/11/24 01/11/24 Range/Units 01:04 01:04 02:19 WBC 20.8 H (3.8-10.6) k/uL Neutrophils # 14.9 H (1.3-7.7) k/uL Lymphocytes # 4.9 H (1.0-4.8) k/uL Carbon Dioxide 17 L (22-30) mmol/L BUN 36 H (9-20) mg/dL Creatinine 2.07 H (0.66-1.25) mg/dL Glucose 317 H (74-99) mg/dL POC Glucose (mg/dL) (70-110) mg/dL Hemoglobin A1c (<=6.0) % AST 62 H (17-59) U/L Alkaline Phosphatase 220 H (38-126) U/L Urine Protein 2+ H (Negative) Urine Glucose (UA) 4+ H (Negative) Urine Ketones 3+ H (Negative) Urine Blood Small H (Negative) Urine Bilirubin 1+ H (Negative) Urine Mucus Rare H (None) /hpf 01/11/24 01/11/24 01/11/24 Range/Units 03:42 04:38 05:08 WBC (3.8-10.6) k/uL Neutrophils # (1.3-7.7) k/uL Lymphocytes # (1.0-4.8) k/uL Carbon Dioxide (22-30) mmol/L BUN 36 H (9-20) mg/dL Creatinine 1.88 H (0.66-1.25) mg/dL Glucose 140 H (74-99) mg/dL POC Glucose (mg/dL) 236 H 156 H (70-110) mg/dL Hemoglobin A1c (<=6.0) % AST (17-59) U/L Alkaline Phosphatase (38-126) U/L Urine Protein (Negative) Urine Glucose (UA) (Negative) Urine Ketones (Negative) Urine Blood (Negative) Urine Bilirubin (Negative) Urine Mucus (None) /hpf 01/11/24 01/11/24 01/11/24 Range/Units 05:08 05:38 07:27 WBC (3.8-10.6) k/uL Neutrophils # (1.3-7.7) k/uL Lymphocytes # (1.0-4.8) k/uL Carbon Dioxide 31 H (22-30) mmol/L BUN 37 H (9-20) mg/dL Creatinine 1.61 H (0.66-1.25) mg/dL Glucose 72 L (74-99) mg/dL POC Glucose (mg/dL) 226 H (70-110) mg/dL Hemoglobin A1c 10.9 H (<=6.0) % AST (17-59) U/L Alkaline Phosphatase (38-126) U/L Urine Protein (Negative) Urine Glucose (UA) (Negative) Urine Ketones (Negative) Urine Blood (Negative) Urine Bilirubin (Negative) Urine Mucus (None) /hpf 01/11/24 01/11/24 Range/Units 09:01 10:03 WBC (3.8-10.6) k/uL Neutrophils # (1.3-7.7) k/uL Lymphocytes # (1.0-4.8) k/uL Carbon Dioxide (22-30) mmol/L BUN (9-20) mg/dL Creatinine (0.66-1.25) mg/dL Glucose (74-99) mg/dL POC Glucose (mg/dL) 156 H 186 H (70-110) mg/dL Hemoglobin A1c (<=6.0) % AST (17-59) U/L Alkaline Phosphatase (38-126) U/L Urine Protein (Negative) Urine Glucose (UA) (Negative) Urine Ketones (Negative) Urine Blood (Negative) Urine Bilirubin (Negative) Urine Mucus (None) /hpf
[2024-01-11 14:22] LABS: Glucose,Whole Blood 280 mg/dL (70-110)
[2024-01-11 17:17] LABS: Glucose,Whole Blood 187 mg/dL (70-110)
[2024-01-11 20:27] LABS: Glucose,Whole Blood 147 mg/dL (70-110)
[2024-01-11] MEDS: METOPROLOL TARTRATE 25 MG TAB PO SCH (20:54)
[2024-01-12 02:57] LABS: Glucose,Whole Blood 55 mg/dL (70-110)
[2024-01-12 03:24] LABS: Glucose,Whole Blood 98 mg/dL (70-110)
[2024-01-12 06:05] LABS: Glucose,Whole Blood 56 mg/dL (70-110)
[2024-01-12 06:23] LABS: Glucose,Whole Blood 83 mg/dL (70-110)
[2024-01-12] MEDS: FUROSEMIDE 40 MG TAB PO SCH (06:44)
[2024-01-12 11:22] LABS: Glucose,Whole Blood 173 mg/dL (70-110)
[2024-01-12 12:04] VITALS: BP 164/57; PULSE 79; RESP 18; TEMP 97.7
[2024-01-12 12:22] LABS: ALT 30 U/L (4-49); AST 74 U/L (17-59); African American GFR (CKD) 66 (>60 ml/min/1.73 sqM); Albumin 2.9 g/dL (3.5-5.0); Alkaline Phosphatase 190 U/L (38-126); Anion Gap 4 mmol/L; Blood Urea Nitrogen 26 mg/dL (9-20); Calcium 8.2 mg/dL (8.4-10.2); Carbon Dioxide 30 mmol/L (22-30); Chloride 99 mmol/L (98-107); Glucose 182 mg/dL (74-99); Non-African American GFR(CKD) 57 (>60 ml/min/1.73 sqM); Potassium 3.9 mmol/L (3.5-5.1); Sodium 133 mmol/L (137-145); Total Bilirubin 0.4 mg/dL (0.2-1.3); Total Protein 5.2 g/dL (6.3-8.2)
--- NOTE | 2024-01-12 12:45 | P.DS ---
Providers Date of admission: 01/11/24 03:27 Expected date of discharge: 01/12/24 Attending physician: Alberto Lucia Primary care physician: Calixto Hou [facility] Course: Discharge diagnoses; DKA Acute kidney injury Insulin-dependent diabetes mellitus, poorly controlled, last HbA1c level of 10.9 Hypertension hyperlipidemia Hospital course; patient is a 53-year-old gentleman past medical history significant for insulin dependent diabetes mellitus on insulin pump who presented the ER because of complaint of nausea and vomiting. Patient stated that he was all right 1 day back and started having nausea and vomiting. Patient was not able to keep his food down. Patient denies any fever or chills. There was no complaint of chest pain or shortness of breath. Patient normally uses insulin pump but for the last 1 month has been having issues with his insurance and has not been very compliant. Because of this nausea and vomiting, patient decided to come to the ER Initial lab work done in the ER showed BBC 20.8, hemoglobin 15, platelet count 307, sodium 130, potassium 4.3, BUN 36, creatinine 2.07, glucose 317 AST 62, alk phos 220 Acetone positive UA negative for nitrites, negative urine leukocyte Estrace Patient was started on insulin drip and was admitted to medicine service 01/11. Patient was transitioned of the insulin drip to currently Levemir 12 units twice a day and sliding scale insulin. Patient was supposed to be on insulin pump but has been having issues with his insurance. For time being patient will be discharged on Levemir and sliding scale insulin and follow-up outpatient with PCP. PHYSICAL EXAMINATION: GENERAL: The patient is alert and oriented x3, not in any acute distress. Well developed, well nourished. HEENT: Pupils are round and equally reacting to light. EOMI. No scleral icterus. No conjunctival pallor. Normocephalic, atraumatic. No pharyngeal erythema. No thyromegaly. CARDIOVASCULAR: S1 and S2 present. No murmurs, rubs, or gallops. PULMONARY: Chest is clear to auscultation, no wheezing or crackles. ABDOMEN: Soft, nontender, nondistended, normoactive bowel sounds. No palpable organomegaly. MUSCULOSKELETAL: No joint swelling or deformity. EXTREMITIES: No cyanosis, clubbing, or pedal edema. NEUROLOGICAL: Gross neurological examination did not reveal any focal deficits. SKIN: No rashes. Dictation was produced using [employer] dictation software. please excuse any g rammatical, word or spelling errors. Patient Condition at Discharge: Good Plan - Discharge Summary Discharge Rx Participant: No New Discharge Prescriptions: New Insulin Detemir (Levemir) [Levemir] 12 unit SQ BID #1 each INSULIN ASPART (NovoLOG) [NovoLOG (formulary)] 0 - 12 unit SQ ACHS #1 each Continue INSULIN LISPRO (For Pump) [humaLOG (For Pump)] 0.01 units SQ-PUMP CONTINUOUS Losartan Potassium [Cozaar] 100 mg PO W/LUNCH Clopidogrel [Plavix] 75 mg PO W/LUNCH Atorvastatin [Lipitor] 40 mg PO W/LUNCH Furosemide [Lasix] 40 mg PO DAILY #90 tablet Famotidine [Pepcid] 20 mg PO BID@1200,2100 Metoprolol Tartrate [Lopressor] 25 mg PO BID Discharge Medication List INSULIN LISPRO (For Pump) [humaLOG (For Pump)] 0.01 units SQ-PUMP CONTINUOUS 05/26/20 [History] Atorvastatin [Lipitor] 40 mg PO W/LUNCH 10/05/23 [History] Clopidogrel [Plavix] 75 mg PO W/LUNCH 10/05/23 [History] Famotidine [Pepcid] 20 mg PO BID@1200,2100 10/05/23 [History] Losartan Potassium [Cozaar] 100 mg PO W/LUNCH 10/05/23 [History] Metoprolol Tartrate [Lopressor] 25 mg PO BID 12/28/23 [History] Furosemide [Lasix] 40 mg PO DAILY #90 tablet 12/29/23 [Rx] INSULIN ASPART (NovoLOG) [NovoLOG (formulary)] 0 - 12 unit SQ ACHS #1 each 01/12/24 [Rx] Insulin Detemir (Levemir) [Levemir] 12 unit SQ BID #1 each 01/12/24 [Rx] Follow up Appointment(s)/Referral(s): Calixto Hou DO [Primary Care Provider] - 01/19/24 10:30 am (MONDAY) Patient Instructions/Handouts: Diabetic Ketoacidosis (GEN)
== END 2024-01-12 14:25 | disposition home or self-care (01) | DRG 638 ==
LOC: EC 23:15 → 3SCARD 01-11 03:27
PROVIDERS: ADMIT Internal Medicine; ATTEND Internal Medicine
DX: E10.10 Type 1 diabetes mellitus with ketoacidosis without coma (principal); N17.9 Acute kidney failure, unspecified; E78.5 Hyperlipidemia, unspecified; I11.0 Hypertensive heart disease with heart failure; I50.9 Heart failure, unspecified; Z96.41 Presence of insulin pump (external) (internal); Z85.6 Personal history of leukemia; Z79.899 Other long term (current) drug therapy; Z79.4 Long term (current) use of insulin
CPT/HCPCS: 36415; 80051; 80053; 81001; 82009; 82150; 82565; 82947; 83036; 83690; 84100; 84520; 85025; 96361; 96374; 99291

== ENCOUNTER 2024-01-23 05:39 | Day surgery (SDC) | payer BC ==
[2024-01-22 09:07] VITALS: BMI 25.2
[2024-01-23] MEDS ORDERED: ALPRAZolam 0.25 MG TAB PO PRN (06:04)
[2024-01-23] MEDS ORDERED: NITROGLYCERIN SL TABS 0.4 MG TAB SUBLINGUAL PRN (06:04)
[2024-01-23] MEDS ORDERED: ALPRAZolam 0.5 MG TAB PO PRN (06:04)
[2024-01-23 06:27] LABS: Glucose,Whole Blood 339 mg/dL (70-110)
[2024-01-23 06:49] VITALS: RESP 16; TEMP 98.9
[2024-01-23] MEDS: SODIUM CHLORIDE 0.9% 1,000 ML IV ONE (06:49)
[2024-01-23] MEDS: SODIUM CHLORIDE 0.9% 1,000 ML in EMPTY BAG 1 BAG IV ONE (06:54)
[2024-01-23] MEDS: INSULIN ASPART (NovoLOG) 100 UNIT/ML VIAL SQ ONE (06:55)
[2024-01-23] MEDS ORDERED: fentaNYL (PF) 50 MCG/ML 2 ML AMP ONE (07:18)
[2024-01-23] MEDS ORDERED: LIDOCAINE 1% INJ 10MG/ML (20 ML MDV) ONE (07:18)
[2024-01-23] MEDS ORDERED: VERAPAMIL 2.5 MG/ML 2 ML AMP ONE (07:18)
[2024-01-23] MEDS ORDERED: HEPARIN SODIUM 1,000 UN/ML (10ML VL) ONE (07:18)
[2024-01-23] MEDS: MIDAZOLAM 2 MG/2 ML VIAL IVP ONE (07:23)
[2024-01-23] MEDS: fentaNYL (PF) 50 MCG/ML 2 ML AMP IVP ONE (07:24)
[2024-01-23] MEDS: LIDOCAINE 2% (PF) 20 MG/ML 5 ML VIAL SQ ONE (07:27)
[2024-01-23] MEDS: LIDOCAINE 1% INJ 10MG/ML (20 ML MDV) SQ ONE (07:27)
[2024-01-23] MEDS ORDERED: NITROGLYCERIN OINT 1 INCH/GM PACKET TOPICAL ONE (07:28)
[2024-01-23] MEDS ORDERED: hydrALAZINE HCL 20 MG/ML 1 ML VIAL ONE (07:28)
[2024-01-23] MEDS: hydrALAZINE HCL 20 MG/ML 1 ML VIAL IVP ONE (07:30)
[2024-01-23] MEDS: VERAPAMIL SYRINGE (5 MG/10 ML) INTRAARTER ONE (07:30)
[2024-01-23] MEDS: HEPARIN SODIUM 1,000 UN/ML (10ML VL) IVP ONE (07:33)
[2024-01-23] MEDS: IOPAMIDOL-370 100ML BTL INJ ONE (07:51)
[2024-01-23] MEDS ORDERED: RX INFO: IV CONTRAST WAS GIVEN 1 EACH MISC MISCELLANE PRN (08:01)
--- NOTE | 2024-01-23 09:12 | US ---
EXAMINATION TYPE: US vein mapping BILAT DATE OF EXAM: 01/23/2024 8:47 AM COMPARISON: NONE CLINICAL INDICATION: Male, 54 years old with history of PreOp Cardiac Surgery; preop SIDE PERFORMED: Bilateral TECHNIQUE: Lower extremity saphenous vein is examined and measured utilizing real time linear array sonography. DUPLEX FINDINGS: Greater Saphenous: Color flow seen Lesser Saphenous: Color flow seen Measurements in mm: Right Greater Saphenous: Groin: 5.9 x 5.7 mm High Thigh: 5.4 x 4.1 mm Mid Thigh: 5.7 x 5.0 mm Above Knee: 6.5 x 5.6 mm Knee: 5.3 x 4.8 mm Below Knee: 3.8 x 3.1 mm Mid Calf: 3.8 x 3.0 mm At Ankle: 3.6 x 3.6 mm Left Greater Saphenous: Groin: 10.9 x 7.6 mm High Thigh: 5.9 x 4.3 mm Mid Thigh: 5.4 x 3.6 mm Above Knee: 6.5 x 4.9 mm Knee: 4.9 x 3.9 mm Below Knee: 4.6 x 3.5 mm Mid Calf: 3.4 x 3.1 mm At Ankle: 4.2 x 3.4 mm IMPRESSION: 1. Bilateral GSV measurements listed above. 2. Performing surgeon to determine viability as conduit.
--- NOTE | 2024-01-23 09:12 | US ---
EXAMINATION TYPE: Pre-Operative Non-Invasive Evaluation of the hand for Potential Radial Artery [place]ul[place] , Measurements only DATE OF EXAM: 01/23/2024 8:47 AM CLINICAL INDICATION: Male, 54 years old with history of Pre-Op Cardiac Surgery; preop SIDE PERFORMED: Left TECHNIQUE: Radial artery is measured utilizing real time linear array sonography. Dominant hand: Right Duplex Findings: Radial Artery: Color flow seen Measurements in mm, transverse view: Left Radial: mm Proximal: 3.0 x 2.5 mm Mid: 2.5 x 2.3 mm Distal: 2.5 x 1.8 mm IMPRESSION: 1. Bilateral Radial artery measurements listed above. 2. Performing surgeon to determine viability as conduit.
--- NOTE | 2024-01-23 09:14 | US ---
EXAMINATION TYPE: US carotid duplex BILAT DATE OF EXAM: 01/23/2024 COMPARISON: 12/06/22 CLINICAL INDICATION: Male, 54 years old with history of Pre-Op Cardiac Surgery; preop TECHNIQUE: Carotid duplex ultrasound examination. Indirect Doppler criteria was utilized. FINDINGS: EXAM MEASUREMENTS: RIGHT: Peak Systolic Velocity (PSV) cm/sec ----- Right CCA: 88.7 ----- Right ICA: 69.1 ----- Right ECA: 114.5 ICA/CCA ratio: 0.8 RIGHT: End Diastole cm/sec ----- Right CCA: 14.4 ----- Right ICA: 16.4 ----- Right ECA: 11.1 LEFT: Peak Systolic Velocity (PSV) cm/sec ----- Left CCA: 80.9 ----- Left ICA: 83.4 ----- Left ECA: 125.3 ICA/CCA ratio: 1.0 LEFT: End Diastole cm/sec ----- Left CCA: 21.5 ----- Left ICA: 18.8 ----- Left ECA: 22.0 VERTEBRALS (direction of flow): Right Vertebral: Antegrade Left Vertebral: Antegrade Rhythm: Normal GUIDE TOUR NOTES: Plaque seen in left prox ICA. No elevated velocities seen IMPRESSION: No significant hemodynamic stenosis. Criteria for Assigning % of Stenosis / Diameter reduction (Estimation based on the indirect measurements of the internal carotid artery velocities (ICA PSV). 1. Normal (no stenosis)=ICA PSV < 125 cm/s: ratio < 2.0: ICA EDV<40 cm/s. 2. Less than 50% stenosis=ICA PSV < 125 cm/s: ratio < 2.0: ICA EDV<40 cm/s. 3. 50 to 69% stenosis=ICA PSV of 125 to 230 cm/s: ration 2.0 ? 4.0: ICA EDV 40-100 cm/s. 4. Greater than 70% stenosis to near occlusion= ICA PSV > 230 cm/s: ratio > 4.0: ICA EDV > 100 cm/s. 5. Near occlusion= ICA PSV velocities may be low or undetectable: variable ratio and ICA EDV. 6. Total occlusion=unable to detect flow.
[2024-01-23] MEDS: hydrALAZINE HCL 25 MG TAB PO SCH (09:19)
[2024-01-23] MEDS: ASPIRIN 325 MG TAB PO ONE (09:19)
[2024-01-23] MEDS: amLODIPine 10 MG TAB PO SCH (09:19)
[2024-01-23] MEDS: SODIUM CHLORIDE 0.9% 1,000 ML IV SCH (09:19)
--- NOTE | 2024-01-23 10:20 | US ---
EXAMINATION TYPE: US arterial LE single level DATE OF EXAM: 01/23/2024 10:05 AM CLINICAL INDICATION: Male, 54 years old with history of Ankle Brachial Index (PAZ) ; preop History of: Smoker: No Hypertension: Yes Diabetic: Yes Hyperlipidemia: Yes TIA/CVA: No Previous Vascular Surgery: No CAD: No [place]: No Vascular Ulcers: No Claudication: No Gangrene: No Right Brachial Pressure: deferred due to heart cath rt radial approach Left Brachial Pressure: 174 Ankle-Brachial Indices: Right: 1.12 Left: 1.14 (Vessel hardening > 1.4; Normal 0.9 - 1.4, Moderate 0.7 - 0.9, Severe 0.5-0.7) IMPRESSION: Normal ankle brachial indices bilaterally.
--- NOTE | 2024-01-23 10:22 | CC ---
CARDIAC CATHETERIZATION REPORT INDICATIONS: Cardiomyopathy with systolic heart failure. PROCEDURE NOTE: After obtaining informed consent, left heart catheterization and coronary angiogram were performed via the right radial artery using standard Raheel catheters. The patient tolerated the procedure well without any obvious immediate complications. A TR band will be used for hemostasis. The patient received moderate conscious sedation. Total sedation time was 20 minutes. Right radial artery access was obtained using Seldinger technique, 6-Serbian sheath was placed. Catheters and wires were floated into the ascending aorta under fluoroscopic guidance. The patient received verapamil and heparin per protocol. FINDINGS: 1. Hemodynamics: Left ventricular end-diastolic pressure is 18 mm. There is no significant gradient across the aortic valve. 2. Left Ventriculogram: Left ventriculogram is not performed. 3. Angiographic Data: a.Right Coronary Artery: Right coronary artery is a large dominant vessel. There is a focal 70% stenosis in the mid RCA. Left main coronary artery appears calcified but is free of significant stenosis. Divides into left anterior descending coronary artery and circumflex coronary artery. LAD shows a long segment of narrowing in the midportion, at its worst it seems to be a 70% to 80% stenosed, gives off a large caliber diagonal branch that has an 80% to 90% stenosis. Circumflex coronary artery gives off a large caliber OM branch that bifurcates and there is a long segment of narrowing in the OM branch itself and a 70% to 80% stenosis just below the bifurcation. CONCLUSION: 1. Severe three-vessel coronary artery disease as described above. 2. Ischemic cardiomyopathy with an ejection fraction of 40% in a diabetic. PLAN: I am going to consult cardiothoracic surgery to evaluate the patient for surgical revascularization. If they think he is a high-risk candidate, I am going to have the academic interventionist perform percutaneous revascularization of the right coronary artery and the LAD and treat it as we treat medically. I discussed these issues with the patient and will await the risk consultant surgeon and await for their opinion. Patient's blood pressure is poorly controlled. I am going to add amlodipine and hydralazine, as well as Coreg that he is currently on. MMODL / IJN: [id number] /
--- NOTE | 2024-01-23 12:04 | XR ---
EXAMINATION TYPE: XR chest 2V DATE OF EXAM: 01/23/2024 COMPARISON: 12/28/2023 TECHNIQUE: PA and lateral views submitted. HISTORY: Preop FINDINGS: The lungs are clear and there is no pneumothorax, pleural effusion, or focal pneumonia. Heart size normal and no overt failure. Osseous structures demonstrate hypertrophic and degenerative changes of the spine. AC joint arthropathy. IMPRESSION: 1. No acute process.
[2024-01-23 14:33] VITALS: BP 157/83; PULSE 84
--- NOTE | 2024-01-23 15:21 | CT ---
EXAMINATION TYPE: CT chest wo con CT DLP: 500 mGycm, Automated exposure control for dose reduction was used. DATE OF EXAM: 01/23/2024 11:51 AM COMPARISON: CTA chest 12/05/2022 CLINICAL INDICATION:Male, 54 years old with history of PreOp Cardiac Surgery, evaluate aorta; PHH, Pr e op cardiac sx, eval aorta for clampability TECHNIQUE: Multiple axial images were obtained through the chest without IV contrast. Lack of IV or o ral contrast limits evaluation of solid and hollow organ viscera. . Coronal and sagittal reformats re viewed. FINDINGS: LUNGS/ PLEURA: The lung parenchyma appears unremarkable. No suspicious pulmonary nodule or mass. AIRWAY: Patent and unremarkable.. HEART: Upper limits of normal for size. No pericardial effusion. MEDIASTINUM: Stable enlarged paraesophageal 1.3 cm lymph node (series 3, image 40). Previously seen e nlarged mediastinal lymph nodes are normal size. Similar bilateral hilar prominent axillary lymph nod es. VASCULATURE: No aortic aneurysm. Minimal atherosclerotic calcification of the aortic arch. Conventio nal three-vessel aortic arch. MUSCULOSKELETAL: No acute osseous abnormalities SOFT TISSUES/LYMPH NODES: Bilateral gynecomastia. LOWER NECK: No significant findings. UPPER ABDOMEN: Postcholecystectomy changes. IMPRESSION: 1. No acute thoracic process. 2. Improvement of previously seen bilateral pleural effusions and mediastinal lymph nodes. Prominent bilateral axillary lymph nodes are redemonstrated with stable enlarged paraesophageal lymph node.
[2024-01-23 15:23] LABS: Basophils # (A) 0.1 k/uL (0-0.2); Basophils % (A) 1 %; Eosinophils # (A) 0.3 k/uL (0-0.7); Eosinophils % (A) 3 %; HCT 42.6 % (39.0-53.0); HGB 13.1 gm/dL (13.0-17.5); Lymphocytes # (A) 1.4 k/uL (1.0-4.8); Lymphocytes % (A) 17 %; MCH 30.2 pg (25.0-35.0); MCHC 30.8 g/dL (31.0-37.0); MCV 98.1 fL (80.0-100.0); Mean Platelet Volume 8.7; Monocytes # (A) 0.5 k/uL (0-1.0); Monocytes % (A) 6 %; Neutrophils # (A) 5.7 k/uL (1.3-7.7); Neutrophils % (A) 71 %; Platelet Count 188 k/uL (150-450); RBC 4.34 m/uL (4.30-5.90); RDW 13.2 % (11.5-15.5); WBC 8.1 k/uL (3.8-10.6)
[2024-01-23 15:30] LABS: INR 0.9 (<1.2); Partial Thromboplastin Time 22.9 sec (22.0-30.0); Prothrombin Time 9.9 sec (10.0-12.5)
[2024-01-23 15:50] LABS: Appearance,Urine Clear (Clear); Bacteria,Urine Rare /hpf; Bilirubin,Urine Negative (Negative); Blood,Urine Negative (Negative); Color,Urine Colorless; Glucose,Urine (UA) 4+ (Negative); Ketones,Urine 1+ (Negative); Leukocyte Esterase,Urine Negative (Negative); Mucus,Urine Rare /hpf; Nitrite,Urine Negative (Negative); Protein,Urine 1+ (Negative); RBC,Urine 1 /hpf (0-5); Specific Gravity,Urine 1.028 (1.001-1.035); Urobilinogen,Urine <2.0 mg/dL (<2.0); WBC,Urine <1 /hpf (0-5)
[2024-01-23 16:22] LABS: ALT 52 U/L (4-49); AST 36 U/L (17-59); African American GFR (CKD) 56 (>60 ml/min/1.73 sqM); Albumin 3.8 g/dL (3.5-5.0); Alkaline Phosphatase 189 U/L (38-126); Anion Gap 9 mmol/L; Blood Urea Nitrogen 64 mg/dL (9-20); Calcium 8.8 mg/dL (8.4-10.2); Carbon Dioxide 24 mmol/L (22-30); Chloride 100 mmol/L (98-107); Glucose 480 mg/dL (74-99); Magnesium 2.2 mg/dL (1.6-2.3); Non-African American GFR(CKD) 49 (>60 ml/min/1.73 sqM); Potassium 5.3 mmol/L (3.5-5.1); Sodium 133 mmol/L (137-145); Total Bilirubin 0.7 mg/dL (0.2-1.3); Total Protein 6.3 g/dL (6.3-8.2)
[2024-01-23 19:51] LABS: Hepatitis A Antibody IgM Nonreactive (Nonreactive); Hepatitis B Core IgM Nonreactive (Nonreactive); Hepatitis B Surface Antigen Nonreactive (Nonreactive); Hepatitis C IgG Antibody Nonreactive (Nonreactive)
[2024-01-24 02:43] LABS: LDL Cholesterol,Calculated 123.4 mg/dL (0.0-131.0)
--- NOTE | 2024-01-24 06:13 | P.GSCN ---
History of Present Illness Consult date: 01/23/24 Reason for Consult: Multivessel coronary artery disease Requesting physician: Sina Garcia History of present illness: This is a 54-year-old gentleman who follows on outpatient basis for his primary care with Dr. Pham Hou and with Dr. Jose Garcia for his cardiology care. He has a past medical history significant for chronic lymphocytic leukemia which is followed by Dr. Mc, acute on chronic diastolic congestive heart failure, ischemic cardiomyopathy with a recent 2D echocardiogram showing an EF of 40%, h ypertension, dyslipidemia, insulin-dependent diabetes mellitus, TIA and is a lifetime non-smoker. Recently, the patient has had complaints of shortness of breath and fatigue with activity. He reports that with periods of rest his shortness of breath resolves. He denies any recent fever, chills, nausea, vomiting, diarrhea, constipation, chest pain/pressure, headache, hemoptysis, hematemesis, presyncope or syncope. The patient had an admission into the hospital in September 2023 with complaints of increased swelling to his bilateral lower extremities and shortness of breath. A chest x-ray at that time revealed cardiomegaly and pulmonary congestion. Subsequently, the patient was seen by Dr. Jose Garcia from cardiology and the patient underwent a treadmill stress test which was abnormal. Due to the findings on the treadmill, transthoracic 2D echocardiogram, has congestive heart failure and cardiomyopathy he was recommended to undergo a cardiac catheterization which was completed today January 23, [address] Garcia. The heart catheterization revealed triple-vessel coronary artery disease with a 70% stenosis to his mid right coronary artery, a 70 to 80% stenosis to his mid left anterior descending coronary artery, an 80 to 90% stenosis to his diagonal branch, and a 70 to 80% stenosis to his obtuse marginal coronary artery. Subsequently, due to the findings on the cardiac catheterization a consult was placed to Dr. Nick Grewal from cardiothoracic surgery for further evaluation and treatment recommendations including myocardial vascularization surgery. Review of Systems A review of systems was completed and was negative except as mentioned in the HPI. Past Medical History Past Medical History: Cancer (Chronic lymphocytic leukemia), Heart Failure, CVA/TIA (History of expressive aphasia), Diabetes Mellitus, GERD/Reflux, Hyperlipidemia, Hypertension Additional Past Medical History / Comment(s): Ischemic cardiomyopathy with an ejection fraction of 40%, IDDM type I, CLL, recent R upper arm pain, occasional sinus issues. History of Any Multi-Drug Resistant Organisms: None Reported Past Surgical History: Cholecystectomy, Tonsillectomy Additional Past Surgical History / Comment(s): 12/2018 L neck mass excision, c olonoscopy, bilateral cataract removals/lens implants Past Anesthesia/Blood Transfusion Reactions: Motion Sickness, Postoperative Nausea & Vomiting (PONV) Past Psychological History: No Psychological Hx Reported Smoking Status: Never smoker Past Alcohol Use History: None Reported Past Drug Use History: None Reported - Past Family History Father Family Medical History: Cancer Additional Family Medical History / Comment(s): Father from leukemia. Mother Family Medical History: Asthma, Dementia Additional Family Medical History / Comment(s): Mother is , she had night terrors. Brother(s) Additional Family Medical History / Comment(s): 2 of pts brothers have schizophrenia and one is also a diabetic. One at the age of 56yrs from "natural causes" Medications and Allergies Home Medications Medication Instructions Recorded Confirmed Type Atorvastatin [Lipitor] 40 mg PO DAILY 10/05/23 01/23/24 History Clopidogrel [Plavix] 75 mg PO DAILY 10/05/23 01/23/24 History Famotidine [Pepcid] 20 mg PO BID 10/05/23 01/23/24 History Furosemide [Lasix] 40 mg PO DAILY #90 tablet 12/29/23 01/22/24 Rx Insulin Detemir (Levemir) [Levemir] 12 unit SQ BID #1 each 01/12/24 01/23/24 Rx Dapagliflozin Propanediol [Farxiga] 10 mg PO DAILY 01/22/24 01/23/24 History INSULIN ASPART (NovoLOG) [NovoLOG 0 - 12 unit SQ ACHS 01/22/24 01/22/24 History (formulary)] carvediloL [Coreg] 25 mg PO BID 01/22/24 01/23/24 History Aspirin 81 mg PO DAILY #90 tab 01/23/24 Rx Isosorbide Mononitrate ER [Imdur] 30 mg PO DAILY #90 tab 01/23/24 Rx Nitroglycerin Sl Tabs [Nitrostat] 0.4 mg SUBLINGUAL Q5M PRN #100 tab 01/23/24 Rx amLODIPine [Norvasc] 10 mg PO DAILY #90 tablet 01/23/24 Rx hydrALAZINE HCL [Apresoline] 25 mg PO TID #180 tab 01/23/24 Rx Allergies Allergy/AdvReac Type Severity Reaction Status Date / Time No Known Allergies Allergy Verified 01/23/24 06:12 Surgical - Exam Vital Signs Temp Pulse Resp BP Pulse Ox 98.9 F 81 16 198/98 96 01/23/24 06:46 01/23/24 06:46 01/23/24 06:46 01/23/24 06:46 01/23/24 06:46 - General well developed, well nourished, no distress, no pain - Eyes PERRL, normal ocular movement, no pale, no icteric - ENT normal pinna, normal nares, normal mucosa, no hearing loss, no congestion - Neck Neck is supple, no lymphadenopathy no masses, no bruits, trachea midline, no venous distension - Respiratory Lungs essentially clear throughout. No wheezes, rhonchi or crackles. Respirations are symmetrical and nonlabored. - Cardiovascular Regular rhythm and rate. S1 and S2 present, negative for S3, gallop or murmur. No peripheral edema. - Abdomen Abdomen is soft, nontender and nondistended. Active bowel sounds present all 4 abdominal quadrants. No guarding or rigidity. - Genitourinary Deferred - Rectum Deferred - Integumentary Skin is warm and dry. No clubbing or cyanosis is present. no rash, no growths, no abnormal pigmentation - Neurologic No focal deficits. normal coordination, normal sensation - Musculoskeletal Moves all 4 extremities with equal strength bilateral. normal gait, normal posture - Psychiatric oriented to time, oriented to person, oriented to place, speech is normal, memory intact Results - Labs 01/23/24 15:11 01/23/24 15:11 Abnormal Lab Results - Last 24 Hours (Table) 01/23/24 01/23/24 01/23/24 Range/Units 06:22 15:11 15:11 MCHC 30.8 L (31.0-37.0) g/dL PT 9.9 L (10.0-12.5) sec POC Glucose (mg/dL) 339 H (70-110) mg/dL - Imaging Chest x-ray: report reviewed, image reviewed Additional studies: Cardiac catheterization films reviewed by Dr. Grewal. Assessment and Plan Assessment: Multivessel coronary artery disease as seen on cardiac catheterization Acute on chronic diastolic congestive heart failure Ischemic cardiomyopathy with an ejection fraction of 40% on transthoracic 2D echocardiogram Hypertension Hyperlipidemia Chronic lymphocytic leukemia Insulin-dependent diabetes mellitus type 1, insulin pump History of TIA, presented with expressive aphasia Lifetime non-smoker Plan: The patient was seen and examined at his bedside in conjunction with Dr. Nick yates from cardiothoracic surgery in the extended stay unit. His chart and diagnostics were reviewed. Preoperative testing and preoperative teaching has been initiated. A 5 m walk test has been completed with the patient, time 1: 4.36 seconds, time 2: 4.17 seconds, time 3: 4.28 seconds. The test was completed by exercise physiology and reported that the patient needed encouragement to walk the best he could. A clinical frailty score was calculated which equaled 3 which shows fit/mild frailty managing well. The patient will be scheduled to see Dr. Grewla in the office tomorrow January 24, 2024 to discuss treatment options including myocardial vascularization surgery. Continue to maximize medical management with aspirin, statin and beta-maximiliano. More recommendations to follow once his preoperative testing has been obtained and based on patient's clinical course. Thank you Dr. Garcia for this consult and we look forward to working with you in the care of this patient. I have personally seen and examined the patient, performed the documentation and the assessment and plan as written. Number of minutes spent on the visit: 30. BEATRICE Cabrera Attending Addendum: Patient seen and evaluated with LOGISTICS ENGINEERING MANAGER above. Agree with his assessment and plan. This is a 54 year-old M with a hx of CLL, HTN, HLD, DM, TIA who presented for elective angiography for worsening sob, and fatigue s/p recent positive stress test. Angiography reveals significant 3v CAD. He is a good candidate for elective CABG. We will plan for proceed with surgery in the next 1-2 weeks. I spent 45 minutes reviewing the data and discussing the plan of care with the patient and the care team. Time with Patient: Greater than 30
== END 2024-01-23 15:14 | disposition home or self-care (01) ==
LOC: CATHCVL 05:39
PROVIDERS: ATTEND Internal Medicine Cardiovascular Disease
DX: I25.5 Ischemic cardiomyopathy (principal); I11.0 Hypertensive heart disease with heart failure; I50.33 Acute on chronic diastolic (congestive) heart failure; I25.10 Atherosclerotic heart disease of native coronary artery without angina pectoris; E78.5 Hyperlipidemia, unspecified; K21.9 Gastro-esophageal reflux disease without esophagitis; C91.10 Chronic lymphocytic leukemia of B-cell type not having achieved remission; E10.9 Type 1 diabetes mellitus without complications; Z79.02 Long term (current) use of antithrombotics/antiplatelets; Z79.4 Long term (current) use of insulin; Z79.82 Long term (current) use of aspirin; Z79.84 Long term (current) use of oral hypoglycemic drugs; Z79.899 Other long term (current) drug therapy; Z86.73 Personal history of transient ischemic attack (TIA), and cerebral infarction without residual deficits; Z90.49 Acquired absence of other specified parts of digestive tract; Z90.89 Acquired absence of other organs
CPT/HCPCS: 94150; 80061; 80053; 80074; 84443; 83735; 85025; 85610; 85730; 81001; 87070; 83036; 71046; 93931; 93970; 93922; 93880; 71250; J2250; J0360; J2001; J3010; J1644; Q9967; 93458

== ENCOUNTER → 2024-01-26 | Outpatient (CLI) | payer BC ==
--- NOTE | 2024-01-24 13:52 | P.PN ---
Progress Note - Text Progress Note Date: 01/24/24 Mr Rodney is here for follow-up to discuss options regarding his CAD. He was seen in the hospital yesterday after his coronary angiography. Please refer to that consult note for complete details regarding his diagnosis and history. In short, Mr Rodney is a 54 y/o M with a hx of DM1, HTN, HLD, and CLL who developed worsening sob and lower extremity edema in the last several months. In september he was admitted to the hospital with HF and echo revealed an EF of 35-40% with mild mitral regurgitation. He finally underwent coronary angiography which reveals significant disease in his mid RCA, LAD and Cx. We disussed options today and I recommended CABG. I told him he needs a bypass at least to the LAD and distal RCA. It is unclear whether we will be able to bypass his first diagonal or the OM which is small and has limited run-off but we will make that decision in the operating room. Prior to surgery we will repeat echo which is scheduled for this monday to make sure his mitral regurg has not gotten worse. In addition, he will stop his plavix this monday and we will tentatively plan for surgery next monday. OPCABG x 2-3, NENITA LOPEZ
--- NOTE | 2024-01-26 16:52 | CA ---
Transthoracic Echo Report Name: Walter Rodney Age: 54 Gender: M : 1970 Exam Date: 01/26/2024 11:37 Exam Location: [facility] Ht (in): 71 Wt (lb): 180 Ordering Physician: Nick Grewal MD Attending/Referring Phys: Heater Mechanic Chelsie Alvarez RDCS Procedure CPT: Indications: I34.0 [place] ESTHER INSUFFICIENCY Cardiac Hx: Pt had an adverse reaction to Definity. Technical Quality: Fair Contrast 1: Definity Total Dose (mL): 2 Contrast 2: Total Dose (mL): MEASUREMENTS (Male / Female) Normal Values 2D ECHO LV Diastolic Diameter PLAX 5.8 cm 4.2 - 5.9 / 3.9 - 5.3 cm LV Systolic Diameter PLAX 5.3 cm IVS Diastolic Thickness 1.4 cm 0.6 - 1.0 / 0.6 - 0.9 cm LVPW Diastolic Thickness 0.9 cm 0.6 - 1.0 / 0.6 - 0.9 cm LV Relative Wall Thickness 0.4 RV Internal Dim ED PLAX 2.5 cm LVOT Diameter 2.1 cm LA Systolic Diameter LX 4.7 cm 3.0 - 4.0 / 2.7 - 3.8 cm LV Diastolic Volume MOD BP 152.0 cm??? 67 - 155 / 56 - 104 cm??? LV Systolic Volume MOD BP 94.7 cm??? 22 - 58 / 19 - 49 cm??? LV Ejection Fraction MOD BP 37.7 % >= 55 % LV Cardiac Index MOD BP 2287.9 cm???/min???m??? LV Diastolic Volume MOD 4C 159.5 cm??? LV Systolic Volume MOD 4C 109.7 cm??? LV Ejection Fraction MOD 4C 31.3 % LV Cardiac Index MOD 4C 1989.2 cm???/min???m??? LV Diastolic Length 4C 9.0 cm LV Systolic Length 4C 8.3 cm LV Diastolic Volume MOD 2C 140.9 cm??? LV Systolic Volume MOD 2C 80.5 cm??? LV Ejection Fraction MOD 2C 42.8 % LV Cardiac Index MOD 2C 2406.6 cm???/min???m??? LV Diastolic Length 2C 8.7 cm LV Systolic Length 2C 8.5 cm LA Volume 88.4 cm??? 18 - 58 / 22 - 52 cm??? LA Volume Index 43.5 cm???/m??? 16 - 28 cm???/m??? M-MODE Aortic Root Diameter MM 3.6 cm LA Systolic Diameter MM 4.0 cm LA Ao Ratio MM 1.1 AV Cusp Separation MM 2.1 cm DOPPLER AV Peak Velocity 140.0 cm/s AV Peak Gradient 7.8 mmHg AV Mean Velocity 107.4 cm/s AV Mean Gradient 4.9 mmHg AV Velocity Time Integral 33.7 cm MV Area PHT 3.5 cm??? Mitral E Point Velocity 95.7 cm/s Mitral A Point Velocity 72.9 cm/s Mitral E to A Ratio 1.3 MV Deceleration Time 219.4 ms TR Peak Velocity 285.1 cm/s TR Peak Gradient 32.5 mmHg FINDINGS Left Ventricle Left ventricular ejection fraction is estimated at 40-45 %. Moderately increased septal wall thickness. Severely increased left ventricular systolic volume. Hypokinetic inferior and inferolateral wall. Dilated left ventricle Right Ventricle Normal right ventricular size and function. Right ventricular systolic pressure within normal limits. Right Atrium Mild right atrial dilatation. Left Atrium Mildly increased left atrial diameter. Severely increased left atrial volume. Mildly increased left atrial area. Mitral Valve Structurally normal mitral valve. moderate mitral regurgitation. No mitral stenosis. Aortic Valve Trileaflet aortic valve. No aortic regurgitation. No aortic stenosis. Tricuspid Valve Structurally normal tricuspid valve. Mild tricuspid regurgitation. Pulmonic Valve Structurally normal pulmonic valve. Trace pulmonic regurgitation. No pulmonic stenosis. Pericardium No pericardial or pleural effusion. Aorta Aorta at upper limits of normal. CONCLUSIONS 1. Mildly dilated left ventricle with moderately impaired systolic function with segmental wall motion abnormality 2. Moderate mitral regurgitation 3. Mild tricuspid regurgitation with no evidence of pulmonary hypertension Previewed by: Dr. Amanda Saldivar MD (Electronically Signed) Final Date: 26 January 2024 16:52
== END | disposition home or self-care (01) ==
LOC: RADECHMAIN 11:32
PROVIDERS: ATTEND Thoracic Surgery (Cardiothoracic Vascular Surgery)
DX: I34.0 Nonrheumatic mitral (valve) insufficiency (principal); I08.1 Rheumatic disorders of both mitral and tricuspid valves; I25.10 Atherosclerotic heart disease of native coronary artery without angina pectoris
CPT/HCPCS: 93306; Q9957

== ENCOUNTER 2024-12-04 05:44 | Emergency (ER) | payer OTHER ==
[2024-12-04 05:49] LABS: Glucose,Whole Blood 157 mg/dL (70-110)
[2024-12-04 05:50] VITALS: RESP 16; TEMP 98.2
[2024-12-04 06:24] LABS: Basophils # (A) 0.11 10*3/uL (0.00-0.10); Basophils % (A) 1.1 %; Eosinophils # (A) 0.25 10*3/uL (0.04-0.35); Eosinophils % (A) 2.5 %; HCT 39.5 % (39.6-50.0); HGB 13.3 g/dL (13.0-17.0); Lymphocytes # (A) 3.62 10*3/uL (0.90-5.00); Lymphocytes % (A) 36.5 %; MCH 31.1 pg (27.0-32.0); MCHC 33.7 g/dL (32.0-37.0); MCV 92.5 fL (80.0-97.0); Mean Platelet Volume 9.2 fL (9.5-12.2); Monocytes # (A) 0.55 10*3/uL (0.20-1.00); Monocytes % (A) 5.5 %; Neutrophils % (A) 53.4 %; Platelet Count 296 10*3/uL (140-440); RBC 4.27 10*6/uL (4.40-5.60); WBC 9.93 10*3/uL (4.50-10.00)
[2024-12-04 06:29] LABS: VBG PH 7.38 (7.31-7.41)
[2024-12-04 06:39] LABS: AST 76 U/L (17-59); African American GFR (CKD) 60 (>60 ml/min/1.73 sqM); Albumin 3.5 g/dL (3.5-5.0); Alkaline Phosphatase 529 U/L (38-126); Anion Gap 9 mmol/L; Blood Urea Nitrogen 42 mg/dL (9-20); Calcium 9.2 mg/dL (8.4-10.2); Carbon Dioxide 26 mmol/L (22-30); Chloride 102 mmol/L (98-107); Glucose 160 mg/dL (74-99); Lipase 41 U/L (23-300); Magnesium 2.2 mg/dL (1.6-2.3); Non-African American GFR(CKD) 52 (>60 ml/min/1.73 sqM); Potassium 4.1 mmol/L (3.5-5.1); Sodium 137 mmol/L (137-145); Total Bilirubin 0.9 mg/dL (0.2-1.3); Total Protein 6.2 g/dL (6.3-8.2)
[2024-12-04] MEDS: SODIUM CHLORIDE 0.9% 1,000 ML IV SCH (06:43)
[2024-12-04 06:51] LABS: ALT 206 U/L (4-49)
[2024-12-04] MEDS: ONDANSETRON 4 MG/2 ML VIAL IVP STA (06:54)
--- NOTE | 2024-12-04 07:19 | ED ---
General Adult HPI - General Chief complaint: Recheck/Abnormal Lab/Rx Stated complaint: Vomiting, Hyperglycemia Time Seen by Provider: 12/04/24 06:03 Source: patient, RN notes reviewed Mode of arrival: ambulatory Limitations: no limitations - History of Present Illness Initial comments: 54-year-old male presents emergency department with chief complaint of diabetic issues. Patient states that he is waiting on his insulin pump supplies in which he states he has been using old short acting insulin without having any long- acting insulin. Patient states his blood sugars are very labile has had associated nausea, vomiting feels dehydrated. Patient denies any fevers or chills no chest pain no shortness of breath. Patient became concerned when he is unable to keep any of his medications down including his hypertensive medications. - Related Data Home Medications Medication Instructions Recorded Confirmed Atorvastatin [Lipitor] 40 mg PO DAILY 10/05/23 01/23/24 Clopidogrel [Plavix] 75 mg PO DAILY 10/05/23 01/23/24 Famotidine [Pepcid] 20 mg PO BID 10/05/23 01/23/24 Dapagliflozin Propanediol [Farxiga] 10 mg PO DAILY 01/22/24 01/23/24 INSULIN ASPART (NovoLOG) [NovoLOG 0 - 12 unit SQ ACHS 01/22/24 01/22/24 (formulary)] carvediloL [Coreg] 25 mg PO BID 01/22/24 01/23/24 Previous Rx's Medication Instructions Recorded Furosemide [Lasix] 40 mg PO DAILY #90 tablet 12/29/23 Insulin Detemir (Levemir) [Levemir] 12 unit SQ BID #1 each 01/12/24 Aspirin 81 mg PO DAILY #90 tab 01/23/24 Isosorbide Mononitrate ER [Imdur] 30 mg PO DAILY #90 tab 01/23/24 Nitroglycerin Sl Tabs [Nitrostat] 0.4 mg SUBLINGUAL Q5M PRN #100 tab 01/23/24 amLODIPine [Norvasc] 10 mg PO DAILY #90 tablet 01/23/24 hydrALAZINE HCL [Apresoline] 25 mg PO TID #180 tab 01/23/24 INSULIN LISPRO (HumaLOG) [HumaLOG] See Rx Instructions .ROUTE 12/04/24 .COMPLEX #10 ml Insulin Glargine,Hum.rec.anlog 20 units SQ DAILY #1 pen 12/04/24 [Lantus Solostar Pen] Ondansetron Odt [Zofran Odt] 4 mg PO Q8HR PRN #10 tab 12/04/24 Allergies Allergy/AdvReac Type Severity Reaction Status Date / Time perflutren AdvReac Severe Unknown Verified 12/04/24 05:50 Review of Systems ROS Statement: Those systems with pertinent positive or pertinent negative responses have been documented in the HPI. ROS Other: All systems not noted in ROS Statement are negative. Past Medical History Past Medical History: Cancer, Heart Failure, CVA/TIA, Diabetes Mellitus, GERD/Reflux, Hyperlipidemia, Hypertension Additional Past Medical History / Comment(s): Ischemic cardiomyopathy with an ejection fraction of 40%, IDDM type I, CLL, recent R upper arm pain, occasional sinus issues. History of Any Multi-Drug Resistant Organisms: None Reported Past Surgical History: Cholecystectomy, Coronary Bypass/CABG, Tonsillectomy Additional Past Surgical History / Comment(s): 12/2018 L neck mass excision, colonoscopy, bilateral cataract removals/lens implants; 02/13 triple by-pass Past Anesthesia/Blood Transfusion Reactions: Motion Sickness, Postoperative Nausea & Vomiting (PONV) Past Psychological History: No Psychological Hx Reported Smoking Status: Never smoker Past Alcohol Use History: None Reported Past Drug Use History: None Reported - Past Family History Father Family Medical History: Cancer Additional Family Medical History / Comment(s): Father from leukemia. Mother Family Medical History: Asthma, Dementia Additional Family Medical History / Comment(s): Mother is , she had night terrors. Brother(s) Additional Family Medical History / Comment(s): 2 of pts brothers have schizophrenia and one is also a diabetic. One at the age of 56yrs from "na tural causes" General Exam Limitations: no limitations General appearance: alert, in no apparent distress Head exam: Present: atraumatic, normocephalic, normal inspection Eye exam: Present: normal appearance, PERRL, EOMI. Absent: scleral icterus, conjunctival injection, periorbital swelling ENT exam: Present: normal exam, mucous membranes moist Neck exam: Present: normal inspection. Absent: tenderness, meningismus, lymphadenopathy Respiratory exam: Present: normal lung sounds bilaterally. Absent: respiratory distress, wheezes, rales, rhonchi, stridor Cardiovascular Exam: Present: normal rhythm, tachycardia, normal heart sounds. Absent: systolic murmur, diastolic murmur, rubs, gallop, clicks GI/Abdominal exam: Present: soft, normal bowel sounds. Absent: distended, tenderness, guarding, rebound, rigid Neurological exam: Present: alert, oriented X3 Course Vital Signs 12/04/24 12/04/24 05:45 07:32 Temperature 98.2 F Pulse Rate 104 H 90 Respiratory 16 16 Rate Blood Pressure 176/92 195/92 O2 Sat by Pulse 97 98 Oximetry Medical Decision Making - Medical Decision Making Was pt. sent in by a medical professional or institution (, PA, FINANCIAL REPORTING ACCOUNTANT, urgent care, hospital, or [facility]...) When possible be specific @ -No Did you speak to anyone other than the patient for history (EMS, parent, family, police, friend...)? What history was obtained from this source @ -No Did you review nursing and triage notes (agree or disagree)? Why? @ -I reviewed and agree with nursing and triage notes Were old charts reviewed (outside hosp., previous admission, EMS record, old EKG, old radiological studies, urgent care reports/EKG's, [facility] records)? Report findings @ -No old charts were reviewed Differential Diagnosis (chest pain, altered mental status, abdominal pain women, abdominal pain men, vaginal bleeding, weakness, fever, dyspnea, syncope, headache, dizziness, GI bleed, back pain, seizure, CVA, palpatations, mental health, musculoskeletal)? @ -Differential Abdominal Pain Men: Appendicitis, cholecystitis, diverticulosis, ischemic bowel, pancreatitis, hepatitis, UTI, gastroenteritis, AAA, incarcerated hernia, bowel obstruction, constipation, inflammatory bowel, hepatitis, peptic ulcer disease, splenic infarction, perforated viscus, testicular torsion, this is not meant to be an all-inclusive list EKG interpreted by me (3pts min.). @ -As above X-rays interpreted by me (1pt min.). @ -None done CT interpreted by me (1pt min.). @ -None done U/S interpreted by me (1pt. min.). @ -None done What testing was considered but not performed or refused? (CT, X-rays, U/S, labs)? Why? @ -None What meds were considered but not given or refused? Why? @ -None Did you discuss the management of the patient with other professionals (professionals i.e. , PA, FINANCIAL REPORTING ACCOUNTANT, lab, RT, psych nurse, social worker delinquency prevention, telephone diaphragm assembler, teacher, eeo officer, dependency case manager)? Give summary @ -No Was smoking cessation discussed for >3mins.? @ -No Was critical care preformed (if so, how long)? @ -No Were there social determinants of health that impacted care today? How? (Homelessness, low income, unemployed, alcoholism, drug addiction, transportation, low edu. Level, literacy, decrease access to med. care, intermediate, rehab)? @ -No Was there de-escalation of care discussed even if they declined (Discuss DNR or withdrawal of care, Hospice)? DNR status @ -No What co-morbidities impacted this encounter? (DM, HTN, Smoking, COPD, CAD, Cancer, CVA, ARF, Chemo, Hep., AIDS, mental health diagnosis, sleep apnea, morbid obesity)? @ -Diabetes Was patient admitted / discharged? Hospital course, mention meds given and route, prescriptions, significant lab abnormalities, going to OR and other pertinent info. @ -[Charged patient feels great improved after antiemetics and IV fluids. Patient is not in DKA. Patient was provided insulin prescription, antiemetics and close follow-up return parameters discussed. Undiagnosed new problem with uncertain prognosis? @ -No Drug Therapy requiring intensive monitoring for toxicity (Heparin, Nitro, Insulin, Cardizem)? @ -No Were any procedures done? @ -No Diagnosis/symptom? @ -Nausea vomiting diabetes Acute, or Chronic, or Acute on Chronic? @ -Default Uncomplicated (without systemic symptoms) or Complicated (systemic symptoms)? @ -complicated Side effects of treatment? @ -No Exacerbation, Progression, or Severe Exacerbation? @ -No Poses a threat to life or bodily function? How? (Chest pain, [place], [place], pneumonia, PE, COPD, DKA, ARF, appy, cholecystitis, CVA, Diverticulitis, Homicidal, Suicidal, threat to staff... and all critical care pts) @ -No - Lab Data Result diagrams: 12/04/24 06:17 12/04/24 06:17 Lab Results 12/04/24 12/04/24 12/04/24 Range/Units 05:48 06:17 06:17 WBC 9.93 (4.50-10.00) 10*3/uL RBC 4.27 L (4.40-5.60) 10*6/uL Hgb 13.3 (13.0-17.0) g/dL Hct 39.5 L (39.6-50.0) % MCV 92.5 (80.0-97.0) fL MCH 31.1 (27.0-32.0) pg MCHC 33.7 (32.0-37.0) g/dL Plt Count 296 (140-440) 10*3/uL MPV 9.2 L (9.5-12.2) fL Immature Gran % (Auto) 1.0 % Neutrophils % 53.4 % Lymphocytes % 36.5 % Monocytes % 5.5 % Eosinophils % 2.5 % Basophils % 1.1 % Immature Gran # 0.10 H (0.00-0.04) 10*3/uL Neutrophils # 5.30 (1.80-7.70) 10*3/uL Lymphocytes # 3.62 (0.90-5.00) 10*3/uL Monocytes # 0.55 (0.20-1.00) 10*3/uL Eosinophils # 0.25 (0.04-0.35) 10*3/uL Basophils # 0.11 H (0.00-0.10) 10*3/uL VBG pH (7.31-7.41) VBG pCO2 (37-51) mmHg VBG HCO3 (24-28) mmol/L Sodium 137 (137-145) mmol/L Potassium 4.1 (3.5-5.1) mmol/L Chloride 102 (98-107) mmol/L Carbon Dioxide 26 (22-30) mmol/L Anion Gap 9 mmol/L BUN 42 H (9-20) mg/dL Creatinine 1.50 H (0.66-1.25) mg/dL Est GFR (CKD-EPI)AfAm 60 (>60 ml/min/1.73 sqM) Est GFR (CKD-EPI)NonAf 52 (>60 ml/min/1.73 sqM) Glucose 160 H (74-99) mg/dL POC Glucose (mg/dL) 157 H (70-110) mg/dL POC Glu Director Revenue ID Daniel Amenda Lactic Ac Sepsis Rflx Plasma Lactic Acid Scotty (0.7-2.0) mmol/L Calcium 9.2 (8.4-10.2) mg/dL Magnesium 2.2 (1.6-2.3) mg/dL Total Bilirubin 0.9 (0.2-1.3) mg/dL AST 76 H (17-59) U/L ALT 206 H (4-49) U/L Alkaline Phosphatase 529 H (38-126) U/L Total Protein 6.2 L (6.3-8.2) g/dL Albumin 3.5 (3.5-5.0) g/dL Lipase 41 (23-300) U/L Urine Color Urine Appearance (Clear) Urine pH (5.0-8.0) Ur Specific [place] (1.001-1.035) Urine Protein (Negative) Urine Glucose (UA) (Negative) Urine Ketones (Negative) Urine Blood (Negative) Urine Nitrite (Negative) Urine Bilirubin (Negative) Urine Urobilinogen (<2.0) mg/dL Ur Leukocyte Esterase (Negative) Urine RBC (0-5) /hpf Urine WBC (0-5) /hpf Ur Squamous Epith Cells (0-4) /hpf Urine Mucus (None) /hpf 12/04/24 12/04/24 12/04/24 Range/Units 06:17 06:17 06:52 WBC (4.50-10.00) 10*3/uL RBC (4.40-5.60) 10*6/uL Hgb (13.0-17.0) g/dL Hct (39.6-50.0) % MCV (80.0-97.0) fL MCH (27.0-32.0) pg MCHC (32.0-37.0) g/dL Plt Count (140-440) 10*3/uL MPV (9.5-12.2) fL Immature Gran % (Auto) % Neutrophils % % Lymphocytes % % Monocytes % % Eosinophils % % Basophils % % Immature Gran # (0.00-0.04) 10*3/uL Neutrophils # (1.80-7.70) 10*3/uL Lymphocytes # (0.90-5.00) 10*3/uL Monocytes # (0.20-1.00) 10*3/uL Eosinophils # (0.04-0.35) 10*3/uL Basophils # (0.00-0.10) 10*3/uL VBG pH 7.38 (7.31-7.41) VBG pCO2 45 (37-51) mmHg VBG HCO3 27 (24-28) mmol/L Sodium (137-145) mmol/L Potassium (3.5-5.1) mmol/L Chloride (98-107) mmol/L Carbon Dioxide (22-30) mmol/L Anion Gap mmol/L BUN (9-20) mg/dL Creatinine (0.66-1.25) mg/dL Est GFR (CKD-EPI)AfAm (>60 ml/min/1.73 sqM) Est GFR (CKD-EPI)NonAf (>60 ml/min/1.73 sqM) Glucose (74-99) mg/dL POC Glucose (mg/dL) (70-110) mg/dL POC Glu Director Revenue ID Lactic Ac Sepsis Rflx Y Plasma Lactic Acid Scotty 3.3 H* (0.7-2.0) mmol/L Calcium (8.4-10.2) mg/dL Magnesium (1.6-2.3) mg/dL Total Bilirubin (0.2-1.3) mg/dL AST (17-59) U/L ALT (4-49) U/L Alkaline Phosphatase (38-126) U/L Total Protein (6.3-8.2) g/dL Albumin (3.5-5.0) g/dL Lipase (23-300) U/L Urine Color Urine Appearance (Clear) Urine pH (5.0-8.0) Ur Specific [place] (1.001-1.035) Urine Protein (Negative) Urine Glucose (UA) (Negative) Urine Ketones (Negative) Urine Blood (Negative) Urine Nitrite (Negative) Urine Bilirubin (Negative) Urine Urobilinogen (<2.0) mg/dL Ur Leukocyte Esterase (Negative) Urine RBC (0-5) /hpf Urine WBC (0-5) /hpf Ur Squamous Epith Cells (0-4) /hpf Urine Mucus (None) /hpf 12/04/24 Range/Units 08:31 WBC (4.50-10.00) 10*3/uL RBC (4.40-5.60) 10*6/uL Hgb (13.0-17.0) g/dL Hct (39.6-50.0) % MCV (80.0-97.0) fL MCH (27.0-32.0) pg MCHC (32.0-37.0) g/dL Plt Count (140-440) 10*3/uL MPV (9.5-12.2) fL Immature Gran % (Auto) % Neutrophils % % Lymphocytes % % Monocytes % % Eosinophils % % Basophils % % Immature Gran # (0.00-0.04) 10*3/uL Neutrophils # (1.80-7.70) 10*3/uL Lymphocytes # (0.90-5.00) 10*3/uL Monocytes # (0.20-1.00) 10*3/uL Eosinophils # (0.04-0.35) 10*3/uL Basophils # (0.00-0.10) 10*3/uL VBG pH (7.31-7.41) VBG pCO2 (37-51) mmHg VBG HCO3 (24-28) mmol/L Sodium (137-145) mmol/L Potassium (3.5-5.1) mmol/L Chloride (98-107) mmol/L Carbon Dioxide (22-30) mmol/L Anion Gap mmol/L BUN (9-20) mg/dL Creatinine (0.66-1.25) mg/dL Est GFR (CKD-EPI)AfAm (>60 ml/min/1.73 sqM) Est GFR (CKD-EPI)NonAf (>60 ml/min/1.73 sqM) Glucose (74-99) mg/dL POC Glucose (mg/dL) (70-110) mg/dL POC Glu Director Revenue ID Lactic Ac Sepsis Rflx Plasma Lactic Acid Scotty (0.7-2.0) mmol/L Calcium (8.4-10.2) mg/dL Magnesium (1.6-2.3) mg/dL Total Bilirubin (0.2-1.3) mg/dL AST (17-59) U/L ALT (4-49) U/L Alkaline Phosphatase (38-126) U/L Total Protein (6.3-8.2) g/dL Albumin (3.5-5.0) g/dL Lipase (23-300) U/L Urine Color Colorless Urine Appearance Clear (Clear) Urine pH 5.5 (5.0-8.0) Ur Specific [place] 1.019 (1.001-1.035) Urine Protein 2+ H (Negative) Urine Glucose (UA) 4+ H (Negative) Urine Ketones 2+ H (Negative) Urine Blood Small H (Negative) Urine Nitrite Negative (Negative) Urine Bilirubin Negative (Negative) Urine Urobilinogen <2.0 (<2.0) mg/dL Ur Leukocyte Esterase Negative (Negative) Urine RBC 1 (0-5) /hpf Urine WBC 1 (0-5) /hpf Ur Squamous Epith Cells <1 (0-4) /hpf Urine Mucus Rare H (None) /hpf Disposition Clinical Impression: Nausea & vomiting, Diabetic complication Disposition: HOME SELF-CARE Condition: Stable Instructions (If sedation given, give patient instructions): Acute Nausea and Vomiting (ED) Additional Instructions: Please return to the Emergency Department if symptoms worsen or any other concerns. Prescriptions: INSULIN LISPRO (HumaLOG) [HumaLOG] See Rx Instructions .ROUTE .COMPLEX #10 ml Insulin Glargine,Hum.rec.anlog [Lantus Solostar Pen] 20 units SQ DAILY #1 pen Ondansetron Odt [Zofran Odt] 4 mg PO Q8HR PRN #10 tab PRN Reason: Nausea Is patient prescribed a controlled substance at d/c from ED?: No Referrals: Calixto Hou DO [Primary Care Provider] - 1-2 days Time of Disposition: 08:36
[2024-12-04 07:33] VITALS: BP 195/92; PULSE 90
[2024-12-04] MEDS: hydrALAZINE HCL 20 MG/ML 1 ML VIAL IVP STA (07:42)
[2024-12-04 09:49] LABS: Appearance,Urine Clear (Clear); Bilirubin,Urine Negative (Negative); Blood,Urine Small (Negative); Color,Urine Colorless; Glucose,Urine (UA) 4+ (Negative); Leukocyte Esterase,Urine Negative (Negative); Mucus,Urine Rare /hpf; Nitrite,Urine Negative (Negative); PH, Urine 5.5 (5.0-8.0); Protein,Urine 2+ (Negative); RBC,Urine 1 /hpf (0-5); Specific Gravity,Urine 1.019 (1.001-1.035); Squamous Epithelial Cell,Urine <1 /hpf (0-4); Urobilinogen,Urine <2.0 mg/dL (<2.0); WBC,Urine 1 /hpf (0-5)
[2024-12-04 10:00] LABS: Ketones,Urine 2+ (Negative)
== END 2024-12-04 10:07 | disposition home or self-care (01) ==
LOC: EC 05:44
DX: R11.2 Nausea with vomiting, unspecified (principal); E11.65 Type 2 diabetes mellitus with hyperglycemia; Z79.4 Long term (current) use of insulin; Z88.8 Allergy status to other drugs, medicaments and biological substances
CPT/HCPCS: 36415; 80053; 82803; 83605; 83690; 83735; 85025; 81001; 99285; 96374; 96375; 96361; J0360; J2405

== ENCOUNTER 2025-02-08 08:18 | Inpatient (IN) | payer OTHER ==
[2025-02-08 08:23] LABS: Glucose,Whole Blood >600 mg/dL (70-110)
[2025-02-08] MEDS: SODIUM CHLORIDE 0.9% 1,000 ML IV SCH ×2 (08:49→10:59)
[2025-02-08] MEDS: ONDANSETRON 4 MG/2 ML VIAL IVP STA (08:56)
[2025-02-08] MEDS: PANTOPRAZOLE 40 MG/10 ML VIAL IVP STA (08:58)
[2025-02-08] MEDS: INSULIN REGULAR 100 UNIT/ML VIAL (IV) IV ONE (09:00)
[2025-02-08] MEDS: ALBUTEROL NEB (CONC) 2.5 MG/0.5 ML INHALATION ONE ×2 (09:00→09:15)
[2025-02-08] MEDS: CALCIUM GLUCONATE IN NACL 1 GM in SALINE 1 100ML.BAG IVPB ONE (09:03)
[2025-02-08] MEDS: SODIUM BICARB 8.4% 50 ML SYR (1 MEQ/ML) IV ONE (09:03)
[2025-02-08] MEDS: SODIUM ZIRCONIUM CYCLOSILICATE 10 GM PACKET PO ONE (09:04)
[2025-02-08 09:06] LABS: Basophils # (A) 0.16 10*3/uL (0.00-0.10); Basophils % (A) 1.3 %; Eosinophils # (A) 0.10 10*3/uL (0.04-0.35); Eosinophils % (A) 0.8 %; HCT 35.0 % (39.6-50.0); HGB 11.3 g/dL (13.0-17.0); Lymphocytes # (A) 1.54 10*3/uL (0.90-5.00); Lymphocytes % (A) 12.7 %; MCH 32.8 pg (27.0-32.0); MCHC 32.3 g/dL (32.0-37.0); Monocytes # (A) 0.53 10*3/uL (0.20-1.00); Monocytes % (A) 4.4 %; Neutrophils # (A) 9.47 10*3/uL (1.80-7.70); Neutrophils % (A) 78.0 %; Platelet Count 332 10*3/uL (140-440); RBC 3.45 10*6/uL (4.40-5.60); RDW 12.2 % (11.5-14.5); WBC 12.14 10*3/uL (4.50-10.00)
--- NOTE | 2025-02-08 09:06 | ED ---
General Adult HPI - General Chief complaint: Nausea/Vomiting/Diarrhea Stated complaint: High blood sugar, vomiting Time Seen by Provider: 02/08/25 08:22 Source: patient, RN notes reviewed, old records reviewed Limitations: no limitations - History of Present Illness Initial comments: 55-year-old male who presents emergency department complaining of nausea, vomiting as well as high blood sugars. Has a history of type 1 diabetes. States insurance denied his prescription for insulin and has been without it for slightly over 24 hours. Was checking his blood sugars at home and they read as high. Has had nonbilious nonbloody emesis. Denies any abdominal pain, francis rtness of breath, chest pain. Presents for further evaluation at this time. He has a history of heart failure, diabetes, CVA, hypertension, hyperlipidemia. - Related Data Home Medications Medication Instructions Recorded Confirmed Clopidogrel [Plavix] 75 mg PO DAILY 10/05/23 02/08/25 INSULIN LISPRO (For Pump) [humaLOG 0.01 units SQ-PUMP CONTINUOUS 02/08/25 02/08/25 (For Pump)] hydrALAZINE HCL [Apresoline] 50 mg PO TID 02/08/25 02/08/25 Previous Rx's Medication Instructions Recorded Furosemide [Lasix] 40 mg PO DAILY #90 tablet 12/29/23 Allergies Allergy/AdvReac Type Severity Reaction Status Date / Time perflutren AdvReac Severe Full body Verified 02/08/25 09:38 muscle cramps Review of Systems ROS Statement: Those systems with pertinent positive or pertinent negative responses have been documented in the HPI. Review of Systems: CONST: Denies fever EYES: Denies blurry vision ENT: Denies nasal congestion C/V: Denies Chest pain RESP: Denies shortness of breath GI: Denies abdominal pain : Denies dysuria SKIN: Denies rash. MSK: Denies joint pain. NEURO: Denies headache ROS Other: All systems not noted in ROS Statement are negative. Past Medical History Past Medical History: Cancer, Heart Failure, CVA/TIA, Diabetes Mellitus, GERD/Reflux, Hyperlipidemia, Hypertension Additional Past Medical History / Comment(s): Ischemic cardiomyopathy with an ejection fraction of 40%, IDDM type I, CLL, recent R upper arm pain, occasional sinus issues. History of Any Multi-Drug Resistant Organisms: None Reported Past Surgical History: Cholecystectomy, Coronary Bypass/CABG, Tonsillectomy Additional Past Surgical History / Comment(s): 12/2018 L neck mass excision, colonoscopy, bilateral cataract removals/lens implants; 02/13 triple by-pass Past Anesthesia/Blood Transfusion Reactions: Motion Sickness, Postoperative Nausea & Vomiting (PONV) Past Psychological History: No Psychological Hx Reported Smoking Status: Never smoker Past Alcohol Use History: None Reported Past Drug Use History: None Reported - Past Family History Father Family Medical History: Cancer Additional Family Medical History / Comment(s): Father from leukemia. Mother Family Medical History: Asthma, Dementia Additional Family Medical History / Comment(s): Mother is , she had n ight terrors. Brother(s) Additional Family Medical History / Comment(s): 2 of pts brothers have schizophrenia and one is also a diabetic. One at the age of 56yrs from "natural causes" General Exam - General Exam Comments Initial Comments: General: Appears in no acute distress. HEAD: Normal with no signs of head trauma. EYES: PERRLA, EOMI, conjunctiva normal, no discharge. ENT: Hearing grossly intact, normal oropharynx. Dry mucous membranes. RESPIRATORY: Clear breath sounds bilaterally. No wheezes, rales, or rhonchi. C/V: Tachycardic with regular rhythm.. S1 and S2 auscultated, no edema, peripheral pulses 2+ and intact throughout ABD: Abd is soft, nontender, nondistended EXT: Normal range of motion, no obvious deformity SKIN: No rashes or lesions observed on exposed skin. NEURO: Alert and oriented x 4. Limitations: no limitations Course Vital Signs 02/08/25 02/08/25 02/08/25 08:22 09:16 09:26 Temperature 98.2 F Pulse Rate 103 H 106 H 106 H Respiratory 20 17 Rate Blood Pressure 170/78 136/62 O2 Sat by Pulse 99 99 Oximetry 02/08/25 02/08/25 02/08/25 09:30 09:45 10:00 Temperature Pulse Rate 105 H 98 102 H Respiratory 20 20 22 Rate Blood Pressure 136/62 141/63 121/63 O2 Sat by Pulse 99 98 98 Oximetry 02/08/25 10:15 Temperature Pulse Rate 105 H Respiratory 23 Rate Blood Pressure 155/72 O2 Sat by Pulse 98 Oximetry Medical Decision Making - Medical Decision Making Was pt. sent in by a medical professional or institution (, KYLE, DIGITAL PROGRAM MANAGER, urgent care, hospital, or senior care...) When possible be specific @ -No Did you speak to anyone other than the patient for history (EMS, parent, family, police, friend...)? What history was obtained from this source @ -No Did you review nursing and triage notes (agree or disagree)? Why? @ -I reviewed and agree with nursing and triage notes Were old charts reviewed (outside hosp., previous admission, EMS record, old EKG, old radiological studies, urgent care reports/EKG's, senior care records)? Report findings @ -Old charts reviewed showing history of CHF, history of insulin-dependent diabetes. Reviewed EKG from January 2024 with somewhat similar peaked T wave findings however in different leads. Reviewed EKG from December 2023 with no findings of peaked T waves. Differential Diagnosis (chest pain, altered mental status, abdominal pain women, abdominal pain men, vaginal bleeding, weakness, fever, dyspnea, syncope, headache, dizziness, GI bleed, back pain, seizure, CVA, palpatations, mental health, musculoskeletal)? @ -DKA, electrolyte abnormality, hyperkalemia. This list is not all inclusive. EKG interpreted by me (3pts min.). @ -As above X-rays interpreted by me (1pt min.). @ -Chest x-ray reveals no obvious acute cardiopulmonary process. No evidence of volume overload. CT interpreted by me (1pt min.). @ -None done U/S interpreted by me (1pt. min.). @ -None done What testing was considered but not performed or refused? (CT, X-rays, U/S, labs)? Why? @ -None What meds were considered but not given or refused? Why? @ -None Did you discuss the management of the patient with other professionals (professionals i.e. , KYLE, DIGITAL PROGRAM MANAGER, lab, RT, psych nurse, social work manager, sales account coordinator, teacher, fire prevention officer, rn case manager)? Give summary @ -. I contacted the admitting team, MLP Ciera ROBERTSONJuju accepted the admission. I spoke with the ICU due to the DKA as well as hyperkalemia Dr. Lopez and who accepted the admission to the ICU. Consult placed to nephrology Dr. Suarez for the hyperkalemia. Was smoking cessation discussed for >3mins.? @ -No Was critical care preformed (if so, how long)? @ -Yes, 41 minutes Were there social determinants of health that impacted care today? How? (Homelessness, low income, unemployed, alcoholism, drug addiction, transportation, low edu. Level, literacy, decrease access to med. care, [facility], rehab)? @ -No Was there de-escalation of care discussed even if they declined (Discuss DNR or withdrawal of care, Hospice)? DNR status @ -No What co-morbidities impacted this encounter? (DM, HTN, Smoking, COPD, CAD, Cancer, CVA, ARF, Chemo, Hep., AIDS, mental health diagnosis, sleep apnea, morbid obesity)? @ -CHF, type 1 insulin-dependent diabetes Was patient admitted / discharged? Hospital course, mention meds given and route, prescriptions, significant lab abnormalities, going to OR and other pertinent info. @ -Patient presents in suspected DKA and likely secondary to being off of his insulin for the last day due to insurance issues. Vitals are within acceptable limits other than mild tachycardia. We will obtain DKA labs. Patient is obviously clinically dehydrated and will be given 2 L fluid bolus and then closely monitor considering his history of CHF. Will reorder his diuretics and other home meds. He was in agreement this plan. Accu-Chek in triage read high. EKG shows no signs of acute ischemia but does show signs suggestive of acute hyperkalemia. Patient administered hyperkalemia cocktail including albuterol, calcium, insulin, sodium bicarb, Lokelma. We will continue to monitor. I was notified by nursing staff that patient's heart rate was intermittently close to 150. However due to peaked T waves on initial EKG I did suspect this was artifactual from most peaked T waves being compounded. Repeat EKG does confirm this may switch leads on the monitor which showed slight sinus tachycardia but no fluctuations. Will continue to monitor. Chest x-ray shows no evidence of volume overload at this time. Laboratory studies returned remarkable for elevated leukocytosis of 12 which is likely reactive, an anion gap metabolic acidosis secondary to diabetic ketoacidosis his blood sugars are 896, patient has ketones in urine and acetones in blood. Patient is hyperkalemic at 6.8 with the EKG changes described above and patient already received hyperkalemia cocktail. Patient is hyponatremic and hypo chloremic at 125 and 93. At this time, patient was placed on insulin DKA protocol. I contacted the admitting team, GUCCI POLLARD accepted the admission. I spoke with the ICU due to the DKA as well as hyperkalemia Dr. Lopez and who accepted the admission to the ICU. Consult placed to nephrology Dr. Suarez for the hyperkalemia. Patient reevaluated and was in agreement this plan. Resting co mfortably at that time of admission. Undiagnosed new problem with uncertain prognosis? @ -No Drug Therapy requiring intensive monitoring for toxicity (Heparin, Nitro, Insulin, Cardizem)? @ -No Were any procedures done? @ -No Diagnosis/symptom? @ -DKA, hyperkalemia Acute, or Chronic, or Acute on Chronic? @ -Acute Uncomplicated (without systemic symptoms) or Complicated (systemic symptoms)? @ -Complicated Side effects of treatment? @ -None Exacerbation, Progression, or Severe Exacerbation] @ -No Poses a threat to life or bodily function? @ -Yes - Lab Data Result diagrams: 02/08/25 08:46 02/08/25 08:46 Lab Results 02/08/25 02/08/25 02/08/25 Range/Units 08:22 08:46 08:46 WBC 12.14 H (4.50-10.00) 10*3/uL RBC 3.45 L (4.40-5.60) 10*6/uL Hgb 11.3 L (13.0-17.0) g/dL Hct 35.0 L (39.6-50.0) % MCV 101.4 H D (80.0-97.0) fL MCH 32.8 H (27.0-32.0) pg MCHC 32.3 (32.0-37.0) g/dL Plt Count 332 (140-440) 10*3/uL MPV 10.3 (9.5-12.2) fL Immature Gran % (Auto) 2.8 % Neutrophils % 78.0 % Lymphocytes % 12.7 % Monocytes % 4.4 % Eosinophils % 0.8 % Basophils % 1.3 % Immature Gran # 0.34 H (0.00-0.04) 10*3/uL Neutrophils # 9.47 H (1.80-7.70) 10*3/uL Lymphocytes # 1.54 (0.90-5.00) 10*3/uL Monocytes # 0.53 (0.20-1.00) 10*3/uL Eosinophils # 0.10 (0.04-0.35) 10*3/uL Basophils # 0.16 H (0.00-0.10) 10*3/uL PT 10.1 (10.0-12.5) sec INR 0.9 (<1.2) APTT 20.4 L (22.0-30.0) sec VBG pH (7.31-7.41) VBG pCO2 (37-51) mmHg VBG HCO3 (24-28) mmol/L Sodium (137-145) mmol/L Potassium (3.5-5.1) mmol/L Chloride (98-107) mmol/L Carbon Dioxide (22-30) mmol/L Anion Gap mmol/L BUN (9-20) mg/dL Creatinine (0.66-1.25) mg/dL Est GFR (CKD-EPI)AfAm (>60 ml/min/1.73 sqM) Est GFR (CKD-EPI)NonAf (>60 ml/min/1.73 sqM) Glucose (74-99) mg/dL POC Glucose (mg/dL) >600 H* (70-110) mg/dL POC Glu Recreation Engineer ID Tomas Justen Plasma Lactic Acid Scotty (0.7-2.0) mmol/L Calcium (8.4-10.2) mg/dL Total Bilirubin (0.2-1.3) mg/dL AST (17-59) U/L ALT (4-49) U/L Alkaline Phosphatase (38-126) U/L Total Protein (6.3-8.2) g/dL Albumin (3.5-5.0) g/dL Amylase (30-110) U/L Lipase (23-300) U/L Urine Color Urine Appearance (Clear) Urine pH (5.0-8.0) Ur Specific [place] (1.001-1.035) Urine Protein (Negative) Urine Glucose (UA) (Negative) Urine Ketones (Negative) Urine Blood (Negative) Urine Nitrite (Negative) Urine Bilirubin (Negative) Urine Urobilinogen (<2.0) mg/dL Ur Leukocyte Esterase (Negative) Urine RBC (0-5) /hpf Urine WBC (0-5) /hpf Ur Squamous Epith Cells (0-4) /hpf Urine Mucus (None) /hpf Acetone, Qual (Negative) 02/08/25 02/08/25 02/08/25 Range/Units 08:46 08:46 08:46 WBC (4.50-10.00) 10*3/uL RBC (4.40-5.60) 10*6/uL Hgb (13.0-17.0) g/dL Hct (39.6-50.0) % MCV (80.0-97.0) fL MCH (27.0-32.0) pg MCHC (32.0-37.0) g/dL Plt Count (140-440) 10*3/uL MPV (9.5-12.2) fL Immature Gran % (Auto) % Neutrophils % % Lymphocytes % % Monocytes % % Eosinophils % % Basophils % % Immature Gran # (0.00-0.04) 10*3/uL Neutrophils # (1.80-7.70) 10*3/uL Lymphocytes # (0.90-5.00) 10*3/uL Monocytes # (0.20-1.00) 10*3/uL Eosinophils # (0.04-0.35) 10*3/uL Basophils # (0.00-0.10) 10*3/uL PT (10.0-12.5) sec INR (<1.2) APTT (22.0-30.0) sec VBG pH 7.19 L* (7.31-7.41) VBG pCO2 22 L (37-51) mmHg VBG HCO3 9 L* (24-28) mmol/L Sodium 125 L (137-145) mmol/L Potassium 6.8 H* (3.5-5.1) mmol/L Chloride 93 L (98-107) mmol/L Carbon Dioxide <5 L* (22-30) mmol/L Anion Gap mmol/L BUN 44 H (9-20) mg/dL Creatinine 1.52 H (0.66-1.25) mg/dL Est GFR (CKD-EPI)AfAm 58 (>60 ml/min/1.73 sqM) Est GFR (CKD-EPI)NonAf 50 (>60 ml/min/1.73 sqM) Glucose 896 H* (74-99) mg/dL POC Glucose (mg/dL) (70-110) mg/dL POC Glu Recreation Engineer ID Plasma Lactic Acid Scotty 2.7 H* (0.7-2.0) mmol/L Calcium 8.5 (8.4-10.2) mg/dL Total Bilirubin 1.0 (0.2-1.3) mg/dL AST 51 (17-59) U/L ALT 87 H (4-49) U/L Alkaline Phosphatase 307 H (38-126) U/L Total Protein 5.5 L (6.3-8.2) g/dL Albumin 3.4 L (3.5-5.0) g/dL Amylase 32 (30-110) U/L Lipase 60 (23-300) U/L Urine Color Urine Appearance (Clear) Urine pH (5.0-8.0) Ur Specific Chris[place] (1.001-1.035) Urine Protein (Negative) Urine Glucose (UA) (Negative) Urine Ketones (Negative) Urine Blood (Negative) Urine Nitrite (Negative) Urine Bilirubin (Negative) Urine Urobilinogen (<2.0) mg/dL Ur Leukocyte Esterase (Negative) Urine RBC (0-5) /hpf Urine WBC (0-5) /hpf Ur Squamous Epith Cells (0-4) /hpf Urine Mucus (None) /hpf Acetone, Qual Positive (Negative) 02/08/25 Range/Units 09:13 WBC (4.50-10.00) 10*3/uL RBC (4.40-5.60) 10*6/uL Hgb (13.0-17.0) g/dL Hct (39.6-50.0) % MCV (80.0-97.0) fL MCH (27.0-32.0) pg MCHC (32.0-37.0) g/dL Plt Count (140-440) 10*3/uL MPV (9.5-12.2) fL Immature Gran % (Auto) % Neutrophils % % Lymphocytes % % Monocytes % % Eosinophils % % Basophils % % Immature Gran # (0.00-0.04) 10*3/uL Neutrophils # (1.80-7.70) 10*3/uL Lymphocytes # (0.90-5.00) 10*3/uL Monocytes # (0.20-1.00) 10*3/uL Eosinophils # (0.04-0.35) 10*3/uL Basophils # (0.00-0.10) 10*3/uL PT (10.0-12.5) sec INR (<1.2) APTT (22.0-30.0) sec VBG pH (7.31-7.41) VBG pCO2 (37-51) mmHg VBG HCO3 (24-28) mmol/L Sodium (137-145) mmol/L Potassium (3.5-5.1) mmol/L Chloride (98-107) mmol/L Carbon Dioxide (22-30) mmol/L Anion Gap mmol/L BUN (9-20) mg/dL Creatinine (0.66-1.25) mg/dL Est GFR (CKD-EPI)AfAm (>60 ml/min/1.73 sqM) Est GFR (CKD-EPI)NonAf (>60 ml/min/1.73 sqM) Glucose (74-99) mg/dL POC Glucose (mg/dL) (70-110) mg/dL POC Glu Recreation Engineer ID Plasma Lactic Acid Scotty (0.7-2.0) mmol/L Calcium (8.4-10.2) mg/dL Total Bilirubin (0.2-1.3) mg/dL AST (17-59) U/L ALT (4-49) U/L Alkaline Phosphatase (38-126) U/L Total Protein (6.3-8.2) g/dL Albumin (3.5-5.0) g/dL Amylase (30-110) U/L Lipase (23-300) U/L Urine Color Colorless Urine Appearance Clear (Clear) Urine pH 5.0 (5.0-8.0) Ur Specific Chrisney 1.022 (1.001-1.035) Urine Protein 1+ H (Negative) Urine Glucose (UA) 4+ H (Negative) Urine Ketones 3+ H (Negative) Urine Blood Negative (Negative) Urine Nitrite Negative (Negative) Urine Bilirubin Negative (Negative) Urine Urobilinogen <2.0 (<2.0) mg/dL Ur Leukocyte Esterase Negative (Negative) Urine RBC <1 (0-5) /hpf Urine WBC <1 (0-5) /hpf Ur Squamous Epith Cells <1 (0-4) /hpf Urine Mucus Rare H (None) /hpf Acetone, Qual (Negative) - EKG Data -: EKG Interpreted by Me EKG Comments: 12-lead Electrocardiogram Interpretation Note EKG was reviewed and interpreted by myself. 12-lead ECG performed at 0845 is interpreted by me as revealing sinus tachycardia at a rate of 102 beats per minute. Right axis deviation. HI interval is 148 ms, QRS durations 101 ms, QTc is 1434 ms. Patient has T wave peaking suggestive of acute hyperkalemia. Some nonspecific ST segment T wave abnormalities present otherwise.. There were no ST or T wave abnormalities to suggest myocardial ischemia or injury. R wave progression across the precordium was satisfactory. By my interpretation this EKG is non-diagnostic for acute ischemia. 12-lead Electrocardiogram Interpretation Note EKG was reviewed and interpreted by myself. 12-lead ECG performed at 0905 is interpreted by me as revealing cardia at a rate of 102 beats per minute. [place] is rightward deviated. HI interval is 148 ms, QRS duration is 111 ms, QTc is 436 ms.. Peaked T waves redemonstrated. Slight ST segment depressions in the lateral leads as well which was seen on prior EKG. Nonspecific ST segment T wave abnormalities present. Peaked T waves concerning for hyperkalemia.. R wave progression across the precordium was satisfactory. By my interpretation this EKG is non-diagnostic for acute ischemia. Critical Care Time Critical Care Time: Yes Total Critical Care Time: 41 Disposition Clinical Impression: DKA (diabetic ketoacidosis), Hyperkalemia Disposition: ADMITTED IP TO THIS HOSP Condition: Serious Time of Disposition: 09:55
[2025-02-08 09:07] LABS: VBG PCO2 22.0 mmHg (37-51)
[2025-02-08 09:09] LABS: VBG HCO3 9.0 mmol/L (24-28); VBG PH 7.19 (7.31-7.41)
[2025-02-08 09:11] LABS: MCV 101.4 fL (80.0-97.0)
[2025-02-08 09:25] LABS: INR 0.9 (<1.2); Prothrombin Time 10.1 sec (10.0-12.5)
[2025-02-08 09:27] LABS: Partial Thromboplastin Time 20.4 sec (22.0-30.0)
[2025-02-08 09:30] LABS: ALT 87 U/L (4-49); AST 51 U/L (17-59); African American GFR (CKD) 58 (>60 ml/min/1.73 sqM); Albumin 3.4 g/dL (3.5-5.0); Alkaline Phosphatase 307 U/L (38-126); Amylase 32 U/L (30-110); Blood Urea Nitrogen 44 mg/dL (9-20); Calcium 8.5 mg/dL (8.4-10.2); Chloride 93 mmol/L (98-107); Lipase 60 U/L (23-300); Non-African American GFR(CKD) 50 (>60 ml/min/1.73 sqM); Sodium 125 mmol/L (137-145); Total Protein 5.5 g/dL (6.3-8.2)
[2025-02-08 09:32] LABS: Bilirubin,Urine Negative (Negative); Blood,Urine Negative (Negative); Color,Urine Colorless; Glucose,Urine (UA) 4+ (Negative); Nitrite,Urine Negative (Negative); PH, Urine 5.0 (5.0-8.0); Protein,Urine 1+ (Negative); Specific Gravity,Urine 1.022 (1.001-1.035); Urobilinogen,Urine <2.0 mg/dL (<2.0)
[2025-02-08 09:33] LABS: Leukocyte Esterase,Urine Negative (Negative); Mucus,Urine Rare /hpf; RBC,Urine <1 /hpf (0-5); Squamous Epithelial Cell,Urine <1 /hpf (0-4); WBC,Urine <1 /hpf (0-5)
--- NOTE | 2025-02-08 09:33 | XR ---
EXAMINATION TYPE: XR chest 1V portable DATE OF EXAM: 02/08/2025 9:29 AM COMPARISON: Chest radiographs from 01/23/2024 TECHNIQUE: XR chest 1V portable Portable AP radiograph of the chest. CLINICAL INDICATION:Male, 55 years old with history of hx of chf; shortness of breath FINDINGS: Lungs/Pleura: There is no evidence of pleural effusion, focal consolidation, or pneumothorax. Pulmonary vascularity: Unremarkable. Heart/mediastinum: Cardiomediastinal silhouette is enlarged and stable. Two lead cardiac conduction d evice overlying the left hemithorax with lead tips projecting over the right ventricle and right atri um. Musculoskeletal: No acute osseous pathology. Midline sternotomy wires are noted. IMPRESSION: Chronic changes without acute pulmonary process. [facility], , 02/08/2025 9:31 AM
[2025-02-08 09:39] LABS: Carbon Dioxide <5 mmol/L (22-30)
[2025-02-08 09:40] LABS: Glucose 896 mg/dL (74-99)
[2025-02-08 09:41] LABS: Potassium 6.8 mmol/L (3.5-5.1)
[2025-02-08] MEDS ORDERED: Potassium Replacement Protocol 1 EACH MISC MISCELLANE PRN (09:44)
[2025-02-08] MEDS ORDERED: DEXTROSE 50% SYRINGE 50 ML IVP PRN ×2 (09:44)
[2025-02-08] MEDS ORDERED: Magnesium Replacement Protocol 1 EACH MISC MISCELLANE PRN (09:44)
[2025-02-08 09:46] LABS: Ketones,Urine 3+ (Negative)
[2025-02-08] MEDS ORDERED: NALOXONE 0.4 MG/ML 1 ML VIAL IV PRN (09:50)
[2025-02-08] MEDS ORDERED: ACETAMINOPHEN TAB 325 MG TAB PO PRN (09:50)
[2025-02-08] MEDS ORDERED: ONDANSETRON 4 MG/2 ML VIAL IVP PRN (09:52)
[2025-02-08] MEDS: FUROSEMIDE 40 MG TAB PO SCH (09:57)
[2025-02-08 10:02] LABS: Glucose,Whole Blood >600 mg/dL (70-110)
[2025-02-08] MEDS: INSULIN REGULAR 100 UNIT in SODIUM CHLORIDE 0.9% 100 ML IV SCH (10:04)
[2025-02-08 11:01] LABS: Glucose,Whole Blood >600 mg/dL (70-110)
[2025-02-08 11:28] LABS: Glucose,Whole Blood >600 mg/dL (70-110)
[2025-02-08 12:11] LABS: VBG HCO3 11.0 mmol/L (24-28); VBG PCO2 32.0 mmHg (37-51)
[2025-02-08 12:23] LABS: VBG PH 7.15 (7.31-7.41)
[2025-02-08 12:28] LABS: African American GFR (CKD) 54 (>60 ml/min/1.73 sqM); Anion Gap 28 mmol/L; Blood Urea Nitrogen 44 mg/dL (9-20); Chloride 95 mmol/L (98-107); Non-African American GFR(CKD) 46 (>60 ml/min/1.73 sqM); Potassium 5.0 mmol/L (3.5-5.1); Sodium 131 mmol/L (137-145)
[2025-02-08 12:34] LABS: Carbon Dioxide 8 mmol/L (22-30)
[2025-02-08 12:36] LABS: Glucose 666.0 mg/dL (74-99)
[2025-02-08 14:23] LABS: Glucose,Whole Blood 251 mg/dL (70-110)
[2025-02-08] MEDS: D5-0.45% NACL WITH KCL 20MEQ/L 1,000 ML IV SCH (14:37)
[2025-02-08 15:02] LABS: Glucose,Whole Blood 234 mg/dL (70-110)
--- NOTE | 2025-02-08 15:34 | P.HPIM ---
History of Present Illness H&P Date: 02/08/25 Chief Complaint: Nausea/vomiting/diarrhea 55-year-old male, history of hypertension, hyperlipidemia, diabetes mellitus, who presents emergency department complaining of nausea, vomiting as well as high blood sugars. Has a history of type 1 diabetes. States insurance denied his prescription for insulin and has been without it for slightly over 24 hours. Was checking his blood sugars at home and they read as high. Has had nonbilious nonbloody emesis. Denies any abdominal pain, shortness of breath, chest pain. Presents for further evaluation at this time. He has a history of heart failure, diabetes, CVA, hypertension, hyperlipidemia. Workup completed in ED reveals blood work with a WBC of 12.1, hemoglobin of 11.3 and platelet count of 332, sodium 125, potassium 6.8, BUNs/creatinine 40/1.52 and blood glucose of 896, PT 10.1 with INR of 0.9, VBG reveals a pH of 7.19, PCO2 of 22 and HCO3 of 9, potassium elevated at 6.8, lactic acid of 2.7, acetones are positive UA is positive for 4+ glucose and 3+ ketones EKG is negative for any acute ST or T wave changes Patient is admitted to ICU for further treatment of hyperkalemia Review of Systems REVIEW OF SYSTEMS: CONSTITUTIONAL: No fever, no malaise, no fatigue. HEENT: No recent visual problems or hearing problems. Denied any sore throat. CARDIOVASCULAR: No chest pain, orthopnea, PND, no palpitations, no syncope. PULMONARY: No shortness of breath, no cough, no hemoptysis. GASTROINTESTINAL: Complain of nausea/vomiting/diarrhea. NEUROLOGICAL: No headaches, no weakness, no numbness. HEMATOLOGICAL: Denies any bleeding or petechiae. GENITOURINARY: Denies any burning micturition, frequency, or urgency. MUSCULOSKELETAL/RHEUMATOLOGICAL: Denies any joint pain, swelling, or any muscle pain. ENDOCRINE: Denies any polyuria or polydipsia. The rest of the 14-point review of systems is negative. Past Medical History Past Medical History: Cancer, Heart Failure, CVA/TIA, Diabetes Mellitus, GERD/Reflux, Hyperlipidemia, Hypertension Additional Past Medical History / Comment(s): Ischemic cardiomyopathy with an ejection fraction of 40%, IDDM type I, CLL, recent R upper arm pain, occasional sinus issues. History of Any Multi-Drug Resistant Organisms: None Reported Past Surgical History: Cholecystectomy, Coronary Bypass/CABG, Tonsillectomy Additional Past Surgical History / Comment(s): 12/2018 L neck mass excision, colonoscopy, bilateral cataract removals/lens implants; 02/13 triple by-pass Past Anesthesia/Blood Transfusion Reactions: Motion Sickness, Postoperative Nausea & Vomiting (PONV) Past Psychological History: No Psychological Hx Reported Smoking Status: Never smoker Past Alcohol Use History: None Reported Past Drug Use History: None Reported - Past Family History Father Family Medical History: Cancer Additional Family Medical History / Comment(s): Father from leukemia. Mother Family Medical History: Asthma, Dementia Additional Family Medical History / Comment(s): Mother is , she had night terrors. Brother(s) Additional Family Medical History / Comment(s): 2 of pts brothers have schizophrenia and one is also a diabetic. One at the age of 56yrs from "natural causes" Medications and Allergies Home Medications Medication Instructions Recorded Confirmed Type Clopidogrel [Plavix] 75 mg PO DAILY 10/05/23 02/08/25 History Furosemide [Lasix] 40 mg PO DAILY #90 tablet 12/29/23 02/08/25 Rx INSULIN LISPRO (For Pump) [humaLOG 0.01 units SQ-PUMP CONTINUOUS 02/08/25 02/08/25 History (For Pump)] hydrALAZINE HCL [Apresoline] 50 mg PO TID 02/08/25 02/08/25 History Allergies Allergy/AdvReac Type Severity Reaction Status Date / Time perflutren AdvReac Severe Full body Verified 02/08/25 09:38 muscle cramps Physical Exam Vitals: Vital Signs Temp Pulse Resp BP Pulse Ox 02/08/25 10:15 105 H 23 155/72 98 02/08/25 10:00 102 H 22 121/63 98 02/08/25 09:45 98 20 141/63 98 02/08/25 09:30 105 H 20 136/62 99 02/08/25 09:26 106 H 17 136/62 99 02/08/25 09:16 106 H 02/08/25 08:22 98.2 F 103 H 20 170/78 99 Intake and Output 07/18/25 07/19/25 07/19/25 22:59 06:59 14:59 Other: Weight 102.512 kg General: Appears in no acute distress. HEAD: Normal with no signs of head trauma. EYES: PERRLA, EOMI, conjunctiva normal, no discharge. ENT: Hearing grossly intact, normal oropharynx. Dry mucous membranes. RESPIRATORY: Clear breath sounds bilaterally. No wheezes, rales, or rhonchi. C/V: Tachycardic with regular rhythm.. S1 and S2 auscultated, no edema, pe ripheral pulses 2+ and intact throughout ABD: Abd is soft, nontender, nondistended EXT: Normal range of motion, no obvious deformity SKIN: No rashes or lesions observed on exposed skin. NEURO: Alert and oriented x 4. Results CBC & Chem 7: 02/08/25 08:46 02/08/25 11:10 Labs: Abnormal Lab Results - Last 24 Hours (Table) 02/08/25 02/08/25 02/08/25 Range/Units 08:22 08:46 08:46 WBC 12.14 H (4.50-10.00) 10*3/uL RBC 3.45 L (4.40-5.60) 10*6/uL Hgb 11.3 L (13.0-17.0) g/dL Hct 35.0 L (39.6-50.0) % MCV 101.4 H D (80.0-97.0) fL MCH 32.8 H (27.0-32.0) pg Immature Gran # 0.34 H (0.00-0.04) 10*3/uL Neutrophils # 9.47 H (1.80-7.70) 10*3/uL Basophils # 0.16 H (0.00-0.10) 10*3/uL APTT 20.4 L (22.0-30.0) sec VBG pH (7.31-7.41) VBG pCO2 (37-51) mmHg VBG HCO3 (24-28) mmol/L Sodium (137-145) mmol/L Potassium (3.5-5.1) mmol/L Chloride (98-107) mmol/L Carbon Dioxide (22-30) mmol/L BUN (9-20) mg/dL Creatinine (0.66-1.25) mg/dL Glucose (74-99) mg/dL POC Glucose (mg/dL) >600 H* (70-110) mg/dL Plasma Lactic Acid Scotty (0.7-2.0) mmol/L ALT (4-49) U/L Alkaline Phosphatase (38-126) U/L Total Protein (6.3-8.2) g/dL Albumin (3.5-5.0) g/dL Urine Protein (Negative) Urine Glucose (UA) (Negative) Urine Ketones (Negative) Urine Mucus (None) /hpf 02/08/25 02/08/25 02/08/25 Range/Units 08:46 08:46 08:46 WBC (4.50-10.00) 10*3/uL RBC (4.40-5.60) 10*6/uL Hgb (13.0-17.0) g/dL Hct (39.6-50.0) % MCV (80.0-97.0) fL MCH (27.0-32.0) pg Immature Gran # (0.00-0.04) 10*3/uL Neutrophils # (1.80-7.70) 10*3/uL Basophils # (0.00-0.10) 10*3/uL APTT (22.0-30.0) sec VBG pH 7.19 L* (7.31-7.41) VBG pCO2 22 L (37-51) mmHg VBG HCO3 9 L* (24-28) mmol/L Sodium 125 L (137-145) mmol/L Potassium 6.8 H* (3.5-5.1) mmol/L Chloride 93 L (98-107) mmol/L Carbon Dioxide <5 L* (22-30) mmol/L BUN 44 H (9-20) mg/dL Creatinine 1.52 H (0.66-1.25) mg/dL Glucose 896 H* (74-99) mg/dL POC Glucose (mg/dL) (70-110) mg/dL Plasma Lactic Acid Scotty 2.7 H* (0.7-2.0) mmol/L ALT 87 H (4-49) U/L Alkaline Phosphatase 307 H (38-126) U/L Total Protein 5.5 L (6.3-8.2) g/dL Albumin 3.4 L (3.5-5.0) g/dL Urine Protein (Negative) Urine Glucose (UA) (Negative) Urine Ketones (Negative) Urine Mucus (None) /hpf 02/08/25 02/08/25 Range/Units 09:13 10:00 WBC (4.50-10.00) 10*3/uL RBC (4.40-5.60) 10*6/uL Hgb (13.0-17.0) g/dL Hct (39.6-50.0) % MCV (80.0-97.0) fL MCH (27.0-32.0) pg Immature Gran # (0.00-0.04) 10*3/uL Neutrophils # (1.80-7.70) 10*3/uL Basophils # (0.00-0.10) 10*3/uL APTT (22.0-30.0) sec VBG pH (7.31-7.41) VBG pCO2 (37-51) mmHg VBG HCO3 (24-28) mmol/L Sodium (137-145) mmol/L Potassium (3.5-5.1) mmol/L Chloride (98-107) mmol/L Carbon Dioxide (22-30) mmol/L BUN (9-20) mg/dL Creatinine (0.66-1.25) mg/dL Glucose (74-99) mg/dL POC Glucose (mg/dL) >600 H* (70-110) mg/dL Plasma Lactic Acid Scotty (0.7-2.0) mmol/L ALT (4-49) U/L Alkaline Phosphatase (38-126) U/L Total Protein (6.3-8.2) g/dL Albumin (3.5-5.0) g/dL Urine Protein 1+ H (Negative) Urine Glucose (UA) 4+ H (Negative) Urine Ketones 3+ H (Negative) Urine Mucus Rare H (None) /hpf Assessment and Plan Assessment: 1. Acute diabetic ketoacidosis; patient received IV insulin 10 units in ED; sodium bicarbonate 1 amp x 1 -Blood glucose upon arrival to ED was above 800 with positive blood acetone acetone; urine is positive for ketones and 4+ glucose - Patient has been placed on IV fluid; IV insulin per protocol; monitor BMP with plans to adjust IV insulin infusion per protocol - Plan to initiate home regimen once DKA resolves 2. Hyperkalemia; associated with DKA; patient received IV insulin and Lokelma in ED - Will monitor electrolytes and renal function closely 3. Hypertension; hydralazine 50 mg p.o. 3 times daily; Lasix 40 mg p.o. daily 4. CAD/CHF; Plavix 75 mg daily; Lasix 40 mg daily 5. GERD/gastritis; continue with Protonix 40 mg daily 6. Lactic acidosis; related to acute DKA; continue to monitor DVT prophylaxis, SCD CODE STATUS;
[2025-02-08 16:12] LABS: Glucose,Whole Blood 180 mg/dL (70-110)
[2025-02-08 16:37] LABS: African American GFR (CKD) 60 (>60 ml/min/1.73 sqM); Anion Gap 14 mmol/L; Blood Urea Nitrogen 40 mg/dL (9-20); Carbon Dioxide 21 mmol/L (22-30); Chloride 100 mmol/L (98-107); Glucose 170 mg/dL (74-99); Non-African American GFR(CKD) 52 (>60 ml/min/1.73 sqM); Potassium 4.3 mmol/L (3.5-5.1); Sodium 135 mmol/L (137-145)
[2025-02-08 17:09] LABS: Glucose,Whole Blood 155 mg/dL (70-110)
[2025-02-08 18:04] LABS: Glucose,Whole Blood 127 mg/dL (70-110)
[2025-02-08 18:55] LABS: Glucose,Whole Blood 115 mg/dL (70-110)
[2025-02-08 19:44] LABS: African American GFR (CKD) 63 (>60 ml/min/1.73 sqM); Anion Gap 6 mmol/L; Blood Urea Nitrogen 37 mg/dL (9-20); Calcium 8.1 mg/dL (8.4-10.2); Carbon Dioxide 27 mmol/L (22-30); Chloride 101 mmol/L (98-107); Glucose 123 mg/dL (74-99); Non-African American GFR(CKD) 54 (>60 ml/min/1.73 sqM); Potassium 4.3 mmol/L (3.5-5.1); Sodium 134 mmol/L (137-145)
[2025-02-08 19:54] LABS: Glucose,Whole Blood 140 mg/dL (70-110)
[2025-02-08 20:50] LABS: Glucose,Whole Blood 193 mg/dL (70-110)
--- NOTE | 2025-02-08 21:00 | P.CNPUL ---
History of Present Illness Consult date: 02/08/25 Chief complaint: DKA History of present illness: 55-year-old male patient with known history of type 1 diabetes mellitus, maintained on insulin pump, presented to the Emergency Department for hypoglycemia. The patient ran out of his insulin supplies he has not received any treatment for the past 24 hours. He was developing hyperglycemia and the patient was becoming progressively more nauseous. No abdominal pain. No chest pain. No shortness of breath. No altered mentation. In the ED, the patient was found to have severe anion gap metabolic acidosis. The patient had a sodium level of 125, potassium was at 6.8, serum bicarb was less than 5, BUN was 44 with a creatinine of 1.5. Blood sugar was 896. LFTs were disturbed with an AST of 51, ALT of 87 and alkaline phosphatase of 307. Lactic acid level was at 2.7. Based on that, ICU consultation was requested. The white cell count was at 12.1 with a hemoglobin of 11.3. Chest x-ray shows no acute abnormalities and the patient is currently on room air oxygen. The patient was given IV fluids, received a total of 2 L and subsequently started on normal saline at rate of 150 cc an hour. Started insulin drip for blood sugar control and anion gap is being monitored. UA was positive for plus for glucose and positive ketones. EKG showed no acute changes regarding his hyperkalemia. Nevertheless, the patient was treated and the patient was given bicarb IV in addition to calcium gluconate and insulin drip. Review of Systems Constitutional: Reports fatigue, Reports poor appetite Eyes: denies as per HPI, denies blurred vision, denies bulging eye, denies decreased vision, denies diplopia, denies discharge, denies dry eye, denies irritation, denies itching, denies pain, denies photophobia, denies loss of per ipheral vision, denies loss of vision, denies tunnel vision/blind spots Ears: deny: decreased hearing, ear discharge, earache, tinnitus Breasts: absent: as per HPI, gynecomastia Cardiovascular: Reports as per HPI Respiratory: Reports as per HPI Gastrointestinal: Reports as per HPI Genitourinary: Reports as per HPI Musculoskeletal: Reports as per HPI Musculoskeletal: absent: ankle pain, ankle stiffness, ankle swelling, as per HPI, elbow pain, elbow stiffness, elbow swelling, foot pain, foot stiffness, foot swelling, hand pain, hand stiffness, hand swelling, hip pain, hip stiffness, hip swelling, knee pain, knee stiffness, knee swelling, shoulder pain, shoulder stiffness, shoulder swelling, wrist pain, wrist stiffness, wrist swelling Integumentary: Reports as per HPI Neurological: Reports as per HPI Psychiatric: Reports as per HPI Endocrine: Reports fatigue, Reports high blood sugars, Reports polydipsia, Reports polyuria Hematologic/Lymphatic: Reports as per HPI Allergic/Immunologic: Reports as per HPI Past Medical History Past Medical History: Cancer, Heart Failure, CVA/TIA, Diabetes Mellitus, GERD/Reflux, Hyperlipidemia, Hypertension Additional Past Medical History / Comment(s): Ischemic cardiomyopathy with an ejection fraction of 40%, IDDM type I, CLL, recent R upper arm pain, occasional sinus issues. History of Any Multi-Drug Resistant Organisms: None Reported Past Surgical History: Cholecystectomy, Coronary Bypass/CABG, Tonsillectomy Additional Past Surgical History / Comment(s): 12/2018 L neck mass excision, colonoscopy, bilateral cataract removals/lens implants; 02/13 triple by-pass Past Anesthesia/Blood Transfusion Reactions: Motion Sickness, Postoperative Nausea & Vomiting (PONV) Past Psychological History: No Psychological Hx Reported Smoking Status: Never smoker Past Alcohol Use History: None Reported Past Drug Use History: None Reported - Past Family History Father Family Medical History: Cancer Additional Family Medical History / Comment(s): Father from leukemia. Mother Family Medical History: Asthma, Dementia Additional Family Medical History / Comment(s): Mother is , she had night terrors. Brother(s) Additional Family Medical History / Comment(s): 2 of pts brothers have schizophrenia and one is also a diabetic. One at the age of 56yrs from "natural causes" Medications and Allergies Home Medications Medication Instructions Recorded Confirmed Type Clopidogrel [Plavix] 75 mg PO DAILY 10/05/23 02/08/25 History Furosemide [Lasix] 40 mg PO DAILY #90 tablet 12/29/23 02/08/25 Rx INSULIN LISPRO (For Pump) [humaLOG 0.01 units SQ-PUMP CONTINUOUS 02/08/25 02/08/25 History (For Pump)] hydrALAZINE HCL [Apresoline] 50 mg PO TID 02/08/25 02/08/25 History Allergies Allergy/AdvReac Type Severity Reaction Status Date / Time perflutren AdvReac Severe Full body Verified 02/08/25 09:38 muscle cramps Physical Exam Vitals: Vital Signs Temp Pulse Resp BP Pulse Ox 02/08/25 09:30 104 H 02/08/25 09:26 106 H 17 136/62 99 02/08/25 09:16 106 H 02/08/25 08:22 98.2 F 103 H 20 170/78 99 Intake and Output 02/07/25 02/08/25 02/08/25 22:59 06:59 14:59 Other: Weight 102.512 kg The patient appeared well nourished and normally developed. Vital signs as documented. Head exam is unremarkable. No scleral icterus or corneal arcus noted. Neck is without jugular venous distension, thyromegaly, or carotid bruits. Carotid upstrokes are brisk bilaterally. Lungs are clear to auscultation and percussion. Cardiac exam reveals the PMI to be normally sized and situated. Rhythm is regular. First and second heart sounds normal. No murmurs, rubs or gallops. Abdominal exam reveals normal bowel sounds, no masses, no organomegaly and no aortic enlargement. Extremities are nonedematous and both femoral and pedal pulses are normal. Examination of the skin revealed no evidence of significant rashes, suspicious appearing nevi or other concerning lesions. Neurologically, the patient is awake and alert and the patient does not have any focal neurological deficit. Cranial nerves are essentially intact. Results - Laboratory Findings CBC and BMP: 02/08/25 08:46 02/08/25 19:22 PT/INR, D-dimer PT 10.1 sec (10.0-12.5) 02/08/25 08:46 INR 0.9 (<1.2) 02/08/25 08:46 Abnormal lab findings: Abnormal Labs 02/08/25 02/08/25 02/08/25 08:22 08:46 08:46 WBC 12.14 H RBC 3.45 L Hgb 11.3 L Hct 35.0 L MCV 101.4 H D MCH 32.8 H Immature Gran # 0.34 H Neutrophils # 9.47 H Basophils # 0.16 H APTT 20.4 L VBG pH VBG pCO2 VBG HCO3 Sodium Potassium Chloride Carbon Dioxide BUN Creatinine Glucose POC Glucose (mg/dL) >600 H* Plasma Lactic Acid Scotty ALT Alkaline Phosphatase Total Protein Albumin Urine Protein Urine Glucose (UA) Urine Ketones Urine Mucus 02/08/25 02/08/25 02/08/25 08:46 08:46 08:46 WBC RBC Hgb Hct MCV MCH Immature Gran # Neutrophils # Basophils # APTT VBG pH 7.19 L* VBG pCO2 22 L VBG HCO3 9 L* Sodium 125 L Potassium 6.8 H* Chloride 93 L Carbon Dioxide <5 L* BUN 44 H Creatinine 1.52 H Glucose 896 H* POC Glucose (mg/dL) Plasma Lactic Acid Scotty 2.7 H* ALT 87 H Alkaline Phosphatase 307 H Total Protein 5.5 L Albumin 3.4 L Urine Protein Urine Glucose (UA) Urine Ketones Urine Mucus 02/08/25 02/08/25 09:13 10:00 WBC RBC Hgb Hct MCV MCH Immature Gran # Neutrophils # Basophils # APTT VBG pH VBG pCO2 VBG HCO3 Sodium Potassium Chloride Carbon Dioxide BUN Creatinine Glucose POC Glucose (mg/dL) >600 H* Plasma Lactic Acid Scotty ALT Alkaline Phosphatase Total Protein Albumin Urine Protein 1+ H Urine Glucose (UA) 4+ H Urine Ketones 3+ H Urine Mucus Rare H Assessment and Plan Plan: Acute DKA Severe anion gap metabolic acidosis Pseudohyponatremia secondary to elevated blood sugars and hyperglycemia Acute kidney injury Acute hyperkalemia secondary to anion gap metabolic acidosis CHF with impaired LV function with an ejection fraction of 40% CLL followed up by Dr. Mc on outpatient basis, currently on no treatment Coronary artery disease with previous coronary bypass surgery x 3, back in 2023 Previous history of TIA Hypertension Hyperlipidemia Acid reflux Plan Admit the patient to the ICU Fluid resuscitation Normal saline at rate of 100 cc an hour Continue insulin drip per DKA protocol Monitor anion gap metabolic acidosis Hyperkalemia was treated with the patient's potassium levels to be monitored However the blood sugar Will continue to follow. No altered mentation. No hemodynamic instability and the patient is essentially stable at this point.
[2025-02-08] MEDS: INSULIN GLARGINE (LANTUS) 100 UNIT/ML SYR SQ SCH (21:50)
[2025-02-08 22:01] LABS: Glucose,Whole Blood 248 mg/dL (70-110)
[2025-02-08 23:07] LABS: Glucose,Whole Blood 273 mg/dL (70-110)
[2025-02-09 03:13] LABS: Basophils # (A) 0.10 10*3/uL (0.00-0.10); Basophils % (A) 1.0 %; Eosinophils # (A) 0.32 10*3/uL (0.04-0.35); Eosinophils % (A) 3.1 %; HCT 29.7 % (39.6-50.0); HGB 10.3 g/dL (13.0-17.0); Lymphocytes # (A) 2.74 10*3/uL (0.90-5.00); Lymphocytes % (A) 26.8 %; MCH 32.6 pg (27.0-32.0); MCHC 34.7 g/dL (32.0-37.0); Monocytes # (A) 0.76 10*3/uL (0.20-1.00); Monocytes % (A) 7.4 %; Neutrophils # (A) 6.10 10*3/uL (1.80-7.70); Neutrophils % (A) 59.7 %; Platelet Count 255 10*3/uL (140-440); RBC 3.16 10*6/uL (4.40-5.60); RDW 12.6 % (11.5-14.5); WBC 10.22 10*3/uL (4.50-10.00)
[2025-02-09 03:24] LABS: ALT 60 U/L (4-49); AST 41 U/L (17-59); African American GFR (CKD) 64 (>60 ml/min/1.73 sqM); Albumin 2.6 g/dL (3.5-5.0); Alkaline Phosphatase 233 U/L (38-126); Anion Gap 11 mmol/L; Blood Urea Nitrogen 33 mg/dL (9-20); Calcium 8.0 mg/dL (8.4-10.2); Carbon Dioxide 21 mmol/L (22-30); Chloride 101 mmol/L (98-107); Glucose 142 mg/dL (74-99); Non-African American GFR(CKD) 55 (>60 ml/min/1.73 sqM); Potassium 4.4 mmol/L (3.5-5.1); Sodium 133 mmol/L (137-145); Total Protein 4.7 g/dL (6.3-8.2)
[2025-02-09 03:39] LABS: MCV 94.0 fL (80.0-97.0)
[2025-02-09 06:55] LABS: Glucose,Whole Blood 102 mg/dL (70-110)
[2025-02-09] MEDS: INSULIN LISPRO (HumaLOG) 100 UNIT/ML 10 mL VL SQ SCH ×2 (07:00)
[2025-02-09] MEDS: CLOPIDOGREL 75 MG TAB PO SCH (08:06)
[2025-02-09] MEDS: PANTOPRAZOLE 40 MG/10 ML VIAL IV SCH (08:07)
--- NOTE | 2025-02-09 10:26 | P.NPCON ---
History of Present Illness - Reason for Consult acute renal failure - History of Present Illness Patient is a 55-year-old male with history of type 1 diabetes, hypertension, gastroesophageal reflux disease and history of CVA/TIA. He is admitted to the hospital with significantly elevated blood sugars. Patient ran out of insulin supplies and was not able to get more. His blood sugar was 896 on initial admission. He was noted to be in DKA with serum bicarb of less than 5. Serum creatinine was 1.5, increased to 1.6 and is now down to 1.4 mg/dL. Previous creatinine 1.5 in November 2024 and acute kidney injury noted in December 2023 with peak creatinine at 2.0 and decreased to 1.39. Currently off of IV fluids. Patient is tolerating oral intake. Blood sugar was 102 Lactic acid was elevated at 7.8 and now down to 3.9. Blood pressure has been elevated. Past Medical History Past Medical History: Cancer, Heart Failure, CVA/TIA, Diabetes Mellitus, GERD/Reflux, Hyperlipidemia, Hypertension Additional Past Medical History / Comment(s): Ischemic cardiomyopathy with an ejection fraction of 40%, IDDM type I, CLL, recent R upper arm pain, occasional sinus issues. History of Any Multi-Drug Resistant Organisms: None Reported Past Surgical History: Cholecystectomy, Coronary Bypass/CABG, Tonsillectomy Additional Past Surgical History / Comment(s): 12/2018 L neck mass excision, colonoscopy, bilateral cataract removals/lens implants; 02/13 triple by-pass Past Anesthesia/Blood Transfusion Reactions: Motion Sickness, Postoperative Nausea & Vomiting (PONV) Past Psychological History: No Psychological Hx Reported Smoking Status: Never smoker Past Alcohol Use History: None Reported Past Drug Use History: None Reported - Past Family History Father Family Medical History: Cancer Additional Family Medical History / Comment(s): Father from leukemia. Mother Family Medical History: Asthma, Dementia Additional Family Medical History / Comment(s): Mother is , she had night terrors. Brother(s) Additional Family Medical History / Comment(s): 2 of pts brothers have sc hizophrenia and one is also a diabetic. One at the age of 56yrs from "natural causes" Medications and Allergies Home Medications Medication Instructions Recorded Confirmed Type Clopidogrel [Plavix] 75 mg PO DAILY 10/05/23 02/08/25 History Furosemide [Lasix] 40 mg PO DAILY #90 tablet 12/29/23 02/08/25 Rx INSULIN LISPRO (For Pump) [humaLOG 0.01 units SQ-PUMP CONTINUOUS 02/08/25 02/08/25 History (For Pump)] hydrALAZINE HCL [Apresoline] 50 mg PO TID 02/08/25 02/08/25 History Allergies Allergy/AdvReac Type Severity Reaction Status Date / Time perflutren AdvReac Severe Full body Verified 02/08/25 09:38 muscle cramps Physical Exam Vitals: Vital Signs Temp Pulse Pulse Resp BP Pulse Ox 02/09/25 08:00 97.8 F 83 20 185/102 96 02/09/25 07:00 94 9 L 185/89 96 02/09/25 06:00 84 18 168/81 93 L 02/09/25 05:00 82 16 177/85 96 02/09/25 04:00 98.3 F 80 84 36 H 170/83 95 02/09/25 03:00 80 18 157/75 95 02/09/25 02:00 82 17 161/75 92 L 02/09/25 01:00 83 20 173/81 96 02/09/25 00:00 98.3 F 84 84 19 155/71 96 02/08/25 23:00 81 17 161/70 96 02/08/25 22:00 86 19 151/70 95 02/08/25 21:47 81 19 151/70 96 02/08/25 21:00 84 17 153/69 96 02/08/25 20:00 98.1 F 84 84 18 159/71 96 02/08/25 19:00 90 20 146/74 96 02/08/25 18:00 101 H 20 166/76 94 L 02/08/25 17:00 91 20 155/72 96 02/08/25 16:00 97.9 F 86 17 149/78 95 02/08/25 15:00 86 21 155/72 96 02/08/25 14:00 90 11 L 98 02/08/25 13:00 88 15 158/70 97 02/08/25 12:00 97.7 F 92 23 175/79 99 02/08/25 11:00 98 18 172/80 100 02/08/25 10:45 101 H 19 174/88 100 02/08/25 10:30 103 H 18 168/81 100 02/08/25 10:15 105 H 23 155/72 98 Intake and Output 02/08/25 02/09/25 02/09/25 22:59 06:59 14:59 Intake Total 1290.078 150 Output Total 1250 625 0 Balance 40.078 -475 0 Intake: IV 1200 150 D5-0.45% NaCl with KCl 1200 150 20Meq/l 1,000 ml @ 150 mls/hr IV .Q6H40M [facility] Rx# :[id number] Intake, IV Titration 90.078 Amount Insulin Regular 100 unit 90.078 In Sodium Chloride 0.9% 100 ml @ 0.1 UNITS/KG/HR 10.354 mls/hr IV .Q9H46M [facility] Rx#:[id number] Output: Urine 1250 625 0 Other: Voiding Method Toilet Toilet Toilet Urinal Urinal Urinal # Voids 1 Weight 100.4 kg Patient is awake, comfortable, no acute distress Examination of the heart S1 and S2 Examination of the lungs bilateral breath sounds are heard Abdomen is soft nontender Examination of lower extremities shows no evidence of edema VP [employer] exam is grossly intact Results - Lab Results Most recent lab results Calcium 8.0 mg/dL (8.4-10.2) L 02/09/25 02:44 Phosphorus 3.3 mg/dL (2.5-4.5) 02/08/25 16:13 02/09/25 02:44 02/09/25 02:44 Assessment and Plan Assessment: 1. Acute kidney injury associated with hypovolemia and DKA, improved with IV hydration. UA shows 1+ protein no blood. 2. DKA currently resolved and patient is off of IV fluids 3. Severe anion gap metabolic acidosis secondary to DKA and lactic acidosis, resolved 4. Pseudohyponatremia associated with severe hyperglycemia. Corrected sodium is 138 for blood glucose of 896. 5. Hyperkalemia associated with severe metabolic acidosis, DKA and hyperglycemia. Currently resolved 6. Hypertension with CKD stage IIIa, uncontrolled 7. CKD stage IIIa with baseline creatinine about 1.4 to 1.5 mg/dL secondary to diabetic kidney disease. Plan: DC Lasix Continue to encourage increased oral intake Add calcium channel blockers Patient will need to start ANNALISA inhibitors/angiotensin receptor blockers as well as SGLT2 inhibitors as outpatient Discharge planning to help with medications upon discharge Repeat labs in a.m.
[2025-02-09] MEDS: amLODIPine 5 MG TAB PO SCH (11:07)
[2025-02-09 11:36] LABS: Glucose,Whole Blood 142 mg/dL (70-110)
--- NOTE | 2025-02-09 11:40 | P.PN ---
Subjective Progress Note Date: 02/09/25 55-year-old male patient with known history of type 1 diabetes mellitus, maintained on insulin pump, presented to the Emergency Department for hypoglycemia. The patient ran out of his insulin supplies he has not received any treatment for the past 24 hours. He was developing hyperglycemia and the patient was becoming progressively more nauseous. No abdominal pain. No chest pain. No shortness of breath. No altered mentation. In the ED, the patient was found to have severe anion gap metabolic acidosis. The patient had a sodium level of 125, potassium was at 6.8, serum bicarb was less than 5, BUN was 44 with a creatinine of 1.5. Blood sugar was 896. LFTs were disturbed with an AST of 51, ALT of 87 and alkaline phosphatase of 307. Lactic acid level was at 2.7. Based on that, ICU consultation was requested. The white cell count was at 12.1 with a hemoglobin of 11.3. Chest x-ray shows no acute abnormalities and the patient is currently on room air oxygen. The patient was given IV fluids, received a total of 2 L and subsequently started on normal saline at rate of 150 cc an hour. Started insulin drip for blood sugar control and anion gap is being monitored. UA was positive for plus for glucose and positive ketones. EKG showed no acute changes regarding his hyperkalemia. Nevertheless, the patient was treated and the patient was given bicarb IV in addition to calcium gluconate and insulin drip. On today's evaluation of 02/09/2025, the patient has recovered from his DKA. The patient was taken off the insulin drip and the patient was started on Lantus insulin. Noted the patient has been taking insulin pump on outpatient basis and the patient did not have the medication to continue treatment and for that reason the patient went into DKA. He is awake and alert. He is on room air oxygen. Blood sugars under adequate control. Producing adequate amount of urine output. No nausea. No emesis. No chest pain. No shortness of breath. Hemodynamically stable. No other significant events overnight. On today's blood work, the patient has a blood sugar of 142, white cell count of 10.2 with a heme of 7.3 and a platelet count of 55, BUN is 33 and creatinine is 1.4 and a sodium level is at 133. Potassium is at 4.4. The patient is currently on Lantus 25 units twice daily and NovoLog 15 units with meals and insulin scale coverage. Objective - Vital Signs Vital signs: Vital Signs Temp 97.8 F 02/09/25 08:00 Pulse 83 02/09/25 08:00 Resp 20 02/09/25 08:00 BP 185/102 02/09/25 08:00 Pulse Ox 96 02/09/25 08:00 FiO2 Intake & Output 02/08/25 02/09/25 02/09/25 18:59 06:59 18:59 Intake Total 1437.317 752.761 Output Total 1750 1225 0 Balance -312.683 -472.239 0 Weight 102.512 kg 100.4 kg Intake: IV 1350 750 0.9 600 D5-0.45% NaCl with KCl 750 750 20Meq/l 1,000 ml @ 150 mls/hr IV .Q6H40M [facility] Rx# :[id number] Intake, IV Titration 87.317 2.761 Amount Insulin Regular 100 unit 87.317 2.761 In Sodium Chloride 0.9% 100 ml @ 0.1 UNITS/KG/HR 10.354 mls/hr IV .Q9H46M [facility] Rx#:[id number] Output: Urine 1750 1225 0 Other: Voiding Method Toilet Toilet Urinal Urinal # Voids 1 - Exam The patient appeared well nourished and normally developed. Vital signs as documented. Head exam is unremarkable. No scleral icterus or corneal arcus noted. Neck is without jugular venous distension, thyromegaly, or carotid bruits. Carotid upstrokes are brisk bilaterally. Lungs are clear to auscultation and percussion. Cardiac exam reveals the PMI to be normally sized and situated. Rhythm is regular. First and second heart sounds normal. No murmurs, rubs or gallops. Abdominal exam reveals normal bowel sounds, no masses, no organomegaly and no aortic enlargement. Extremities are nonedematous and both femoral and pedal pulses are normal. Examination of the skin revealed no evidence of significant rashes, suspicious appearing nevi or other concerning lesions. Neurologically, the patient is awake and alert and the patient does not have any focal neurological deficit. Cranial nerves are essentially intact. - Labs CBC & Chem 7: 02/09/25 02:44 02/09/25 02:44 Labs: Abnormal Lab Results - Last 24 Hours (Table) 02/08/25 02/08/25 02/08/25 Range/Units 08:46 08:46 08:46 WBC 12.14 H (4.50-10.00) 10*3/uL RBC 3.45 L (4.40-5.60) 10*6/uL Hgb 11.3 L (13.0-17.0) g/dL Hct 35.0 L (39.6-50.0) % MCV 101.4 H D (80.0-97.0) fL MCH 32.8 H (27.0-32.0) pg Immature Gran # 0.34 H (0.00-0.04) 10*3/uL Neutrophils # 9.47 H (1.80-7.70) 10*3/uL Basophils # 0.16 H (0.00-0.10) 10*3/uL APTT 20.4 L (22.0-30.0) sec VBG pH (7.31-7.41) VBG pCO2 (37-51) mmHg VBG HCO3 (24-28) mmol/L Sodium 125 L (137-145) mmol/L Potassium 6.8 H* (3.5-5.1) mmol/L Chloride 93 L (98-107) mmol/L Carbon Dioxide <5 L* (22-30) mmol/L BUN 44 H (9-20) mg/dL Creatinine 1.52 H (0.66-1.25) mg/dL Glucose 896 H* (74-99) mg/dL POC Glucose (mg/dL) (70-110) mg/dL Plasma Lactic Acid Scotty (0.7-2.0) mmol/L Calcium (8.4-10.2) mg/dL Phosphorus (2.5-4.5) mg/dL ALT 87 H (4-49) U/L Alkaline Phosphatase 307 H (38-126) U/L Total Protein 5.5 L (6.3-8.2) g/dL Albumin 3.4 L (3.5-5.0) g/dL Urine Protein (Negative) Urine Glucose (UA) (Negative) Urine Ketones (Negative) Urine Mucus (None) /hpf 07/02/08/25 02/08/25 Range/Units 08:46 08:46 09:13 WBC (4.50-10.00) 10*3/uL RBC (4.40-5.60) 10*6/uL Hgb (13.0-17.0) g/dL Hct (39.6-50.0) % MCV (80.0-97.0) fL MCH (27.0-32.0) pg Immature Gran # (0.00-0.04) 10*3/uL Neutrophils # (1.80-7.70) 10*3/uL Basophils # (0.00-0.10) 10*3/uL APTT (22.0-30.0) sec VBG pH 7.19 L* (7.31-7.41) VBG pCO2 22 L (37-51) mmHg VBG HCO3 9 L* (24-28) mmol/L Sodium (137-145) mmol/L Potassium (3.5-5.1) mmol/L Chloride (98-107) mmol/L Carbon Dioxide (22-30) mmol/L BUN (9-20) mg/dL Creatinine (0.66-1.25) mg/dL Glucose (74-99) mg/dL POC Glucose (mg/dL) (70-110) mg/dL Plasma Lactic Acid Scotty 2.7 H* (0.7-2.0) mmol/L Calcium (8.4-10.2) mg/dL Phosphorus (2.5-4.5) mg/dL ALT (4-49) U/L Alkaline Phosphatase (38-126) U/L Total Protein (6.3-8.2) g/dL Albumin (3.5-5.0) g/dL Urine Protein 1+ H (Negative) Urine Glucose (UA) 4+ H (Negative) Urine Ketones 3+ H (Negative) Urine Mucus Rare H (None) /hpf 02/08/25 02/08/25 02/08/25 Range/Units 10:00 11:00 11:10 WBC (4.50-10.00) 10*3/uL RBC (4.40-5.60) 10*6/uL Hgb (13.0-17.0) g/dL Hct (39.6-50.0) % MCV (80.0-97.0) fL MCH (27.0-32.0) pg Immature Gran # (0.00-0.04) 10*3/uL Neutrophils # (1.80-7.70) 10*3/uL Basophils # (0.00-0.10) 10*3/uL APTT (22.0-30.0) sec VBG pH (7.31-7.41) VBG pCO2 (37-51) mmHg VBG HCO3 (24-28) mmol/L Sodium (137-145) mmol/L Potassium (3.5-5.1) mmol/L Chloride (98-107) mmol/L Carbon Dioxide (22-30) mmol/L BUN (9-20) mg/dL Creatinine (0.66-1.25) mg/dL Glucose 666 H* (74-99) mg/dL POC Glucose (mg/dL) >600 H* >600 H* (70-110) mg/dL Plasma Lactic Acid Scotty (0.7-2.0) mmol/L Calcium (8.4-10.2) mg/dL Phosphorus (2.5-4.5) mg/dL ALT (4-49) U/L Alkaline Phosphatase (38-126) U/L Total Protein (6.3-8.2) g/dL Albumin (3.5-5.0) g/dL Urine Protein (Negative) Urine Glucose (UA) (Negative) Urine Ketones (Negative) Urine Mucus (None) /hpf 02/08/25 02/08/25 02/08/25 Range/Units 11:10 11:10 11:27 WBC (4.50-10.00) 10*3/uL RBC (4.40-5.60) 10*6/uL Hgb (13.0-17.0) g/dL Hct (39.6-50.0) % MCV (80.0-97.0) fL MCH (27.0-32.0) pg Immature Gran # (0.00-0.04) 10*3/uL Neutrophils # (1.80-7.70) 10*3/uL Basophils # (0.00-0.10) 10*3/uL APTT (22.0-30.0) sec VBG pH 7.15 L* (7.31-7.41) VBG pCO2 32 L (37-51) mmHg VBG HCO3 11 L (24-28) mmol/L Sodium 131 L (137-145) mmol/L Potassium (3.5-5.1) mmol/L Chloride 95 L (98-107) mmol/L Carbon Dioxide 8 L* (22-30) mmol/L BUN 44 H (9-20) mg/dL Creatinine 1.62 H (0.66-1.25) mg/dL Glucose (74-99) mg/dL POC Glucose (mg/dL) >600 H* (70-110) mg/dL Plasma Lactic Acid Scotty (0.7-2.0) mmol/L Calcium (8.4-10.2) mg/dL Phosphorus 4.9 H (2.5-4.5) mg/dL ALT (4-49) U/L Alkaline Phosphatase (38-126) U/L Total Protein (6.3-8.2) g/dL Albumin (3.5-5.0) g/dL Urine Protein (Negative) Urine Glucose (UA) (Negative) Urine Ketones (Negative) Urine Mucus (None) /hpf 02/08/25 02/08/25 02/08/25 Range/Units 12:13 14:21 15:01 WBC (4.50-10.00) 10*3/uL RBC (4.40-5.60) 10*6/uL Hgb (13.0-17.0) g/dL Hct (39.6-50.0) % MCV (80.0-97.0) fL MCH (27.0-32.0) pg Immature Gran # (0.00-0.04) 10*3/uL Neutrophils # (1.80-7.70) 10*3/uL Basophils # (0.00-0.10) 10*3/uL APTT (22.0-30.0) sec VBG pH (7.31-7.41) VBG pCO2 (37-51) mmHg VBG HCO3 (24-28) mmol/L Sodium (137-145) mmol/L Potassium (3.5-5.1) mmol/L Chloride (98-107) mmol/L Carbon Dioxide (22-30) mmol/L BUN (9-20) mg/dL Creatinine (0.66-1.25) mg/dL Glucose (74-99) mg/dL POC Glucose (mg/dL) 251 H 234 H (70-110) mg/dL Plasma Lactic Acid Scotty 7.8 H* (0.7-2.0) mmol/L Calcium (8.4-10.2) mg/dL Phosphorus (2.5-4.5) mg/dL ALT (4-49) U/L Alkaline Phosphatase (38-126) U/L Total Protein (6.3-8.2) g/dL Albumin (3.5-5.0) g/dL Urine Protein (Negative) Urine Glucose (UA) (Negative) Urine Ketones (Negative) Urine Mucus (None) /hpf 02/08/25 02/08/25 02/08/25 Range/Units 16:11 16:13 16:13 WBC (4.50-10.00) 10*3/uL RBC (4.40-5.60) 10*6/uL Hgb (13.0-17.0) g/dL Hct (39.6-50.0) % MCV (80.0-97.0) fL MCH (27.0-32.0) pg Immature Gran # (0.00-0.04) 10*3/uL Neutrophils # (1.80-7.70) 10*3/uL Basophils # (0.00-0.10) 10*3/uL APTT (22.0-30.0) sec VBG pH (7.31-7.41) VBG pCO2 (37-51) mmHg VBG HCO3 (24-28) mmol/L Sodium 135 L (137-145) mmol/L Potassium (3.5-5.1) mmol/L Chloride (98-107) mmol/L Carbon Dioxide 21 L (22-30) mmol/L BUN 40 H (9-20) mg/dL Creatinine 1.48 H (0.66-1.25) mg/dL Glucose 170 H (74-99) mg/dL POC Glucose (mg/dL) 180 H (70-110) mg/dL Plasma Lactic Acid Scotty 5.4 H* (0.7-2.0) mmol/L Calcium (8.4-10.2) mg/dL Phosphorus (2.5-4.5) mg/dL ALT (4-49) U/L Alkaline Phosphatase (38-126) U/L Total Protein (6.3-8.2) g/dL Albumin (3.5-5.0) g/dL Urine Protein (Negative) Urine Glucose (UA) (Negative) Urine Ketones (Negative) Urine Mucus (None) /hpf 02/08/25 02/08/25 02/08/25 Range/Units 17:07 18:03 18:53 WBC (4.50-10.00) 10*3/uL RBC (4.40-5.60) 10*6/uL Hgb (13.0-17.0) g/dL Hct (39.6-50.0) % MCV (80.0-97.0) fL MCH (27.0-32.0) pg Immature Gran # (0.00-0.04) 10*3/uL Neutrophils # (1.80-7.70) 10*3/uL Basophils # (0.00-0.10) 10*3/uL APTT (22.0-30.0) sec VBG pH (7.31-7.41) VBG pCO2 (37-51) mmHg VBG HCO3 (24-28) mmol/L Sodium (137-145) mmol/L Potassium (3.5-5.1) mmol/L Chloride (98-107) mmol/L Carbon Dioxide (22-30) mmol/L BUN (9-20) mg/dL Creatinine (0.66-1.25) mg/dL Glucose (74-99) mg/dL POC Glucose (mg/dL) 155 H 127 H 115 H (70-110) mg/dL Plasma Lactic Acid Scotty (0.7-2.0) mmol/L Calcium (8.4-10.2) mg/dL Phosphorus (2.5-4.5) mg/dL ALT (4-49) U/L Alkaline Phosphatase (38-126) U/L Total Protein (6.3-8.2) g/dL Albumin (3.5-5.0) g/dL Urine Protein (Negative) Urine Glucose (UA) (Negative) Urine Ketones (Negative) Urine Mucus (None) /hpf 02/08/25 02/08/25 02/08/25 Range/Units 19:22 19:22 19:53 WBC (4.50-10.00) 10*3/uL RBC (4.40-5.60) 10*6/uL Hgb (13.0-17.0) g/dL Hct (39.6-50.0) % MCV (80.0-97.0) fL MCH (27.0-32.0) pg Immature Gran # (0.00-0.04) 10*3/uL Neutrophils # (1.80-7.70) 10*3/uL Basophils # (0.00-0.10) 10*3/uL APTT (22.0-30.0) sec VBG pH (7.31-7.41) VBG pCO2 (37-51) mmHg VBG HCO3 (24-28) mmol/L Sodium 134 L (137-145) mmol/L Potassium (3.5-5.1) mmol/L Chloride (98-107) mmol/L Carbon Dioxide (22-30) mmol/L BUN 37 H (9-20) mg/dL Creatinine 1.43 H (0.66-1.25) mg/dL Glucose 123 H (74-99) mg/dL POC Glucose (mg/dL) 140 H (70-110) mg/dL Plasma Lactic Acid Scotty 2.7 H* (0.7-2.0) mmol/L Calcium 8.1 L (8.4-10.2) mg/dL Phosphorus (2.5-4.5) mg/dL ALT (4-49) U/L Alkaline Phosphatase (38-126) U/L Total Protein (6.3-8.2) g/dL Albumin (3.5-5.0) g/dL Urine Protein (Negative) Urine Glucose (UA) (Negative) Urine Ketones (Negative) Urine Mucus (None) /hpf 02/08/25 02/08/25 02/08/25 Range/Units 20:49 21:59 23:06 WBC (4.50-10.00) 10*3/uL RBC (4.40-5.60) 10*6/uL Hgb (13.0-17.0) g/dL Hct (39.6-50.0) % MCV (80.0-97.0) fL MCH (27.0-32.0) pg Immature Gran # (0.00-0.04) 10*3/uL Neutrophils # (1.80-7.70) 10*3/uL Basophils # (0.00-0.10) 10*3/uL APTT (22.0-30.0) sec VBG pH (7.31-7.41) VBG pCO2 (37-51) mmHg VBG HCO3 (24-28) mmol/L Sodium (137-145) mmol/L Potassium (3.5-5.1) mmol/L Chloride (98-107) mmol/L Carbon Dioxide (22-30) mmol/L BUN (9-20) mg/dL Creatinine (0.66-1.25) mg/dL Glucose (74-99) mg/dL POC Glucose (mg/dL) 193 H 248 H 273 H (70-110) mg/dL Plasma Lactic Acid Scotty (0.7-2.0) mmol/L Calcium (8.4-10.2) mg/dL Phosphorus (2.5-4.5) mg/dL ALT (4-49) U/L Alkaline Phosphatase (38-126) U/L Total Protein (6.3-8.2) g/dL Albumin (3.5-5.0) g/dL Urine Protein (Negative) Urine Glucose (UA) (Negative) Urine Ketones (Negative) Urine Mucus (None) /hpf 02/08/25 02/09/25 02/09/25 Range/Units 23:27 02:44 02:44 WBC 10.22 H (4.50-10.00) 10*3/uL RBC 3.16 L (4.40-5.60) 10*6/uL Hgb 10.3 L (13.0-17.0) g/dL Hct 29.7 L (39.6-50.0) % MCV (80.0-97.0) fL MCH 32.6 H (27.0-32.0) pg Immature Gran # 0.20 H (0.00-0.04) 10*3/uL Neutrophils # (1.80-7.70) 10*3/uL Basophils # (0.00-0.10) 10*3/uL APTT (22.0-30.0) sec VBG pH (7.31-7.41) VBG pCO2 (37-51) mmHg VBG HCO3 (24-28) mmol/L Sodium 133 L (137-145) mmol/L Potassium (3.5-5.1) mmol/L Chloride (98-107) mmol/L Carbon Dioxide 21 L (22-30) mmol/L BUN 33 H (9-20) mg/dL Creatinine 1.41 H (0.66-1.25) mg/dL Glucose 142 H (74-99) mg/dL POC Glucose (mg/dL) (70-110) mg/dL Plasma Lactic Acid Scotty 5.3 H* (0.7-2.0) mmol/L Calcium 8.0 L (8.4-10.2) mg/dL Phosphorus (2.5-4.5) mg/dL ALT 60 H (4-49) U/L Alkaline Phosphatase 233 H (38-126) U/L Total Protein 4.7 L (6.3-8.2) g/dL Albumin 2.6 L (3.5-5.0) g/dL Urine Protein (Negative) Urine Glucose (UA) (Negative) Urine Ketones (Negative) Urine Mucus (None) /hpf 02/09/25 02/09/25 Range/Units 02:44 06:49 WBC (4.50-10.00) 10*3/uL RBC (4.40-5.60) 10*6/uL Hgb (13.0-17.0) g/dL Hct (39.6-50.0) % MCV (80.0-97.0) fL MCH (27.0-32.0) pg Immature Gran # (0.00-0.04) 10*3/uL Neutrophils # (1.80-7.70) 10*3/uL Basophils # (0.00-0.10) 10*3/uL APTT (22.0-30.0) sec VBG pH (7.31-7.41) VBG pCO2 (37-51) mmHg VBG HCO3 (24-28) mmol/L Sodium (137-145) mmol/L Potassium (3.5-5.1) mmol/L Chloride (98-107) mmol/L Carbon Dioxide (22-30) mmol/L BUN (9-20) mg/dL Creatinine (0.66-1.25) mg/dL Glucose (74-99) mg/dL POC Glucose (mg/dL) (70-110) mg/dL Plasma Lactic Acid Scotty 4.9 H* 3.9 H* (0.7-2.0) mmol/L Calcium (8.4-10.2) mg/dL Phosphorus (2.5-4.5) mg/dL ALT (4-49) U/L Alkaline Phosphatase (38-126) U/L Total Protein (6.3-8.2) g/dL Albumin (3.5-5.0) g/dL Urine Protein (Negative) Urine Glucose (UA) (Negative) Urine Ketones (Negative) Urine Mucus (None) /hpf Assessment and Plan Plan: Acute DKA, improved and the patient is currently on Lantus 25 units twice daily and 15 units of NovoLog with meals and insulin scale coverage Severe anion gap metabolic acidosis, recovered Pseudohyponatremia secondary to elevated blood sugars and hyperglycemia, recovered Acute kidney injury, improving. Rule out underlying chronic kidney disease Acute hyperkalemia secondary to anion gap metabolic acidosis CHF with impaired LV function with an ejection fraction of 40% CLL followed up by Dr. Mc on outpatient basis, currently on no treatment Coronary artery disease with previous coronary bypass surgery x 3, back in 2023 Previous history of TIA Hypertension Hyperlipidemia Acid reflux Plan As per the patient out of the intensive care unit Continue Lantus and for now the patient is going to bring in his insulin pump and this will be activated as of tomorrow Monitor anion gap metabolic acidosis Renal function is improving. There may be a component of chronic kidney disease Transfer out of the intensive care unit.
--- NOTE | 2025-02-09 14:16 | P.PN ---
Subjective Progress Note Date: 02/09/25 55-year-old male, history of hypertension, hyperlipidemia, diabetes mellitus, who presents emergency department complaining of nausea, vomiting as well as high blood sugars. Has a history of type 1 diabetes. States insurance denied his prescription for insulin and has been without it for slightly over 24 hours. Was checking his blood sugars at home and they read as high. Has had nonbilious nonbloody emesis. Denies any abdominal pain, shortness of breath, chest pain. Presents for further evaluation at this time. He has a history of heart failure, diabetes, CVA, hypertension, hyperlipidemia. Workup completed in ED reveals blood work with a WBC of 12.1, hemoglobin of 11.3 and platelet count of 332, sodium 125, potassium 6.8, BUNs/creatinine 40/1.52 and blood glucose of 896, PT 10.1 with INR of 0.9, VBG reveals a pH of 7.19, PCO2 of 22 and HCO3 of 9, potassium elevated at 6.8, lactic acid of 2.7, acetones are positive UA is positive for 4+ glucose and 3+ ketones EKG is negative for any acute ST or T wave changes Patient is admitted to ICU for further treatment of hyperkalemia Objective - Vital Signs Vital signs: Vital Signs Temp 97.8 F 02/09/25 08:00 Pulse 83 02/09/25 08:00 Resp 20 02/09/25 08:00 BP 185/102 02/09/25 08:00 Pulse Ox 96 02/09/25 08:00 FiO2 Intake & Output 02/08/25 02/09/25 02/09/25 18:59 06:59 18:59 Intake Total 1437.317 752.761 Output Total 1750 1225 0 Balance -312.683 -472.239 0 Weight 102.512 kg 100.4 kg Intake: IV 1350 750 0.9 600 D5-0.45% NaCl with KCl 750 750 20Meq/l 1,000 ml @ 150 mls/hr IV .Q6H40M [facility] Rx# :[id number] Intake, IV Titration 87.317 2.761 Amount Insulin Regular 100 unit 87.317 2.761 In Sodium Chloride 0.9% 100 ml @ 0.1 UNITS/KG/HR 10.354 mls/hr IV .Q9H46M [facility] Rx#:[id number] Output: Urine 1750 1225 0 Other: Voiding Method Toilet Toilet Toilet Urinal Urinal Urinal # Voids 1 - Exam General: Appears in no acute distress. HEAD: Normal with no signs of head trauma. EYES: PERRLA, EOMI, conjunctiva normal, no discharge. ENT: Hearing grossly intact, normal oropharynx. Dry mucous membranes. RESPIRATORY: Clear breath sounds bilaterally. No wheezes, rales, or rhonchi. C/V: Tachycardic with regular rhythm.. S1 and S2 auscultated, no edema, peripheral pulses 2+ and intact throughout ABD: Abd is soft, nontender, nondistended EXT: Normal range of motion, no obvious deformity SKIN: No rashes or lesions observed on exposed skin. NEURO: Alert and oriented x 4. - Labs CBC & Chem 7: 02/09/25 02:44 02/09/25 02:44 Labs: Abnormal Lab Results - Last 24 Hours (Table) 02/08/25 02/08/25 02/08/25 Range/Units 08:46 08:46 09:13 WBC (4.50-10.00) 10*3/uL RBC (4.40-5.60) 10*6/uL Hgb (13.0-17.0) g/dL Hct (39.6-50.0) % MCH (27.0-32.0) pg Immature Gran # (0.00-0.04) 10*3/uL VBG pH (7.31-7.41) VBG pCO2 (37-51) mmHg VBG HCO3 (24-28) mmol/L Sodium 125 L (137-145) mmol/L Potassium 6.8 H* (3.5-5.1) mmol/L Chloride 93 L (98-107) mmol/L Carbon Dioxide <5 L* (22-30) mmol/L BUN 44 H (9-20) mg/dL Creatinine 1.52 H (0.66-1.25) mg/dL Glucose 896 H* (74-99) mg/dL POC Glucose (mg/dL) (70-110) mg/dL Plasma Lactic Acid Scotty 2.7 H* (0.7-2.0) mmol/L Calcium (8.4-10.2) mg/dL Phosphorus (2.5-4.5) mg/dL ALT 87 H (4-49) U/L Alkaline Phosphatase 307 H (38-126) U/L Total Protein 5.5 L (6.3-8.2) g/dL Albumin 3.4 L (3.5-5.0) g/dL Urine Protein 1+ H (Negative) Urine Glucose (UA) 4+ H (Negative) Urine Ketones 3+ H (Negative) Urine Mucus Rare H (None) /hpf 02/08/25 02/08/25 02/08/25 Range/Units 10:00 11:00 11:10 WBC (4.50-10.00) 10*3/uL RBC (4.40-5.60) 10*6/uL Hgb (13.0-17.0) g/dL Hct (39.6-50.0) % MCH (27.0-32.0) pg Immature Gran # (0.00-0.04) 10*3/uL VBG pH (7.31-7.41) VBG pCO2 (37-51) mmHg VBG HCO3 (24-28) mmol/L Sodium (137-145) mmol/L Potassium (3.5-5.1) mmol/L Chloride (98-107) mmol/L Carbon Dioxide (22-30) mmol/L BUN (9-20) mg/dL Creatinine (0.66-1.25) mg/dL Glucose 666 H* (74-99) mg/dL POC Glucose (mg/dL) >600 H* >600 H* (70-110) mg/dL Plasma Lactic Acid Scotty (0.7-2.0) mmol/L Calcium (8.4-10.2) mg/dL Phosphorus (2.5-4.5) mg/dL ALT (4-49) U/L Alkaline Phosphatase (38-126) U/L Total Protein (6.3-8.2) g/dL Albumin (3.5-5.0) g/dL Urine Protein (Negative) Urine Glucose (UA) (Negative) Urine Ketones (Negative) Urine Mucus (None) /hpf 02/08/25 02/08/25 02/08/25 Range/Units 11:10 11:10 11:27 WBC (4.50-10.00) 10*3/uL RBC (4.40-5.60) 10*6/uL Hgb (13.0-17.0) g/dL Hct (39.6-50.0) % MCH (27.0-32.0) pg Immature Gran # (0.00-0.04) 10*3/uL VBG pH 7.15 L* (7.31-7.41) VBG pCO2 32 L (37-51) mmHg VBG HCO3 11 L (24-28) mmol/L Sodium 131 L (137-145) mmol/L Potassium (3.5-5.1) mmol/L Chloride 95 L (98-107) mmol/L Carbon Dioxide 8 L* (22-30) mmol/L BUN 44 H (9-20) mg/dL Creatinine 1.62 H (0.66-1.25) mg/dL Glucose (74-99) mg/dL POC Glucose (mg/dL) >600 H* (70-110) mg/dL Plasma Lactic Acid Scotty (0.7-2.0) mmol/L Calcium (8.4-10.2) mg/dL Phosphorus 4.9 H (2.5-4.5) mg/dL ALT (4-49) U/L Alkaline Phosphatase (38-126) U/L Total Protein (6.3-8.2) g/dL Albumin (3.5-5.0) g/dL Urine Protein (Negative) Urine Glucose (UA) (Negative) Urine Ketones (Negative) Urine Mucus (None) /hpf 02/08/25 02/08/25 02/08/25 Range/Units 12:13 14:21 15:01 WBC (4.50-10.00) 10*3/uL RBC (4.40-5.60) 10*6/uL Hgb (13.0-17.0) g/dL Hct (39.6-50.0) % MCH (27.0-32.0) pg Immature Gran # (0.00-0.04) 10*3/uL VBG pH (7.31-7.41) VBG pCO2 (37-51) mmHg VBG HCO3 (24-28) mmol/L Sodium (137-145) mmol/L Potassium (3.5-5.1) mmol/L Chloride (98-107) mmol/L Carbon Dioxide (22-30) mmol/L BUN (9-20) mg/dL Creatinine (0.66-1.25) mg/dL Glucose (74-99) mg/dL POC Glucose (mg/dL) 251 H 234 H (70-110) mg/dL Plasma Lactic Acid Scotty 7.8 H* (0.7-2.0) mmol/L Calcium (8.4-10.2) mg/dL Phosphorus (2.5-4.5) mg/dL ALT (4-49) U/L Alkaline Phosphatase (38-126) U/L Total Protein (6.3-8.2) g/dL Albumin (3.5-5.0) g/dL Urine Protein (Negative) Urine Glucose (UA) (Negative) Urine Ketones (Negative) Urine Mucus (None) /hpf 02/08/25 02/08/25 02/08/25 Range/Units 16:11 16:13 16:13 WBC (4.50-10.00) 10*3/uL RBC (4.40-5.60) 10*6/uL Hgb (13.0-17.0) g/dL Hct (39.6-50.0) % MCH (27.0-32.0) pg Immature Gran # (0.00-0.04) 10*3/uL VBG pH (7.31-7.41) VBG pCO2 (37-51) mmHg VBG HCO3 (24-28) mmol/L Sodium 135 L (137-145) mmol/L Potassium (3.5-5.1) mmol/L Chloride (98-107) mmol/L Carbon Dioxide 21 L (22-30) mmol/L BUN 40 H (9-20) mg/dL Creatinine 1.48 H (0.66-1.25) mg/dL Glucose 170 H (74-99) mg/dL POC Glucose (mg/dL) 180 H (70-110) mg/dL Plasma Lactic Acid Scotty 5.4 H* (0.7-2.0) mmol/L Calcium (8.4-10.2) mg/dL Phosphorus (2.5-4.5) mg/dL ALT (4-49) U/L Alkaline Phosphatase (38-126) U/L Total Protein (6.3-8.2) g/dL Albumin (3.5-5.0) g/dL Urine Protein (Negative) Urine Glucose (UA) (Negative) Urine Ketones (Negative) Urine Mucus (None) /hpf 02/08/25 02/08/25 02/08/25 Range/Units 17:07 18:03 18:53 WBC (4.50-10.00) 10*3/uL RBC (4.40-5.60) 10*6/uL Hgb (13.0-17.0) g/dL Hct (39.6-50.0) % MCH (27.0-32.0) pg Immature Gran # (0.00-0.04) 10*3/uL VBG pH (7.31-7.41) VBG pCO2 (37-51) mmHg VBG HCO3 (24-28) mmol/L Sodium (137-145) mmol/L Potassium (3.5-5.1) mmol/L Chloride (98-107) mmol/L Carbon Dioxide (22-30) mmol/L BUN (9-20) mg/dL Creatinine (0.66-1.25) mg/dL Glucose (74-99) mg/dL POC Glucose (mg/dL) 155 H 127 H 115 H (70-110) mg/dL Plasma Lactic Acid Scotty (0.7-2.0) mmol/L Calcium (8.4-10.2) mg/dL Phosphorus (2.5-4.5) mg/dL ALT (4-49) U/L Alkaline Phosphatase (38-126) U/L Total Protein (6.3-8.2) g/dL Albumin (3.5-5.0) g/dL Urine Protein (Negative) Urine Glucose (UA) (Negative) Urine Ketones (Negative) Urine Mucus (None) /hpf 02/08/25 02/08/25 02/08/25 Range/Units 19:22 19:22 19:53 WBC (4.50-10.00) 10*3/uL RBC (4.40-5.60) 10*6/uL Hgb (13.0-17.0) g/dL Hct (39.6-50.0) % MCH (27.0-32.0) pg Immature Gran # (0.00-0.04) 10*3/uL VBG pH (7.31-7.41) VBG pCO2 (37-51) mmHg VBG HCO3 (24-28) mmol/L Sodium 134 L (137-145) mmol/L Potassium (3.5-5.1) mmol/L Chloride (98-107) mmol/L Carbon Dioxide (22-30) mmol/L BUN 37 H (9-20) mg/dL Creatinine 1.43 H (0.66-1.25) mg/dL Glucose 123 H (74-99) mg/dL POC Glucose (mg/dL) 140 H (70-110) mg/dL Plasma Lactic Acid Scotty 2.7 H* (0.7-2.0) mmol/L Calcium 8.1 L (8.4-10.2) mg/dL Phosphorus (2.5-4.5) mg/dL ALT (4-49) U/L Alkaline Phosphatase (38-126) U/L Total Protein (6.3-8.2) g/dL Albumin (3.5-5.0) g/dL Urine Protein (Negative) Urine Glucose (UA) (Negative) Urine Ketones (Negative) Urine Mucus (None) /hpf 02/08/25 02/08/25 02/08/25 Range/Units 20:49 21:59 23:06 WBC (4.50-10.00) 10*3/uL RBC (4.40-5.60) 10*6/uL Hgb (13.0-17.0) g/dL Hct (39.6-50.0) % MCH (27.0-32.0) pg Immature Gran # (0.00-0.04) 10*3/uL VBG pH (7.31-7.41) VBG pCO2 (37-51) mmHg VBG HCO3 (24-28) mmol/L Sodium (137-145) mmol/L Potassium (3.5-5.1) mmol/L Chloride (98-107) mmol/L Carbon Dioxide (22-30) mmol/L BUN (9-20) mg/dL Creatinine (0.66-1.25) mg/dL Glucose (74-99) mg/dL POC Glucose (mg/dL) 193 H 248 H 273 H (70-110) mg/dL Plasma Lactic Acid Scotty (0.7-2.0) mmol/L Calcium (8.4-10.2) mg/dL Phosphorus (2.5-4.5) mg/dL ALT (4-49) U/L Alkaline Phosphatase (38-126) U/L Total Protein (6.3-8.2) g/dL Albumin (3.5-5.0) g/dL Urine Protein (Negative) Urine Glucose (UA) (Negative) Urine Ketones (Negative) Urine Mucus (None) /hpf 02/08/25 02/09/25 02/09/25 Range/Units 23:27 02:44 02:44 WBC 10.22 H (4.50-10.00) 10*3/uL RBC 3.16 L (4.40-5.60) 10*6/uL Hgb 10.3 L (13.0-17.0) g/dL Hct 29.7 L (39.6-50.0) % MCH 32.6 H (27.0-32.0) pg Immature Gran # 0.20 H (0.00-0.04) 10*3/uL VBG pH (7.31-7.41) VBG pCO2 (37-51) mmHg VBG HCO3 (24-28) mmol/L Sodium 133 L (137-145) mmol/L Potassium (3.5-5.1) mmol/L Chloride (98-107) mmol/L Carbon Dioxide 21 L (22-30) mmol/L BUN 33 H (9-20) mg/dL Creatinine 1.41 H (0.66-1.25) mg/dL Glucose 142 H (74-99) mg/dL POC Glucose (mg/dL) (70-110) mg/dL Plasma Lactic Acid Scotty 5.3 H* (0.7-2.0) mmol/L Calcium 8.0 L (8.4-10.2) mg/dL Phosphorus (2.5-4.5) mg/dL ALT 60 H (4-49) U/L Alkaline Phosphatase 233 H (38-126) U/L Total Protein 4.7 L (6.3-8.2) g/dL Albumin 2.6 L (3.5-5.0) g/dL Urine Protein (Negative) Urine Glucose (UA) (Negative) Urine Ketones (Negative) Urine Mucus (None) /hpf 02/09/25 02/09/25 Range/Units 02:44 06:49 WBC (4.50-10.00) 10*3/uL RBC (4.40-5.60) 10*6/uL Hgb (13.0-17.0) g/dL Hct (39.6-50.0) % MCH (27.0-32.0) pg Immature Gran # (0.00-0.04) 10*3/uL VBG pH (7.31-7.41) VBG pCO2 (37-51) mmHg VBG HCO3 (24-28) mmol/L Sodium (137-145) mmol/L Potassium (3.5-5.1) mmol/L Chloride (98-107) mmol/L Carbon Dioxide (22-30) mmol/L BUN (9-20) mg/dL Creatinine (0.66-1.25) mg/dL Glucose (74-99) mg/dL POC Glucose (mg/dL) (70-110) mg/dL Plasma Lactic Acid Scotty 4.9 H* 3.9 H* (0.7-2.0) mmol/L Calcium (8.4-10.2) mg/dL Phosphorus (2.5-4.5) mg/dL ALT (4-49) U/L Alkaline Phosphatase (38-126) U/L Total Protein (6.3-8.2) g/dL Albumin (3.5-5.0) g/dL Urine Protein (Negative) Urine Glucose (UA) (Negative) Urine Ketones (Negative) Urine Mucus (None) /hpf Assessment and Plan Assessment: 1. Acute diabetic ketoacidosis; patient received IV insulin 10 units in ED; sodium bicarbonate 1 amp x 1 -Blood glucose upon arrival to ED was above 800 with positive blood acetone acetone; urine is positive for ketones and 4+ glucose - Patient has been placed on IV fluid; IV insulin per protocol; monitor BMP with plans to adjust IV insulin infusion per protocol - Plan to initiate home regimen once DKA resolves 2. Hyperkalemia; associated with DKA; patient received IV insulin and Lokelma in ED - Will monitor electrolytes and renal function closely 3. Hypertension; hydralazine 50 mg p.o. 3 times daily; Lasix 40 mg p.o. daily 4. CAD/CHF; Plavix 75 mg daily; Lasix 40 mg daily 5. GERD/gastritis; continue with Protonix 40 mg daily 6. Lactic acidosis; related to acute DKA; continue to monitor DVT prophylaxis, SCD CODE STATUS;
[2025-02-09 16:18] LABS: Glucose,Whole Blood 97 mg/dL (70-110)
[2025-02-09 20:46] LABS: Glucose,Whole Blood 67 mg/dL (70-110)
[2025-02-09 21:08] LABS: Glucose,Whole Blood 75 mg/dL (70-110)
[2025-02-09 21:28] LABS: Glucose,Whole Blood 98 mg/dL (70-110)
[2025-02-10] MEDS: hydrALAZINE HCL 20 MG/ML 1 ML VIAL IVP STA (00:58)
[2025-02-10 05:56] LABS: Glucose,Whole Blood 99 mg/dL (70-110)
[2025-02-10] MEDS: INSULIN GLARGINE (LANTUS) 100 UNIT/ML SYR SQ SCH ×2 (08:50→18:18)
[2025-02-10 08:51] LABS: Glucose,Whole Blood 261 mg/dL (70-110)
[2025-02-10] MEDS: INSULIN LISPRO (HumaLOG) 100 UNIT/ML 10 mL VL SQ SCH ×2 (08:51→17:33)
--- NOTE | 2025-02-10 10:55 | P.PN ---
Subjective Patient is seen for follow-up for acute kidney injury and severe metabolic acidosis associated with DKA and lactic acidosis. Serum creatinine has improved and staying at about 1.4 to 1.5 mg/dL. Blood pressure was better controlled. No significant complaints today Objective - Vital Signs Vital signs: Vital Signs Temp 98.2 F 02/10/25 08:00 Pulse 74 02/10/25 08:00 Resp 16 02/10/25 08:00 BP 178/90 02/10/25 08:00 Pulse Ox 96 02/10/25 08:00 FiO2 Intake & Output 02/09/25 02/10/25 02/10/25 18:59 06:59 18:59 Output Total 1450 Balance -1450 Weight 97.8 kg 97.8 kg Output: Urine 1450 Other: Voiding Method Toilet Toilet Toilet Urinal Urinal Urinal # Voids 1 2 - Exam Patient is awake, comfortable, no acute distress Examination of the heart S1 and S2 Examination of the lungs bilateral breath sounds are heard Abdomen is soft nontender Examination of lower extremities shows trace edema ROD PILER exam is grossly intact - Labs CBC & Chem 7: 02/09/25 02:44 02/09/25 02:44 Labs: Abnormal Lab Results - Last 24 Hours (Table) 02/09/25 02/09/25 02/09/25 Range/Units 10:43 11:34 20:44 POC Glucose (mg/dL) 142 H 67 L (70-110) mg/dL Plasma Lactic Acid Scotty 4.3 H* (0.7-2.0) mmol/L 02/10/25 Range/Units 08:49 POC Glucose (mg/dL) 261 H (70-110) mg/dL Plasma Lactic Acid Scotty (0.7-2.0) mmol/L Assessment and Plan Assessment: 1. Acute kidney injury associated with hypovolemia and DKA, improved with IV hydration. UA shows 1+ protein no blood. 2. DKA currently resolved and patient is off of IV fluids 3. Severe anion gap metabolic acidosis secondary to DKA and lactic acidosis, resolved 4. Pseudohyponatremia associated with severe hyperglycemia. Corrected sodium is 138 for blood glucose of 896. 5. Hyperkalemia associated with severe metabolic acidosis, DKA and hyperglycemia. Currently resolved 6. Hypertension with CKD stage IIIa, uncontrolled 7. CKD stage IIIa with baseline creatinine about 1.4 to 1.5 mg/dL secondary to diabetic kidney disease. Plan: Resume home dose of loop diuretics Check magnesium level due to persistent lactic acidosis Continue to encourage increased oral intake Continue amlodipine Patient will need to start ANNALISA inhibitors/angiotensin receptor blockers as well as SGLT2 inhibitors as outpatient Discharge planning to help with medications upon discharge
[2025-02-10 11:37] LABS: Glucose,Whole Blood 139 mg/dL (70-110)
--- NOTE | 2025-02-10 12:25 | P.PN ---
Subjective Progress Note Date: 02/10/25 Principal diagnosis: Acute DKA 55-year-old male patient with known history of type 1 diabetes mellitus, maintained on insulin pump, presented to the Emergency Department for hypo glycemia. The patient ran out of his insulin supplies he has not received any treatment for the past 24 hours. He was developing hyperglycemia and the patient was becoming progressively more nauseous. No abdominal pain. No chest pain. No shortness of breath. No altered mentation. In the ED, the patient was found to have severe anion gap metabolic acidosis. The patient had a sodium level of 125, potassium was at 6.8, serum bicarb was less than 5, BUN was 44 with a creatinine of 1.5. Blood sugar was 896. LFTs were disturbed with an AST of 51, ALT of 87 and alkaline phosphatase of 307. Lactic acid level was at 2.7. Based on that, ICU consultation was requested. The white cell count was at 12.1 with a hemoglobin of 11.3. Chest x-ray shows no acute abnormalities and the patient is currently on room air oxygen. The patient was given IV fluids, received a total of 2 L and subsequently started on normal saline at rate of 150 cc an hour. Started insulin drip for blood sugar control and anion gap is being monitored. UA was positive for plus for glucose and positive ketones. EKG showed no acute changes regarding his hyperkalemia. Nevertheless, the patient was treated and the patient was given bicarb IV in addition to calcium gluconate and insulin drip. On today's evaluation of 02/09/2025, the patient has recovered from his DKA. The patient was taken off the insulin drip and the patient was started on Lantus insulin. Noted the patient has been taking insulin pump on outpatient basis and the patient did not have the medication to continue treatment and for that reas on the patient went into DKA. He is awake and alert. He is on room air oxygen. Blood sugars under adequate control. Producing adequate amount of urine output. No nausea. No emesis. No chest pain. No shortness of breath. Hemodynamically stable. No other significant events overnight. On today's blood work, the patient has a blood sugar of 142, white cell count of 10.2 with a heme of 7.3 and a platelet count of 55, BUN is 33 and creatinine is 1.4 and a sodium level is at 133. Potassium is at 4.4. The patient is currently on Lantus 25 units twice daily and NovoLog 15 units with meals and insulin scale coverage. Patient was seen today on 02/10/2025, patient is doing well, remains in the ICU, he seems to have fully recovered from his DKA. Patient is on Lantus insulin and is also on a sliding scale coverage doing great, asymptomatic, hence I will transfer the patient out of the ICU to medical floor, admitting physician may consider sending the patient home today. Labs from today were reviewed blood sugar is 139. Objective - Vital Signs Vital signs: Vital Signs Temp 98.2 F 02/10/25 08:00 Pulse 74 02/10/25 08:00 Resp 16 02/10/25 08:00 BP 147/85 02/10/25 11:25 Pulse Ox 96 02/10/25 08:00 FiO2 Intake & Output 02/09/25 02/10/25 02/10/25 18:59 06:59 18:59 Output Total 1450 Balance -1450 Weight 97.8 kg 97.8 kg Output: Urine 1450 Other: Voiding Method Toilet Toilet Toilet Urinal Urinal Urinal # Voids 1 2 - Exam Physical exam: Revealed 55-year-old white male in no distress Head: Atraumatic, normocephalic EENT: PERRLA, EOMI, nonicteric, no neck masses or JVD. Pulmonary: Clear breath sound bilaterally no crackles rhonchi or wheezes Cardiac: Distant S1-S2, no S3 gallop, no murmur. Abdomen: Soft nontender no guarding no rebound no guarding. Extremities no clubbing edema or cyanosis, good pulses bilaterally. Neurologic: Alert oriented x 3 no focal deficits. Psychiatric: Normal mood, affect and no mental status examination. Skin: No rashes. - Labs CBC & Chem 7: 02/09/25 02:44 02/09/25 02:44 Labs: Abnormal Lab Results - Last 24 Hours (Table) 02/09/25 02/10/25 02/10/25 Range/Units 20:44 08:49 11:35 POC Glucose (mg/dL) 67 L 261 H 139 H (70-110) mg/dL Assessment and Plan Assessment: Impression: Acute diabetic ketoacidosis secondary to noncompliance with the insulin as the patient ran out of his insulin Severe anion gap metabolic acidosis, resolved Pseudohyponatremia, resolved Acute kidney injury, improved History of congestive heart failure and LV dysfunction with ejection fraction of 40% History of CLL being followed by hematology on outpatient basis History of underlying coronary artery disease and previous CABG x 3 in 2023 History of TIA Recommendation: Continue present supportive care measures Continue insulin/sliding scale Consider discharge planning Will transfer the patient out of the ICU to regular medical floor Time with Patient: Less than 30
[2025-02-10 16:31] LABS: Glucose,Whole Blood 77 mg/dL (70-110)
--- NOTE | 2025-02-10 17:14 | P.PN ---
Subjective 55-year-old male, history of hypertension, hyperlipidemia, diabetes mellitus, who presents emergency department complaining of nausea, vomiting as well as high blood sugars. Has a history of type 1 diabetes. States insurance denied his prescription for insulin and has been without it for slightly over 24 hours. Was checking his blood sugars at home and they read as high. Has had nonbilious nonbloody emesis. Denies any abdominal pain, shortness of breath, chest pain. Presents for further evaluation at this time. He has a history of heart failure, diabetes, CVA, hypertension, hyperlipidemia. Workup completed in ED reveals blood work with a WBC of 12.1, hemoglobin of 11.3 and platelet count of 332, sodium 125, potassium 6.8, BUNs/creatinine 40/1.52 and blood glucose of 896, PT 10.1 with INR of 0.9, VBG reveals a pH of 7.19, PCO2 of 22 and HCO3 of 9, potassium elevated at 6.8, lactic acid of 2.7, acetones are positive UA is positive for 4+ glucose and 3+ ketones EKG is negative for any acute ST or T wave changes Patient is admitted to ICU for further treatment of hyperkalemia 02/10 Patient is awake alert. He presents because his insurance company of Stopped paying for his insulin for his insulin pump so he ran out of his insulin and presents with DKA. Currently his anion gap closed and is asymptomatic. We put him back on Lantus 10 units twice daily with short acting insulin 10 units 3 times daily AC which makes a total of about 50 units. Patient states that at baseline he will used to take 45 to 75 units. Possible discharge in 24 to 48 hours if remains stable. There is also possibility of discharge today if your sugar remains stable and asymptomatic Patient clinically other than that doing well. On further follow-up his sugar was running on the low side after he got 10 units of Lantus in the morning and 10 units with meal his sugar was 77 therefore we going to lower his insulin with meals down to 5 units. Also will change Lantus 10 units twice daily to 10 units daily. Review of systems CONSTITUTIONAL: No fever, no malaise, no fatigue. HEENT: No recent visual problems or hearing problems. Denied any sore throat. CARDIOVASCULAR: No orthopnea, PND, no palpitations, no syncope. PULMONARY: No shortness of breath, no cough, no hemoptysis. GASTROINTESTINAL: No diarrhea, no nausea, no vomiting, no abdominal pain. Normoactive bowel sounds. NEUROLOGICAL: No headaches, no weakness, no numbness. HEMATOLOGICAL: Denies any bleeding or petechiae. Active Medications Generic Name Dose Route Start Last Admin Trade Name Freq PRN Reason Stop Dose Admin Acetaminophen 650 mg 02/08/25 09:50 Acetaminophen Tab 325 Mg Tab PO Q4HR PRN Fever and/or Mild Pain Amlodipine Besylate 5 mg 02/09/25 10:30 02/10/25 08:52 Amlodipine 5 Mg Tab PO 5 mg DAILY [facility] Administration Clopidogrel Bisulfate 75 mg 02/09/25 09:00 02/10/25 08:52 Clopidogrel 75 Mg Tab PO 75 mg DAILY [facility] Administration Dextrose/Water 25 ml 02/08/25 09:44 Dextrose 50% Syringe 50 Ml IVP PER PROTOCOL PRN Hypoglycemia Protocol Dextrose/Water 50 ml 02/08/25 09:44 Dextrose 50% Syringe 50 Ml IVP PER PROTOCOL PRN Hypoglycemia Protocol Furosemide 40 mg 02/11/25 09:00 Furosemide 40 Mg Tab PO DAILY [facility] Hydralazine HCl 50 mg 02/08/25 16:00 02/10/25 15:58 Hydralazine Hcl 50 Mg Tab PO 50 mg TID [facility] Administration Insulin Glargine 10 unit 02/11/25 09:00 Insulin Glargine (Lantus) 100 Unit/Ml Syr SQ DAILY [facility] Insulin Human Lispro 0 unit 02/09/25 07:30 02/10/25 12:11 Insulin Lispro (Humalog) 100 Unit/Ml 10 Ml Vl SQ Not Given ACHS [facility] Protocol Insulin Human Lispro 5 unit 02/10/25 17:30 Insulin Lispro (Humalog) 100 Unit/Ml 10 Ml Vl SQ AC-TID [facility] Miscellaneous Information 1 each 02/08/25 09:44 Magnesium Replacement Protocol 1 Each Misc MISCELLANE DAILY PRN Per Protocol Protocol Miscellaneous Information 1 each 02/08/25 09:44 Potassium Replacement Protocol 1 Each Misc MISCELLANE DAILY PRN Per Protocol Naloxone HCl 0.2 mg 02/08/25 09:50 Naloxone 0.4 Mg/Ml 1 Ml Vial IV Q2M PRN Opioid Reversal Ondansetron HCl 4 mg 02/08/25 09:52 Ondansetron 4 Mg/2 Ml Vial IVP Q8HR PRN Nausea And Vomiting Pantoprazole Sodium 40 mg 02/09/25 09:00 02/10/25 08:46 Pantoprazole 40 Mg/10 Ml Vial IV 40 mg DAILY [facility] Administration Objective - Vital Signs Vital signs: Vital Signs Temp 98.2 F 02/10/25 08:00 Pulse 74 02/10/25 08:00 Resp 16 02/10/25 08:00 BP 147/85 02/10/25 11:25 Pulse Ox 96 02/10/25 08:00 FiO2 Intake & Output 02/09/25 02/10/25 02/10/25 18:59 06:59 18:59 Output Total 1450 Balance -1450 Weight 97.8 kg 97.8 kg Output: Urine 1450 Other: Voiding Method Toilet Toilet Toilet Urinal Urinal Urinal # Voids 1 2 - Exam GENERAL: The patient is alert and oriented x3, not in any acute distress. Well developed, well nourished. HEENT: Pupils are round and equally reacting to light. EOMI. No scleral icterus. No conjunctival pallor. Normocephalic, atraumatic. No pharyngeal erythema. No thyromegaly. CARDIOVASCULAR: S1 and S2 present. No murmurs, rubs, or gallops. PULMONARY: Chest is clear to auscultation, no wheezing , no crackles. ABDOMEN: Soft, nontender, nondistended, normoactive bowel sounds. No palpable organomegaly. MUSCULOSKELETAL: No joint swelling or deformity. EXTREMITIES: No cyanosis, clubbing, or pedal edema. NEUROLOGICAL: Gross neurological examination did not reveal any focal deficits. SKIN: No rashes. no petechiae. - Labs CBC & Chem 7: 02/09/25 02:44 02/09/25 02:44 Labs: Abnormal Lab Results - Last 24 Hours (Table) 02/09/25 02/10/25 02/10/25 Range/Units 20:44 08:49 11:35 POC Glucose (mg/dL) 67 L 261 H 139 H (70-110) mg/dL Assessment and Plan Assessment: 1. Acute diabetic ketoacidosis; patient received IV insulin 10 units in ED; sodium bicarbonate 1 amp x 1 -Blood glucose upon arrival to ED was above 800 with positive blood acetone acetone; urine is positive for ketones and 4+ glucose - Patient has been placed on IV fluid; IV insulin per protocol; monitor BMP with plans to adjust IV insulin infusion per protocol - Plan to initiate home regimen once DKA resolves -Stop insulin drip and start the patient on Lantus 10 units daily and 5 units with meal with close monitoring of glucose 2. Hyperkalemia; associated with DKA; patient received IV insulin and Lokelma in ED - Will monitor electrolytes and renal function closely 3. Hypertension; hydralazine 50 mg p.o. 3 times daily; Lasix 40 mg p.o. daily 4. CAD/CHF; Plavix 75 mg daily; Lasix 40 mg daily 5. GERD/gastritis; continue with Protonix 40 mg daily 6. Lactic acidosis; related to acute DKA; continue to monitor DVT prophylaxis, SCD CODE STATUS;
[2025-02-10 20:17] LABS: Glucose,Whole Blood 104 mg/dL (70-110)
[2025-02-10] MEDS: HEPARIN SODIUM,PORCINE 5,000 UNIT/ML 1 ML VIAL SQ SCH (20:47)
[2025-02-11 07:24] LABS: Glucose,Whole Blood 265 mg/dL (70-110)
[2025-02-11] MEDS: INSULIN GLARGINE (LANTUS) 100 UNIT/ML SYR SQ SCH (07:56)
[2025-02-11] MEDS: FUROSEMIDE 40 MG TAB PO SCH (07:57)
--- NOTE | 2025-02-11 09:09 | P.PN ---
Subjective Progress Note Date: 02/11/25 55-year-old male patient with known history of type 1 diabetes mellitus, maintained on insulin pump, presented to the Emergency Department for hypoglycemia. The patient ran out of his insulin supplies he has not received any treatment for the past 24 hours. He was developing hyperglycemia and the patient was becoming progressively more nauseous. No abdominal pain. No chest pain. No shortness of breath. No altered mentation. In the ED, the patient was found to have severe anion gap metabolic acidosis. The patient had a sodium level of 125, potassium was at 6.8, serum bicarb was less than 5, BUN was 44 with a creatinine of 1.5. Blood sugar was 896. LFTs were disturbed with an AST of 51, ALT of 87 and alkaline phosphatase of 307. Lactic acid level was at 2.7. Based on that, ICU consultation was requested. The white cell count was at 12.1 with a hemoglobin of 11.3. Chest x-ray shows no acute abnormalities and the patient is currently on room air oxygen. The patient was given IV fluids, received a total of 2 L and subsequently started on normal saline at rate of 150 cc an hour. Started insulin drip for blood sugar control and anion gap is being monitored. UA was positive for plus for glucose and positive ketones. EKG showed no acute changes regarding his hyperkalemia. Nevertheless, the patient was treated and the patient was given bicarb IV in addition to calcium gluconate and insulin drip. On today's evaluation of 02/09/2025, the patient has recovered from his DKA. The patient was taken off the insulin drip and the patient was started on Lantus insulin. Noted the patient has been taking insulin pump on outpatient basis and the patient did not have the medication to continue treatment and for that reason the patient went into DKA. He is awake and alert. He is on room air oxygen. Blood sugars under adequate control. Producing adequate amount of urine output. No nausea. No emesis. No chest pain. No shortness of breath. Hemodynamically stable. No other significant events overnight. On today's blood work, the patient has a blood sugar of 142, white cell count of 10.2 with a heme of 7.3 and a platelet count of 55, BUN is 33 and creatinine is 1.4 and a sodium level is at 133. Potassium is at 4.4. The patient is currently on Lantus 25 units twice daily and NovoLog 15 units with meals and insulin scale coverage. Patient was seen today on 02/10/2025, patient is doing well, remains in the ICU, he seems to have fully recovered from his DKA. Patient is on Lantus insulin and is also on a sliding scale coverage doing great, asymptomatic, hence I will transfer the patient out of the ICU to medical floor, admitting physician may consider sending the patient home today. Labs from today were reviewed blood sugar is 139. The patient is seen today February 11, 2025 in follow-up on the regular medical floor. He was transferred out of the intensive care unit yesterday. He is currently sitting up in bed. Awake and alert in no acute distress. He denies any shortness of breath, cough or congestion. He is maintaining O2 saturations in the 90s on room air oxygen. He is afebrile. Hemodynamically stable. Glucose 265. He remains on Lantus insulin 10 units subcu daily along with a Humalog sliding scale. Heparin for DVT prophylaxis. Protonix for GI prophylaxis. He remains on oral diuretics. Objective - Vital Signs Vital signs: Vital Signs Temp 97.7 F 02/11/25 07:31 Pulse 98 02/11/25 07:31 Resp 20 02/11/25 07:31 BP 182/95 02/11/25 07:31 Pulse Ox 99 02/11/25 07:31 FiO2 Intake & Output 02/10/25 02/11/25 02/11/25 18:59 06:59 18:59 Intake Total 240 Balance 240 Weight 97.8 kg Intake: Oral 240 Other: Voiding Method Toilet Toilet Urinal Urinal # Voids 2 2 - Exam GENERAL EXAM: Alert, active, very pleasant 55-year-old male, on room air oxygen, comfortable in no apparent distress. HEAD: Normocephalic. EYES: Normal reaction of pupils, equal size. NOSE: Clear with pink turbinates. THROAT: No erythema or exudates. NECK: No masses, no JVD. CHEST: No chest wall deformity. LUNGS: Equal air entry with no crackles, wheeze, rhonchi or dullness. CVS: S1 and S2 normal with no audible murmur, regular rhythm. ABDOMEN: No hepatosplenomegaly, normal bowel sounds, no guarding or rigidity. SPINE: No scoliosis or deformity SKIN: No rashes CENTRAL NERVOUS SYSTEM: No focal deficits, tone is normal in all 4 extremities. EXTREMITIES: There is no peripheral edema. No clubbing, no cyanosis. Peripheral pulses are intact. - Labs CBC & Chem 7: 02/09/25 02:44 02/09/25 02:44 Labs: Abnormal Lab Results - Last 24 Hours (Table) 02/10/25 02/11/25 Range/Units 11:35 07:23 POC Glucose (mg/dL) 139 H 265 H (70-110) mg/dL Assessment and Plan Assessment: Acute diabetic ketoacidosis secondary to noncompliance with the insulin as the patient ran out of his insulin Severe anion gap metabolic acidosis, resolved Pseudohyponatremia, resolved Acute kidney injury, improved History of congestive heart failure and LV dysfunction with ejection fraction of 40% History of CLL being followed by hematology on outpatient basis History of underlying coronary artery disease and previous CABG x 3 in 2023 History of TIA Plan: The patient was seen and evaluated Labs and medications reviewed Cleared for discharge He did receive a text that his insulin is available at the pharmacy He does have a 3-month supply available He will follow-up closely with his PCP Follow closely with his social services counselor Educated regarding the importance of medication compliance He verbalizes understanding and is agreeable to the plan This patient was seen independently by the pulmonary nurse practitioner addressing pulmonary/critical care issues I have personally seen and examined the patient, performed the documentation and the assessment and plan as written. Number of minutes spent on the visit: 25 Dictation was produced using [employer] dictation software. Please excuse any grammatical, word or spelling errors.
[2025-02-11 11:01] LABS: Glucose,Whole Blood 168 mg/dL (70-110)
[2025-02-11 12:32] LABS: Glucose,Whole Blood 156 mg/dL (70-110)
[2025-02-11] MEDS: INSULIN LISPRO (HumaLOG) 100 UNIT/ML 10 mL VL SQ SCH (13:00)
[2025-02-11] MEDS: amLODIPine 5 MG TAB PO STA (13:08)
[2025-02-11 13:23] VITALS: BP 170/91; PULSE 69; RESP 18; TEMP 98.2
[2025-02-11 13:31] LABS: African American GFR (CKD) 63 (>60 ml/min/1.73 sqM); Anion Gap 5 mmol/L; Blood Urea Nitrogen 21 mg/dL (9-20); Calcium 8.9 mg/dL (8.4-10.2); Carbon Dioxide 28 mmol/L (22-30); Chloride 105 mmol/L (98-107); Glucose 150 mg/dL (74-99); Non-African American GFR(CKD) 55 (>60 ml/min/1.73 sqM); Potassium 4.5 mmol/L (3.5-5.1); Sodium 138 mmol/L (137-145)
== END 2025-02-11 16:39 | disposition home or self-care (01) | DRG 638 ==
LOC: EC 08:18 → 2SICU 09:50 → 5NMEDONC 02-10 18:52
PROVIDERS: ADMIT Hospitalist; ATTEND Hospitalist
DX: E10.10 Type 1 diabetes mellitus with ketoacidosis without coma (principal); I13.0 Hypertensive heart and chronic kidney disease with heart failure and stage 1 through stage 4 chronic kidney disease, or unspecified chronic kidney disease; I50.9 Heart failure, unspecified; N17.9 Acute kidney failure, unspecified; N18.31 Chronic kidney disease, stage 3a; E10.22 Type 1 diabetes mellitus with diabetic chronic kidney disease; Z79.4 Long term (current) use of insulin; E87.5 Hyperkalemia; E87.8 Other disorders of electrolyte and fluid balance, not elsewhere classified; E86.0 Dehydration; E78.5 Hyperlipidemia, unspecified; I25.10 Atherosclerotic heart disease of native coronary artery without angina pectoris; K21.9 Gastro-esophageal reflux disease without esophagitis; K29.70 Gastritis, unspecified, without bleeding; E86.1 Hypovolemia; T38.3X6A Underdosing of insulin and oral hypoglycemic [antidiabetic] drugs, initial encounter; Z91.138 Patient's unintentional underdosing of medication regimen for other reason; Z59.71 Insufficient health insurance coverage; Z96.41 Presence of insulin pump (external) (internal); Z96.1 Presence of intraocular lens; Z79.02 Long term (current) use of antithrombotics/antiplatelets; Z79.899 Other long term (current) drug therapy; Z86.73 Personal history of transient ischemic attack (TIA), and cerebral infarction without residual deficits; Z95.1 Presence of aortocoronary bypass graft; Z88.8 Allergy status to other drugs, medicaments and biological substances; Z85.6 Personal history of leukemia; Z80.6 Family history of leukemia; Z83.3 Family history of diabetes mellitus
CPT/HCPCS: 36415; 71045; 80048; 80051; 80053; 81001; 82009; 82150; 82565; 82803; 82947; 83605; 83690; 83735; 84100; 84132; 84520; 85025; 85610; 85730; 93005; 96365; 96366; 96375; 99291